=== PATIENT | male | born 1960 | race African-American/Black ===

== ENCOUNTER 2016-08-17 12:45 | Inpatient (IN) | payer OTHER ==
[2016-08-17 13:27] VITALS: BMI 25.5
--- NOTE | 2016-08-17 14:39 | HP ---
CIWA Score - CIWA Score Nausea/Vomitin (& DIARRHEA) Muscle Tremors: 4-Moderate,w/Arms Extend Anxiety: 5 Agitation: 5 Paroxysmal Sweats: 3 Orientation: 0-Oriented Tacttile Disturbances: 1-Very Mild Itch/Numbness Auditory Disturbances: 0-None Visual Disturbances: 0-None Headache: 0-None Present CIWA-Ar Total Score: 21 Admission ROS BHS - HPI Chief Complaint: WITHDRAWAL SX. Allergies/Adverse Reactions: Allergies Allergy/AdvReac Type Severity Reaction Status Date / Time No Known Allergies Allergy Verified 04/19/16 18:57 History of Present Illness: 56 Y/O MAN WITH A LONG HX. OF ALCOHOLISM IS ADMITTED FOR DETOX.PT. HAS BEEN IN PREVIOUS DENIES SIGNIFICANT RECOVERY TIME. Exam Limitations: No Limitations - Ebola screening Have you traveled outside of the country in the last 21 days: No Have you had contact with anyone from an Ebola affected area: No Have you been sick,other than usual withdrawal symptoms: No Do you have a fever: No - Review of Systems Constitutional: Diaphoresis EENT: reports: No Symptoms Reported Respiratory: reports: No Symptoms reported Cardiac: reports: No Symptoms Reported GI: reports: Diarrhea, Nausea, Abdominal cramping : reports: Frequency Musculoskeletal: reports: No Symptoms Reported Integumentary: reports: Sweating Neuro: reports: Tingling, Tremors Endocrine: reports: No Symptoms Reported Hematology: reports: No Symptoms Reported Psychiatric: reports: No Sypmtoms Reported Other Systems: Reviewed and Negative Patient History - Patient Medical History Hx Anemia: No Hx Asthma: No Hx Chronic Obstructive Pulmonary Disease (COPD): No Hx Cancer: No Hx Cardiac Disorders: No Hx Congestive Heart Failure: No Hx Hypertension: Yes Hx Hypercholesterolemia: Yes (on med) Hx Pacemaker: No HX Cerebrovascular Accident: No Hx Seizures: No Hx Dementia: No Hx Diabetes: No Hx Gastrointestinal Disorders: No Hx Liver Disease: No Hx Genitourinary Disorders: No Hx Sexually Transmitted Disorders: Yes (SYPHILLIS) Hx Renal Disease (ESRD): No Hx Thyroid Disease: No Hx Human Immunodeficiency Virus (HIV): Yes (since 1989) Hx Hepatitis C: Yes (TREATED IN 2014) Hx Depression: No Hx Suicide Attempt: No Hx Bipolar Disorder: No Hx Schizophrenia: No - Patient Surgical History Past Surgical History: No Hx Neurologic Surgery: No Hx Cataract Extraction: No Hx Cardiac Surgery: No Hx Lung Surgery: No Hx Breast Surgery: No Hx Breast Biopsy: No Hx Abdominal Surgery: No Hx Appendectomy: No Hx Cholecystectomy: No Hx Genitourinary Surgery: No Hx Section: No Hx Orthopedic Surgery: No Anesthesia Reaction: No - PPD History Previous Implant?: Yes Documented Results: Negative w/proof Implanted On Prior [facility] Admission?: Yes Date: 08/13/15 Results: 0 mm PPD to be Administered?: Yes - Smoking Cessation Smoking history: Current every day smoker Have you smoked in the past 12 months: Yes Aproximately how many cigarettes per day: 20 Cigars Per Day: 0 Hx Chewing Tobacco Use: No Initiated information on smoking cessation: Yes 'Breaking Loose' booklet given: 08/17/16 - Substance & Tx. History Hx Alcohol Use: Yes Hx Substance Use: Yes Substance Use Type: Alcohol, Cocaine, Marijuana Hx Substance Use Treatment: Yes (DETOX) - Substances Abused Alcohol Route: Oral Frequency: Daily Amount used: BEER 1-2 (6PACK) Age of first use: 12 Date of Last Use: 08/17/16 Crack Route: Smoking Frequency: 1-2 times per week Amount used: $100.00 Age of first use: 40 Date of Last Use: 08/16/16 Marijuana/Hashish Route: Smoking Frequency: Daily Amount used: $10.00 Age of first use: 13 Date of Last Use: 08/17/16 Family Disease History - Family Disease History Family Disease History: Heart Disease: Mother (HTN) Admission Physical Exam BHS - Vital Signs Vital Signs: Vital Signs - 24 hr 08/17/16 13:25 Temperature 96.9 F L Pulse Rate 101 H Respiratory 20 Rate Blood Pressure 112/83 - Physical General Appearance: Yes: Alcohol on Breath, Intoxicated, Tremorous, Irritable, Sweating, Anxious HEENTM: Yes: Within Normal Limits Respiratory: Yes: Chest Non-Tender, Lungs Clear, Normal Breath Sounds Neck: Yes: Supple Breast: Yes: Breast Exam Deferred Cardiology: Yes: Regular Rhythm, Regular Rate, S1, S2 Abdominal: Yes: Normal Bowel Sounds, Non Tender, Soft Genitourinary: Yes: Within Normal Limits Back: Yes: Within Normal Limits Musculoskeletal: Yes: Within Normal Limits Extremities: Yes: Tremors Neurological: Yes: Fully Oriented, Alert Integumentary: Yes: Diaphoresis Lymphatic: Yes: Within Normal Limits - Diagnostic (1) Cannabis dependence Current Visit: Yes Status: Acute (2) Cocaine dependence Current Visit: Yes Status: Acute (3) Nicotine dependence Current Visit: Yes Status: Acute Qualifiers: Nicotine product type: cigarettes Substance use status: uncomplicated Qualified Code(s): F17.210 - Nicotine dependence, cigarettes, uncomplicated (4) Alcohol dependence with uncomplicated withdrawal Current Visit: Yes Status: Chronic (5) Essential hypertension Current Visit: Yes Status: Chronic (6) Human immunodeficiency virus infection Current Visit: Yes Status: Chronic Comment: own meds (7) hypercholesterolemia Current Visit: Yes Status: Chronic Cleared for Admission [facility] - Detox or Rehab [facility] Level of Care: Medically Managed Detox Regimen/Protocol: Librium [facility] Breath Alcohol Content Breath Alcohol Content: 0.152 Urine Drug Screen - Results Drug Screen Negative: No Urine Drug Screen Results: THC-Marijuana, SERAFIN-Cocaine, BZO-Benzodiazepines
[2016-08-17] MEDS ORDERED: hydrOXYzine PAMOATE 50 MG CAPSULE (FP) PO PRN (14:51)
[2016-08-17] MEDS ORDERED: NICOTINE POLACRILEX 2 MG GUM BC PRN (14:51)
[2016-08-17] MEDS ORDERED: IBUPROFEN 400 MG TABLET (FP) PO PRN (14:51)
[2016-08-17] MEDS ORDERED: LOPERAMIDE HCL 2 MG CAPSULE PO PRN (14:51)
[2016-08-17] MEDS ORDERED: guaiFENesin/D-METHORPHAN HB 10 ML UNIT-DOSE CUPS PO PRN (14:51)
[2016-08-17] MEDS ORDERED: MENTHOL/PHENOL 1 EACH UD MM PRN (14:51)
[2016-08-17] MEDS ORDERED: chlordiazePOXIDE HCL 25 MG CAPSULE PO PRN (14:51)
[2016-08-17] MEDS ORDERED: P-EPHED 60MG/TRIPROLIDI 2.5MG TABLET PO PRN (14:51)
[2016-08-17] MEDS ORDERED: chlordiazePOXIDE HCL 25 MG CAPSULE PO ONE (14:51)
[2016-08-17] MEDS ORDERED: MAGNESIUM HYDROX 2400MG/30ML ORAL SUSPENSION 30 ML CUP PO PRN (14:51)
[2016-08-17] MEDS ORDERED: ACETAMINOPHEN 325 MG TABLET (FP) PO PRN (14:51)
[2016-08-17] MEDS ORDERED: MAGNESIUM CITRATE 300 ML BOTTLE PO PRN (14:51)
[2016-08-17] MEDS: chlordiazePOXIDE HCL 25 MG CAPSULE PO SCH ×2 (17:15→22:42)
[2016-08-17] MEDS: NICOTINE 21 MG/24 HOURS TOPICAL PATCH TD SCH (17:21)
[2016-08-17] MEDS: RALTEGRAVIR POTASSIUM 400 MG TAB PO SCH (22:41)
[2016-08-17] MEDS: THIAMINE HCL 100 MG TABLET (FP) PO SCH (22:41)
[2016-08-17] MEDS: ATORVASTATIN CA 20 MG TABLET (FP) PO SCH (22:41)
[2016-08-17] MEDS: diphenhydrAMINE HCL 50 MG CAPSULE PO PRN (22:43)
[2016-08-17 22:57] LABS: URINE APPEARANCE CLEAR; URINE BILIRUBIN NEGATIVE (NEGATIVE); URINE COLOR STRAW; URINE GLUCOSE (UA) NEGATIVE (NEGATIVE); URINE KETONE NEGATIVE (NEGATIVE); URINE LEUK ESTERASE NEGATIVE (NEGATIVE); URINE NITRITE NEGATIVE (NEGATIVE); URINE PROTEIN NEGATIVE (NEGATIVE); URINE UROBILINOGEN NEGATIVE E.U./dl (0.2-1.0)
[2016-08-17 23:02] LABS: URINE BLOOD 2+ (NEGATIVE)
[2016-08-17 23:05] LABS: URINE WBC <1 /hpf (3-5)
[2016-08-18] MEDS: chlordiazePOXIDE HCL 25 MG CAPSULE PO SCH ×4 (05:48→22:45)
[2016-08-18 10:30] LABS: MCH 30.8 pg (25.7-33.7); MCHC 33.2 g/dl (32.0-35.9); MEAN CELL VOLUME 92.7 fl (80-96); MEAN PLT VOLUME 8.7 fl (7.5-11.1); PLATELET COUNT 138 K/MM3 (134-434); RDW 16.7 % (11.9-15.9); WHITE BLOOD COUNT 3.6 K/mm3 (4.0-10.0)
[2016-08-18] MEDS: DARUNAVIR ETHANOLATE 800 MG TAB PO SCH (10:37)
[2016-08-18] MEDS: RALTEGRAVIR POTASSIUM 400 MG TAB PO SCH ×2 (10:37→22:45)
[2016-08-18] MEDS: amLODIPine BESYLATE 10 MG TABLET (FP) PO SCH (10:37)
[2016-08-18] MEDS: RITONAVIR 100 MG TABLET PO SCH (10:38)
[2016-08-18] MEDS: NICOTINE 21 MG/24 HOURS TOPICAL PATCH TD SCH (10:38)
[2016-08-18] MEDS: PRENATAL VITAMINS W/ FOLIC ACID TABLET (FP) PO SCH (10:38)
[2016-08-18 11:17] LABS: ALBUMIN 3.4 g/dl (3.4-5.0); ALK PHOS 109 U/L (45-117); ANION GAP 8 (8-16); BILIRUBIN,TOTAL 1.2 mg/dL (0.2-1.0); CALCIUM 8.8 mg/dL (8.5-10.1); CO2 28 mmol/L (21-32); GLUCOSE,RANDOM 92 mg/dL (74-106); SGOT/AST 50 U/L (15-37); SGPT/ALT 39 U/L (12-78); TOT PROT 6.7 g/dl (6.4-8.2)
--- NOTE | 2016-08-18 13:33 | PN ---
S CIWA - CIWA Score Nausea/Vomitin-No Nausea/No Vomiting Muscle Tremors: 4-Moderate,w/Arms Extend Anxiety: 3 Agitation: 3 Paroxysmal Sweats: 3 Orientation: 0-Oriented Tacttile Disturbances: 1-Very Mild Itch/Numbness Auditory Disturbances: 0-None Visual Disturbances: 0-None Headache: 0-None Present CIWA-Ar Total Score: 14 BHS Progress Note (SOAP) Subjective: SWEATING,INTERRUPTED SLEEP,ANXIETY,TREMORS,RESTLESS. Objective: 08/18/16 13:32 Vital Signs - 8 hr 08/18/16 08/18/16 06:16 07:27 Temperature 98.3 F 96.3 F L Pulse Rate 70 74 Respiratory 18 18 Rate Blood Pressure 147/101 136/96 Laboratory Last Values WBC 3.6 K/mm3 (4.0-10.0) L 08/18/16 07:15 RBC 5.14 M/mm3 (4.00-5.60) 08/18/16 07:15 Hgb 15.8 GM/dL (11.7-16.9) 08/18/16 07:15 Hct 47.7 % (35.4-49) 08/18/16 07:15 MCV 92.7 fl (80-96) 08/18/16 07:15 MCHC 33.2 g/dl (32.0-35.9) 08/18/16 07:15 RDW 16.7 % (11.9-15.9) H 08/18/16 07:15 Plt Count 138 K/MM3 (134-434) 08/18/16 07:15 MPV 8.7 fl (7.5-11.1) 08/18/16 07:15 Sodium 142 mmol/L (136-145) 08/18/16 07:15 Potassium 3.8 mmol/L (3.5-5.1) 08/18/16 07:15 Chloride 106 mmol/L (98-107) 08/18/16 07:15 Carbon Dioxide 28 mmol/L (21-32) 08/18/16 07:15 Anion Gap 8 (8-16) 08/18/16 07:15 BUN 12 mg/dL (7-18) 08/18/16 07:15 Creatinine 1.0 mg/dL (0.7-1.3) 08/18/16 07:15 Creat Clearance w eGFR > 60 (>60) 08/18/16 07:15 Random Glucose 92 mg/dL (74-106) 08/18/16 07:15 Calcium 8.8 mg/dL (8.5-10.1) 08/18/16 07:15 Total Bilirubin 1.2 mg/dL (0.2-1.0) H D 08/18/16 07:15 AST 50 U/L (15-37) H 08/18/16 07:15 ALT 39 U/L (12-78) 08/18/16 07:15 Alkaline Phosphatase 109 U/L (45-117) 08/18/16 07:15 Total Protein 6.7 g/dl (6.4-8.2) 08/18/16 07:15 Albumin 3.4 g/dl (3.4-5.0) 08/18/16 07:15 Urine Color Straw 08/17/16 22:45 Urine Appearance Clear 08/17/16 22:45 Urine pH 6.0 (5.0-8.0) 08/17/16 22:45 Ur Specific [place] 1.003 (1.001-1.035) 08/17/16 22:45 Urine Protein Negative (NEGATIVE) 08/17/16 22:45 Urine Glucose (UA) Negative (NEGATIVE) 08/17/16 22:45 Urine Ketones Negative (NEGATIVE) 08/17/16 22:45 Urine Blood 2+ (NEGATIVE) H 08/17/16 22:45 Urine Nitrite Negative (NEGATIVE) 08/17/16 22:45 Urine Bilirubin Negative (NEGATIVE) 08/17/16 22:45 Urine Urobilinogen Negative E.U./dl (0.2-1.0) 08/17/16 22:45 Ur Leukocyte Esterase Negative (NEGATIVE) 08/17/16 22:45 Urine RBC None /hpf (0-3) 08/17/16 22:45 Urine WBC <1 /hpf (3-5) 08/17/16 22:45 Ur Epithelial Cells Rare /hpf (FEW) 08/17/16 22:45 LABS NOTED Assessment: 08/18/16 13:33 WITHDRAWAL SX. Plan: CONTINUE DETOX
--- NOTE | 2016-08-18 19:58 | CONSULT ---
[facility] Psychiatric Consult - Data Date of interview: 08/18/16 Admission source: [facility] Identifying data: Readmission to [facility] for this 56 y/o AA male seeking detox treatment on for alcohol,cannabis and cocaine dependence.Patient is single without children,domiciled ([facility] setting),unemployed and supported on SSI benefits. Substance Abuse History: - Smoking Cessation. Smoking history: Current every day smoker. Have you smoked in the past 12 months: Yes. Aproximately how many cigarettes per day: 20. Cigars Per Day: 0. Hx Chewing Tobacco Use: No. Initiated information on smoking cessation: Yes. 'Breaking Loose' booklet given : 08/17/16. - Substance & Tx. History. Hx Alcohol Use: Yes. Hx Substance Use : Yes. Substance Use Type: Alcohol, Cocaine, Marijuana. Hx Substance Use Treatment: Yes (DETOX). - Substances Abused. Alcohol. Route: Oral. Frequency: Daily. Amount used: BEER 1-2 (6PACK). Age of first use: 12. Date of Last Use: 08/17/16. Crack. Route: Smoking. Frequency: 1-2 times per week. Amount used: $100.00. Age of first use: 40. Date of Last Use: . Marijuana/Hashish. Route: Smoking. Frequency: Daily. Amount used: $ 10.00. Age of first use: 13. Date of Last Use: 08/17/16. Confirmed by patient. Medical History: Significant for HIV infection since 1989,hypertension, hepatitis C,past treatment for syphilis and dyslipidemia. Psychiatric History: Patient denies. Physical/Sexual Abuse/Trauma History: Patient denies. Mental Status Exam - Mental Status Exam Alert and Oriented to: Time, Place, Person Cognitive Function: Good Patient Appearance: Well Groomed Mood: Withdrawn, Anxious, Irritable Affect: Constricted Patient Behavior: Fatigued, Appropriate, Cooperative Speech Pattern: Clear Voice Loudness: Normal Thought Process: Goal Oriented Thought Disorder: Not Present Hallucinations: Denies Suicidal Ideation: Denies Homicidal Ideation: Denies Insight/Judgement: Poor Sleep: Well Appetite: Good Muscle strength/Tone: Normal Gait/Station: Normal Psychiatric Findings - Problem List ([place] 1, 2,3) (1) Alcohol dependence with uncomplicated withdrawal Current Visit: Yes Status: Acute (2) Cannabis dependence Current Visit: Yes Status: Acute (3) Cocaine dependence Current Visit: Yes Status: Acute (4) Nicotine dependence Current Visit: Yes Status: Acute Qualifiers: Nicotine product type: cigarettes Substance use status: uncomplicated Qualified Code(s): F17.210 - Nicotine dependence, cigarettes, uncomplicated (5) Drug-induced mood disorder Current Visit: Yes Status: Chronic (6) Essential hypertension Current Visit: Yes Status: Chronic (7) Human immunodeficiency virus infection Current Visit: Yes Status: Chronic Comment: own meds (8) hypercholesterolemia Current Visit: Yes Status: Chronic (9) Weight decreased Current Visit: Yes Status: Chronic - Initial Treatment Plan Initial Treatment Plan: Psychoeducation.Detoxification.Observation.
[2016-08-18] MEDS: THIAMINE HCL 100 MG TABLET (FP) PO SCH (22:44)
[2016-08-18] MEDS: ATORVASTATIN CA 20 MG TABLET (FP) PO SCH (22:45)
[2016-08-18] MEDS: diphenhydrAMINE HCL 50 MG CAPSULE PO PRN (22:45)
[2016-08-18] MEDS: MAG HYDROX/AL HYDROX/SIMETH 30 ML UNIT-DOSE CUP PO PRN (23:14)
[2016-08-19] MEDS: chlordiazePOXIDE HCL 25 MG CAPSULE PO SCH ×2 (05:14→10:11)
[2016-08-19] MEDS ORDERED: cloNIDine HCL 0.1 MG TABLET PO ONE (07:12)
--- NOTE | 2016-08-19 07:14 | PN ---
BHS Progress Note Note: Last Vital Signs Temp Pulse Resp BP Pulse Ox 97.5 F L 77 18 143/101 08/19/16 06:40 08/19/16 06:40 08/19/16 06:40 08/19/16 06:40 BP ELEVATED; ONE TIME ORDER OF CLONIDINE 0.1MG ORDERED WILL CONTINUE TO MONITOR.
[2016-08-19] MEDS: DARUNAVIR ETHANOLATE 800 MG TAB PO SCH (10:10)
[2016-08-19] MEDS: RALTEGRAVIR POTASSIUM 400 MG TAB PO SCH ×2 (10:10→22:09)
[2016-08-19] MEDS: PRENATAL VITAMINS W/ FOLIC ACID TABLET (FP) PO SCH (10:10)
[2016-08-19] MEDS: amLODIPine BESYLATE 10 MG TABLET (FP) PO SCH (10:10)
[2016-08-19] MEDS: NICOTINE 21 MG/24 HOURS TOPICAL PATCH TD SCH (10:11)
[2016-08-19] MEDS: RITONAVIR 100 MG TABLET PO SCH (10:11)
--- NOTE | 2016-08-19 10:35 | PN ---
[facility] CIWA - CIWA Score Nausea/Vomitin Muscle Tremors: 3 Anxiety: 3 Agitation: 2 Paroxysmal Sweats: 1-Minimal Palms Moist Orientation: 0-Oriented Tacttile Disturbances: 1-Very Mild Itch/Numbness Auditory Disturbances: 1-Very Mild Visual Disturbances: 1-Very Mild Sensitivity Headache: 2-Mild CIWA-Ar Total Score: 17 BHS Progress Note (SOAP) Subjective: ALERT,IRRITABLE,ANXIOUS,INTERRUPTED SLEEP,TREMOR Objective: 08/19/16 10:33 Vital Signs Temperature 97.5 F L 08/19/16 06:40 Pulse Rate 77 08/19/16 06:40 Respiratory Rate 18 08/19/16 06:40 Blood Pressure 143/101 08/19/16 06:40 O2 Sat by Pulse Oximetry (%) EKG NSR LVH NO CHEST PAIN,NO SOB,NO DIZZINESS Laboratory Last Values WBC 3.6 K/mm3 (4.0-10.0) L 08/18/16 07:15 RBC 5.14 M/mm3 (4.00-5.60) 08/18/16 07:15 Hgb 15.8 GM/dL (11.7-16.9) 08/18/16 07:15 Hct 47.7 % (35.4-49) 08/18/16 07:15 MCV 92.7 fl (80-96) 08/18/16 07:15 MCHC 33.2 g/dl (32.0-35.9) 08/18/16 07:15 RDW 16.7 % (11.9-15.9) H 08/18/16 07:15 Plt Count 138 K/MM3 (134-434) 08/18/16 07:15 MPV 8.7 fl (7.5-11.1) 08/18/16 07:15 Sodium 142 mmol/L (136-145) 08/18/16 07:15 Potassium 3.8 mmol/L (3.5-5.1) 08/18/16 07:15 Chloride 106 mmol/L (98-107) 08/18/16 07:15 Carbon Dioxide 28 mmol/L (21-32) 08/18/16 07:15 Anion Gap 8 (8-16) 08/18/16 07:15 BUN 12 mg/dL (7-18) 08/18/16 07:15 Creatinine 1.0 mg/dL (0.7-1.3) 08/18/16 07:15 Creat Clearance w eGFR > 60 (>60) 08/18/16 07:15 Random Glucose 92 mg/dL (74-106) 08/18/16 07:15 Calcium 8.8 mg/dL (8.5-10.1) 08/18/16 07:15 Total Bilirubin 1.2 mg/dL (0.2-1.0) H D 08/18/16 07:15 AST 50 U/L (15-37) H 08/18/16 07:15 ALT 39 U/L (12-78) 08/18/16 07:15 Alkaline Phosphatase 109 U/L (45-117) 08/18/16 07:15 Total Protein 6.7 g/dl (6.4-8.2) 08/18/16 07:15 Albumin 3.4 g/dl (3.4-5.0) 08/18/16 07:15 Urine Color Straw 08/17/16 22:45 Urine Appearance Clear 08/17/16 22:45 Urine pH 6.0 (5.0-8.0) 08/17/16 22:45 Ur Specific [place] 1.003 (1.001-1.035) 08/17/16 22:45 Urine Protein Negative (NEGATIVE) 08/17/16 22:45 Urine Glucose (UA) Negative (NEGATIVE) 08/17/16 22:45 Urine Ketones Negative (NEGATIVE) 08/17/16 22:45 Urine Blood 2+ (NEGATIVE) H 08/17/16 22:45 Urine Nitrite Negative (NEGATIVE) 08/17/16 22:45 Urine Bilirubin Negative (NEGATIVE) 08/17/16 22:45 Urine Urobilinogen Negative E.U./dl (0.2-1.0) 08/17/16 22:45 Ur Leukocyte Esterase Negative (NEGATIVE) 08/17/16 22:45 Urine RBC None /hpf (0-3) 08/17/16 22:45 Urine WBC <1 /hpf (3-5) 08/17/16 22:45 Ur Epithelial Cells Rare /hpf (FEW) 08/17/16 22:45 RPR Titer Reactive 1:2 (NONREACTIVE) H 08/18/16 07:15 T.pallidum Ab (MHA) Previously reactive (NONREACTIVE) 08/18/16 07:15 Assessment: 08/19/16 10:34 WITHDRAWAL SYMPTOM Plan: CONTINUE DETOX
[2016-08-19] MEDS: chlordiazePOXIDE 5 MG CAPSULE PO SCH ×2 (17:25→22:09)
[2016-08-19] MEDS: ATORVASTATIN CA 20 MG TABLET (FP) PO SCH (22:09)
[2016-08-19] MEDS: diphenhydrAMINE HCL 50 MG CAPSULE PO PRN ×2 (22:09→23:46)
[2016-08-19] MEDS: THIAMINE HCL 100 MG TABLET (FP) PO SCH (22:09)
[2016-08-19] MEDS: MAG HYDROX/AL HYDROX/SIMETH 30 ML UNIT-DOSE CUP PO PRN (22:13)
[2016-08-20] MEDS: chlordiazePOXIDE 5 MG CAPSULE PO SCH ×2 (05:33→10:28)
--- NOTE | 2016-08-20 10:20 | PN ---
S Progress Note (SOAP) Subjective: ALERT,IRRITABLE,INTERRUPTED SLEEP Objective: 08/20/16 10:19 Vital Signs Temperature 96.0 F L 08/20/16 09:39 Pulse Rate 75 08/20/16 09:39 Respiratory Rate 18 08/20/16 09:39 Blood Pressure 136/91 08/20/16 09:39 O2 Sat by Pulse Oximetry (%) Assessment: 08/20/16 10:19 WITHDRAWAL SYMPTOM Plan: CONTINUE DETOX,DISCHARGE IN AM
[2016-08-20] MEDS: RITONAVIR 100 MG TABLET PO SCH (10:28)
[2016-08-20] MEDS: PRENATAL VITAMINS W/ FOLIC ACID TABLET (FP) PO SCH (10:28)
[2016-08-20] MEDS: NICOTINE 21 MG/24 HOURS TOPICAL PATCH TD SCH (10:28)
[2016-08-20] MEDS: amLODIPine BESYLATE 10 MG TABLET (FP) PO SCH (10:28)
[2016-08-20] MEDS: DARUNAVIR ETHANOLATE 800 MG TAB PO SCH (10:28)
[2016-08-20] MEDS: RALTEGRAVIR POTASSIUM 400 MG TAB PO SCH ×2 (10:28→22:19)
[2016-08-20] MEDS: MAG HYDROX/AL HYDROX/SIMETH 30 ML UNIT-DOSE CUP PO PRN (15:36)
[2016-08-20] MEDS: chlordiazePOXIDE HCL 10 MG CAPSULE PO SCH ×2 (17:11→22:19)
[2016-08-20] MEDS: ATORVASTATIN CA 20 MG TABLET (FP) PO SCH (22:19)
[2016-08-20] MEDS: THIAMINE HCL 100 MG TABLET (FP) PO SCH (22:20)
[2016-08-20] MEDS: diphenhydrAMINE HCL 50 MG CAPSULE PO PRN (22:20)
[2016-08-21] MEDS: chlordiazePOXIDE HCL 10 MG CAPSULE PO SCH (05:53)
[2016-08-21 06:32] VITALS: BP 134/90; PULSE 73; TEMP 97.9
--- NOTE | 2016-08-21 08:32 | PN ---
S Progress Note (SOAP) Subjective: alert,no complaint Objective: 08/21/16 08:31 Vital Signs Temperature 97.9 F 08/21/16 06:32 Pulse Rate 73 08/21/16 06:32 Respiratory Rate 18 08/21/16 06:32 Blood Pressure 134/90 08/21/16 06:32 O2 Sat by Pulse Oximetry (%) Assessment: 08/21/16 08:31 detox completed,no withdrawal symptom Plan: discharge today,follow up with after care program as arrangement
--- NOTE | 2016-08-21 08:35 | DS ---
[facility] Detox Discharge Summary Admission Date: 08/17/16 Discharge Date: 08/21/16 - History Present History: Alcohol Dependence, Cannabis Dependence Additional Comments: follow up with after [facility] program as arrangement and pmd for medical problem Pertinent Past History: essential hypertension hiv nicotine dependence - Physical Exam Results Vital Signs: Vital Signs Temperature 97.9 F 08/21/16 06:32 Pulse Rate 73 08/21/16 06:32 Respiratory Rate 18 08/21/16 06:32 Blood Pressure 134/90 08/21/16 06:32 O2 Sat by Pulse Oximetry (%) Pertinent Admission Physical Exam Findings: withdrawal symptom - Treatment Hospital Course: Detox Protocol Followed, Detoxed Safely, Responded well, Discharged Condition Good Patient has Accepted a Rehab Referral to: declined - Medication Discharge Medications: Ambulatory Orders Amlodipine Besylate [Norvasc -] 10 mg PO DAILY #30 tablet 04/28/14 Atorvastatin Ca [Lipitor] 20 mg PO HS #30 tablet 04/28/14 Darunavir/Cobicistat [Prezcobix 800 mg-150 mg Tablet] 1 each PO DAILY 06/03/16 Dolutegravir Sodium [Tivicay] 50 mg PO DAILY 06/03/16 - AMA Did Patient Leave Against Medical Advice: No
[2016-08-21] MEDS: amLODIPine BESYLATE 10 MG TABLET (FP) PO SCH (09:13)
[2016-08-21] MEDS: PRENATAL VITAMINS W/ FOLIC ACID TABLET (FP) PO SCH (09:13)
[2016-08-21] MEDS: RALTEGRAVIR POTASSIUM 400 MG TAB PO SCH (09:13)
[2016-08-21] MEDS: DARUNAVIR ETHANOLATE 800 MG TAB PO SCH (09:13)
[2016-08-21] MEDS: RITONAVIR 100 MG TABLET PO SCH (09:14)
[2016-08-21] MEDS: NICOTINE 21 MG/24 HOURS TOPICAL PATCH TD SCH (09:14)
== END 2016-08-21 09:28 | disposition home or self-care (01) | DRG 774 ==
LOC: YASAS 12:45 → Y3N 15:41
PROVIDERS: ADMIT Internal Medicine; ATTEND Internal Medicine
PROC: HZ2ZZZZ Detoxification Services for Substance Abuse Treatment (ICD-10-PCS; principal; 2016-08-17)
DX: F10.230 Alcohol dependence with withdrawal, uncomplicated (principal); F14.20 Cocaine dependence, uncomplicated; F12.20 Cannabis dependence, uncomplicated; F17.210 Nicotine dependence, cigarettes, uncomplicated; F19.24 Other psychoactive substance dependence with psychoactive substance-induced mood disorder; Z21 Asymptomatic human immunodeficiency virus [HIV] infection status; I10 Essential (primary) hypertension; E78.00 Pure hypercholesterolemia, unspecified; B18.2 Chronic viral hepatitis C; Z87.438 Personal history of other diseases of male genital organs; Z87.898 Personal history of other specified conditions
CPT/HCPCS: 36415; 80053; 81003; 81015; 85027; 86593; 86780; 93005; 93010

== ENCOUNTER 2016-11-22 13:34 | Inpatient (IN) | payer OTHER ==
[2016-11-22 13:55] VITALS: BMI 25.7
--- NOTE | 2016-11-22 14:21 | HP ---
CIWA Score - CIWA Score Nausea/Vomitin-Mild Nausea/No Vomiting Muscle Tremors: 4-Moderate,w/Arms Extend Anxiety: 4-Mod. Anxious/Guarded Agitation: 1-Slight > Activity Paroxysmal Sweats: 1-Minimal Palms Moist Orientation: 1-Uncertain about Date Tacttile Disturbances: 1-Very Mild Itch/Numbness Auditory Disturbances: 1-Very Mild Visual Disturbances: 1-Very Mild Sensitivity Headache: 1-Very Mild CIWA-Ar Total Score: 16 Admission ROS S - HPI Chief Complaint: I need help to stop Allergies/Adverse Reactions: Allergies Allergy/AdvReac Type Severity Reaction Status Date / Time No Known Allergies Allergy Verified 08/17/16 15:04 History of Present Illness: 56 yo gentleman here for detox from alcohol - polysubstance dependence - no seizures, but does have black outs. Also with HIV. This is one of multiple admissions for detox. Exam Limitations: Clinical Condition - Ebola screening Have you traveled outside of the country in the last 21 days: No Have you had contact with anyone from an Ebola affected area: No Have you been sick,other than usual withdrawal symptoms: No Do you have a fever: No - Review of Systems Constitutional: Loss of Appetite, Malaise, Changes in sleep, Weakness EENT: reports: Blurred Vision Respiratory: reports: No Symptoms reported Cardiac: reports: No Symptoms Reported GI: reports: Poor Appetite, Indigestion : reports: Frequency Musculoskeletal: reports: Back Pain Integumentary: reports: Dryness Neuro: reports: No Symptoms reported Endocrine: reports: No Symptoms Reported Hematology: reports: No Symptoms Reported Psychiatric: reports: Judgement Intact, Mood/Affect Appropiate, Anxious Other Systems: Reviewed and Negative Patient History - Patient Medical History Hx Anemia: No Hx Asthma: No Hx Chronic Obstructive Pulmonary Disease (COPD): No Hx Cancer: No Hx Cardiac Disorders: No Hx Congestive Heart Failure: No Hx Hypertension: Yes Hx Hypercholesterolemia: Yes (on med) Hx Pacemaker: No HX Cerebrovascular Accident: No Hx Seizures: No Hx Dementia: No Hx Diabetes: No Hx Gastrointestinal Disorders: No Hx Liver Disease: No Hx Genitourinary Disorders: No Hx Sexually Transmitted Disorders: Yes (treated years agbo) Hx Renal Disease (ESRD): No Hx Thyroid Disease: No Hx Human Immunodeficiency Virus (HIV): Yes (since 1989 't cells are good') Hx Hepatitis C: Yes (TREATED IN 2014) Hx Depression: Yes (never treated) Hx Suicide Attempt: No Hx Bipolar Disorder: No Hx Schizophrenia: No - Patient Surgical History Past Surgical History: No Hx Neurologic Surgery: No Hx Cataract Extraction: No Hx Cardiac Surgery: No Hx Lung Surgery: No Hx Breast Surgery: No Hx Breast Biopsy: No Hx Abdominal Surgery: No Hx Appendectomy: No Hx Cholecystectomy: No Hx Genitourinary Surgery: No Hx Section: No Hx Orthopedic Surgery: No Anesthesia Reaction: No - PPD History Previous Implant?: Yes Date: 08/19/16 Results: 0 mm PPD to be Administered?: No - Reproductive History Patient is a Female of Child Bearing Age (11 -55 yrs old): No (male) - Smoking Cessation Smoking history: Current every day smoker Have you smoked in the past 12 months: Yes Aproximately how many cigarettes per day: 20 Cigars Per Day: 0 Hx Chewing Tobacco Use: No Initiated information on smoking cessation: Yes 'Breaking Loose' booklet given: 11/22/16 (give on floor) - Substance & Tx. History Hx Alcohol Use: Yes Hx Substance Use: Yes Substance Use Type: Alcohol, Cocaine, Marijuana Hx Substance Use Treatment: Yes (detox, rehab) - Substances Abused Alcohol Route: Oral Frequency: Daily Amount used: 2 pints Age of first use: 12 Date of Last Use: 11/22/16 Cocaine Route: Smoking Frequency: Daily Amount used: $100 Age of first use: 30 Date of Last Use: 11/22/16 Marijuana/Hashish Route: Smoking Frequency: Daily Amount used: 1 blunt Age of first use: 11 Date of Last Use: 11/22/16 Family Disease History - Family Disease History Family Disease History: Heart Disease: Mother (HTN, ), Other: Father ( estranged), Brother ( 1 bro alive), Sister (2 sisters -) Admission Physical Exam BHS - Vital Signs Vital Signs: Vital Signs - 24 hr 11/22/16 13:53 Temperature 96.5 F L Pulse Rate 76 Respiratory 18 Rate Blood Pressure 150/94 - Physical General Appearance: Yes: Nourished, Appropriately Dressed, Mild Distress, Tremorous, Anxious HEENTM: Yes: Hearing grossly Normal, Normocephalic, Normal Voice, Pharynx Normal Respiratory: Yes: Normal Breath Sounds, No Respiratory Distress Neck: Yes: No masses,lesions,Nodules Breast: Yes: Breast Exam Deferred Cardiology: Yes: Regular Rhythm, Regular Rate Abdominal: Yes: Soft Genitourinary: Yes: Frequency Back: Yes: Normal Inspection Musculoskeletal: Yes: full range of Motion, Gait Steady, Back pain Extremities: Yes: Normal Inspection, Normal Range of Motion, Non-Tender Neurological: Yes: Fully Oriented, Alert, Normal Mood/Affect, Normal Response Integumentary: Yes: Normal Color, Warm Lymphatic: Yes: Within Normal Limits - Diagnostic (1) Syphilis contact, treated Current Visit: Yes Status: Chronic (2) Alcohol dependence with uncomplicated withdrawal Current Visit: Yes Status: Chronic (3) Cannabis dependence Current Visit: Yes Status: Chronic (4) Cocaine dependence Current Visit: Yes Status: Chronic (5) Nicotine dependence Current Visit: Yes Status: Chronic Qualifiers: Nicotine product type: cigarettes Substance use status: uncomplicated Qualified Code(s): F17.210 - Nicotine dependence, cigarettes, uncomplicated (6) Essential hypertension Current Visit: Yes Status: Chronic (7) Human immunodeficiency virus infection Current Visit: Yes Status: Chronic Comment: own meds (8) hypercholesterolemia Current Visit: Yes Status: Chronic Cleared for Admission [facility] - Detox or Rehab [facility] Level of Care: Medically Managed Detox Regimen/Protocol: Librium [facility] Breath Alcohol Content Breath Alcohol Content: 0.139 Urine Drug Screen - Results Drug Screen Negative: No Urine Drug Screen Results: THC-Marijuana, SERAFIN-Cocaine, PCP-Phencyclidine
[2016-11-22] MEDS ORDERED: LOPERAMIDE HCL 2 MG CAPSULE PO PRN (14:26)
[2016-11-22] MEDS ORDERED: IBUPROFEN 400 MG TABLET (FP) PO PRN (14:26)
[2016-11-22] MEDS ORDERED: hydrOXYzine PAMOATE 25 MG CAPSULE (FP) PO PRN (14:26)
[2016-11-22] MEDS ORDERED: MAGNESIUM HYDROX 2400MG/30ML ORAL SUSPENSION 30 ML CUP PO PRN (14:26)
[2016-11-22] MEDS ORDERED: NICOTINE POLACRILEX 2 MG GUM BC PRN (14:26)
[2016-11-22] MEDS ORDERED: chlordiazePOXIDE HCL 25 MG CAPSULE PO PRN (14:26)
[2016-11-22] MEDS ORDERED: guaiFENesin/D-METHORPHAN HB 10 ML UNIT-DOSE CUPS PO PRN (14:26)
[2016-11-22] MEDS ORDERED: P-EPHED 60MG/TRIPROLIDI 2.5MG TABLET PO PRN (14:26)
[2016-11-22] MEDS ORDERED: MAGNESIUM CITRATE 300 ML BOTTLE PO PRN (14:26)
[2016-11-22] MEDS ORDERED: chlordiazePOXIDE HCL 25 MG CAPSULE PO ONE (14:26)
[2016-11-22] MEDS ORDERED: MENTHOL/PHENOL 1 EACH UD MM PRN (14:26)
[2016-11-22] MEDS ORDERED: ACETAMINOPHEN 325 MG TABLET (FP) PO PRN (14:26)
[2016-11-22] MEDS: NICOTINE 14 MG/24 HOURS TOPICAL PATCH TD SCH (15:51)
[2016-11-22] MEDS: chlordiazePOXIDE HCL 25 MG CAPSULE PO SCH ×2 (17:25→22:30)
[2016-11-22] MEDS: ATORVASTATIN CA 20 MG TABLET (FP) PO SCH (22:30)
[2016-11-22] MEDS: THIAMINE HCL 100 MG TABLET (FP) PO SCH (22:30)
[2016-11-22] MEDS: RALTEGRAVIR POTASSIUM 400 MG TAB PO SCH (22:31)
[2016-11-22] MEDS: diphenhydrAMINE HCL 50 MG CAPSULE PO PRN (22:31)
[2016-11-23] MEDS: chlordiazePOXIDE HCL 25 MG CAPSULE PO SCH ×4 (05:27→22:27)
[2016-11-23 09:21] LABS: MCH 30.9 pg (25.7-33.7); MCHC 33.7 g/dl (32.0-35.9); MEAN CELL VOLUME 91.4 fl (80-96); MEAN PLT VOLUME 8.5 fl (7.5-11.1); PLATELET COUNT 136 K/MM3 (134-434); RDW 16.1 % (11.9-15.9); WHITE BLOOD COUNT 3.6 K/mm3 (4.0-10.0)
[2016-11-23 09:28] LABS: ALBUMIN 3.2 g/dl (3.4-5.0); ANION GAP 8 (8-16); BILIRUBIN,TOTAL 0.7 mg/dL (0.2-1.0); CALCIUM 8.4 mg/dL (8.5-10.1); CO2 27 mmol/L (21-32); COCKROFT - GAULT 111.79; CREATININE 0.8 mg/dL (0.7-1.3); GLUCOSE,RANDOM 76 mg/dL (74-106); SGOT/AST 98 U/L (15-37); SGPT/ALT 64 U/L (12-78); TOT PROT 6.2 g/dl (6.4-8.2)
[2016-11-23 09:29] LABS: ALK PHOS 128 U/L (45-117)
[2016-11-23] MEDS: amLODIPine BESYLATE 10 MG TABLET (FP) PO SCH (10:14)
[2016-11-23] MEDS: NICOTINE 14 MG/24 HOURS TOPICAL PATCH TD SCH (10:14)
[2016-11-23] MEDS: PRENATAL VITAMINS W/ FOLIC ACID TABLET (FP) PO SCH (10:14)
--- NOTE | 2016-11-23 10:21 | PN ---
S CIWA - CIWA Score Nausea/Vomitin-No Nausea/No Vomiting Muscle Tremors: 4-Moderate,w/Arms Extend Anxiety: 3 Agitation: 3 Paroxysmal Sweats: 3 Orientation: 0-Oriented Tacttile Disturbances: 1-Very Mild Itch/Numbness Auditory Disturbances: 0-None Visual Disturbances: 0-None Headache: 0-None Present CIWA-Ar Total Score: 14 BHS Progress Note (SOAP) Subjective: Anxiety,tremors,sweating,interrupted sleep,restless Objective: 11/23/16 10:20 Vital Signs - 8 hr 11/23/16 11/23/16 11/23/16 03:30 06:34 06:58 Temperature 96.7 F L Pulse Rate 86 72 74 Respiratory 18 Rate Blood Pressure 150/102 144/95 11/23/16 09:28 Temperature Pulse Rate 77 Respiratory 18 Rate Blood Pressure 159/95 Laboratory Tests 11/23/16 11/23/16 07:30 07:30 WBC 3.6 L RBC 4.74 Hgb 14.6 Hct 43.3 MCV 91.4 MCHC 33.7 RDW 16.1 H Plt Count 136 MPV 8.5 Sodium 143 Potassium 3.7 Chloride 108 H Carbon Dioxide 27 Anion Gap 8 BUN 14 Creatinine 0.8 Creat Clearance w eGFR > 60 Random Glucose 76 Calcium 8.4 L Total Bilirubin 0.7 D AST 98 H D ALT 64 D Alkaline Phosphatase 128 H Total Protein 6.2 L Albumin 3.2 L labs noted Assessment: 11/23/16 10:21 Withdrawal sx. Plan: Continue detox
[2016-11-23 11:35] LABS: HIV 1 AGp24 NEGATIVE
[2016-11-23 11:36] LABS: HIV 1 & 2 AB PRELIMINARY POSITIVE
[2016-11-23] MEDS: RALTEGRAVIR POTASSIUM 400 MG TAB PO SCH ×2 (12:11→22:27)
[2016-11-23] MEDS: DARUNAVIR ETHANOLATE 800 MG TAB PO SCH (12:11)
[2016-11-23] MEDS: RITONAVIR 100 MG TABLET PO SCH (12:12)
[2016-11-23 16:42] LABS: URINE APPEARANCE CLEAR; URINE BILIRUBIN NEGATIVE (NEGATIVE); URINE BLOOD NEGATIVE (NEGATIVE); URINE COLOR LTYELLOW; URINE GLUCOSE (UA) NEGATIVE (NEGATIVE); URINE KETONE NEGATIVE (NEGATIVE); URINE LEUK ESTERASE NEGATIVE (NEGATIVE); URINE NITRITE NEGATIVE (NEGATIVE); URINE PROTEIN NEGATIVE (NEGATIVE); URINE UROBILINOGEN NEGATIVE E.U./dl (0.2-1.0)
--- NOTE | 2016-11-23 17:17 | EKG ---
Test Reason : Blood Pressure : / mmHG Vent. Rate : 077 BPM Atrial Rate : 077 BPM P-R Int : 164 ms QRS Dur : 102 ms QT Int : 394 ms P-R-T Axes : 073 056 062 degrees QTc Int : 445 ms NORMAL SINUS RHYTHM VOLTAGE CRITERIA FOR LEFT VENTRICULAR HYPERTROPHY ABNORMAL ECG NO PREVIOUS ECGS AVAILABLE Confirmed by ROXIE HITCHCOCK MD ([id number]) on 11/23/2016 5:17:19 PM Referred By: Confirmed By:ROXIE HITCHCOCK MD
[2016-11-23] MEDS: ATORVASTATIN CA 20 MG TABLET (FP) PO SCH (22:27)
[2016-11-23] MEDS: diphenhydrAMINE HCL 50 MG CAPSULE PO PRN (22:27)
[2016-11-23] MEDS: THIAMINE HCL 100 MG TABLET (FP) PO SCH (22:27)
[2016-11-24] MEDS: chlordiazePOXIDE HCL 25 MG CAPSULE PO SCH ×2 (05:44→10:32)
--- NOTE | 2016-11-24 09:53 | CONSULT ---
[facility] Psychiatric Consult - Data Date of interview: 11/24/16 Admission source: [facility] Identifying data: This is 56 years old male with no psychiatric hospitalization history intoxicated with Cocaine, Opioids, Cannabis, Nicotine Substance Abuse History: - Smoking Cessation. Smoking history: Current every day smoker. Have you smoked in the past 12 months: Yes. Aproximately how many cigarettes per day: 20. Cigars Per Day: 0. Hx Chewing Tobacco Use: No. Initiated information on smoking cessation: Yes. 'Breaking Loose' booklet given : 11/22/16 (give on floor). - Substance & Tx. History. Hx Alcohol Use: Yes. Hx Substance Use: Yes. Substance Use Type: Alcohol, Cocaine, Marijuana. Hx Substance Use Treatment: Yes (detox, rehab). - Substances Abused. Alcohol. Route: Oral. Frequency: Daily. Amount used: 2 pints. Age of first use: 12. Date of Last Use: 11/22/16. Cocaine. Route: Smoking. Frequency: Daily. Amount used: $100. Age of first use: 30. Date of Last Use: 11/22/16. Marijuana/Hashish. Route: Smoking. Frequency: Daily. Amount used: 1 blunt. Age of first use: 11. Date of Last Use: 11/22/16 Medical History: HTN, HIV, Hypercholesterolemia, History of Syphilis contact, Weight loss, Hep C+ Psychiatric History: Patient rep[orts history of depression, reports no medications taking prior to admission Physical/Sexual Abuse/Trauma History: Denies Additional Comment: Observation. Detox Unit Care Protocol Mental Status Exam - Mental Status Exam Alert and Oriented to: Person Cognitive Function: Fair Patient Appearance: Unkempt Mood: Sad Affect: Mood Congruent Patient Behavior: Cooperative Speech Pattern: Appropriate Voice Loudness: Mildly Soft/Quiet Thought Process: Goal Oriented Thought Disorder: Being Controlled Hallucinations: Denies Suicidal Ideation: Denies Homicidal Ideation: Denies Insight/Judgement: Fair Sleep: Difficulty falling asleep Appetite: Weight loss Muscle strength/Tone: Mild Hypotonicity Gait/Station: Shuffling Additional Comments: Observation. Detox Unit Care Protocol Psychiatric Findings - Problem List ([place] 1, 2,3) (1) Alcohol dependence with uncomplicated withdrawal Current Visit: Yes Status: Chronic (2) Cannabis dependence Current Visit: Yes Status: Chronic (3) Cocaine dependence Current Visit: Yes Status: Chronic (4) Alcohol dependence Current Visit: No Status: Acute (5) Alcohol dependence with uncomplicated intoxication Current Visit: No Status: Acute (6) Drug-induced mood disorder Current Visit: No Status: Chronic - Initial Treatment Plan Initial Treatment Plan: Observation. Detox Unit Care Protocol
[2016-11-24] MEDS: PRENATAL VITAMINS W/ FOLIC ACID TABLET (FP) PO SCH (10:31)
[2016-11-24] MEDS: DARUNAVIR ETHANOLATE 800 MG TAB PO SCH (10:31)
[2016-11-24] MEDS: RITONAVIR 100 MG TABLET PO SCH (10:32)
[2016-11-24] MEDS: RALTEGRAVIR POTASSIUM 400 MG TAB PO SCH ×2 (10:32→22:27)
[2016-11-24] MEDS: amLODIPine BESYLATE 10 MG TABLET (FP) PO SCH (10:32)
[2016-11-24] MEDS: NICOTINE 14 MG/24 HOURS TOPICAL PATCH TD SCH (10:32)
--- NOTE | 2016-11-24 13:26 | PN ---
S CIWA - CIWA Score Nausea/Vomitin-No Nausea/No Vomiting Muscle Tremors: 3 Anxiety: 3 Agitation: 3 Paroxysmal Sweats: 3 Orientation: 0-Oriented Tacttile Disturbances: 0-None Auditory Disturbances: 0-None Visual Disturbances: 0-None Headache: 0-None Present CIWA-Ar Total Score: 12 BHS Progress Note (SOAP) Subjective: Anxiety,tremors,sweating,interrupted sleep,restless. Objective: 11/24/16 13:25 Vital Signs - 8 hr 11/24/16 11/24/16 06:46 09:52 Temperature 96 F L 96.8 F L Pulse Rate 77 83 Respiratory 18 18 Rate Blood Pressure 135/93 134/86 Laboratory Tests 11/23/16 11/23/16 11/23/16 07:30 07:30 07:30 WBC 3.6 L RBC 4.74 Hgb 14.6 Hct 43.3 MCV 91.4 MCHC 33.7 RDW 16.1 H Plt Count 136 MPV 8.5 Sodium 143 Potassium 3.7 Chloride 108 H Carbon Dioxide 27 Anion Gap 8 BUN 14 Creatinine 0.8 Creat Clearance w eGFR > 60 Random Glucose 76 Calcium 8.4 L Total Bilirubin 0.7 D AST 98 H D ALT 64 D Alkaline Phosphatase 128 H Total Protein 6.2 L Albumin 3.2 L Urine Color Urine Appearance Urine pH Ur Specific [place] Urine Protein Urine Glucose (UA) Urine Ketones Urine Blood Urine Nitrite Urine Bilirubin Urine Urobilinogen Ur Leukocyte Esterase RPR Titer Reactive 1:2 H T.pallidum Ab (MHA) Previously reactive HIV 1&2 Antibody Screen HIV P24 Antigen 11/23/16 11/23/16 07:30 16:32 WBC RBC Hgb Hct MCV MCHC RDW Plt Count MPV Sodium Potassium Chloride Carbon Dioxide Anion Gap BUN Creatinine Creat Clearance w eGFR Random Glucose Calcium Total Bilirubin AST ALT Alkaline Phosphatase Total Protein Albumin Urine Color Ltyellow Urine Appearance Clear Urine pH 7.0 Ur Specific [place] 1.006 Urine Protein Negative Urine Glucose (UA) Negative Urine Ketones Negative Urine Blood Negative Urine Nitrite Negative Urine Bilirubin Negative Urine Urobilinogen Negative Ur Leukocyte Esterase Negative RPR Titer T.pallidum Ab (MHA) HIV 1&2 Antibody Screen Preliminary positive HIV P24 Antigen Negative Assessment: 11/24/16 13:26 Withdrawal sx. Plan: Continue detox
[2016-11-24] MEDS: chlordiazePOXIDE 5 MG CAPSULE PO SCH ×2 (17:15→22:27)
[2016-11-24] MEDS: diphenhydrAMINE HCL 50 MG CAPSULE PO PRN (22:26)
[2016-11-24] MEDS: THIAMINE HCL 100 MG TABLET (FP) PO SCH (22:26)
[2016-11-24] MEDS: ATORVASTATIN CA 20 MG TABLET (FP) PO SCH (22:27)
[2016-11-25] MEDS: chlordiazePOXIDE 5 MG CAPSULE PO SCH ×2 (05:34→10:29)
[2016-11-25] MEDS: MAG HYDROX/AL HYDROX/SIMETH 30 ML UNIT-DOSE CUP PO PRN ×2 (06:19→21:31)
--- NOTE | 2016-11-25 10:05 | PN ---
BHS Progress Note (SOAP) Subjective: Sweating,interrupted sleep,restless Objective: 11/25/16 10:03 Vital Signs - 8 hr 11/25/16 11/25/16 11/25/16 03:30 06:48 09:56 Temperature 96.5 F L 97.9 F Pulse Rate 82 87 Respiratory 18 18 18 Rate Blood Pressure 139/95 120/82 Laboratory Tests 11/23/16 11/23/16 11/23/16 07:30 07:30 07:30 WBC 3.6 L RBC 4.74 Hgb 14.6 Hct 43.3 MCV 91.4 MCHC 33.7 RDW 16.1 H Plt Count 136 MPV 8.5 Sodium 143 Potassium 3.7 Chloride 108 H Carbon Dioxide 27 Anion Gap 8 BUN 14 Creatinine 0.8 Creat Clearance w eGFR > 60 Random Glucose 76 Calcium 8.4 L Total Bilirubin 0.7 D AST 98 H D ALT 64 D Alkaline Phosphatase 128 H Total Protein 6.2 L Albumin 3.2 L Urine Color Urine Appearance Urine pH Ur Specific [place] Urine Protein Urine Glucose (UA) Urine Ketones Urine Blood Urine Nitrite Urine Bilirubin Urine Urobilinogen Ur Leukocyte Esterase RPR Titer Reactive 1:2 H T.pallidum Ab (MHA) Previously reactive HIV 1&2 Antibody Screen HIV P24 Antigen 11/23/16 11/23/16 07:30 16:32 WBC RBC Hgb Hct MCV MCHC RDW Plt Count MPV Sodium Potassium Chloride Carbon Dioxide Anion Gap BUN Creatinine Creat Clearance w eGFR Random Glucose Calcium Total Bilirubin AST ALT Alkaline Phosphatase Total Protein Albumin Urine Color Ltyellow Urine Appearance Clear Urine pH 7.0 Ur Specific [place] 1.006 Urine Protein Negative Urine Glucose (UA) Negative Urine Ketones Negative Urine Blood Negative Urine Nitrite Negative Urine Bilirubin Negative Urine Urobilinogen Negative Ur Leukocyte Esterase Negative RPR Titer T.pallidum Ab (MHA) HIV 1&2 Antibody Screen Preliminary positive HIV P24 Antigen Negative Pt. is known HIV since the Assessment: 11/25/16 10:03 Withdrawal sx. Plan: Continue detox
[2016-11-25] MEDS: PRENATAL VITAMINS W/ FOLIC ACID TABLET (FP) PO SCH (10:29)
[2016-11-25] MEDS: DARUNAVIR ETHANOLATE 800 MG TAB PO SCH (10:30)
[2016-11-25] MEDS: RALTEGRAVIR POTASSIUM 400 MG TAB PO SCH ×2 (10:30→22:09)
[2016-11-25] MEDS: RITONAVIR 100 MG TABLET PO SCH (10:30)
[2016-11-25] MEDS: amLODIPine BESYLATE 10 MG TABLET (FP) PO SCH (10:30)
[2016-11-25] MEDS: NICOTINE 14 MG/24 HOURS TOPICAL PATCH TD SCH (10:31)
[2016-11-25] MEDS: chlordiazePOXIDE HCL 10 MG CAPSULE PO SCH ×2 (17:19→22:09)
[2016-11-25] MEDS: THIAMINE HCL 100 MG TABLET (FP) PO SCH (22:09)
[2016-11-25] MEDS: ATORVASTATIN CA 20 MG TABLET (FP) PO SCH (22:10)
[2016-11-25] MEDS: diphenhydrAMINE HCL 50 MG CAPSULE PO PRN (22:10)
[2016-11-26] MEDS: chlordiazePOXIDE HCL 10 MG CAPSULE PO SCH (05:47)
[2016-11-26 06:37] VITALS: BP 144/99; PULSE 77; TEMP 96.3
--- NOTE | 2016-11-27 11:21 | DS ---
[facility] Detox Discharge Summary Admission Date: 11/22/16 Discharge Date: 11/26/16 - History Present History: Alcohol Dependence, Cannabis Dependence Pertinent Past History: Hep C - Physical Exam Results Vital Signs: Vital Signs Temperature 96.3 F L 11/26/16 06:37 Pulse Rate 77 11/26/16 06:37 Respiratory Rate 20 11/26/16 06:37 Blood Pressure 144/99 11/26/16 06:37 O2 Sat by Pulse Oximetry (%) Pertinent Admission Physical Exam Findings: Withdrawal sx. Laboratory Tests 11/23/16 11/23/16 11/23/16 07:30 07:30 07:30 WBC 3.6 L RBC 4.74 Hgb 14.6 Hct 43.3 MCV 91.4 MCHC 33.7 RDW 16.1 H Plt Count 136 MPV 8.5 Sodium 143 Potassium 3.7 Chloride 108 H Carbon Dioxide 27 Anion Gap 8 BUN 14 Creatinine 0.8 Creat Clearance w eGFR > 60 Random Glucose 76 Calcium 8.4 L Total Bilirubin 0.7 D AST 98 H D ALT 64 D Alkaline Phosphatase 128 H Total Protein 6.2 L Albumin 3.2 L Urine Color Urine Appearance Urine pH Ur Specific [place] Urine Protein Urine Glucose (UA) Urine Ketones Urine Blood Urine Nitrite Urine Bilirubin Urine Urobilinogen Ur Leukocyte Esterase RPR Titer Reactive 1:2 H T.pallidum Ab (MHA) Previously reactive HIV-1 Antibody HIV-2 Antibody HIV 1&2 Ag/Ab, 4th Gen HIV Note HIV 1&2 Antibody Screen HIV P24 Antigen 11/23/16 11/23/16 11/23/16 07:30 07:30 16:32 WBC RBC Hgb Hct MCV MCHC RDW Plt Count MPV Sodium Potassium Chloride Carbon Dioxide Anion Gap BUN Creatinine Creat Clearance w eGFR Random Glucose Calcium Total Bilirubin AST ALT Alkaline Phosphatase Total Protein Albumin Urine Color Ltyellow Urine Appearance Clear Urine pH 7.0 Ur Specific [place] 1.006 Urine Protein Negative Urine Glucose (UA) Negative Urine Ketones Negative Urine Blood Negative Urine Nitrite Negative Urine Bilirubin Negative Urine Urobilinogen Negative Ur Leukocyte Esterase Negative RPR Titer T.pallidum Ab (MHA) HIV-1 Antibody Positive H HIV-2 Antibody Negative HIV 1&2 Ag/Ab, 4th Gen HIV Note HIV 1&2 Antibody Screen Preliminary positive HIV P24 Antigen Negative labs noted - Treatment Hospital Course: Detox Protocol Followed, Detoxed Safely, Responded well, Discharged Condition Good, Rehab Referral Accepted Patient has Accepted a Rehab Referral to: 12 step meetings - Medication Discharge Medications: Ambulatory Orders Amlodipine Besylate [Norvasc -] 10 mg PO DAILY #30 tablet 04/28/14 Atorvastatin Ca [Lipitor] 20 mg PO HS #30 tablet 04/28/14 Darunavir/Cobicistat [Prezcobix 800 mg-150 mg Tablet] 1 each PO DAILY 06/03/16 Dolutegravir Sodium [Tivicay] 50 mg PO DAILY 06/03/16 - Diagnosis (1) Alcohol dependence with uncomplicated withdrawal Status: Acute (2) Cannabis dependence Status: Acute (3) Cocaine dependence Status: Acute (4) Drug-induced mood disorder Status: Chronic (5) Essential hypertension Status: Chronic (6) Human immunodeficiency virus infection Status: Chronic (7) Nicotine dependence Status: Chronic Qualifiers: Nicotine product type: cigarettes Substance use status: uncomplicated Qualified Code(s): F17.210 - Nicotine dependence, cigarettes, uncomplicated - AMA Did Patient Leave Against Medical Advice: No
== END 2016-11-26 09:27 | disposition home or self-care (01) | DRG 774 ==
LOC: YASAS 13:34 → Y3N 15:16
PROVIDERS: ADMIT Internal Medicine; ATTEND Internal Medicine
PROC: HZ2ZZZZ Detoxification Services for Substance Abuse Treatment (ICD-10-PCS; principal; 2016-11-26)
DX: F10.230 Alcohol dependence with withdrawal, uncomplicated (principal); F14.20 Cocaine dependence, uncomplicated; F12.20 Cannabis dependence, uncomplicated; F17.210 Nicotine dependence, cigarettes, uncomplicated; F19.24 Other psychoactive substance dependence with psychoactive substance-induced mood disorder; I10 Essential (primary) hypertension; E78.00 Pure hypercholesterolemia, unspecified; Z21 Asymptomatic human immunodeficiency virus [HIV] infection status
CPT/HCPCS: 36415; 80053; 81003; 85027; 86593; 86780; 87389; 93005; 93010

== ENCOUNTER 2016-12-27 09:58 | Inpatient (IN) | payer OTHER ==
[2016-12-27 10:28] VITALS: BMI 25.8
--- NOTE | 2016-12-27 11:09 | HP ---
CIWA Score - CIWA Score Nausea/Vomitin-Mild Nausea/No Vomiting Muscle Tremors: 4-Moderate,w/Arms Extend Anxiety: 4-Mod. Anxious/Guarded Agitation: 1-Slight > Activity Paroxysmal Sweats: 1-Minimal Palms Moist Orientation: 1-Uncertain about Date Tacttile Disturbances: 1-Very Mild Itch/Numbness Auditory Disturbances: 1-Very Mild Visual Disturbances: 1-Very Mild Sensitivity Headache: 2-Mild CIWA-Ar Total Score: 17 Admission ROS BHS - HPI Chief Complaint: I live in a crack house - I need new housing - I want to move on in my life, stop using Allergies/Adverse Reactions: Allergies Allergy/AdvReac Type Severity Reaction Status Date / Time No Known Allergies Allergy Verified 12/27/16 11:42 History of Present Illness: 56 yo gentleman here for detox from alcohol - last here 11/22/16 - one of multiple admissions for detox and rehab. No seizures but does have black outs. Exam Limitations: Clinical Condition - Ebola screening Have you traveled outside of the country in the last 21 days: No (N) Have you had contact with anyone from an Ebola affected area: No Have you been sick,other than usual withdrawal symptoms: No Do you have a fever: No - Review of Systems Constitutional: Loss of Appetite, Malaise, Changes in sleep, Weakness EENT: reports: Blurred Vision Respiratory: reports: No Symptoms reported Cardiac: reports: No Symptoms Reported GI: reports: Poor Appetite, Indigestion : reports: No Symptoms Reported Musculoskeletal: reports: No Symptoms Reported Integumentary: reports: Dryness Neuro: reports: Headache Endocrine: reports: No Symptoms Reported Hematology: reports: No Symptoms Reported Psychiatric: reports: Judgement Intact, Mood/Affect Appropiate, Orientated x3, Anxious Other Systems: Reviewed and Negative Patient History - Patient Medical History Hx Anemia: No Hx Asthma: No Hx Chronic Obstructive Pulmonary Disease (COPD): No Hx Cancer: No Hx Cardiac Disorders: No Hx Congestive Heart Failure: No Hx Hypertension: Yes Hx Hypercholesterolemia: Yes (on med) Hx Pacemaker: No HX Cerebrovascular Accident: No Hx Seizures: No Hx Dementia: No Hx Diabetes: No Hx Gastrointestinal Disorders: No Hx Liver Disease: No Hx Genitourinary Disorders: No Hx Sexually Transmitted Disorders: Yes (treated for syphylis years ago) Hx Renal Disease (ESRD): No Hx Thyroid Disease: No Hx Human Immunodeficiency Virus (HIV): Yes (since 1989 't cells are good') Hx Hepatitis C: Yes (TREATED IN 2015) Hx Depression: Yes (never treated) Hx Suicide Attempt: No Hx Bipolar Disorder: No Hx Schizophrenia: No - Patient Surgical History Past Surgical History: No Hx Neurologic Surgery: No Hx Cataract Extraction: No Hx Cardiac Surgery: No Hx Lung Surgery: No Hx Breast Surgery: No Hx Breast Biopsy: No Hx Abdominal Surgery: No Hx Appendectomy: No Hx Cholecystectomy: No Hx Genitourinary Surgery: No Hx Section: No Hx Orthopedic Surgery: No Anesthesia Reaction: No - PPD History Date: 08/19/16 Results: 0 mm - Reproductive History Patient is a Female of Child Bearing Age (11 -55 yrs old): No (male) - Smoking Cessation Smoking history: Current every day smoker Have you smoked in the past 12 months: Yes Aproximately how many cigarettes per day: 40 Cigars Per Day: 0 Hx Chewing Tobacco Use: No Initiated information on smoking cessation: Yes 'Breaking Loose' booklet given: 12/27/16 (give on floor) - Substance & Tx. History Hx Alcohol Use: Yes Hx Substance Use: Yes Substance Use Type: Alcohol, Cocaine, Marijuana Hx Substance Use Treatment: Yes (detox, rehab) - Substances Abused Alcohol Route: Oral Frequency: Daily Amount used: three 50oz beers; 2 pints vodka Age of first use: 12 Date of Last Use: 12/27/16 Cocaine Route: Smoking Frequency: Daily Amount used: $100 Age of first use: 25 Date of Last Use: 12/26/16 Marijuana/Hashish Route: Smoking Frequency: Daily Amount used: 3 blunts Age of first use: 13 Date of Last Use: 12/26/16 Family Disease History - Family Disease History Family Disease History: Heart Disease: Mother (HTN, ), Other: Father ( estranged), Brother ( 1 bro alive), Sister (2 sisters -) Admission Physical Exam S - Vital Signs Vital Signs: Vital Signs - 24 hr 12/27/16 10:26 Temperature 96.4 F L Pulse Rate 84 Respiratory 20 Rate Blood Pressure 161/94 - Physical General Appearance: Yes: Nourished, Appropriately Dressed, Mild Distress, Tremorous, Anxious HEENTM: Yes: Hearing grossly Normal, Normal ENT Inspection, Normocephalic, Normal Voice, Pharynx Normal Respiratory: Yes: Normal Breath Sounds, No Respiratory Distress Neck: Yes: No masses,lesions,Nodules, Supple Breast: Yes: Breast Exam Deferred Cardiology: Yes: Regular Rhythm, Regular Rate Abdominal: Yes: Soft Genitourinary: Yes: Frequency Back: Yes: Normal Inspection Musculoskeletal: Yes: full range of Motion, Gait Steady Extremities: Yes: Normal Inspection, Normal Range of Motion, Non-Tender Neurological: Yes: Fully Oriented, Alert, Motor Strength 5/5, Normal Mood/Affect , Normal Response Integumentary: Yes: Normal Color, Warm Lymphatic: Yes: Within Normal Limits - Diagnostic (1) Alcohol dependence with uncomplicated intoxication Current Visit: Yes Status: Chronic (2) Cannabis dependence Current Visit: Yes Status: Chronic (3) Cocaine dependence Current Visit: Yes Status: Chronic (4) Essential hypertension Current Visit: Yes Status: Chronic (5) Human immunodeficiency virus infection Current Visit: Yes Status: Chronic Comment: own meds (6) Nicotine dependence Current Visit: Yes Status: Chronic Qualifiers: Nicotine product type: cigarettes Substance use status: uncomplicated Qualified Code(s): F17.210 - Nicotine dependence, cigarettes, uncomplicated (7) Syphilis contact, treated Current Visit: Yes Status: Chronic (8) hypercholesterolemia Current Visit: Yes Status: Chronic BHS Breath Alcohol Content Breath Alcohol Content: 0.079 Urine Drug Screen - Results Drug Screen Negative: No Urine Drug Screen Results: THC-Marijuana, SERAFIN-Cocaine, BZO-Benzodiazepines
[2016-12-27] MEDS ORDERED: ACETAMINOPHEN 325 MG TABLET (FP) PO PRN (11:19)
[2016-12-27] MEDS ORDERED: P-EPHED 60MG/TRIPROLIDI 2.5MG TABLET PO PRN (11:19)
[2016-12-27] MEDS ORDERED: guaiFENesin/D-METHORPHAN HB 10 ML UNIT-DOSE CUPS PO PRN (11:19)
[2016-12-27] MEDS ORDERED: IBUPROFEN 400 MG TABLET (FP) PO PRN (11:19)
[2016-12-27] MEDS ORDERED: LOPERAMIDE HCL 2 MG CAPSULE PO PRN (11:19)
[2016-12-27] MEDS ORDERED: MENTHOL/PHENOL 1 EACH UD MM PRN (11:19)
[2016-12-27] MEDS ORDERED: MAGNESIUM HYDROX 2400MG/30ML ORAL SUSPENSION 30 ML CUP PO PRN (11:19)
[2016-12-27] MEDS ORDERED: MAGNESIUM CITRATE 300 ML BOTTLE PO PRN (11:19)
[2016-12-27] MEDS ORDERED: NICOTINE POLACRILEX 2 MG GUM BUC PRN (11:22)
[2016-12-27] MEDS: chlordiazePOXIDE HCL 25 MG CAPSULE PO PRN (14:55)
[2016-12-27] MEDS: NICOTINE 21 MG/24 HOURS TOPICAL PATCH TD SCH (14:56)
[2016-12-27] MEDS: amLODIPine BESYLATE 10 MG TABLET (FP) PO SCH (14:57)
[2016-12-27] MEDS: DARUNAVIR ETHANOLATE 800 MG TAB PO SCH (14:57)
[2016-12-27] MEDS: RALTEGRAVIR POTASSIUM 400 MG TAB PO SCH ×2 (14:57→22:20)
[2016-12-27] MEDS: RITONAVIR 100 MG TABLET PO SCH (14:57)
[2016-12-27 16:38] LABS: URINE APPEARANCE SLCLOUDY; URINE BILIRUBIN NEGATIVE (NEGATIVE); URINE BLOOD NEGATIVE (NEGATIVE); URINE COLOR DKYELLOW; URINE GLUCOSE (UA) NEGATIVE (NEGATIVE); URINE KETONE NEGATIVE (NEGATIVE); URINE LEUK ESTERASE NEGATIVE (NEGATIVE); URINE NITRITE NEGATIVE (NEGATIVE); URINE UROBILINOGEN NEGATIVE E.U./dl (0.2-1.0)
[2016-12-27 16:41] LABS: URINE PROTEIN 1+ (NEGATIVE)
[2016-12-27 16:51] LABS: URINE BACTERIA RARE /hpf (NONE SEEN); URINE HYALINE CAST 1 /lpf; URINE MUCUS RARE; URINE RBC 2 /hpf (0-3); URINE WBC 4 /hpf (3-5)
[2016-12-27] MEDS: chlordiazePOXIDE HCL 25 MG CAPSULE PO SCH ×2 (17:24→22:20)
[2016-12-27] MEDS: THIAMINE HCL 100 MG TABLET (FP) PO SCH (22:20)
[2016-12-27] MEDS: ATORVASTATIN CA 20 MG TABLET (FP) PO SCH (22:20)
[2016-12-27] MEDS: diphenhydrAMINE HCL 50 MG CAPSULE PO PRN (22:21)
[2016-12-27] MEDS: MAG HYDROX/AL HYDROX/SIMETH 30 ML UNIT-DOSE CUP PO PRN (22:56)
[2016-12-28] MEDS: chlordiazePOXIDE HCL 25 MG CAPSULE PO SCH ×4 (05:24→22:21)
[2016-12-28 09:53] LABS: MCHC 33.3 g/dl (32.0-35.9); MEAN CELL VOLUME 93.3 fl (80-96); MEAN PLT VOLUME 9.7 fl (7.5-11.1); PLATELET COUNT 158 K/MM3 (134-434); RDW 15.6 % (11.9-15.9); WHITE BLOOD COUNT 6.5 K/mm3 (4.0-10.0)
[2016-12-28 10:08] LABS: ALBUMIN 4.3 g/dl (3.4-5.0); ANION GAP 7 (8-16); CO2 29 mmol/L (21-32); GLUCOSE,RANDOM 61 mg/dL (74-106)
[2016-12-28 10:12] LABS: ALK PHOS 83 U/L (45-117); BILIRUBIN,TOTAL 0.9 mg/dL (0.2-1.0); COCKROFT - GAULT 99.95; CREATININE 0.9 mg/dL (0.7-1.3); SGOT/AST 56 U/L (15-37); SGPT/ALT 77 U/L (12-78); TOT PROT 8.1 g/dl (6.4-8.2)
[2016-12-28] MEDS: NICOTINE 21 MG/24 HOURS TOPICAL PATCH TD SCH (10:34)
[2016-12-28] MEDS: PRENATAL VITAMINS W/ FOLIC ACID TABLET (FP) PO SCH (10:34)
[2016-12-28] MEDS: RITONAVIR 100 MG TABLET PO SCH (10:34)
[2016-12-28] MEDS: DARUNAVIR ETHANOLATE 800 MG TAB PO SCH (10:34)
[2016-12-28] MEDS: RALTEGRAVIR POTASSIUM 400 MG TAB PO SCH ×2 (10:34→22:21)
[2016-12-28] MEDS: amLODIPine BESYLATE 10 MG TABLET (FP) PO SCH (10:34)
[2016-12-28] MEDS: chlordiazePOXIDE HCL 25 MG CAPSULE PO PRN (14:22)
--- NOTE | 2016-12-28 17:57 | PN ---
[facility] CIWA - CIWA Score Nausea/Vomitin-Mild Nausea/No Vomiting Muscle Tremors: 4-Moderate,w/Arms Extend Anxiety: 3 Agitation: 2 Paroxysmal Sweats: 2 Orientation: 0-Oriented Tacttile Disturbances: 3-Moderate Itch/Numb/Burn Auditory Disturbances: 2-Mild Harshness/Frighten Visual Disturbances: 3-Moderate Sensitivity Headache: 0-None Present CIWA-Ar Total Score: 20 S Progress Note (SOAP) Subjective: Tremors, Back Ache, Body aches. Objective: PT. A & O X 3. PT. DENIES CHEST PAIN. 12/28/16 17:55 Vital Signs Temperature 98.4 F 12/28/16 17:41 Pulse Rate 84 12/28/16 17:41 Respiratory Rate 18 12/28/16 17:41 Blood Pressure 121/67 12/28/16 17:41 O2 Sat by Pulse Oximetry (%) Laboratory Last Values WBC 6.5 K/mm3 (4.0-10.0) D 12/28/16 06:00 RBC 4.92 M/mm3 (4.00-5.60) 12/28/16 06:00 Hgb 15.3 GM/dL (11.7-16.9) 12/28/16 06:00 Hct 45.9 % (35.4-49) 12/28/16 06:00 MCV 93.3 fl (80-96) 12/28/16 06:00 MCHC 33.3 g/dl (32.0-35.9) 12/28/16 06:00 RDW 15.6 % (11.9-15.9) 12/28/16 06:00 Plt Count 158 K/MM3 (134-434) 12/28/16 06:00 MPV 9.7 fl (7.5-11.1) D 12/28/16 06:00 Sodium 142 mmol/L (136-145) 12/28/16 06:00 Potassium 4.1 mmol/L (3.5-5.1) 12/28/16 06:00 Chloride 106 mmol/L (98-107) 12/28/16 06:00 Carbon Dioxide 29 mmol/L (21-32) 12/28/16 06:00 Anion Gap 7 (8-16) L 12/28/16 06:00 BUN 17 mg/dL (7-18) D 12/28/16 06:00 Creatinine 0.9 mg/dL (0.7-1.3) 12/28/16 06:00 Creat Clearance w eGFR > 60 (>60) 12/28/16 06:00 Random Glucose 61 mg/dL (74-106) L 12/28/16 06:00 Calcium 9.0 mg/dL (8.5-10.1) 12/28/16 06:00 Total Bilirubin 0.9 mg/dL (0.2-1.0) D 12/28/16 06:00 AST 56 U/L (15-37) H D 12/28/16 06:00 ALT 77 U/L (12-78) D 12/28/16 06:00 Alkaline Phosphatase 83 U/L (45-117) D 12/28/16 06:00 Total Protein 8.1 g/dl (6.4-8.2) D 12/28/16 06:00 Albumin 4.3 g/dl (3.4-5.0) D 12/28/16 06:00 Urine Color Dkyellow 12/27/16 16:26 Urine Appearance Slcloudy 12/27/16 16:26 Urine pH 5.0 (5.0-8.0) D 12/27/16 16:26 Ur Specific [place] 1.020 (1.005-1.025) 12/27/16 16:26 Urine Protein 1+ (NEGATIVE) H 12/27/16 16:26 Urine Glucose (UA) Negative (NEGATIVE) 12/27/16 16:26 Urine Ketones Negative (NEGATIVE) 12/27/16 16:26 Urine Blood Negative (NEGATIVE) 12/27/16 16:26 Urine Nitrite Negative (NEGATIVE) 12/27/16 16:26 Urine Bilirubin Negative (NEGATIVE) 12/27/16 16:26 Urine Urobilinogen Negative E.U./dl (0.2-1.0) 12/27/16 16:26 Ur Leukocyte Esterase Negative (NEGATIVE) 12/27/16 16:26 Urine RBC 2 /hpf (0-3) 12/27/16 16:26 Urine WBC 4 /hpf (3-5) 12/27/16 16:26 Ur Epithelial Cells Rare /hpf (FEW) 12/27/16 16:26 Urine Bacteria Rare /hpf (NONE SEEN) 12/27/16 16:26 Hyaline Casts 1 /lpf 12/27/16 16:26 Urine Mucus Rare 12/27/16 16:26 RPR Titer Reactive 1:1 (NONREACTIVE) H D 12/28/16 06:00 T.pallidum Ab (MHA) Previously reactive (NONREACTIVE) 12/28/16 06:00 LABS NOTED. Assessment: 12/28/16 17:56 WITHDRAWAL SYMPTOMS. Plan: CONTINUE DETOX. ADVISED PATIENT TO FOLLOW-UP WITH JEWEL WAXER AFTER DISCHARGE FROM DETOX FOR GENERAL MEDICAL ASSESSMENT AND FOR ABNORMAL ADMISSION LAB VALUES.
[2016-12-28] MEDS: MAG HYDROX/AL HYDROX/SIMETH 30 ML UNIT-DOSE CUP PO PRN (18:11)
[2016-12-28] MEDS: THIAMINE HCL 100 MG TABLET (FP) PO SCH (22:21)
[2016-12-28] MEDS: ATORVASTATIN CA 20 MG TABLET (FP) PO SCH (22:21)
[2016-12-28] MEDS: diphenhydrAMINE HCL 50 MG CAPSULE PO PRN (22:21)
[2016-12-29] MEDS: diphenhydrAMINE HCL 50 MG CAPSULE PO PRN ×2 (01:52→22:29)
[2016-12-29] MEDS: chlordiazePOXIDE HCL 25 MG CAPSULE PO SCH ×2 (05:43→10:30)
[2016-12-29] MEDS: DARUNAVIR ETHANOLATE 800 MG TAB PO SCH (10:30)
[2016-12-29] MEDS: amLODIPine BESYLATE 10 MG TABLET (FP) PO SCH (10:30)
[2016-12-29] MEDS: RALTEGRAVIR POTASSIUM 400 MG TAB PO SCH ×2 (10:30→22:27)
[2016-12-29] MEDS: PRENATAL VITAMINS W/ FOLIC ACID TABLET (FP) PO SCH (10:30)
[2016-12-29] MEDS: NICOTINE 21 MG/24 HOURS TOPICAL PATCH TD SCH (10:30)
[2016-12-29] MEDS: RITONAVIR 100 MG TABLET PO SCH (10:30)
--- NOTE | 2016-12-29 13:04 | EKG ---
Test Reason : Blood Pressure : / mmHG Vent. Rate : 083 BPM Atrial Rate : 083 BPM P-R Int : 150 ms QRS Dur : 098 ms QT Int : 378 ms P-R-T Axes : 073 051 059 degrees QTc Int : 444 ms NORMAL SINUS RHYTHM VOLTAGE CRITERIA FOR LEFT VENTRICULAR HYPERTROPHY ABNORMAL ECG WHEN COMPARED WITH ECG OF 22-NOV-2016 14:58, NO SIGNIFICANT CHANGE WAS FOUND Confirmed by PATITO GODOY MD ([id number]) on 12/29/2016 1:03:51 PM Referred By: Confirmed By:PATITO GODOY MD
--- NOTE | 2016-12-29 13:08 | PN ---
[facility] CIWA - CIWA Score Nausea/Vomitin-No Nausea/No Vomiting Muscle Tremors: 4-Moderate,w/Arms Extend Anxiety: 3 Agitation: 3 Paroxysmal Sweats: 3 Orientation: 0-Oriented Tacttile Disturbances: 1-Very Mild Itch/Numbness Auditory Disturbances: 0-None Visual Disturbances: 0-None Headache: 0-None Present CIWA-Ar Total Score: 14 BHS Progress Note (SOAP) Subjective: Anxiety,tremors,sweating,interrupted sleep,restless. Objective: 12/29/16 13:07 Vital Signs - 8 hr 12/29/16 12/29/16 06:24 09:24 Temperature 96.0 F L 95.8 F L Pulse Rate 84 81 Respiratory 18 18 Rate Blood Pressure 125/84 133/89 Laboratory Tests 12/27/16 12/28/16 12/28/16 16:26 06:00 06:00 WBC 6.5 D RBC 4.92 Hgb 15.3 Hct 45.9 MCV 93.3 MCHC 33.3 RDW 15.6 Plt Count 158 MPV 9.7 D Sodium 142 Potassium 4.1 Chloride 106 Carbon Dioxide 29 Anion Gap 7 L BUN 17 D Creatinine 0.9 Creat Clearance w eGFR > 60 Random Glucose 61 L Calcium 9.0 Total Bilirubin 0.9 D AST 56 H D ALT 77 D Alkaline Phosphatase 83 D Total Protein 8.1 D Albumin 4.3 D Urine Color Dkyellow Urine Appearance Slcloudy Urine pH 5.0 D Ur Specific [place] 1.020 Urine Protein 1+ H Urine Glucose (UA) Negative Urine Ketones Negative Urine Blood Negative Urine Nitrite Negative Urine Bilirubin Negative Urine Urobilinogen Negative Ur Leukocyte Esterase Negative Urine RBC 2 Urine WBC 4 Ur Epithelial Cells Rare Urine Bacteria Rare Hyaline Casts 1 Urine Mucus Rare RPR Titer T.pallidum Ab (MHA) 12/28/16 06:00 WBC RBC Hgb Hct MCV MCHC RDW Plt Count MPV Sodium Potassium Chloride Carbon Dioxide Anion Gap BUN Creatinine Creat Clearance w eGFR Random Glucose Calcium Total Bilirubin AST ALT Alkaline Phosphatase Total Protein Albumin Urine Color Urine Appearance Urine pH Ur Specific [place] Urine Protein Urine Glucose (UA) Urine Ketones Urine Blood Urine Nitrite Urine Bilirubin Urine Urobilinogen Ur Leukocyte Esterase Urine RBC Urine WBC Ur Epithelial Cells Urine Bacteria Hyaline Casts Urine Mucus RPR Titer Reactive 1:1 H D T.pallidum Ab (MHA) Previously reactive labs noted Assessment: 12/29/16 13:07 Withdrawal sx. Plan: Continue detox
[2016-12-29] MEDS: chlordiazePOXIDE 5 MG CAPSULE PO SCH ×2 (17:05→22:27)
[2016-12-29] MEDS: MAG HYDROX/AL HYDROX/SIMETH 30 ML UNIT-DOSE CUP PO PRN (21:53)
[2016-12-29] MEDS: THIAMINE HCL 100 MG TABLET (FP) PO SCH (22:27)
[2016-12-29] MEDS: ATORVASTATIN CA 20 MG TABLET (FP) PO SCH (22:27)
[2016-12-30] MEDS: chlordiazePOXIDE 5 MG CAPSULE PO SCH ×2 (05:22→10:56)
--- NOTE | 2016-12-30 10:51 | CONSULT ---
[facility] Psychiatric Consult - Data Date of interview: 12/30/16 Admission source: [facility] Identifying data: Readmission to [facility] for this 56 y/o AA male seeking detox treatment on for alcohol,cannabis and cocaine dependence.Patient is single without children,domiciled ([facility] setting),unemployed and supported on SSI benefits. Substance Abuse History: - Smoking Cessation. Smoking history: Current every day smoker. Have you smoked in the past 12 months: Yes. Aproximately how many cigarettes per day: 40. Cigars Per Day: 0. Hx Chewing Tobacco Use: No. Initiated information on smoking cessation: Yes. 'Breaking Loose' booklet given : 12/27/16 (give on floor). - Substance & Tx. History. Hx Alcohol Use: Yes. Hx Substance Use: Yes. Substance Use Type: Alcohol, Cocaine, Marijuana. Hx Substance Use Treatment: Yes (detox, rehab). - Substances Abused. Alcohol. Route: Oral. Frequency: Daily. Amount used: three 50oz beers; 2 pints vodka. Age of first use: 12. Date of Last Use: 12/27/16. Cocaine. Route: Smoking. Frequency: Daily. Amount used: $100. Age of first use: 25. Date of Last Use: 12/26/16. Marijuana/Hashish. Route: Smoking. Frequency: Daily. Amount used: 3 blunts. Age of first use: 13. Date of Last Use: 12/26/16. Confirmed by patient. Medical History: HIV infection since 1989,hypertension,hepatitis C,past treatment for syphilis and dyslipidemia. Psychiatric History: No reported history of psychiatric hospitalizations.Patient indicates that he was prescribed neurontin years ago ( discontinued).He declines option of an SSRI and he insists to be on " something to help me sleep." Mr Taylor denies history of suicide attempts. 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 Additional Comment: Urine Drug Screen Results: THC-Marijuana, SERAFIN-Cocaine, BZO- Benzodiazepines.Noted. Mental Status Exam - Mental Status Exam Alert and Oriented to: Time, Place, Person Cognitive Function: Good Patient Appearance: Well Groomed Mood: Withdrawn, Anxious, Irritable Affect: Mood Congruent Patient Behavior: Fatigued, Cooperative Speech Pattern: Clear Voice Loudness: Normal Thought Process: Goal Oriented Thought Disorder: Not Present Hallucinations: Denies Suicidal Ideation: Denies Homicidal Ideation: Denies Insight/Judgement: Poor Sleep: Poorly, Difficulty falling asleep Appetite: Good Muscle strength/Tone: Normal Gait/Station: Normal Psychiatric Findings - Problem List ([place] 1, 2,3) (1) Alcohol dependence with uncomplicated intoxication Current Visit: Yes Status: Acute (2) Cannabis dependence Current Visit: Yes Status: Acute (3) Cocaine dependence Current Visit: Yes Status: Acute (4) Nicotine dependence Current Visit: Yes Status: Acute Qualifiers: Nicotine product type: cigarettes Substance use status: uncomplicated Qualified Code(s): F17.210 - Nicotine dependence, cigarettes, uncomplicated (5) Drug-induced mood disorder Current Visit: Yes Status: Acute (6) Essential hypertension Current Visit: Yes Status: Chronic (7) Human immunodeficiency virus infection Current Visit: Yes Status: Chronic Comment: own meds (8) Syphilis contact, treated Current Visit: Yes Status: Chronic (9) hypercholesterolemia Current Visit: Yes Status: Chronic (10) Weight decreased Current Visit: Yes Status: Chronic (11) Insomnia Current Visit: Yes Status: Acute - Initial Treatment Plan Initial Treatment Plan: Psychoeducation.Detoxification.Seroquel 50 mg po hs to address insomnia.Side effects/benefits discussed with the patient.He agrees with this careplan.Observation.
[2016-12-30] MEDS: RALTEGRAVIR POTASSIUM 400 MG TAB PO SCH ×2 (10:55→22:22)
[2016-12-30] MEDS: DARUNAVIR ETHANOLATE 800 MG TAB PO SCH (10:55)
[2016-12-30] MEDS: PRENATAL VITAMINS W/ FOLIC ACID TABLET (FP) PO SCH (10:56)
[2016-12-30] MEDS: amLODIPine BESYLATE 10 MG TABLET (FP) PO SCH (10:56)
[2016-12-30] MEDS: RITONAVIR 100 MG TABLET PO SCH (10:56)
[2016-12-30] MEDS: NICOTINE 21 MG/24 HOURS TOPICAL PATCH TD SCH (10:56)
--- NOTE | 2016-12-30 12:01 | PN ---
[facility] Progress Note (SOAP) Subjective: ANXIETY,SWEATS,"DEPRESSED". Objective: 12/30/16 12:01 Vital Signs Temperature 96.8 F L 12/30/16 10:29 Pulse Rate 83 12/30/16 10:29 Respiratory Rate 18 12/30/16 10:29 Blood Pressure 137/92 12/30/16 10:29 O2 Sat by Pulse Oximetry (%) Assessment: 12/30/16 12:01 SATHISH SIMS Plan: CONTINUE DETOX PSYCH CONSULT TODAY
[2016-12-30] MEDS: chlordiazePOXIDE HCL 10 MG CAPSULE PO SCH ×2 (17:49→22:19)
[2016-12-30] MEDS ORDERED: QUEtiapine FUMARATE 50 MG TABLET PO SCH (22:00)
[2016-12-30] MEDS: ATORVASTATIN CA 20 MG TABLET (FP) PO SCH (22:19)
[2016-12-30] MEDS: diphenhydrAMINE HCL 50 MG CAPSULE PO PRN (22:21)
[2016-12-30] MEDS: THIAMINE HCL 100 MG TABLET (FP) PO SCH (22:22)
[2016-12-31] MEDS: chlordiazePOXIDE HCL 10 MG CAPSULE PO SCH (05:24)
[2016-12-31 06:37] VITALS: BP 132/89; PULSE 91; TEMP 98.1
[2016-12-31] MEDS: DARUNAVIR ETHANOLATE 800 MG TAB PO SCH (09:49)
[2016-12-31] MEDS: RALTEGRAVIR POTASSIUM 400 MG TAB PO SCH (09:49)
[2016-12-31] MEDS: RITONAVIR 100 MG TABLET PO SCH (09:49)
[2016-12-31] MEDS: PRENATAL VITAMINS W/ FOLIC ACID TABLET (FP) PO SCH (09:49)
[2016-12-31] MEDS: amLODIPine BESYLATE 10 MG TABLET (FP) PO SCH (09:49)
[2016-12-31] MEDS: NICOTINE 21 MG/24 HOURS TOPICAL PATCH TD SCH (09:52)
--- NOTE | 2016-12-31 13:55 | DS ---
[facility] Detox Discharge Summary Admission Date: 12/27/16 Discharge Date: 12/31/16 - History Present History: Alcohol Dependence, Cannabis Dependence, Cocaine Dependence Additional Comments: ADVISED PATIENT TO FOLLOW-UP [facility] / REHAB MEDICAL PROVIDER AFTER DISCHARGE FROM DETOX FOR GENERAL MEDICAL ASSESSMENT AND FOR ABNORMAL DETOX ADMISSION LAB VALUES. Pertinent Past History: HTN, Hypercholesterolemia, Hep C, HIV +, Depression. - Physical Exam Results Vital Signs: Vital Signs Temperature 98.1 F 12/31/16 06:37 Pulse Rate 91 H 12/31/16 06:37 Respiratory Rate 18 12/31/16 06:37 Blood Pressure 132/89 12/31/16 06:37 O2 Sat by Pulse Oximetry (%) Pertinent Admission Physical Exam Findings: WITHDRAWAL SYMPTOMS. Laboratory Last Values WBC 6.5 K/mm3 (4.0-10.0) D 12/28/16 06:00 RBC 4.92 M/mm3 (4.00-5.60) 12/28/16 06:00 Hgb 15.3 GM/dL (11.7-16.9) 12/28/16 06:00 Hct 45.9 % (35.4-49) 12/28/16 06:00 MCV 93.3 fl (80-96) 12/28/16 06:00 MCHC 33.3 g/dl (32.0-35.9) 12/28/16 06:00 RDW 15.6 % (11.9-15.9) 12/28/16 06:00 Plt Count 158 K/MM3 (134-434) 12/28/16 06:00 MPV 9.7 fl (7.5-11.1) D 12/28/16 06:00 Sodium 142 mmol/L (136-145) 12/28/16 06:00 Potassium 4.1 mmol/L (3.5-5.1) 12/28/16 06:00 Chloride 106 mmol/L (98-107) 12/28/16 06:00 Carbon Dioxide 29 mmol/L (21-32) 12/28/16 06:00 Anion Gap 7 (8-16) L 12/28/16 06:00 BUN 17 mg/dL (7-18) D 12/28/16 06:00 Creatinine 0.9 mg/dL (0.7-1.3) 12/28/16 06:00 Creat Clearance w eGFR > 60 (>60) 12/28/16 06:00 Random Glucose 61 mg/dL (74-106) L 12/28/16 06:00 Calcium 9.0 mg/dL (8.5-10.1) 12/28/16 06:00 Total Bilirubin 0.9 mg/dL (0.2-1.0) D 12/28/16 06:00 AST 56 U/L (15-37) H D 12/28/16 06:00 ALT 77 U/L (12-78) D 12/28/16 06:00 Alkaline Phosphatase 83 U/L (45-117) D 12/28/16 06:00 Total Protein 8.1 g/dl (6.4-8.2) D 12/28/16 06:00 Albumin 4.3 g/dl (3.4-5.0) D 12/28/16 06:00 Urine Color Dkyellow 12/27/16 16:26 Urine Appearance Slcloudy 12/27/16 16:26 Urine pH 5.0 (5.0-8.0) D 12/27/16 16:26 Ur Specific [place] 1.020 (1.005-1.025) 12/27/16 16:26 Urine Protein 1+ (NEGATIVE) H 12/27/16 16:26 Urine Glucose (UA) Negative (NEGATIVE) 12/27/16 16:26 Urine Ketones Negative (NEGATIVE) 12/27/16 16:26 Urine Blood Negative (NEGATIVE) 12/27/16 16:26 Urine Nitrite Negative (NEGATIVE) 12/27/16 16:26 Urine Bilirubin Negative (NEGATIVE) 12/27/16 16:26 Urine Urobilinogen Negative E.U./dl (0.2-1.0) 12/27/16 16:26 Ur Leukocyte Esterase Negative (NEGATIVE) 12/27/16 16:26 Urine RBC 2 /hpf (0-3) 12/27/16 16:26 Urine WBC 4 /hpf (3-5) 12/27/16 16:26 Ur Epithelial Cells Rare /hpf (FEW) 12/27/16 16:26 Urine Bacteria Rare /hpf (NONE SEEN) 12/27/16 16:26 Hyaline Casts 1 /lpf 12/27/16 16:26 Urine Mucus Rare 12/27/16 16:26 RPR Titer Reactive 1:1 (NONREACTIVE) H D 12/28/16 06:00 T.pallidum Ab ([facility]HA) Previously reactive (NONREACTIVE) 12/28/16 06:00 LABS NOTED. - Treatment Hospital Course: Detox Protocol Followed, Detoxed Safely, Responded well, Discharged Condition Good Patient has Accepted a Rehab Referral to: YES - PT. WILL PURSUE REHAB ADMISSION AT [place] AT A LATER DATE. - Medication Discharge Medications: Ambulatory Orders Amlodipine Besylate [Norvasc -] 10 mg PO DAILY #30 tablet 04/28/14 Atorvastatin Ca [Lipitor] 20 mg PO HS #30 tablet 04/28/14 Darunavir/Cobicistat [Prezcobix 800 mg-150 mg Tablet] 1 each PO DAILY 06/03/16 Dolutegravir Sodium [Tivicay] 50 mg PO DAILY 06/03/16 - Diagnosis (1) Alcohol dependence with uncomplicated intoxication Status: Acute (2) Cannabis dependence Status: Acute (3) Cocaine dependence Status: Acute (4) Drug-induced mood disorder Status: Acute (5) Insomnia Status: Chronic Qualifiers: Insomnia type: unspecified Qualified Code(s): G47.00 - Insomnia, unspecified (6) Nicotine dependence Status: Chronic Qualifiers: Nicotine product type: cigarettes Substance use status: uncomplicated Qualified Code(s): F17.210 - Nicotine dependence, cigarettes, uncomplicated (7) Depression Status: Chronic Qualifiers: Major depression recurrence: recurrent Major depression episode severity: unspecified (8) Essential hypertension Status: Chronic (9) Human immunodeficiency virus infection Status: Chronic (10) Syphilis contact, treated Status: Chronic (11) Weight decreased Status: Acute (12) hypercholesterolemia Status: Chronic - AMA Did Patient Leave Against Medical Advice: No
== END 2016-12-31 09:54 | disposition home or self-care (01) | DRG 774 ==
LOC: YASAS 09:58 → Y3N 12:27
PROVIDERS: ADMIT Internal Medicine Addiction Medicine; ATTEND Internal Medicine Addiction Medicine
PROC: HZ2ZZZZ Detoxification Services for Substance Abuse Treatment (ICD-10-PCS; principal; 2016-12-31)
DX: F10.20 Alcohol dependence, uncomplicated (principal); F14.20 Cocaine dependence, uncomplicated; F12.20 Cannabis dependence, uncomplicated; F17.210 Nicotine dependence, cigarettes, uncomplicated; F19.24 Other psychoactive substance dependence with psychoactive substance-induced mood disorder; G47.00 Insomnia, unspecified; F33.9 Major depressive disorder, recurrent, unspecified; I10 Essential (primary) hypertension; E78.00 Pure hypercholesterolemia, unspecified; Z21 Asymptomatic human immunodeficiency virus [HIV] infection status; Z20.2 Contact with and (suspected) exposure to infections with a predominantly sexual mode of transmission; B18.2 Chronic viral hepatitis C; R63.4 Abnormal weight loss; Z68.25 Body mass index [BMI] 25.0-25.9, adult
CPT/HCPCS: 36415; 80053; 81003; 81015; 85027; 86593; 86780; 93005; 93010

== ENCOUNTER 2017-01-30 13:17 | Inpatient (IN) | payer OTHER ==
[2017-01-30 14:48] VITALS: BMI 26.6
--- NOTE | 2017-01-30 19:18 | HP ---
CIWA Score - CIWA Score Nausea/Vomitin-Mild Nausea/No Vomiting Muscle Tremors: 4-Moderate,w/Arms Extend Anxiety: 4-Mod. Anxious/Guarded Agitation: 4-Moderately Restless Paroxysmal Sweats: 1-Minimal Palms Moist Orientation: 1-Uncertain about Date Tacttile Disturbances: 0-None Auditory Disturbances: 0-None Visual Disturbances: 0-None Headache: 0-None Present CIWA-Ar Total Score: 15 Admission ROS [facility] - HPI Chief Complaint: WITHDRAWAL SX Allergies/Adverse Reactions: Allergies Allergy/AdvReac Type Severity Reaction Status Date / Time No Known Allergies Allergy Verified 01/30/17 18:44 History of Present Illness: 56 YEARS OLD MALE WITH LONG HISTORY OF ALCOHOL, MARIJUANA, COCAINE, NICOTINE DEPENDENCE HAS HYPERTENSION HIV HYPERCHOLESTEROL AND DEPRESSION IS ADMITTED TO DETOX Exam Limitations: No Limitations - Ebola screening Have you traveled outside of the country in the last 21 days: No Have you had contact with anyone from an Ebola affected area: No Have you been sick,other than usual withdrawal symptoms: No Do you have a fever: No - Review of Systems Constitutional: Chills, Changes in sleep, Weight Stable EENT: reports: No Symptoms Reported Respiratory: reports: No Symptoms reported Cardiac: reports: No Symptoms Reported GI: reports: Nausea, Poor Fluid Intake, Abdominal cramping : reports: No Symptoms Reported Musculoskeletal: reports: Back Pain Integumentary: reports: No Symptoms Reported Neuro: reports: Tremors Endocrine: reports: No Symptoms Reported Hematology: reports: No Symptoms Reported Psychiatric: reports: Judgement Intact, Depressed Other Systems: Reviewed and Negative Patient History - Patient Medical History Hx Anemia: No Hx Asthma: No Hx Chronic Obstructive Pulmonary Disease (COPD): No Hx Cancer: No Hx Cardiac Disorders: No Hx Congestive Heart Failure: No Hx Hypertension: Yes Hx Hypercholesterolemia: Yes (on med) Hx Pacemaker: No HX Cerebrovascular Accident: No Hx Seizures: No Hx Dementia: No Hx Diabetes: No Hx Gastrointestinal Disorders: No Hx Liver Disease: No Hx Genitourinary Disorders: No Hx Sexually Transmitted Disorders: Yes (treated for syphylis years ago) Hx Renal Disease (ESRD): No Hx Thyroid Disease: No Hx Human Immunodeficiency Virus (HIV): Yes (since 1989 't cells are good') Hx Hepatitis C: Yes (TREATED IN 2014) Hx Depression: Yes (never treated) Hx Suicide Attempt: No Hx Bipolar Disorder: No Hx Schizophrenia: No - Patient Surgical History Past Surgical History: No Hx Neurologic Surgery: No Hx Cataract Extraction: No Hx Cardiac Surgery: No Hx Lung Surgery: No Hx Breast Surgery: No Hx Breast Biopsy: No Hx Abdominal Surgery: No Hx Appendectomy: No Hx Cholecystectomy: No Hx Genitourinary Surgery: No Hx Orthopedic Surgery: No - PPD History Previous Implant?: Yes Documented Results: Negative w/proof Implanted On Prior [facility] Admission?: Yes Date: 08/19/16 Results: 0 mm PPD to be Administered?: No - Smoking Cessation Smoking history: Current every day smoker Have you smoked in the past 12 months: Yes Aproximately how many cigarettes per day: 20 Cigars Per Day: 0 Hx Chewing Tobacco Use: No Initiated information on smoking cessation: Yes 'Breaking Loose' booklet given: 01/30/17 - Substance & Tx. History Hx Alcohol Use: Yes Hx Substance Use: Yes Substance Use Type: Alcohol, Cocaine, Marijuana Hx Substance Use Treatment: Yes - Substances Abused Alcohol Route: Oral Frequency: Daily Amount used: BEER- 2 SIX PACKS Age of first use: 13 Date of Last Use: 01/30/17 Crack Route: Smoking Frequency: Daily Amount used: 5 BAGS Age of first use: 14 Date of Last Use: 01/29/17 Marijuana/Hashish Route: Smoking Frequency: Daily Amount used: 3 BLUNTS Age of first use: 13 Date of Last Use: 01/29/17 Family Disease History - Family Disease History Family Disease History: Heart Disease: Mother (HTN, ), Other: Father ( estranged), Brother ( 1 bro alive), Sister (2 sisters -) Admission Physical Exam S - Vital Signs Vital Signs: Vital Signs - 24 hr 01/30/17 14:43 Temperature 96.3 F L Pulse Rate 88 Respiratory 18 Rate Blood Pressure 155/87 - Physical General Appearance: Yes: Appropriately Dressed, Mild Distress, Alcohol on Breath , Tremorous, Irritable, Sweating, Anxious HEENTM: Yes: Hearing grossly Normal, Normal ENT Inspection, Normocephalic, Normal Voice Respiratory: Yes: Chest Non-Tender, Lungs Clear, Normal Breath Sounds, No Respiratory Distress, No Accessory Muscle Use Neck: Yes: Supple, Trachea in good position Breast: Yes: Breasts Symetrical Cardiology: Yes: Regular Rhythm, Regular Rate, S1, S2 Abdominal: Yes: Non Tender, Soft Genitourinary: Yes: Within Normal Limits Back: Yes: Normal Inspection Musculoskeletal: Yes: full range of Motion, Gait Steady, Back pain Extremities: Yes: Normal Inspection, Normal Range of Motion, Non-Tender, Tremors Neurological: Yes: Alert, Motor Strength 5/5, Normal Response, Depressed Affect Integumentary: Yes: Warm Lymphatic: Yes: Within Normal Limits - Diagnostic (1) Alcohol dependence with uncomplicated intoxication Current Visit: Yes Status: Acute (2) Essential hypertension Current Visit: Yes Status: Chronic (3) Human immunodeficiency virus infection Current Visit: Yes Status: Chronic Comment: own meds (4) Nicotine dependence Current Visit: Yes Status: Acute Qualifiers: Nicotine product type: cigarettes Substance use status: in withdrawal Qualified Code(s): F17.213 - Nicotine dependence, cigarettes, with withdrawal (5) hypercholesterolemia Current Visit: Yes Status: Chronic (6) Cocaine dependence, uncomplicated Current Visit: Yes Status: Chronic (7) Cannabis dependence, uncomplicated Current Visit: Yes Status: Chronic (8) Hepatitis C antibody test positive Current Visit: Yes Status: Resolved (9) Chronic back pain Current Visit: Yes Status: Chronic Qualifiers: Back pain location: low back pain Back pain laterality: midline Sciatica presence: without sciatica Qualified Code(s): M54.5 - Low back pain; G89.29 - Other chronic pain (10) Depression Current Visit: Yes Status: Suspected Qualifiers: Major depression recurrence: recurrent Major depression episode severity: unspecified Cleared for Admission [facility] - Detox or Rehab [facility] Level of Care: Medically Managed Detox Regimen/Protocol: Librium [facility] Breath Alcohol Content Breath Alcohol Content: 0.079 Urine Drug Screen - Results Drug Screen Negative: No Urine Drug Screen Results: THC-Marijuana, SERAFIN-Cocaine, BZO-Benzodiazepines
[2017-01-30] MEDS ORDERED: guaiFENesin/D-METHORPHAN HB 10 ML UNIT-DOSE CUPS PO PRN (19:23)
[2017-01-30] MEDS ORDERED: MAGNESIUM HYDROX 2400MG/30ML ORAL SUSPENSION 30 ML CUP PO PRN (19:23)
[2017-01-30] MEDS ORDERED: LOPERAMIDE HCL 2 MG CAPSULE PO PRN (19:23)
[2017-01-30] MEDS ORDERED: hydrOXYzine PAMOATE 50 MG CAPSULE (FP) PO PRN (19:23)
[2017-01-30] MEDS ORDERED: MAGNESIUM CITRATE 300 ML BOTTLE PO PRN (19:23)
[2017-01-30] MEDS ORDERED: P-EPHED 60MG/TRIPROLIDI 2.5MG TABLET PO PRN (19:23)
[2017-01-30] MEDS ORDERED: MENTHOL/PHENOL 1 EACH UD MM PRN (19:23)
[2017-01-30] MEDS ORDERED: ACETAMINOPHEN 325 MG TABLET (FP) PO PRN (19:23)
[2017-01-30] MEDS ORDERED: IBUPROFEN 400 MG TABLET (FP) PO PRN (19:23)
[2017-01-30] MEDS ORDERED: chlordiazePOXIDE HCL 25 MG CAPSULE PO PRN (19:23)
[2017-01-30] MEDS ORDERED: NICOTINE POLACRILEX 4 MG GUM BC PRN (19:23)
[2017-01-30] MEDS ORDERED: CYCLOBENZAPRINE HCL 10 MG TABLET (FP) PO PRN (19:27)
[2017-01-30] MEDS: amLODIPine BESYLATE 10 MG TABLET (FP) PO SCH (20:10)
[2017-01-30] MEDS: ATORVASTATIN CA 20 MG TABLET (FP) PO SCH (22:05)
[2017-01-30] MEDS: THIAMINE HCL 100 MG TABLET (FP) PO SCH (22:05)
[2017-01-30] MEDS: chlordiazePOXIDE HCL 25 MG CAPSULE PO SCH (22:05)
[2017-01-30] MEDS: diphenhydrAMINE HCL 50 MG CAPSULE PO PRN (22:05)
[2017-01-31 00:06] LABS: URINE APPEARANCE CLEAR; URINE BILIRUBIN NEGATIVE (NEGATIVE); URINE COLOR YELLOW; URINE GLUCOSE (UA) NEGATIVE (NEGATIVE); URINE KETONE NEGATIVE (NEGATIVE); URINE NITRITE NEGATIVE (NEGATIVE); URINE PROTEIN NEGATIVE (NEGATIVE); URINE UROBILINOGEN NEGATIVE E.U./dl (0.2-1.0)
[2017-01-31 00:09] LABS: URINE BLOOD 1+ (NEGATIVE); URINE LEUK ESTERASE TRACE (NEGATIVE)
[2017-01-31 00:23] LABS: URINE HYALINE CAST 3 /lpf; URINE MUCUS RARE; URINE RBC 3 /hpf (0-3); URINE WBC 4 /hpf (3-5)
[2017-01-31] MEDS: diphenhydrAMINE HCL 50 MG CAPSULE PO PRN (01:10)
[2017-01-31] MEDS: chlordiazePOXIDE HCL 25 MG CAPSULE PO SCH ×4 (05:22→22:06)
--- NOTE | 2017-01-31 09:59 | EKG ---
Test Reason : Blood Pressure : / mmHG Vent. Rate : 058 BPM Atrial Rate : 058 BPM P-R Int : 154 ms QRS Dur : 094 ms QT Int : 430 ms P-R-T Axes : 070 060 063 degrees QTc Int : 422 ms SINUS BRADYCARDIA VOLTAGE CRITERIA FOR LEFT VENTRICULAR HYPERTROPHY WHEN COMPARED WITH ECG OF 27-DEC-2016 14:03, NO SIGNIFICANT CHANGE WAS FOUND Confirmed by LETICIA RAMIREZ MD ([id number]) on 01/31/2017 9:59:09 AM Referred By: Confirmed By:LETICIA RAMIREZ MD
[2017-01-31] MEDS ORDERED: PATIENT'S OWN MEDICATION (NON-FORMULARY) (Dolutegravir Sodium 50 MG) PO SCH (10:00)
[2017-01-31] MEDS ORDERED: PATIENT'S OWN MEDICATION (NON-FORMULARY) (Darunavir/Cobicistat [Prezcobix 800 Mg-150 Mg Ta PO SCH (10:00)
[2017-01-31] MEDS: LIDOCAINE 5% TOPICAL PATCH TP SCH (10:17)
[2017-01-31] MEDS: PRENATAL VITAMINS W/ FOLIC ACID TABLET (FP) PO SCH (10:17)
[2017-01-31] MEDS: amLODIPine BESYLATE 10 MG TABLET (FP) PO SCH (10:17)
[2017-01-31] MEDS: NICOTINE 21 MG/24 HOURS TOPICAL PATCH TD SCH (10:18)
[2017-01-31 10:19] LABS: MCH 31.2 pg (25.7-33.7); MCHC 33.3 g/dl (32.0-35.9); MEAN CELL VOLUME 93.5 fl (80-96); MEAN PLT VOLUME 8.9 fl (7.5-11.1); PLATELET COUNT 118 K/MM3 (134-434); RDW 16.7 % (11.9-15.9)
[2017-01-31 10:45] LABS: ALBUMIN 3.3 g/dl (3.4-5.0); ANION GAP 9 (8-16); CALCIUM 8.7 mg/dL (8.5-10.1); CO2 29 mmol/L (21-32); CREATININE 1.1 mg/dL (0.7-1.3); GLUCOSE,RANDOM 129 mg/dL (74-106); SGOT/AST 110 U/L (15-37); SGPT/ALT 56 U/L (12-78)
[2017-01-31 10:47] LABS: ALK PHOS 122 U/L (45-117); TOT PROT 6.8 g/dl (6.4-8.2)
--- NOTE | 2017-01-31 13:39 | CONSULT ---
[facility] Psychiatric Consult - Data Date of interview: 01/31/17 Admission source: [facility] Identifying data: Another admission to [facility] for this 56 y/o AA male seeking detox treatment on for alcohol,cannabis and cocaine dependence.Patient is single without children,domiciled ([facility] setting), unemployed and supported on SSI benefits. Substance Abuse History: - Smoking Cessation. Smoking history: Current every day smoker. Have you smoked in the past 12 months: Yes. Aproximately how many cigarettes per day: 20. Cigars Per Day: 0. Hx Chewing Tobacco Use: No. Initiated information on smoking cessation: Yes. 'Breaking Loose' booklet given : 01/30/17. - Substance & Tx. History. Hx Alcohol Use: Yes. Hx Substance Use : Yes. Substance Use Type: Alcohol, Cocaine, Marijuana. Hx Substance Use Treatment: Yes. - Substances Abused. Alcohol. Route: Oral. Frequency: Daily. Amount used: BEER- 2 SIX PACKS. Age of first use: 13. Date of Last Use : 01/30/17. Crack. Route: Smoking. Frequency: Daily. Amount used: 5 BAGS. Age of first use: 14. Date of Last Use: 01/29/17. Marijuana/ Hashish. Route: Smoking. Frequency: Daily. Amount used: 3 BLUNTS. Age of first use: 13. Date of Last Use: 01/29/17. Confirmed by the patient. Medical History: HIV infection since 1989,hypertension,hepatitis C,past treatment for syphilis and dyslipidemia. Psychiatric History: Patient denies. Physical/Sexual Abuse/Trauma History: Patient denies. Additional Comment: Urine Drug Screen Results: THC-Marijuana, SERAFIN-Cocaine, BZO- Benzodiazepines.Noted. Mental Status Exam - Mental Status Exam Alert and Oriented to: Time, Place, Person Cognitive Function: Good Patient Appearance: Well Groomed Mood: Hopeful Affect: Appropriate, Normal Range Patient Behavior: Fatigued, Cooperative Speech Pattern: Clear Voice Loudness: Normal Thought Process: Goal Oriented Hallucinations: Denies Suicidal Ideation: Denies Homicidal Ideation: Denies Insight/Judgement: Poor Sleep: Fair Appetite: Good Muscle strength/Tone: Normal Gait/Station: Normal Psychiatric Findings - Problem List ([place] 1, 2,3) (1) Alcohol dependence with uncomplicated intoxication Current Visit: Yes Status: Acute (2) Cannabis dependence, uncomplicated Current Visit: Yes Status: Acute (3) Cocaine dependence, uncomplicated Current Visit: Yes Status: Acute (4) Nicotine dependence Current Visit: Yes Status: Acute Qualifiers: Nicotine product type: cigarettes Substance use status: in withdrawal Qualified Code(s): F17.213 - Nicotine dependence, cigarettes, with withdrawal (5) Drug-induced mood disorder Current Visit: Yes Status: Acute (6) Chronic back pain Current Visit: Yes Status: Chronic Qualifiers: Back pain location: low back pain Back pain laterality: midline Sciatica presence: without sciatica Qualified Code(s): M54.5 - Low back pain; G89.29 - Other chronic pain (7) Essential hypertension Current Visit: Yes Status: Chronic (8) Human immunodeficiency virus infection Current Visit: Yes Status: Chronic Comment: own meds (9) Hepatitis C antibody test positive Current Visit: Yes Status: Resolved (10) Weight decreased Current Visit: Yes Status: Chronic (11) Insomnia Current Visit: Yes Status: Chronic Qualifiers: Insomnia type: unspecified Qualified Code(s): G47.00 - Insomnia, unspecified - Initial Treatment Plan Initial Treatment Plan: Psychoeducation.Detoxification.Ambien 10 mg po hs.Patient made aware of potential for parasomnias.He agrees with this careplan.Observation.
[2017-01-31] MEDS ORDERED: cloNIDine HCL 0.1 MG TABLET PO ONE (13:54)
[2017-01-31] MEDS ORDERED: POTASSIUM CHLORIDE TABS 20 MEQ TABLET.ER (FP) PO ONE (13:55)
--- NOTE | 2017-01-31 13:56 | PN ---
[facility] CIWA - CIWA Score Nausea/Vomitin-Mild Nausea/No Vomiting Muscle Tremors: 4-Moderate,w/Arms Extend Anxiety: 2 Agitation: 1-Slight > Activity Paroxysmal Sweats: 3 Orientation: 0-Oriented Tacttile Disturbances: 3-Moderate Itch/Numb/Burn Auditory Disturbances: 0-None Visual Disturbances: 0-None Headache: 3-Moderate CIWA-Ar Total Score: 17 S Progress Note (SOAP) Subjective: Lower Back ache, Tremors, H/A, Sweating. Objective: PT. A & O X 3. NO ACUTE DISTRESS. PT. DENIES CHEST PAIN. 01/31/17 13:44 Vital Signs Temperature 96.4 F L 01/31/17 09:05 Pulse Rate 71 01/31/17 09:05 Respiratory Rate 18 01/31/17 09:05 Blood Pressure 158/99 01/31/17 09:05 O2 Sat by Pulse Oximetry (%) Laboratory Tests 01/30/17 01/31/17 01/31/17 20:19 08:00 08:00 WBC 4.0 D RBC 4.89 Hgb 15.3 Hct 45.8 MCV 93.5 MCHC 33.3 RDW 16.7 H Plt Count 118 L D MPV 8.9 Sodium 140 Potassium 3.1 L D Chloride 102 Carbon Dioxide 29 Anion Gap 9 BUN 10 D Creatinine 1.1 D Creat Clearance w eGFR > 60 Random Glucose 129 H D Calcium 8.7 Total Bilirubin 1.0 AST 110 H D ALT 56 D Alkaline Phosphatase 122 H D Total Protein 6.8 Albumin 3.3 L D Urine Color Yellow Urine Appearance Clear Urine pH 6.0 Ur Specific [place] < 1.005 L Urine Protein Negative Urine Glucose (UA) Negative Urine Ketones Negative Urine Blood 1+ H Urine Nitrite Negative Urine Bilirubin Negative Urine Urobilinogen Negative Ur Leukocyte Esterase Trace H Urine RBC 3 Urine WBC 4 Hyaline Casts 3 Urine Mucus Rare LABS NOTED. Assessment: 01/31/17 13:45 WITHDRAWAL SYMPTOMS. Plan: CONTINUE DETOX. CLONIDINE, 0.1 MG PO X 1 FOR ELEVATED BP AND FOR DETOX SYMPTOMS. K-DUR, 40 MEQ PO X1, THEN 20 MEQ PO BID FOR LOW ADMISSION K LEVEL. REPEAT AST ON 02/02/2017 FOR ELEVATED ADMISSION AST LEVEL.
[2017-01-31] MEDS: POTASSIUM CHLORIDE TABS 20 MEQ TABLET.ER (FP) PO SCH (22:06)
[2017-01-31] MEDS: ATORVASTATIN CA 20 MG TABLET (FP) PO SCH (22:06)
[2017-01-31] MEDS: THIAMINE HCL 100 MG TABLET (FP) PO SCH (22:06)
[2017-01-31] MEDS: ZOLPIDEM TARTRATE 10 MG TABLET (PARK CARE ONLY) PO PRN (22:06)
[2017-01-31] MEDS: LIDOCAINE PATCH REMOVAL MC SCH (22:07)
[2017-02-01] MEDS: chlordiazePOXIDE HCL 25 MG CAPSULE PO SCH ×3 (05:17→17:17)
[2017-02-01] MEDS: POTASSIUM CHLORIDE TABS 20 MEQ TABLET.ER (FP) PO SCH ×2 (10:11→22:14)
[2017-02-01] MEDS: amLODIPine BESYLATE 10 MG TABLET (FP) PO SCH (10:11)
[2017-02-01] MEDS: PRENATAL VITAMINS W/ FOLIC ACID TABLET (FP) PO SCH (10:11)
[2017-02-01] MEDS: NICOTINE 21 MG/24 HOURS TOPICAL PATCH TD SCH (10:12)
[2017-02-01] MEDS: LIDOCAINE 5% TOPICAL PATCH TP SCH (10:12)
--- NOTE | 2017-02-01 13:06 | PN ---
S CIWA - CIWA Score Nausea/Vomitin Muscle Tremors: 4-Moderate,w/Arms Extend Anxiety: 4-Mod. Anxious/Guarded Agitation: 3 Paroxysmal Sweats: No Perspiration Orientation: 0-Oriented Tacttile Disturbances: 1-Very Mild Itch/Numbness Auditory Disturbances: 0-None Visual Disturbances: 0-None Headache: 2-Mild CIWA-Ar Total Score: 17 [facility] Progress Note (SOAP) Subjective: Anxious, sweating, interrupted sleep, nausea Objective: 02/01/17 13:01 Last Vital Signs Temp Pulse Resp BP Pulse Ox 97.1 F L 83 18 140/93 02/01/17 09:06 02/01/17 09:06 02/01/17 09:06 02/01/17 09:06 Laboratory Tests 01/30/17 01/31/17 01/31/17 20:19 08:00 08:00 WBC 4.0 D RBC 4.89 Hgb 15.3 Hct 45.8 MCV 93.5 MCHC 33.3 RDW 16.7 H Plt Count 118 L D MPV 8.9 Sodium 140 Potassium 3.1 L D Chloride 102 Carbon Dioxide 29 Anion Gap 9 BUN 10 D Creatinine 1.1 D Creat Clearance w eGFR > 60 Random Glucose 129 H D Calcium 8.7 Total Bilirubin 1.0 AST 110 H D ALT 56 D Alkaline Phosphatase 122 H D Total Protein 6.8 Albumin 3.3 L D Urine Color Yellow Urine Appearance Clear Urine pH 6.0 Ur Specific [place] < 1.005 L Urine Protein Negative Urine Glucose (UA) Negative Urine Ketones Negative Urine Blood 1+ H Urine Nitrite Negative Urine Bilirubin Negative Urine Urobilinogen Negative Ur Leukocyte Esterase Trace H Urine RBC 3 Urine WBC 4 Hyaline Casts 3 Urine Mucus Rare RPR Titer T.pallidum Ab (A) 01/31/17 08:00 WBC RBC Hgb Hct MCV MCHC RDW Plt Count MPV Sodium Potassium Chloride Carbon Dioxide Anion Gap BUN Creatinine Creat Clearance w eGFR Random Glucose Calcium Total Bilirubin AST ALT Alkaline Phosphatase Total Protein Albumin Urine Color Urine Appearance Urine pH Ur Specific [place] Urine Protein Urine Glucose (UA) Urine Ketones Urine Blood Urine Nitrite Urine Bilirubin Urine Urobilinogen Ur Leukocyte Esterase Urine RBC Urine WBC Hyaline Casts Urine Mucus RPR Titer Reactive 1:1 H T.pallidum Ab (A) Previously reactive Labs noted: K 3.1, UA: 1+ blood Assessment: 02/01/17 13:03 Withdrawal symptoms Noted with hypokalemia and microscopic hematuria Plan: Continue detox Hypokalemia: continue K supplement Microscopic hematuria: encouraged to drink lots of water, repeat UA
[2017-02-01] MEDS: MAG HYDROX/AL HYDROX/SIMETH 30 ML UNIT-DOSE CUP PO PRN (20:02)
[2017-02-01] MEDS: THIAMINE HCL 100 MG TABLET (FP) PO SCH (22:13)
[2017-02-01] MEDS: chlordiazePOXIDE 5 MG CAPSULE PO SCH (22:14)
[2017-02-01] MEDS: ZOLPIDEM TARTRATE 10 MG TABLET (PARK CARE ONLY) PO PRN (22:14)
[2017-02-01] MEDS: ATORVASTATIN CA 20 MG TABLET (FP) PO SCH (22:14)
[2017-02-01] MEDS: LIDOCAINE PATCH REMOVAL MC SCH (22:14)
[2017-02-02] MEDS: chlordiazePOXIDE 5 MG CAPSULE PO SCH ×3 (05:35→17:33)
[2017-02-02] MEDS: amLODIPine BESYLATE 10 MG TABLET (FP) PO SCH (10:12)
[2017-02-02] MEDS: LIDOCAINE 5% TOPICAL PATCH TP SCH (10:12)
[2017-02-02] MEDS: POTASSIUM CHLORIDE TABS 20 MEQ TABLET.ER (FP) PO SCH ×2 (10:12→22:20)
[2017-02-02] MEDS: NICOTINE 21 MG/24 HOURS TOPICAL PATCH TD SCH (10:13)
[2017-02-02] MEDS: PRENATAL VITAMINS W/ FOLIC ACID TABLET (FP) PO SCH (10:15)
[2017-02-02 10:22] LABS: URINE APPEARANCE CLEAR; URINE BILIRUBIN NEGATIVE (NEGATIVE); URINE BLOOD NEGATIVE (NEGATIVE); URINE COLOR LTYELLOW; URINE GLUCOSE (UA) NEGATIVE (NEGATIVE); URINE KETONE NEGATIVE (NEGATIVE); URINE NITRITE NEGATIVE (NEGATIVE); URINE PROTEIN NEGATIVE (NEGATIVE); URINE UROBILINOGEN NEGATIVE E.U./dl (0.2-1.0)
[2017-02-02 10:37] LABS: ANION GAP 11 (8-16); CO2 26 mmol/L (21-32); CREATININE 0.9 mg/dL (0.7-1.3); GLUCOSE,RANDOM 56 mg/dL (74-106); SGOT/AST 65 U/L (15-37)
[2017-02-02 10:53] LABS: URINE LEUK ESTERASE 2+ (NEGATIVE)
[2017-02-02 10:59] LABS: URINE MUCUS RARE; URINE RBC 2 /hpf (0-3); URINE WBC 6 /hpf (3-5)
--- NOTE | 2017-02-02 13:12 | PN ---
[facility] Progress Note (SOAP) Subjective: Sweating,interrupted sleep,restless Objective: 02/02/17 13:10 Vital Signs - 8 hr 02/02/17 02/02/17 06:23 09:45 Temperature 97 F L 97.0 F L Pulse Rate 78 78 Respiratory 18 18 Rate Blood Pressure 140/93 141/93 Laboratory Tests 01/30/17 01/31/17 01/31/17 20:19 08:00 08:00 WBC 4.0 D RBC 4.89 Hgb 15.3 Hct 45.8 MCV 93.5 MCHC 33.3 RDW 16.7 H Plt Count 118 L D MPV 8.9 Sodium 140 Potassium 3.1 L D Chloride 102 Carbon Dioxide 29 Anion Gap 9 BUN 10 D Creatinine 1.1 D Creat Clearance w eGFR > 60 Random Glucose 129 H D Calcium 8.7 Total Bilirubin 1.0 AST 110 H D ALT 56 D Alkaline Phosphatase 122 H D Total Protein 6.8 Albumin 3.3 L D Urine Color Yellow Urine Appearance Clear Urine pH 6.0 Ur Specific [place] < 1.005 L Urine Protein Negative Urine Glucose (UA) Negative Urine Ketones Negative Urine Blood 1+ H Urine Nitrite Negative Urine Bilirubin Negative Urine Urobilinogen Negative Ur Leukocyte Esterase Trace H Urine RBC 3 Urine WBC 4 Ur Epithelial Cells Hyaline Casts 3 Urine Mucus Rare RPR Titer T.pallidum Ab ([facility]) 01/31/17 02/02/17 02/02/17 08:00 07:00 08:00 WBC RBC Hgb Hct MCV MCHC RDW Plt Count MPV Sodium 139 Potassium 4.0 D Chloride 102 Carbon Dioxide 26 Anion Gap 11 BUN 10 Creatinine 0.9 Creat Clearance w eGFR Random Glucose 56 L D Calcium 9.0 Total Bilirubin AST 65 H D ALT Alkaline Phosphatase Total Protein Albumin Urine Color Ltyellow Urine Appearance Clear Urine pH 8.0 D Ur Specific [place] Urine Protein Negative Urine Glucose (UA) Negative Urine Ketones Negative Urine Blood Negative Urine Nitrite Negative Urine Bilirubin Negative Urine Urobilinogen Negative Ur Leukocyte Esterase 2+ H D Urine RBC 2 Urine WBC 6 Ur Epithelial Cells Rare Hyaline Casts Urine Mucus Rare RPR Titer Reactive 1:1 H T.pallidum Ab (MHA) Previously reactive labs noted K+ 3.1 on k-dur Assessment: 02/02/17 13:11 Withdrawal sx. Plan: Continue detox
[2017-02-02] MEDS: ZOLPIDEM TARTRATE 10 MG TABLET (PARK CARE ONLY) PO PRN (22:00)
[2017-02-02] MEDS: chlordiazePOXIDE HCL 10 MG CAPSULE PO SCH (22:20)
[2017-02-02] MEDS: THIAMINE HCL 100 MG TABLET (FP) PO SCH (22:20)
[2017-02-02] MEDS: ATORVASTATIN CA 20 MG TABLET (FP) PO SCH (22:20)
[2017-02-02] MEDS: LIDOCAINE PATCH REMOVAL MC SCH (22:23)
[2017-02-02] MEDS: MAG HYDROX/AL HYDROX/SIMETH 30 ML UNIT-DOSE CUP PO PRN (22:33)
[2017-02-03] MEDS: chlordiazePOXIDE HCL 10 MG CAPSULE PO SCH (04:58)
[2017-02-03 06:25] VITALS: TEMP 97
[2017-02-03] MEDS: PRENATAL VITAMINS W/ FOLIC ACID TABLET (FP) PO SCH (09:44)
[2017-02-03] MEDS: amLODIPine BESYLATE 10 MG TABLET (FP) PO SCH (09:44)
[2017-02-03] MEDS: NICOTINE 21 MG/24 HOURS TOPICAL PATCH TD SCH (09:44)
[2017-02-03] MEDS: POTASSIUM CHLORIDE TABS 20 MEQ TABLET.ER (FP) PO SCH (09:44)
[2017-02-03] MEDS: LIDOCAINE 5% TOPICAL PATCH TP SCH (09:45)
[2017-02-03 09:51] VITALS: BP 131/94; PULSE 93
--- NOTE | 2017-02-03 10:56 | DS ---
[facility] Detox Discharge Summary Admission Date: 01/30/17 Discharge Date: 02/03/17 - History Present History: Alcohol Dependence, Cannabis Dependence, Cocaine Dependence Pertinent Past History: HTN Hep C - Physical Exam Results Vital Signs: Vital Signs Temperature 97 F L 02/03/17 06:24 Pulse Rate 93 H 02/03/17 09:50 Respiratory Rate 20 02/03/17 09:50 Blood Pressure 131/94 02/03/17 09:50 O2 Sat by Pulse Oximetry (%) Pertinent Admission Physical Exam Findings: Withdrawal sx. Laboratory Last Values WBC 4.0 K/mm3 (4.0-10.0) D 01/31/17 08:00 RBC 4.89 M/mm3 (4.00-5.60) 01/31/17 08:00 Hgb 15.3 GM/dL (11.7-16.9) 01/31/17 08:00 Hct 45.8 % (35.4-49) 01/31/17 08:00 MCV 93.5 fl (80-96) 01/31/17 08:00 MCHC 33.3 g/dl (32.0-35.9) 01/31/17 08:00 RDW 16.7 % (11.9-15.9) H 01/31/17 08:00 Plt Count 118 K/MM3 (134-434) L D 01/31/17 08:00 MPV 8.9 fl (7.5-11.1) 01/31/17 08:00 Sodium 139 mmol/L (136-145) 02/02/17 07:00 Potassium 4.0 mmol/L (3.5-5.1) D 02/02/17 07:00 Chloride 102 mmol/L (98-107) 02/02/17 07:00 Carbon Dioxide 26 mmol/L (21-32) 02/02/17 07:00 Anion Gap 11 (8-16) 02/02/17 07:00 BUN 10 mg/dL (7-18) 02/02/17 07:00 Creatinine 0.9 mg/dL (0.7-1.3) 02/02/17 07:00 Creat Clearance w eGFR > 60 (>60) 01/31/17 08:00 Random Glucose 56 mg/dL (74-106) L D 02/02/17 07:00 Calcium 9.0 mg/dL (8.5-10.1) 02/02/17 07:00 Total Bilirubin 1.0 mg/dL (0.2-1.0) 01/31/17 08:00 AST 65 U/L (15-37) H D 02/02/17 07:00 ALT 56 U/L (12-78) D 01/31/17 08:00 Alkaline Phosphatase 122 U/L (45-117) H D 01/31/17 08:00 Total Protein 6.8 g/dl (6.4-8.2) 01/31/17 08:00 Albumin 3.3 g/dl (3.4-5.0) L D 01/31/17 08:00 Urine Color L[place] 02/02/17 08:00 Urine Appearance Clear 02/02/17 08:00 Urine pH 8.0 (5.0-8.0) D 02/02/17 08:00 Ur Specific [place] 1.020 (1.005-1.025) 02/02/17 08:00 Urine Protein Negative (NEGATIVE) 02/02/17 08:00 Urine Glucose (UA) Negative (NEGATIVE) 02/02/17 08:00 Urine Ketones Negative (NEGATIVE) 02/02/17 08:00 Urine Blood Negative (NEGATIVE) 02/02/17 08:00 Urine Nitrite Negative (NEGATIVE) 02/02/17 08:00 Urine Bilirubin Negative (NEGATIVE) 02/02/17 08:00 Urine Urobilinogen Negative E.U./dl (0.2-1.0) 02/02/17 08:00 Ur Leukocyte Esterase 2+ (NEGATIVE) H D 02/02/17 08:00 Urine RBC 2 /hpf (0-3) 02/02/17 08:00 Urine WBC 6 /hpf (3-5) 02/02/17 08:00 Ur Epithelial Cells Rare /hpf (FEW) 02/02/17 08:00 Hyaline Casts 3 /lpf 01/30/17 20:19 Urine Mucus Rare 02/02/17 08:00 RPR Titer Reactive 1:1 (NONREACTIVE) H 01/31/17 08:00 T.pallidum Ab ([facility]) Previously reactive (NONREACTIVE) 01/31/17 08:00 labs noted - Treatment Hospital Course: Detox Protocol Followed, Detoxed Safely, Responded well, Discharged Condition Good, Rehab Referral Accepted Patient has Accepted a Rehab Referral to: [facility] - Medication Discharge Medications: Ambulatory Orders Amlodipine Besylate [Norvasc -] 10 mg PO DAILY #30 tablet 04/28/14 Atorvastatin Ca [Lipitor] 20 mg PO HS #30 tablet 04/28/14 Darunavir/Cobicistat [Prezcobix 800 mg-150 mg Tablet] 1 each PO DAILY 06/03/16 Dolutegravir Sodium [Tivicay] 50 mg PO DAILY 06/03/16 - Diagnosis (1) Cannabis dependence, uncomplicated Current Visit: Yes Status: Acute (2) Cocaine dependence, uncomplicated Current Visit: Yes Status: Acute (3) Drug-induced mood disorder Current Visit: Yes Status: Acute (4) Nicotine dependence Current Visit: Yes Status: Acute Qualifiers: Nicotine product type: cigarettes Substance use status: in withdrawal Qualified Code(s): F17.213 - Nicotine dependence, cigarettes, with withdrawal (5) Essential hypertension Current Visit: Yes Status: Chronic (6) Human immunodeficiency virus infection Current Visit: Yes Status: Chronic (7) Alcohol dependence with uncomplicated withdrawal Current Visit: Yes Status: Acute - AMA Did Patient Leave Against Medical Advice: No
== END 2017-02-03 10:00 | disposition home or self-care (01) | DRG 774 ==
LOC: YASAS 13:17 → Y3N 19:15
PROVIDERS: ADMIT Internal Medicine; ATTEND Internal Medicine
PROC: HZ2ZZZZ Detoxification Services for Substance Abuse Treatment (ICD-10-PCS; principal; 2017-01-30)
DX: F10.230 Alcohol dependence with withdrawal, uncomplicated (principal); F14.20 Cocaine dependence, uncomplicated; F12.20 Cannabis dependence, uncomplicated; F17.213 Nicotine dependence, cigarettes, with withdrawal; F19.24 Other psychoactive substance dependence with psychoactive substance-induced mood disorder; I10 Essential (primary) hypertension; Z21 Asymptomatic human immunodeficiency virus [HIV] infection status; E87.6 Hypokalemia; R31.29 Other microscopic hematuria; B18.2 Chronic viral hepatitis C; M54.5 Low back pain; G89.29 Other chronic pain; G47.00 Insomnia, unspecified; Z87.898 Personal history of other specified conditions
CPT/HCPCS: 36415; 80048; 80053; 81003; 81015; 84450; 85027; 86593; 86780; 93005; 93010

== ENCOUNTER 2017-04-21 16:12 | Inpatient (IN) | payer OTHER ==
[2017-04-21 17:34] VITALS: BMI 26.1
[2017-04-21] MEDS ORDERED: MAGNESIUM CITRATE 300 ML BOTTLE PO PRN (19:14)
[2017-04-21] MEDS ORDERED: chlordiazePOXIDE HCL 25 MG CAPSULE PO ONE (19:14)
[2017-04-21] MEDS ORDERED: P-EPHED 60MG/TRIPROLIDI 2.5MG TABLET PO PRN (19:14)
[2017-04-21] MEDS ORDERED: ACETAMINOPHEN 325 MG TABLET (FP) PO PRN (19:14)
[2017-04-21] MEDS ORDERED: MENTHOL/PHENOL 1 EACH UD MM PRN (19:14)
[2017-04-21] MEDS ORDERED: NICOTINE POLACRILEX 4 MG GUM BUC PRN (19:14)
[2017-04-21] MEDS ORDERED: MAGNESIUM HYDROX 2400MG/30ML ORAL SUSPENSION 30 ML CUP PO PRN (19:14)
[2017-04-21] MEDS ORDERED: chlordiazePOXIDE HCL 25 MG CAPSULE PO PRN (19:14)
[2017-04-21] MEDS ORDERED: IBUPROFEN 400 MG TABLET (FP) PO PRN (19:14)
[2017-04-21] MEDS ORDERED: LOPERAMIDE HCL 2 MG CAPSULE PO PRN (19:14)
[2017-04-21] MEDS ORDERED: hydrOXYzine PAMOATE 50 MG CAPSULE (FP) PO PRN (19:14)
--- NOTE | 2017-04-21 19:14 | HP ---
CIWA Score - CIWA Score Nausea/Vomitin-Mild Nausea/No Vomiting Muscle Tremors: 4-Moderate,w/Arms Extend Anxiety: 4-Mod. Anxious/Guarded Agitation: 4-Moderately Restless Paroxysmal Sweats: 1-Minimal Palms Moist Orientation: 1-Uncertain about Date Tacttile Disturbances: 0-None Auditory Disturbances: 0-None Visual Disturbances: 0-None Headache: 0-None Present CIWA-Ar Total Score: 15 Admission ROS [facility] - HPI Chief Complaint: withdrawal sx Allergies/Adverse Reactions: Allergies Allergy/AdvReac Type Severity Reaction Status Date / Time No Known Allergies Allergy Verified 01/30/17 18:44 History of Present Illness: 56 years old male with long history of alcohol cocaine marijuana nicotine dependence has hiv hepatitis c - treated, hypertension hyperlipidemia and depression is admitted to detox Exam Limitations: No Limitations - Ebola screening Have you traveled outside of the country in the last 21 days: No Have you had contact with anyone from an Ebola affected area: No Have you been sick,other than usual withdrawal symptoms: No Do you have a fever: No - Review of Systems Constitutional: Loss of Appetite, Changes in sleep, Unintentional Wgt. Loss, Unexplained wgt Loss EENT: reports: No Symptoms Reported Respiratory: reports: Cough, SOB with Exertion Cardiac: reports: No Symptoms Reported : reports: No Symptoms Reported Musculoskeletal: reports: Back Pain Integumentary: reports: No Symptoms Reported Neuro: reports: Tremors Endocrine: reports: No Symptoms Reported Hematology: reports: No Symptoms Reported Psychiatric: reports: Judgement Intact, Anxious, Depressed Other Systems: Reviewed and Negative Patient History - Patient Medical History Hx Anemia: No Hx Asthma: No Hx Chronic Obstructive Pulmonary Disease (COPD): No Hx Cancer: No Hx Cardiac Disorders: No Hx Congestive Heart Failure: No Hx Hypertension: Yes Hx Hypercholesterolemia: Yes (on med) Hx Pacemaker: No HX Cerebrovascular Accident: No Hx Seizures: No Hx Dementia: No Hx Diabetes: No Hx Gastrointestinal Disorders: No Hx Liver Disease: No Hx Genitourinary Disorders: No Hx Sexually Transmitted Disorders: Yes (treated for syphylis years ago) Hx Renal Disease (ESRD): No Hx Thyroid Disease: No Hx Human Immunodeficiency Virus (HIV): Yes (since 1989 't cells are good') Hx Hepatitis C: Yes (TREATED IN 2014) Hx Depression: Yes (never treated) Hx Suicide Attempt: No Hx Bipolar Disorder: No Hx Schizophrenia: No - Patient Surgical History Past Surgical History: No Hx Neurologic Surgery: No Hx Cataract Extraction: No Hx Cardiac Surgery: No Hx Lung Surgery: No Hx Breast Surgery: No Hx Breast Biopsy: No Hx Abdominal Surgery: No Hx Appendectomy: No Hx Cholecystectomy: No Hx Genitourinary Surgery: No Hx Orthopedic Surgery: No - PPD History Previous Implant?: Yes Documented Results: Negative w/proof Implanted On Prior [facility] Admission?: Yes Date: 08/19/16 Results: 0 mm PPD to be Administered?: No - Smoking Cessation Smoking history: Current every day smoker Have you smoked in the past 12 months: Yes Aproximately how many cigarettes per day: 20 Cigars Per Day: 0 Hx Chewing Tobacco Use: No Initiated information on smoking cessation: Yes 'Breaking Loose' booklet given: 04/21/17 - Substance & Tx. History Hx Alcohol Use: Yes Hx Substance Use: Yes Substance Use Type: Alcohol, Cocaine, Marijuana Hx Substance Use Treatment: Yes - Substances Abused Alcohol Route: Oral Frequency: Daily Amount used: quart [place] Age of first use: 14 Date of Last Use: 04/21/17 Family Disease History - Family Disease History Family Disease History: Heart Disease: Mother (HTN, ), Other: Father ( estranged), Brother ( 1 bro alive), Sister (2 sisters -) Admission Physical Exam S - Vital Signs Vital Signs: Vital Signs - 24 hr 04/21/17 17:31 Temperature 97.1 F L Pulse Rate 87 Respiratory 20 Rate Blood Pressure 143/86 - Physical General Appearance: Yes: Appropriately Dressed, Moderate Distress, Alcohol on Breath, Thin, Tremorous, Irritable, Sweating, Anxious HEENTM: Yes: Hearing grossly Normal, Normal ENT Inspection, Normocephalic, Normal Voice Respiratory: Yes: Chest Non-Tender, Lungs Clear, Normal Breath Sounds, No Respiratory Distress, No Accessory Muscle Use Neck: Yes: Supple, Trachea in good position Breast: Yes: Breasts Symetrical Cardiology: Yes: Regular Rhythm, Regular Rate, S1, S2 Abdominal: Yes: Non Tender, Soft Genitourinary: Yes: Within Normal Limits Back: Yes: Normal Inspection Musculoskeletal: Yes: full range of Motion, Gait Steady, Back pain Extremities: Yes: Normal Inspection, Normal Range of Motion, Non-Tender, Tremors Neurological: Yes: Alert, Motor Strength 5/5, Normal Response, Depressed Affect Integumentary: Yes: Warm Lymphatic: Yes: Within Normal Limits - Diagnostic (1) Alcohol dependence with uncomplicated withdrawal Current Visit: Yes Status: Acute (2) Cannabis dependence, uncomplicated Current Visit: Yes Status: Chronic (3) Cocaine dependence, uncomplicated Current Visit: Yes Status: Chronic (4) Nicotine dependence Current Visit: Yes Status: Acute Qualifiers: Nicotine product type: cigarettes Substance use status: in withdrawal Qualified Code(s): F17.213 - Nicotine dependence, cigarettes, with withdrawal (5) Chronic back pain Current Visit: Yes Status: Chronic Qualifiers: Back pain location: low back pain Back pain laterality: midline Sciatica presence: without sciatica Qualified Code(s): M54.5 - Low back pain; G89.29 - Other chronic pain (6) Essential hypertension Current Visit: Yes Status: Chronic (7) Human immunodeficiency virus infection Current Visit: Yes Status: Chronic Comment: patient has not bring in his own medications (8) Weight decreased Current Visit: Yes Status: Acute (9) hypercholesterolemia Current Visit: Yes Status: Chronic (10) Depression Current Visit: Yes Status: Suspected Qualifiers: Major depression recurrence: recurrent Major depression episode severity: unspecified Cleared for Admission [facility] - Detox or Rehab [facility] Level of Care: Medically Managed Detox Regimen/Protocol: Librium [facility] Breath Alcohol Content Breath Alcohol Content: 0.066 Urine Drug Screen - Results Drug Screen Negative: No Urine Drug Screen Results: THC-Marijuana, SERAFIN-Cocaine, BZO-Benzodiazepines
[2017-04-21] MEDS: amLODIPine BESYLATE 10 MG TABLET (FP) PO SCH (20:37)
[2017-04-21] MEDS: guaiFENesin/D-METHORPHAN HB 10 ML UNIT-DOSE CUPS PO PRN (20:39)
[2017-04-21] MEDS: THIAMINE HCL 100 MG TABLET (FP) PO SCH (22:14)
[2017-04-21] MEDS: diphenhydrAMINE HCL 50 MG CAPSULE PO PRN (22:14)
[2017-04-21] MEDS: ATORVASTATIN CA 20 MG TABLET (FP) PO SCH (22:14)
[2017-04-21] MEDS: chlordiazePOXIDE HCL 25 MG CAPSULE PO SCH (22:15)
[2017-04-21 23:14] LABS: URINE APPEARANCE CLEAR; URINE BILIRUBIN NEGATIVE (NEGATIVE); URINE BLOOD 2+ (NEGATIVE); URINE COLOR YELLOW; URINE GLUCOSE (UA) NEGATIVE (NEGATIVE); URINE KETONE NEGATIVE (NEGATIVE); URINE LEUK ESTERASE NEGATIVE (NEGATIVE); URINE NITRITE NEGATIVE (NEGATIVE); URINE UROBILINOGEN NEGATIVE mg/dL (0.2-1.0)
[2017-04-21 23:17] LABS: URINE PROTEIN 1+ (NEGATIVE)
[2017-04-21 23:19] LABS: URINE MUCUS RARE; URINE RBC 21 /hpf (0-3); URINE WBC 5 /hpf (3-5)
[2017-04-22] MEDS: chlordiazePOXIDE HCL 25 MG CAPSULE PO SCH ×4 (05:34→22:32)
[2017-04-22] MEDS: guaiFENesin/D-METHORPHAN HB 10 ML UNIT-DOSE CUPS PO PRN ×2 (06:08→22:48)
--- NOTE | 2017-04-22 09:11 | CONSULT ---
[facility] Psychiatric Consult - Data Date of interview: 04/22/17 Admission source: [facility] Identifying data: This is 56 years old male with no psychiatric hospitalization history intoxicated with: Alcohol Cannabis, Nicotine and Cocaine Substance Abuse History: - Results. Drug Screen Negative: No. Urine Drug Screen Results: THC-Marijuana, SERAFIN-Cocaine, BZO-Benzodiazepines- Smoking Cessation. Smoking history: Current every day smoker. Have you smoked in the past 12 months: Yes. Aproximately how many cigarettes per day: 20. Cigars Per Day: 0. Hx Chewing Tobacco Use: No. Initiated information on smoking cessation : Yes. 'Breaking Loose' booklet given: 04/21/17. - Substance & Tx. History. Hx Alcohol Use: Yes. Hx Substance Use: Yes. Substance Use Type: Alcohol, Cocaine, Marijuana. Hx Substance Use Treatment: Yes. - Substances Abused. Alcohol. Route: Oral. Frequency: Daily. Amount used: quart [place]. Age of first use: 14. Date of Last Use: 04/21/17 Medical History: Weight loss, HTN, HIV+, Syncope history, HepC+, Psychiatric History: Patient rewports history od depression, reports no pstchiatric medications taking prior to admission Physical/Sexual Abuse/Trauma History: Denies Additional Comment: Observation. [facility] Protocol. - Results. Drug Screen Negative: No. Urine Drug Screen Results: THC-Marijuana, SERAFIN-Cocaine, BZO -Benzodiazepines Mental Status Exam - Mental Status Exam Alert and Oriented to: Person Cognitive Function: Fair Patient Appearance: Unkempt Mood: Sad Affect: Flat Patient Behavior: Sedated Speech Pattern: Delayed Voice Loudness: Mildly Soft/Quiet Thought Process: Circumstantial Thought Disorder: Being Controlled Hallucinations: Denies Suicidal Ideation: Denies Homicidal Ideation: Denies Insight/Judgement: Fair Sleep: Difficulty falling asleep Appetite: Weight loss Muscle strength/Tone: Mild Hypotonicity Gait/Station: Shuffling Additional Comments: Observation. [facility] Protocol Psychiatric Findings - Problem List ([place] 1, 2,3) (1) Alcohol dependence with uncomplicated withdrawal Current Visit: Yes Status: Acute (2) Nicotine dependence Current Visit: Yes Status: Acute Qualifiers: Nicotine product type: cigarettes Substance use status: in withdrawal Qualified Code(s): F17.213 - Nicotine dependence, cigarettes, with withdrawal (3) Weight decreased Current Visit: Yes Status: Acute (4) Cannabis dependence, uncomplicated Current Visit: Yes Status: Chronic (5) Cocaine dependence, uncomplicated Current Visit: Yes Status: Chronic (6) Depression Current Visit: Yes Status: Suspected Qualifiers: Major depression recurrence: recurrent Major depression episode severity: unspecified (7) Drug-induced mood disorder Current Visit: No Status: Acute - Initial Treatment Plan Initial Treatment Plan: Observation. [facility] Protocol
[2017-04-22 09:57] LABS: MCHC 33.4 g/dl (32.0-35.9); MEAN CELL VOLUME 92.8 fl (80-96); MEAN PLT VOLUME 8.5 fl (7.5-11.1); PLATELET COUNT 175 K/MM3 (134-434); RDW 15.6 % (11.9-15.9); WHITE BLOOD COUNT 3.1 K/mm3 (4.0-10.0)
--- NOTE | 2017-04-22 09:58 | PN ---
S CIWA - CIWA Score Nausea/Vomitin-No Nausea/No Vomiting Muscle Tremors: 4-Moderate,w/Arms Extend Anxiety: 3 Agitation: 3 Paroxysmal Sweats: 3 Orientation: 0-Oriented Tacttile Disturbances: 0-None Auditory Disturbances: 0-None Visual Disturbances: 0-None Headache: 0-None Present CIWA-Ar Total Score: 13 S Progress Note (SOAP) Subjective: back pain sweats shakes interrupted sleep tired Objective: 04/22/17 09:57 Vital Signs Temperature 98.0 F 04/22/17 05:57 Pulse Rate 74 04/22/17 05:57 Respiratory Rate 18 04/22/17 05:57 Blood Pressure 131/75 04/22/17 05:57 O2 Sat by Pulse Oximetry (%) Laboratory Tests 04/21/17 22:00 Urine Color Yellow Urine Appearance Clear Urine pH 6.0 D Urine Protein 1+ H Urine Glucose (UA) Negative Urine Ketones Negative Urine Blood 2+ H Urine Nitrite Negative Urine Bilirubin Negative Urine Urobilinogen Negative Ur Leukocyte Esterase Negative Urine RBC 21 Urine WBC 5 Urine Mucus Rare rest of labs pending repeat u/a awake/alert lying in bed no acute distress pt states he has not had any urinary problems recently. u/a repeat ordered Assessment: 04/22/17 09:59 withdrawal sx Plan: continue detox increase fluids f/u pending labs
[2017-04-22] MEDS: PRENATAL VITAMINS W/ FOLIC ACID TABLET (FP) PO SCH (10:16)
[2017-04-22] MEDS: amLODIPine BESYLATE 10 MG TABLET (FP) PO SCH (10:17)
[2017-04-22] MEDS: NICOTINE 21 MG/24 HOURS TOPICAL PATCH TD SCH (10:17)
[2017-04-22] MEDS: LIDOCAINE 5% TOPICAL PATCH TP SCH (10:18)
--- NOTE | 2017-04-22 10:45 | EKG ---
Test Reason : Blood Pressure : / mmHG Vent. Rate : 089 BPM Atrial Rate : 089 BPM P-R Int : 150 ms QRS Dur : 092 ms QT Int : 394 ms P-R-T Axes : 072 059 072 degrees QTc Int : 479 ms NORMAL SINUS RHYTHM NONSPECIFIC ST AND T WAVE ABNORMALITY ABNORMAL ECG WHEN COMPARED WITH ECG OF 30-JAN-2017 19:00, VENT. RATE HAS INCREASED BY 31 BPM T WAVE AMPLITUDE HAS DECREASED IN ANTERIOR LEADS QT HAS LENGTHENED Confirmed by SINDY GOODEN, MASOOD ([id number]) on 04/22/2017 10:45:09 AM Referred By: Confirmed By:MASOOD CALLAHAN MD
[2017-04-22 10:47] LABS: ALBUMIN 3.4 g/dl (3.4-5.0); SGOT/AST 45 U/L (15-37)
[2017-04-22 10:49] LABS: ALK PHOS 112 U/L (45-117); ANION GAP 10 (8-16); BILIRUBIN,TOTAL 1.1 mg/dL (0.2-1.0); CALCIUM 8.6 mg/dL (8.5-10.1); CO2 25 mmol/L (21-32); GLUCOSE,RANDOM 103 mg/dL (74-106); SGPT/ALT 57 U/L (12-78); TOT PROT 6.8 g/dl (6.4-8.2)
[2017-04-22] MEDS: POTASSIUM CHLORIDE TABS 20 MEQ TABLET.ER (FP) PO SCH (12:37)
[2017-04-22 17:35] LABS: URINE APPEARANCE CLEAR; URINE BILIRUBIN NEGATIVE (NEGATIVE); URINE BLOOD NEGATIVE (NEGATIVE); URINE COLOR LTYELLOW; URINE GLUCOSE (UA) NEGATIVE (NEGATIVE); URINE KETONE NEGATIVE (NEGATIVE); URINE LEUK ESTERASE NEGATIVE (NEGATIVE); URINE NITRITE NEGATIVE (NEGATIVE); URINE PROTEIN NEGATIVE (NEGATIVE); URINE UROBILINOGEN 4.0 E.U/dl mg/dL (0.2-1.0)
[2017-04-22] MEDS: diphenhydrAMINE HCL 50 MG CAPSULE PO PRN (22:32)
[2017-04-22] MEDS: ATORVASTATIN CA 20 MG TABLET (FP) PO SCH (22:32)
[2017-04-22] MEDS: THIAMINE HCL 100 MG TABLET (FP) PO SCH (22:32)
[2017-04-22] MEDS: LIDOCAINE PATCH REMOVAL MC SCH (22:33)
[2017-04-23] MEDS: chlordiazePOXIDE HCL 25 MG CAPSULE PO SCH ×3 (05:43→17:24)
[2017-04-23] MEDS: MAG HYDROX/AL HYDROX/SIMETH 30 ML UNIT-DOSE CUP PO PRN ×2 (06:06→17:26)
[2017-04-23] MEDS: guaiFENesin/D-METHORPHAN HB 10 ML UNIT-DOSE CUPS PO PRN (06:06)
[2017-04-23] MEDS: PRENATAL VITAMINS W/ FOLIC ACID TABLET (FP) PO SCH (10:21)
[2017-04-23] MEDS: POTASSIUM CHLORIDE TABS 20 MEQ TABLET.ER (FP) PO SCH (10:21)
[2017-04-23] MEDS: amLODIPine BESYLATE 10 MG TABLET (FP) PO SCH (10:21)
[2017-04-23] MEDS: NICOTINE 21 MG/24 HOURS TOPICAL PATCH TD SCH (10:22)
[2017-04-23] MEDS: LIDOCAINE 5% TOPICAL PATCH TP SCH (10:23)
--- NOTE | 2017-04-23 11:23 | PN ---
[facility] CIWA - CIWA Score Nausea/Vomitin-No Nausea/No Vomiting Muscle Tremors: 4-Moderate,w/Arms Extend Anxiety: 2 Agitation: 3 Paroxysmal Sweats: 2 Orientation: 0-Oriented Tacttile Disturbances: 0-None Auditory Disturbances: 0-None Visual Disturbances: 0-None Headache: 0-None Present CIWA-Ar Total Score: 11 S Progress Note (SOAP) Subjective: interrupted sleep sweats shakes body aches Objective: 04/23/17 11:21 Vital Signs Temperature 98.8 F 04/23/17 10:12 Pulse Rate 94 H 04/23/17 10:12 Respiratory Rate 18 04/23/17 10:12 Blood Pressure 135/92 04/23/17 10:12 O2 Sat by Pulse Oximetry (%) Laboratory Tests 04/21/17 04/22/17 04/22/17 22:00 07:00 07:00 WBC 3.1 L RBC 4.84 Hgb 15.0 Hct 44.9 MCV 92.8 MCH 31.0 MCHC 33.4 RDW 15.6 Plt Count 175 D MPV 8.5 Sodium 139 Potassium 3.2 L Chloride 104 Carbon Dioxide 25 Anion Gap 10 BUN 15 D Creatinine 1.0 Creat Clearance w eGFR > 60 Random Glucose 103 D Calcium 8.6 Total Bilirubin 1.1 H AST 45 H D ALT 57 Alkaline Phosphatase 112 Total Protein 6.8 Albumin 3.4 Urine Color Yellow Urine Appearance Clear Urine pH 6.0 D Ur Specific [place] 1.020 Urine Protein 1+ H Urine Glucose (UA) Negative Urine Ketones Negative Urine Blood 2+ H Urine Nitrite Negative Urine Bilirubin Negative Urine Urobilinogen Negative Ur Leukocyte Esterase Negative Urine RBC 21 Urine WBC 5 Urine Mucus Rare RPR Titer T.pallidum Ab (A) 04/22/17 04/22/17 07:00 13:00 WBC RBC Hgb Hct MCV MCH MCHC RDW Plt Count MPV Sodium Potassium Chloride Carbon Dioxide Anion Gap BUN Creatinine Creat Clearance w eGFR Random Glucose Calcium Total Bilirubin AST ALT Alkaline Phosphatase Total Protein Albumin Urine Color Ltyellow Urine Appearance Clear Urine pH 6.0 Ur Specific [place] 1.010 Urine Protein Negative Urine Glucose (UA) Negative Urine Ketones Negative Urine Blood Negative Urine Nitrite Negative Urine Bilirubin Negative Urine Urobilinogen 4.0 e.u/dl Ur Leukocyte Esterase Negative Urine RBC Urine WBC Urine Mucus RPR Titer Reactive 1:1 H T.pallidum Ab (MHA) Previously reactive repeated u/a improved AAOx3 no acute distress Assessment: 04/27/17 11:44 withdrawal sx Plan: continue detox increase fluids
--- NOTE | 2017-04-23 11:47 | PN ---
[facility] Progress Note (SOAP) Subjective: nausea, sweats, interrupted sleep, anxiety, tremors Objective: 04/23/17 11:46 Vital Signs - 24 hr 04/22/17 04/22/17 04/22/17 14:43 17:43 22:00 Temperature 97.9 F 98.1 F 97.9 F Pulse Rate 94 H 3 L 96 H Respiratory 20 19 18 Rate Blood Pressure 144/94 138/78 140/75 04/23/17 04/23/17 04/23/17 00:30 06:46 10:12 Temperature 97.9 F 98.8 F Pulse Rate 77 94 H Respiratory 18 18 18 Rate Blood Pressure 136/77 135/92 Laboratory Tests 04/21/17 04/22/17 04/22/17 22:00 07:00 07:00 WBC 3.1 L RBC 4.84 Hgb 15.0 Hct 44.9 MCV 92.8 MCH 31.0 MCHC 33.4 RDW 15.6 Plt Count 175 D MPV 8.5 Sodium 139 Potassium 3.2 L Chloride 104 Carbon Dioxide 25 Anion Gap 10 BUN 15 D Creatinine 1.0 Creat Clearance w eGFR > 60 Random Glucose 103 D Calcium 8.6 Total Bilirubin 1.1 H AST 45 H D ALT 57 Alkaline Phosphatase 112 Total Protein 6.8 Albumin 3.4 Urine Color Yellow Urine Appearance Clear Urine pH 6.0 D Ur Specific [place] 1.020 Urine Protein 1+ H Urine Glucose (UA) Negative Urine Ketones Negative Urine Blood 2+ H Urine Nitrite Negative Urine Bilirubin Negative Urine Urobilinogen Negative Ur Leukocyte Esterase Negative Urine RBC 21 Urine WBC 5 Urine Mucus Rare RPR Titer T.pallidum Ab (A) 04/22/17 04/22/17 07:00 13:00 WBC RBC Hgb Hct MCV MCH MCHC RDW Plt Count MPV Sodium Potassium Chloride Carbon Dioxide Anion Gap BUN Creatinine Creat Clearance w eGFR Random Glucose Calcium Total Bilirubin AST ALT Alkaline Phosphatase Total Protein Albumin Urine Color Ltyellow Urine Appearance Clear Urine pH 6.0 Ur Specific [place] 1.010 Urine Protein Negative Urine Glucose (UA) Negative Urine Ketones Negative Urine Blood Negative Urine Nitrite Negative Urine Bilirubin Negative Urine Urobilinogen 4.0 e.u/dl Ur Leukocyte Esterase Negative Urine RBC Urine WBC Urine Mucus RPR Titer Reactive 1:1 H T.pallidum Ab ([facility]) Previously reactive Assessment: 04/23/17 11:46 withdrawal sx, hypokalemai Plan: cont deotx, supplement, k fluids, repeat labs
[2017-04-23] MEDS ORDERED: POTASSIUM CHLORIDE ORAL LIQUID 20 MEQ/15 ML PO SCH (22:00)
[2017-04-23] MEDS: LIDOCAINE PATCH REMOVAL MC SCH (22:44)
[2017-04-23] MEDS: THIAMINE HCL 100 MG TABLET (FP) PO SCH (22:44)
[2017-04-23] MEDS: chlordiazePOXIDE 5 MG CAPSULE PO SCH (22:44)
[2017-04-23] MEDS: ATORVASTATIN CA 20 MG TABLET (FP) PO SCH (22:44)
[2017-04-23] MEDS: diphenhydrAMINE HCL 50 MG CAPSULE PO PRN (22:47)
[2017-04-24] MEDS: chlordiazePOXIDE 5 MG CAPSULE PO SCH (04:02)
--- NOTE | 2017-04-24 08:55 | DS ---
[facility] Detox Discharge Summary Admission Date: 04/21/17 Discharge Date: 04/24/17 - History Present History: Alcohol Dependence, Cannabis Dependence, Cocaine Dependence Pertinent Past History: nicotine dependence, Hep c+, anxiety, depression, insomnia, wt loss - Physical Exam Results Vital Signs: Vital Signs Temperature 97 F L 04/24/17 06:50 Pulse Rate 80 04/24/17 06:50 Respiratory Rate 18 04/24/17 06:50 Blood Pressure 121/74 04/24/17 06:50 O2 Sat by Pulse Oximetry (%) Laboratory Tests 04/21/17 04/22/17 04/22/17 22:00 07:00 07:00 WBC 3.1 L RBC 4.84 Hgb 15.0 Hct 44.9 MCV 92.8 MCH 31.0 MCHC 33.4 RDW 15.6 Plt Count 175 D MPV 8.5 Sodium 139 Potassium 3.2 L Chloride 104 Carbon Dioxide 25 Anion Gap 10 BUN 15 D Creatinine 1.0 Creat Clearance w eGFR > 60 Random Glucose 103 D Calcium 8.6 Total Bilirubin 1.1 H AST 45 H D ALT 57 Alkaline Phosphatase 112 Total Protein 6.8 Albumin 3.4 Urine Color Yellow Urine Appearance Clear Urine pH 6.0 D Ur Specific [place] 1.020 Urine Protein 1+ H Urine Glucose (UA) Negative Urine Ketones Negative Urine Blood 2+ H Urine Nitrite Negative Urine Bilirubin Negative Urine Urobilinogen Negative Ur Leukocyte Esterase Negative Urine RBC 21 Urine WBC 5 Urine Mucus Rare RPR Titer T.pallidum Ab (MHA) 04/22/17 04/22/17 07:00 13:00 WBC RBC Hgb Hct MCV MCH MCHC RDW Plt Count MPV Sodium Potassium Chloride Carbon Dioxide Anion Gap BUN Creatinine Creat Clearance w eGFR Random Glucose Calcium Total Bilirubin AST ALT Alkaline Phosphatase Total Protein Albumin Urine Color Ltyellow Urine Appearance Clear Urine pH 6.0 Ur Specific [place] 1.010 Urine Protein Negative Urine Glucose (UA) Negative Urine Ketones Negative Urine Blood Negative Urine Nitrite Negative Urine Bilirubin Negative Urine Urobilinogen 4.0 e.u/dl Ur Leukocyte Esterase Negative Urine RBC Urine WBC Urine Mucus RPR Titer Reactive 1:1 H T.pallidum Ab (MHA) Previously reactive hypokalemia Pertinent Admission Physical Exam Findings: withdrawal sx - Treatment Hospital Course: Detox Protocol Followed, Detoxed Safely, Responded well, Discharged Condition Good, Rehab Referral Accepted Patient has Accepted a Rehab Referral to: Yes - Medication Discharge Medications: Ambulatory Orders Amlodipine Besylate [Norvasc -] 10 mg PO DAILY #30 tablet 04/28/14 Atorvastatin Ca [Lipitor] 20 mg PO HS #30 tablet 04/28/14 Darunavir/Cobicistat [Prezcobix 800 mg-150 mg Tablet] 1 each PO DAILY 06/03/16 Dolutegravir Sodium [Tivicay] 50 mg PO DAILY 06/03/16 - Diagnosis (1) Impulse control disorder Current Visit: Yes Status: Acute (2) Alcohol dependence with uncomplicated withdrawal Current Visit: Yes Status: Chronic (3) Cannabis dependence, uncomplicated Current Visit: Yes Status: Chronic (4) Chronic back pain Current Visit: Yes Status: Chronic Qualifiers: Back pain location: low back pain Back pain laterality: midline Sciatica presence: without sciatica Qualified Code(s): M54.5 - Low back pain; G89.29 - Other chronic pain (5) Cocaine dependence, uncomplicated Current Visit: Yes Status: Chronic (6) Essential hypertension Current Visit: Yes Status: Chronic (7) Human immunodeficiency virus infection Current Visit: Yes Status: Chronic (8) Nicotine dependence Current Visit: Yes Status: Chronic Qualifiers: Nicotine product type: cigarettes Substance use status: uncomplicated Qualified Code(s): F17.210 - Nicotine dependence, cigarettes, uncomplicated (9) hypercholesterolemia Current Visit: Yes Status: Chronic (10) Drug-induced mood disorder Current Visit: No Status: Acute (11) Syphilis contact, treated Current Visit: No Status: Inactive (12) Hypokalemia Current Visit: Yes Status: Acute - AMA Did Patient Leave Against Medical Advice: No
[2017-04-24] MEDS ORDERED: POTASSIUM CHLORIDE ORAL LIQUID 20 MEQ/15 ML PO ONE (09:45)
[2017-04-24 10:06] VITALS: BP 141/95; PULSE 103; TEMP 97.2
[2017-04-24] MEDS ORDERED: chlordiazePOXIDE HCL 10 MG CAPSULE PO SCH (23:00)
== END 2017-04-24 09:36 | disposition home or self-care (01) | DRG 774 ==
LOC: YASAS 16:12 → Y6N 19:45
PROVIDERS: ADMIT Internal Medicine Addiction Medicine; ATTEND Internal Medicine Addiction Medicine
PROC: HZ2ZZZZ Detoxification Services for Substance Abuse Treatment (ICD-10-PCS; principal; 2017-04-21)
DX: F10.230 Alcohol dependence with withdrawal, uncomplicated (principal); F14.20 Cocaine dependence, uncomplicated; F12.20 Cannabis dependence, uncomplicated; F17.210 Nicotine dependence, cigarettes, uncomplicated; F32.9 Major depressive disorder, single episode, unspecified; F63.9 Impulse disorder, unspecified; F19.24 Other psychoactive substance dependence with psychoactive substance-induced mood disorder; I10 Essential (primary) hypertension; Z21 Asymptomatic human immunodeficiency virus [HIV] infection status; M54.5 Low back pain; G89.29 Other chronic pain; E78.00 Pure hypercholesterolemia, unspecified; E87.6 Hypokalemia; B18.2 Chronic viral hepatitis C; Z87.438 Personal history of other diseases of male genital organs; Z87.898 Personal history of other specified conditions
CPT/HCPCS: 36415; 80053; 81003; 81015; 85027; 86593; 86780; 93005; 93010

== ENCOUNTER 2017-06-01 14:53 | Inpatient (IN) | payer OTHER ==
[2017-06-01 19:09] VITALS: BMI 27.6
--- NOTE | 2017-06-01 21:40 | HP ---
CIWA Score - CIWA Score Nausea/Vomitin-Mild Nausea/No Vomiting Muscle Tremors: 4-Moderate,w/Arms Extend Anxiety: 4-Mod. Anxious/Guarded Agitation: 4-Moderately Restless Paroxysmal Sweats: 1-Minimal Palms Moist Orientation: 1-Uncertain about Date Tacttile Disturbances: 1-Very Mild Itch/Numbness Auditory Disturbances: 0-None Visual Disturbances: 0-None Headache: 3-Moderate CIWA-Ar Total Score: 19 Admission ROS BHS - HPI Chief Complaint: C/O WITHDRAWAL SX'S FROM ETOH Allergies/Adverse Reactions: Allergies Allergy/AdvReac Type Severity Reaction Status Date / Time No Known Allergies Allergy Verified 04/21/17 19:45 History of Present Illness: 56 Y.O. MALE WITH LONG HX/O ALCOHOLISM ADMITTED TO DETOX. SELF REFERRED. HE IS KNOW TO THIS DETOX LAST HERE A MONTH AGO. REPORTS LONGEST SOBRIETY 6 YEARS RELAPSING 5 YEARS AGO Exam Limitations: No Limitations - Ebola screening Have you traveled outside of the country in the last 21 days: No Have you had contact with anyone from an Ebola affected area: No Have you been sick,other than usual withdrawal symptoms: No Do you have a fever: No - Review of Systems Constitutional: Chills, Loss of Appetite, Night Sweats, Changes in sleep, Unintentional Wgt. Loss EENT: reports: Dental Problems (DENTURES UPPER/LOWER) Respiratory: reports: No Symptoms reported Cardiac: reports: No Symptoms Reported GI: reports: Diarrhea, Nausea, Poor Appetite : reports: No Symptoms Reported Musculoskeletal: reports: No Symptoms Reported Integumentary: reports: No Symptoms Reported Neuro: reports: Tremors, Other (BLACK OUTS) Endocrine: reports: No Symptoms Reported Hematology: reports: No Symptoms Reported Psychiatric: reports: Anxious, Depressed Other Systems: Reviewed and Negative Patient History - Patient Medical History Hx Anemia: No Hx Asthma: No Hx Chronic Obstructive Pulmonary Disease (COPD): No Hx Cancer: No Hx Cardiac Disorders: No Hx Congestive Heart Failure: No Hx Hypertension: Yes Hx Hypercholesterolemia: Yes (on med) Hx Pacemaker: No HX Cerebrovascular Accident: No Hx Seizures: No Hx Dementia: No Hx Diabetes: No Hx Gastrointestinal Disorders: No Hx Liver Disease: No Hx Genitourinary Disorders: No Hx Sexually Transmitted Disorders: Yes (treated for syphylis years ago) Hx Renal Disease (ESRD): No Hx Thyroid Disease: No Hx Human Immunodeficiency Virus (HIV): Yes (since 1989 't cells are good') Hx Hepatitis C: Yes (TREATED IN 2015) Hx Depression: Yes (never treated) Hx Suicide Attempt: No Hx Bipolar Disorder: No Hx Schizophrenia: No Other Medical History: DENIES - Patient Surgical History Past Surgical History: No Hx Neurologic Surgery: No Hx Cataract Extraction: No Hx Cardiac Surgery: No Hx Lung Surgery: No Hx Breast Surgery: No Hx Breast Biopsy: No Hx Abdominal Surgery: No Hx Appendectomy: No Hx Cholecystectomy: No Hx Genitourinary Surgery: No Hx Section: No Hx Orthopedic Surgery: No Anesthesia Reaction: No - PPD History Previous Implant?: Yes Documented Results: Negative w/proof Implanted On Prior [facility] Admission?: Yes Date: 08/19/16 Results: 0 mm PPD to be Administered?: No - Smoking Cessation Smoking history: Current every day smoker Have you smoked in the past 12 months: Yes Aproximately how many cigarettes per day: 20 Cigars Per Day: 0 Hx Chewing Tobacco Use: No Initiated information on smoking cessation: Yes 'Breaking Loose' booklet given: 06/01/17 - Substance & Tx. History Hx Alcohol Use: Yes Hx Substance Use: Yes Substance Use Type: Alcohol, Marijuana Hx Substance Use Treatment: Yes ([facility]) - Substances Abused VODKA Route: Oral Frequency: Daily Amount used: 2 PINTS Age of first use: 12 Date of Last Use: 06/01/17 THC Route: Smoking Frequency: Daily Amount used: 1 BAG Age of first use: 13 Date of Last Use: 06/01/17 Family Disease History - Family Disease History Family Disease History: Heart Disease: Mother (HTN, ), Other: Father ( estranged), Brother ( 1 bro alive), Sister (2 sisters -) Admission Physical Exam S - Vital Signs Vital Signs: Vital Signs - 24 hr 06/01/17 19:06 Temperature 95.6 F L Pulse Rate 73 Respiratory 16 Rate Blood Pressure 134/87 - Physical General Appearance: Yes: Appropriately Dressed, Mild Distress, Alcohol on Breath , Intoxicated, Tremorous, Anxious HEENTM: Yes: EOMI, Normocephalic, Pharynx Normal Respiratory: Yes: Chest Non-Tender, Lungs Clear, Normal Breath Sounds, No Respiratory Distress, No Accessory Muscle Use Neck: Yes: No masses,lesions,Nodules, Supple, Trachea in good position Breast: Yes: Breast Exam Deferred Cardiology: Yes: Regular Rhythm, Regular Rate, S1, S2 Abdominal: Yes: Normal Bowel Sounds, Non Tender, Soft Genitourinary: Yes: Within Normal Limits Back: Yes: Normal Inspection Musculoskeletal: Yes: full range of Motion, Gait Steady Extremities: Yes: Normal Capillary Refill, Normal Range of Motion, Non-Tender, Tremors Neurological: Yes: rollout manager II-XII NML intact, Fully Oriented, Alert, Motor Strength 5/5 Integumentary: Yes: Normal Color, Dry, Warm Lymphatic: Yes: Within Normal Limits - Diagnostic (1) Alcohol dependence with uncomplicated withdrawal Current Visit: No Status: Chronic (2) Cannabis dependence, uncomplicated Current Visit: No Status: Chronic (3) Essential hypertension Current Visit: No Status: Chronic (4) Human immunodeficiency virus infection Current Visit: No Status: Chronic Comment: patient has not bring in his own medications (5) Nicotine dependence Current Visit: No Status: Chronic Qualifiers: Nicotine product type: cigarettes Substance use status: uncomplicated Qualified Code(s): F17.210 - Nicotine dependence, cigarettes, uncomplicated; F17.210 - Nicotine dependence, cigarettes, uncomplicated (6) hypercholesterolemia Current Visit: No Status: Chronic Cleared for Admission [facility] - Detox or Rehab [facility] Level of Care: Medically Managed Detox Regimen/Protocol: Librium [facility] Breath Alcohol Content Breath Alcohol Content: 0.094 Urine Drug Screen - Results Drug Screen Negative: No Urine Drug Screen Results: THC-Marijuana, BZO-Benzodiazepines
[2017-06-01] MEDS ORDERED: P-EPHED 60MG/TRIPROLIDI 2.5MG TABLET PO PRN (21:44)
[2017-06-01] MEDS ORDERED: NICOTINE POLACRILEX 2 MG GUM BC PRN (21:44)
[2017-06-01] MEDS ORDERED: ACETAMINOPHEN 325 MG TABLET (FP) PO PRN (21:44)
[2017-06-01] MEDS ORDERED: LOPERAMIDE HCL 2 MG CAPSULE PO PRN (21:44)
[2017-06-01] MEDS ORDERED: MAGNESIUM HYDROX 2400MG/30ML ORAL SUSPENSION 30 ML CUP PO PRN (21:44)
[2017-06-01] MEDS ORDERED: chlordiazePOXIDE HCL 25 MG CAPSULE PO PRN (21:44)
[2017-06-01] MEDS ORDERED: guaiFENesin/D-METHORPHAN HB 10 ML UNIT-DOSE CUPS PO PRN (21:44)
[2017-06-01] MEDS ORDERED: MENTHOL/PHENOL 1 EACH UD MM PRN (21:44)
[2017-06-01] MEDS ORDERED: MAGNESIUM CITRATE 300 ML BOTTLE PO PRN (21:44)
[2017-06-01] MEDS ORDERED: IBUPROFEN 400 MG TABLET (FP) PO PRN (21:44)
[2017-06-02] MEDS: chlordiazePOXIDE HCL 25 MG CAPSULE PO SCH ×5 (01:46→22:20)
[2017-06-02] MEDS: diphenhydrAMINE HCL 50 MG CAPSULE PO PRN (01:50)
[2017-06-02] MEDS: THIAMINE HCL 100 MG TABLET (FP) PO SCH ×2 (01:51→22:20)
[2017-06-02] MEDS: ATORVASTATIN CA 20 MG TABLET (FP) PO SCH ×2 (01:52→22:21)
[2017-06-02] MEDS: NICOTINE 21 MG/24 HOURS TOPICAL PATCH TD SCH ×2 (01:52→10:30)
[2017-06-02 09:49] LABS: MCH 30.4 pg (25.7-33.7); MCHC 33.1 g/dl (32.0-35.9); MEAN CELL VOLUME 91.7 fl (80-96); MEAN PLT VOLUME 8.5 fl (7.5-11.1); PLATELET COUNT 138 K/MM3 (134-434); RDW 16.2 % (11.9-15.9); WHITE BLOOD COUNT 3.6 K/mm3 (4.0-10.0)
[2017-06-02] MEDS: amLODIPine BESYLATE 10 MG TABLET (FP) PO SCH (10:30)
[2017-06-02] MEDS: PRENATAL VITAMINS W/ FOLIC ACID TABLET (FP) PO SCH (10:30)
[2017-06-02 10:33] LABS: ALBUMIN 3.2 g/dl (3.4-5.0); ALK PHOS 106 U/L (45-117); ANION GAP 12 (8-16); BILIRUBIN,TOTAL 0.7 mg/dL (0.2-1.0); CALCIUM 8.2 mg/dL (8.5-10.1); CO2 27 mmol/L (21-32); GLUCOSE,RANDOM 139 mg/dL (74-106); SGOT/AST 31 U/L (15-37); SGPT/ALT 31 U/L (12-78); TOT PROT 6.8 g/dl (6.4-8.2)
[2017-06-02] MEDS ORDERED: POTASSIUM CHLORIDE TABS 20 MEQ TABLET.ER (FP) PO ONE (12:05)
--- NOTE | 2017-06-02 12:09 | PN ---
S CIWA - CIWA Score Nausea/Vomitin Muscle Tremors: 4-Moderate,w/Arms Extend Anxiety: 3 Agitation: 0-Normal Activity Paroxysmal Sweats: No Perspiration Orientation: 0-Oriented Tacttile Disturbances: 2-Mild Itch/Numbness/Burn Auditory Disturbances: 2-Mild Harshness/Frighten Visual Disturbances: 3-Moderate Sensitivity Headache: 0-None Present CIWA-Ar Total Score: 16 BHS Progress Note (SOAP) Subjective: Stomach Cramping, Tremors, interrupted sleep, Diarrhea, Body Aches, Fatigue. Objective: PT. A & O X 3. NO ACUTE DISTRESS. PT. DENIES CHEST PAIN. 06/02/17 12:11 Vital Signs Temperature 96.2 F L 06/02/17 09:09 Pulse Rate 74 06/02/17 09:09 Respiratory Rate 18 06/02/17 09:09 Blood Pressure 171/104 06/02/17 09:09 O2 Sat by Pulse Oximetry (%) Laboratory Tests 06/02/17 06/02/17 06/02/17 07:00 07:00 07:00 WBC 3.6 L RBC 4.88 Hgb 14.8 Hct 44.8 MCV 91.7 MCH 30.4 MCHC 33.1 RDW 16.2 H Plt Count 138 D MPV 8.5 Sodium 141 Potassium 2.9 L* Chloride 102 Carbon Dioxide 27 Anion Gap 12 BUN 11 D Creatinine 1.0 Creat Clearance w eGFR > 60 Random Glucose 139 H D Calcium 8.2 L Total Bilirubin 0.7 D AST 31 D ALT 31 D Alkaline Phosphatase 106 Total Protein 6.8 Albumin 3.2 L RPR Titer Reactive 1:1 H T.pallidum Ab (MHA) Previously reactive LABS NOTED. UA RESULTS PENDING. PATIENT HAS HAD LOW WBC RESULT SON SEVERAL PREVIOUS DETOX ADMISSIONS. PATIENT REPORTS THAT HE COMPLETED A FULL COURSE OF ANTIBIOTIC TREATMENT FOR SYPHILIS APPROX. 1 YEAR AGO. Assessment: 06/02/17 12:12 WITHDRAWAL SYMPTOMS. HYPOKALEMIA. NEUTROPENIA. Plan: CONTINUE DETOX. K-DUR, 40 MEQ PO X 1 NOW, THEN 20 BARB PO BID AFTER. BGM ACBK FOR ELEVATED ADMISSION RANDOM GLUCOSE LEVEL. INCREASE DAILY PO FLUID INTAKE.
--- NOTE | 2017-06-02 13:03 | CONSULT ---
[facility] Psychiatric Consult - Data Date of interview: 06/02/17 Admission source: [facility] Identifying data: Readmission to [facility] for this 56 y/o AA male seeking detox treatment on for alcohol,cannabis and cocaine dependence.Patient is single without children,domiciled ([employer] setting),unemployed and supported on SSI benefits. Substance Abuse History: Confirmed by patient. Smoking Cessation. Smoking history: Current every day smoker. Have you smoked in the past 12 months: Yes. Aproximately how many cigarettes per day: 20. Cigars Per Day: 0. Hx Chewing Tobacco Use: No. Initiated information on smoking cessation: Yes. 'Breaking Loose' booklet given: 06/01/17. - Substance & Tx. History. Hx Alcohol Use: Yes. Hx Substance Use: Yes. Substance Use Type: Alcohol, Marijuana. Hx Substance Use Treatment: Yes ([facility]). - Substances Abused. VODKA. Route: Oral. Frequency: Daily. Amount used: 2 PINTS. Age of first use: 12. Date of Last Use: 06/01/17. THC. Route: Smoking. Frequency: Daily. Amount used: 1 BAG. Age of first use: 13. Date of Last Use: 06/01/17 Medical History: HIV infection since 1989,hypertension,hepatitis C,past treatment for syphilis and dyslipidemia. Psychiatric History: Patient denies. Physical/Sexual Abuse/Trauma History: Patient denies. Additional Comment: Urine Drug Screen Results: THC-Marijuana, BZO- Benzodiazepines.Noted. Mental Status Exam - Mental Status Exam Alert and Oriented to: Time, Place, Person Cognitive Function: Good Patient Appearance: Well Groomed Mood: Hopeful, Euthymic Affect: Normal Range Patient Behavior: Appropriate, Cooperative Speech Pattern: Clear Voice Loudness: Normal Thought Process: Goal Oriented Thought Disorder: Not Present Hallucinations: Denies Suicidal Ideation: Denies Homicidal Ideation: Denies Insight/Judgement: Poor Sleep: Well Appetite: Good Muscle strength/Tone: Normal Gait/Station: Normal Psychiatric Findings - Problem List ([place] 1, 2,3) (1) Alcohol dependence with uncomplicated withdrawal Current Visit: Yes Status: Acute (2) Cannabis dependence, uncomplicated Current Visit: Yes Status: Acute (3) Nicotine dependence Current Visit: Yes Status: Acute Qualifiers: Nicotine product type: cigarettes Substance use status: uncomplicated Qualified Code(s): F17.210 - Nicotine dependence, cigarettes, uncomplicated; F17.210 - Nicotine dependence, cigarettes, uncomplicated (4) Drug-induced mood disorder Current Visit: Yes Status: Acute (5) Chronic back pain Current Visit: Yes Status: Chronic Qualifiers: Back pain location: low back pain Back pain laterality: midline Sciatica presence: without sciatica Qualified Code(s): M54.5 - Low back pain; M54.5 - Low back pain; G89.29 - Other chronic pain; G89.29 - Other chronic pain (6) Essential hypertension Current Visit: Yes Status: Chronic (7) Human immunodeficiency virus infection Current Visit: Yes Status: Chronic Comment: patient has not bring in his own medications (8) hypercholesterolemia Current Visit: Yes Status: Chronic - Initial Treatment Plan Initial Treatment Plan: Psychoeducation.Detoxification.Observation.
[2017-06-02] MEDS: hydrOXYzine PAMOATE 50 MG CAPSULE (FP) PO PRN ×3 (13:27→22:22)
[2017-06-02] MEDS: POTASSIUM CHLORIDE TABS 20 MEQ TABLET.ER (FP) PO SCH (17:33)
[2017-06-02] MEDS ORDERED: amLODIPine BESYLATE 10 MG TABLET (FP) PO ONE (21:27)
[2017-06-03] MEDS: chlordiazePOXIDE HCL 25 MG CAPSULE PO SCH ×3 (05:11→17:14)
[2017-06-03] MEDS: MAG HYDROX/AL HYDROX/SIMETH 30 ML UNIT-DOSE CUP PO PRN ×2 (05:28→20:40)
[2017-06-03] MEDS: amLODIPine BESYLATE 10 MG TABLET (FP) PO SCH (10:20)
[2017-06-03] MEDS: PRENATAL VITAMINS W/ FOLIC ACID TABLET (FP) PO SCH (10:20)
[2017-06-03] MEDS: POTASSIUM CHLORIDE TABS 20 MEQ TABLET.ER (FP) PO SCH ×2 (10:20→17:14)
[2017-06-03] MEDS: NICOTINE 21 MG/24 HOURS TOPICAL PATCH TD SCH (10:21)
[2017-06-03] MEDS: hydrOXYzine PAMOATE 50 MG CAPSULE (FP) PO PRN ×2 (10:23→14:23)
--- NOTE | 2017-06-03 11:58 | EKG ---
Test Reason : Blood Pressure : / mmHG Vent. Rate : 061 BPM Atrial Rate : 061 BPM P-R Int : 160 ms QRS Dur : 098 ms QT Int : 418 ms P-R-T Axes : 081 055 061 degrees QTc Int : 420 ms NORMAL SINUS RHYTHM MINIMAL VOLTAGE CRITERIA FOR LVH, MAY BE NORMAL VARIANT BORDERLINE ECG WHEN COMPARED WITH ECG OF 21-APR-2017 19:31, QT HAS SHORTENED Confirmed by SINDY GOODEN, MASOOD ([id number]) on 06/03/2017 11:57:53 AM Referred By: Confirmed By:MASOOD CALLAHAN MD
[2017-06-03 13:45] LABS: URINE APPEARANCE CLEAR; URINE BILIRUBIN NEGATIVE (NEGATIVE); URINE BLOOD NEGATIVE (NEGATIVE); URINE COLOR LTYELLOW; URINE GLUCOSE (UA) NEGATIVE (NEGATIVE); URINE KETONE NEGATIVE (NEGATIVE); URINE NITRITE NEGATIVE (NEGATIVE); URINE PROTEIN NEGATIVE (NEGATIVE); URINE UROBILINOGEN NEGATIVE mg/dL (0.2-1.0)
--- NOTE | 2017-06-03 13:49 | PN ---
[facility] CIWA - CIWA Score Nausea/Vomitin-No Nausea/No Vomiting Muscle Tremors: 4-Moderate,w/Arms Extend Anxiety: 2 Agitation: 0-Normal Activity Paroxysmal Sweats: 3 Orientation: 0-Oriented Tacttile Disturbances: 2-Mild Itch/Numbness/Burn Auditory Disturbances: 2-Mild Harshness/Frighten Visual Disturbances: 3-Moderate Sensitivity Headache: 0-None Present CIWA-Ar Total Score: 16 S Progress Note (SOAP) Subjective: Interrupted Sleep, Fatigue, Body Aches, H/A, Stomach Cramping, Sweating. Objective: PT. A & O X 3, OBSERVED AMBULATING ON UNIT. NO ACUTE DISTRESS. 06/03/17 13:50 Vital Signs Temperature 97.0 F L 06/03/17 13:10 Pulse Rate 98 H 06/03/17 13:10 Respiratory Rate 20 06/03/17 13:10 Blood Pressure 138/75 06/03/17 13:10 O2 Sat by Pulse Oximetry (%) Laboratory Tests 06/02/17 06/02/17 06/02/17 07:00 07:00 07:00 WBC 3.6 L RBC 4.88 Hgb 14.8 Hct 44.8 MCV 91.7 MCH 30.4 MCHC 33.1 RDW 16.2 H Plt Count 138 D MPV 8.5 Sodium 141 Potassium 2.9 L* Chloride 102 Carbon Dioxide 27 Anion Gap 12 BUN 11 D Creatinine 1.0 Creat Clearance w eGFR > 60 POC Glucometer Random Glucose 139 H D Calcium 8.2 L Total Bilirubin 0.7 D AST 31 D ALT 31 D Alkaline Phosphatase 106 Total Protein 6.8 Albumin 3.2 L RPR Titer Reactive 1:1 H T.pallidum Ab (MHA) Previously reactive 06/03/17 05:10 WBC RBC Hgb Hct MCV MCH MCHC RDW Plt Count MPV Sodium Potassium Chloride Carbon Dioxide Anion Gap BUN Creatinine Creat Clearance w eGFR POC Glucometer 119 Random Glucose Calcium Total Bilirubin AST ALT Alkaline Phosphatase Total Protein Albumin RPR Titer T.pallidum Ab (MHA) LABS NOTED. UA RESULTS PENDING. 06/03/17 13:52 Assessment: 06/03/17 13:50 WITHDRAWAL SYMPTOMS. HYPOKALEMIA. NEUTROPENIA. Plan: CONTINUE DETOX.
[2017-06-03 17:41] LABS: URINE LEUK ESTERASE TRACE (NEGATIVE)
[2017-06-03] MEDS: ATORVASTATIN CA 20 MG TABLET (FP) PO SCH (22:16)
[2017-06-03] MEDS: THIAMINE HCL 100 MG TABLET (FP) PO SCH (22:16)
[2017-06-03] MEDS: chlordiazePOXIDE 5 MG CAPSULE PO SCH (22:18)
[2017-06-03] MEDS: diphenhydrAMINE HCL 50 MG CAPSULE PO PRN (22:18)
[2017-06-04] MEDS: chlordiazePOXIDE 5 MG CAPSULE PO SCH ×3 (05:19→17:11)
[2017-06-04] MEDS: PRENATAL VITAMINS W/ FOLIC ACID TABLET (FP) PO SCH (10:24)
[2017-06-04] MEDS: POTASSIUM CHLORIDE TABS 20 MEQ TABLET.ER (FP) PO SCH ×2 (10:24→17:39)
[2017-06-04] MEDS: amLODIPine BESYLATE 10 MG TABLET (FP) PO SCH (10:24)
[2017-06-04] MEDS: NICOTINE 21 MG/24 HOURS TOPICAL PATCH TD SCH (10:25)
--- NOTE | 2017-06-04 12:17 | PN ---
[facility] Progress Note (SOAP) Subjective: Sweating, irritable, agitated, interrupted sleep. Patient complained about his SRO stating that he requested to be transferred because the residence there fights a lot at night and makes too much noise. Patient stated that he feels depressed staying there. As per patient, he was seen by psychiatrist and placed on medication. He denies SI, HI. As per patient, his SW at his residence is not helping him. Patient encouraged to speak with his assistant case manager/SW or to their boss so that the problem can be addressed. Objective: 06/04/17 12:13 Last Vital Signs Temp Pulse Resp BP Pulse Ox 96.2 F L 98 H 20 126/78 06/04/17 09:16 06/04/17 09:16 06/04/17 09:16 06/04/17 09:16 Laboratory Tests 06/02/17 06/02/17 06/02/17 07:00 07:00 07:00 WBC 3.6 L RBC 4.88 Hgb 14.8 Hct 44.8 MCV 91.7 MCH 30.4 MCHC 33.1 RDW 16.2 H Plt Count 138 D MPV 8.5 Sodium 141 Potassium 2.9 L* Chloride 102 Carbon Dioxide 27 Anion Gap 12 BUN 11 D Creatinine 1.0 Creat Clearance w eGFR > 60 POC Glucometer Random Glucose 139 H D Calcium 8.2 L Total Bilirubin 0.7 D AST 31 D ALT 31 D Alkaline Phosphatase 106 Total Protein 6.8 Albumin 3.2 L Urine Color Urine Appearance Urine pH Ur Specific [place] Urine Protein Urine Glucose (UA) Urine Ketones Urine Blood Urine Nitrite Urine Bilirubin Urine Urobilinogen Ur Leukocyte Esterase RPR Titer Reactive 1:1 H T.pallidum Ab (A) Previously reactive 06/03/17 06/03/17 06/04/17 05:10 09:50 05:18 WBC RBC Hgb Hct MCV MCH MCHC RDW Plt Count MPV Sodium Potassium Chloride Carbon Dioxide Anion Gap BUN Creatinine Creat Clearance w eGFR POC Glucometer 119 103 Random Glucose Calcium Total Bilirubin AST ALT Alkaline Phosphatase Total Protein Albumin Urine Color Ltyellow Urine Appearance Clear Urine pH 7.0 Ur Specific [place] 1.015 Urine Protein Negative Urine Glucose (UA) Negative Urine Ketones Negative Urine Blood Negative Urine Nitrite Negative Urine Bilirubin Negative Urine Urobilinogen Negative Ur Leukocyte Esterase Trace H RPR Titer T.pallidum Ab ([facility]) Labs noted: K 2.9 Assessment: 06/04/17 12:14 Withdrawal symptoms Noted with hypokalemia Plan: Continue detox Hypokalemia: continue potassium supplement
[2017-06-04] MEDS: hydrOXYzine PAMOATE 50 MG CAPSULE (FP) PO PRN ×2 (17:12→22:30)
[2017-06-04] MEDS: ATORVASTATIN CA 20 MG TABLET (FP) PO SCH (22:30)
[2017-06-04] MEDS: chlordiazePOXIDE HCL 10 MG CAPSULE PO SCH (22:30)
[2017-06-04] MEDS: THIAMINE HCL 100 MG TABLET (FP) PO SCH (22:30)
[2017-06-05] MEDS: chlordiazePOXIDE HCL 10 MG CAPSULE PO SCH (05:22)
[2017-06-05 06:28] VITALS: BP 136/83; PULSE 87; TEMP 97.7
--- NOTE | 2017-06-05 10:41 | DS ---
[facility] Detox Discharge Summary Admission Date: 06/01/17 Discharge Date: 06/05/17 - History Present History: Alcohol Dependence, Cannabis Dependence, Cocaine Dependence Pertinent Past History: Hep C HTN HIV infection - Physical Exam Results Vital Signs: Vital Signs Temperature 97.7 F 06/05/17 06:27 Pulse Rate 87 06/05/17 06:27 Respiratory Rate 18 06/05/17 06:27 Blood Pressure 136/83 06/05/17 06:27 O2 Sat by Pulse Oximetry (%) Pertinent Admission Physical Exam Findings: Withdrawal sx. Laboratory Last Values WBC 3.6 K/mm3 (4.0-10.0) L 06/02/17 07:00 RBC 4.88 M/mm3 (4.00-5.60) 06/02/17 07:00 Hgb 14.8 GM/dL (11.7-16.9) 06/02/17 07:00 Hct 44.8 % (35.4-49) 06/02/17 07:00 MCV 91.7 fl (80-96) 06/02/17 07:00 MCH 30.4 pg (25.7-33.7) 06/02/17 07:00 MCHC 33.1 g/dl (32.0-35.9) 06/02/17 07:00 RDW 16.2 % (11.9-15.9) H 06/02/17 07:00 Plt Count 138 K/MM3 (134-434) D 06/02/17 07:00 MPV 8.5 fl (7.5-11.1) 06/02/17 07:00 Sodium 141 mmol/L (136-145) 06/02/17 07:00 Potassium 4.0 mmol/L (3.5-5.1) D 06/04/17 10:50 Chloride 102 mmol/L (98-107) 06/02/17 07:00 Carbon Dioxide 27 mmol/L (21-32) 06/02/17 07:00 Anion Gap 12 (8-16) 06/02/17 07:00 BUN 11 mg/dL (7-18) D 06/02/17 07:00 Creatinine 1.0 mg/dL (0.7-1.3) 06/02/17 07:00 Creat Clearance w eGFR > 60 (>60) 06/02/17 07:00 POC Glucometer 118 UNITS (()) 06/05/17 05:20 Random Glucose 139 mg/dL (74-106) H D 06/02/17 07:00 Calcium 8.2 mg/dL (8.5-10.1) L 06/02/17 07:00 Total Bilirubin 0.7 mg/dL (0.2-1.0) D 06/02/17 07:00 AST 31 U/L (15-37) D 06/02/17 07:00 ALT 31 U/L (12-78) D 06/02/17 07:00 Alkaline Phosphatase 106 U/L (45-117) 06/02/17 07:00 Total Protein 6.8 g/dl (6.4-8.2) 06/02/17 07:00 Albumin 3.2 g/dl (3.4-5.0) L 06/02/17 07:00 Urine Color Ltyellow 06/03/17 09:50 Urine Appearance Clear 06/03/17 09:50 Urine pH 7.0 (5.0-8.0) 06/03/17 09:50 Ur Specific [place] 1.015 (1.005-1.025) 06/03/17 09:50 Urine Protein Negative (NEGATIVE) 06/03/17 09:50 Urine Glucose (UA) Negative (NEGATIVE) 06/03/17 09:50 Urine Ketones Negative (NEGATIVE) 06/03/17 09:50 Urine Blood Negative (NEGATIVE) 06/03/17 09:50 Urine Nitrite Negative (NEGATIVE) 06/03/17 09:50 Urine Bilirubin Negative (NEGATIVE) 06/03/17 09:50 Urine Urobilinogen Negative mg/dL (0.2-1.0) 06/03/17 09:50 Ur Leukocyte Esterase Trace (NEGATIVE) H 06/03/17 09:50 RPR Titer Reactive 1:1 (NONREACTIVE) H 06/02/17 07:00 T.pallidum Ab (MHA) Previously reactive (NONREACTIVE) 06/02/17 07:00 labs noted - Treatment Hospital Course: Detox Protocol Followed, Detoxed Safely, Responded well, Discharged Condition Good, Rehab Referral Accepted Patient has Accepted a Rehab Referral to: IOP Allience - Medication Discharge Medications: Ambulatory Orders Amlodipine Besylate [Norvasc -] 10 mg PO DAILY #30 tablet 04/28/14 Atorvastatin Ca [Lipitor] 20 mg PO HS #30 tablet 04/28/14 Darunavir/Cobicistat [Prezcobix 800 mg-150 mg Tablet] 1 each PO DAILY 06/03/16 Dolutegravir Sodium [Tivicay] 50 mg PO DAILY 06/03/16 - Diagnosis (1) Alcohol dependence with uncomplicated withdrawal Current Visit: Yes Status: Acute (2) Cannabis dependence, uncomplicated Current Visit: Yes Status: Acute (3) Cocaine dependence, uncomplicated Current Visit: Yes Status: Acute (4) Drug-induced mood disorder Current Visit: Yes Status: Acute (5) Nicotine dependence Current Visit: Yes Status: Acute Qualifiers: Nicotine product type: cigarettes Substance use status: uncomplicated Qualified Code(s): F17.210 - Nicotine dependence, cigarettes, uncomplicated; F17.210 - Nicotine dependence, cigarettes, uncomplicated (6) Essential hypertension Current Visit: Yes Status: Chronic (7) Human immunodeficiency virus infection Current Visit: Yes Status: Chronic (8) hypercholesterolemia Current Visit: Yes Status: Chronic - AMA Did Patient Leave Against Medical Advice: No
== END 2017-06-05 09:55 | disposition home or self-care (01) | DRG 774 ==
LOC: YASAS 14:53 → Y3N 22:32
PROVIDERS: ADMIT Internal Medicine; ATTEND Internal Medicine
PROC: HZ2ZZZZ Detoxification Services for Substance Abuse Treatment (ICD-10-PCS; principal; 2017-06-01)
DX: F10.230 Alcohol dependence with withdrawal, uncomplicated (principal); F14.20 Cocaine dependence, uncomplicated; F12.20 Cannabis dependence, uncomplicated; F32.9 Major depressive disorder, single episode, unspecified; F19.24 Other psychoactive substance dependence with psychoactive substance-induced mood disorder; Z21 Asymptomatic human immunodeficiency virus [HIV] infection status; I10 Essential (primary) hypertension; E78.00 Pure hypercholesterolemia, unspecified; Z87.438 Personal history of other diseases of male genital organs
CPT/HCPCS: 36415; 80053; 81003; 81015; 84132; 85027; 86593; 86780; 93005; 93010

== ENCOUNTER 2017-07-13 14:23 | Inpatient (IN) | payer OTHER ==
[2017-07-13 15:56] VITALS: BMI 26.6
--- NOTE | 2017-07-13 16:47 | HP ---
CIWA Score - CIWA Score Nausea/Vomitin-Mild Nausea/No Vomiting Muscle Tremors: 3 Anxiety: 4-Mod. Anxious/Guarded Agitation: 4-Moderately Restless Paroxysmal Sweats: 1-Minimal Palms Moist Orientation: 0-Oriented Tacttile Disturbances: 0-None Auditory Disturbances: 0-None Visual Disturbances: 0-None Headache: 0-None Present CIWA-Ar Total Score: 13 Admission ROS BHS - HPI Chief Complaint: withdrawal sx Allergies/Adverse Reactions: Allergies Allergy/AdvReac Type Severity Reaction Status Date / Time No Known Allergies Allergy Verified 07/13/17 16:34 History of Present Illness: 57 years old male with long history of alcohol nicotine dependence has hiv hypertension and depression is admitted to detox Exam Limitations: No Limitations - Ebola screening Have you traveled outside of the country in the last 21 days: No (N) Have you had contact with anyone from an Ebola affected area: No Have you been sick,other than usual withdrawal symptoms: No Do you have a fever: No - Review of Systems Constitutional: Changes in sleep, Weight Stable EENT: reports: Blurred Vision (need reading eye glasses) Respiratory: reports: Productive cough (yellowish) Cardiac: reports: No Symptoms Reported GI: reports: Nausea, Poor Fluid Intake, Abdominal cramping : reports: No Symptoms Reported Musculoskeletal: reports: No Symptoms Reported Integumentary: reports: No Symptoms Reported Neuro: reports: Tremors Endocrine: reports: No Symptoms Reported Hematology: reports: No Symptoms Reported Psychiatric: reports: Judgement Intact, Orientated x3, Depressed Other Systems: Reviewed and Negative Patient History - Patient Medical History Hx Anemia: No Hx Asthma: No Hx Chronic Obstructive Pulmonary Disease (COPD): No Hx Cancer: No Hx Cardiac Disorders: No Hx Congestive Heart Failure: No Hx Hypertension: Yes Hx Hypercholesterolemia: Yes (on med) Hx Pacemaker: No HX Cerebrovascular Accident: No Hx Seizures: No Hx Dementia: No Hx Diabetes: No Hx Gastrointestinal Disorders: No Hx Liver Disease: No Hx Genitourinary Disorders: No Hx Sexually Transmitted Disorders: Yes (treated for syphylis years ago) Hx Renal Disease (ESRD): No Hx Thyroid Disease: No Hx Human Immunodeficiency Virus (HIV): Yes (since 1989 't cells are good') Hx Hepatitis C: Yes (TREATED IN 2014) Hx Depression: Yes (never treated) Hx Suicide Attempt: No Hx Bipolar Disorder: No Hx Schizophrenia: No - Patient Surgical History Past Surgical History: No Hx Neurologic Surgery: No Hx Cataract Extraction: No Hx Cardiac Surgery: No Hx Lung Surgery: No Hx Breast Surgery: No Hx Breast Biopsy: No Hx Abdominal Surgery: No Hx Appendectomy: No Hx Cholecystectomy: No Hx Genitourinary Surgery: No Hx Orthopedic Surgery: No - PPD History Previous Implant?: Yes Documented Results: Negative w/proof Implanted On Prior [facility] Admission?: Yes Date: 08/19/16 Results: 0 mm PPD to be Administered?: No - Smoking Cessation Smoking history: Current every day smoker Have you smoked in the past 12 months: Yes Aproximately how many cigarettes per day: 20 Cigars Per Day: 0 Hx Chewing Tobacco Use: No Initiated information on smoking cessation: Yes 'Breaking Loose' booklet given: 07/13/17 - Substance & Tx. History Hx Alcohol Use: Yes Hx Substance Use: Yes Substance Use Type: Alcohol, Marijuana, Tranquilizers Hx Substance Use Treatment: Yes (05/2017 [facility] Family Disease History - Family Disease History Family Disease History: Heart Disease: Mother (HTN, ), Other: Father ( estranged), Brother ( 1 bro alive), Sister (2 sisters -) Admission Physical Exam S - Vital Signs Vital Signs: Vital Signs - 24 hr 07/13/17 15:54 Temperature 98.7 F Pulse Rate 90 Respiratory 18 Rate Blood Pressure 130/90 - Physical General Appearance: Yes: Appropriately Dressed, Mild Distress, Alcohol on Breath , Tremorous, Irritable, Sweating, Anxious HEENTM: Yes: Hearing grossly Normal, Normal ENT Inspection, Normocephalic, Normal Voice Respiratory: Yes: Chest Non-Tender, Lungs Clear, Normal Breath Sounds, No Respiratory Distress, No Accessory Muscle Use Neck: Yes: Supple, Trachea in good position Breast: Yes: Breasts Symetrical Cardiology: Yes: Regular Rhythm, Regular Rate, S1, S2 Abdominal: Yes: Normal Bowel Sounds, Non Tender, Soft Genitourinary: Yes: Within Normal Limits Back: Yes: Normal Inspection Musculoskeletal: Yes: full range of Motion, Gait Steady Extremities: Yes: Normal Inspection, Normal Range of Motion, Non-Tender, Tremors Neurological: Yes: Fully Oriented, Alert, Motor Strength 5/5, Normal Response, Depressed Affect Integumentary: Yes: Warm Lymphatic: Yes: Within Normal Limits - Diagnostic (1) History of syphilis Current Visit: Yes Status: Resolved (2) History of hepatitis C Current Visit: Yes Status: Resolved (3) Depression (emotion) Current Visit: Yes Status: Suspected Qualifiers: Depression Type: dysthymia Qualified Code(s): F34.1 - Dysthymic disorder (4) Alcohol dependence with uncomplicated withdrawal Current Visit: Yes Status: Acute (5) Cannabis dependence, uncomplicated Current Visit: Yes Status: Chronic (6) Nicotine dependence Current Visit: Yes Status: Acute Qualifiers: Nicotine product type: cigarettes Substance use status: in withdrawal Qualified Code(s): F17.213 - Nicotine dependence, cigarettes, with withdrawal (7) Essential hypertension Current Visit: Yes Status: Chronic (8) Human immunodeficiency virus infection Current Visit: Yes Status: Chronic Comment: patient has his own medications (9) hypercholesterolemia Current Visit: Yes Status: Chronic Cleared for Admission S - Detox or Rehab [facility] Level of Care: Medically Managed Detox Regimen/Protocol: Librium S Breath Alcohol Content Breath Alcohol Content: 0.098 Urine Drug Screen - Results Drug Screen Negative: No Urine Drug Screen Results: THC-Marijuana, BZO-Benzodiazepines
[2017-07-13] MEDS ORDERED: guaiFENesin/D-METHORPHAN HB 10 ML UNIT-DOSE CUPS PO PRN (16:53)
[2017-07-13] MEDS ORDERED: MAGNESIUM HYDROX 2400MG/30ML ORAL SUSPENSION 30 ML CUP PO PRN (16:53)
[2017-07-13] MEDS ORDERED: NICOTINE POLACRILEX 4 MG GUM BC PRN (16:53)
[2017-07-13] MEDS ORDERED: MAGNESIUM CITRATE 300 ML BOTTLE PO PRN (16:53)
[2017-07-13] MEDS ORDERED: ACETAMINOPHEN 325 MG TABLET (FP) PO PRN (16:53)
[2017-07-13] MEDS ORDERED: P-EPHED 60MG/TRIPROLIDI 2.5MG TABLET PO PRN (16:53)
[2017-07-13] MEDS ORDERED: MENTHOL/PHENOL 1 EACH UD MM PRN (16:53)
[2017-07-13] MEDS ORDERED: LOPERAMIDE HCL 2 MG CAPSULE PO PRN (16:53)
[2017-07-13] MEDS ORDERED: IBUPROFEN 400 MG TABLET (FP) PO PRN (16:53)
[2017-07-13] MEDS: chlordiazePOXIDE HCL 25 MG CAPSULE PO PRN (18:34)
[2017-07-13] MEDS: THIAMINE HCL 100 MG TABLET (FP) PO SCH (22:32)
[2017-07-13] MEDS: chlordiazePOXIDE HCL 25 MG CAPSULE PO SCH (22:32)
[2017-07-13 23:48] LABS: URINE APPEARANCE CLEAR; URINE BILIRUBIN NEGATIVE (NEGATIVE); URINE BLOOD NEGATIVE (NEGATIVE); URINE COLOR YELLOW; URINE GLUCOSE (UA) NEGATIVE (NEGATIVE); URINE KETONE TRACE (NEGATIVE); URINE NITRITE NEGATIVE (NEGATIVE)
[2017-07-13 23:50] LABS: URINE PROTEIN 2+ (NEGATIVE)
[2017-07-13 23:51] LABS: URINE HYALINE CAST 1 /lpf; URINE MUCUS RARE; URINE RBC 25 /hpf (0-3); URINE WBC 2 /hpf (3-5)
[2017-07-13] MEDS ORDERED: hydrOXYzine PAMOATE 50 MG CAPSULE (FP) PO ONE (23:56)
[2017-07-14] MEDS: chlordiazePOXIDE HCL 25 MG CAPSULE PO SCH ×4 (05:16→22:18)
[2017-07-14 10:11] LABS: MCH 30.7 pg (25.7-33.7); MEAN CELL VOLUME 90.3 fl (80-96); MEAN PLT VOLUME 8.4 fl (7.5-11.1); PLATELET COUNT 158 K/MM3 (134-434); RDW 16.3 % (11.9-15.9)
[2017-07-14] MEDS: NICOTINE 21 MG/24 HOURS TOPICAL PATCH TD SCH (10:12)
[2017-07-14] MEDS: amLODIPine BESYLATE 5 MG TABLET (FP) PO SCH (10:12)
[2017-07-14] MEDS: DOLUTEGRAVIR SODIUM 50 MG TABLET PO SCH (10:13)
[2017-07-14] MEDS: PATIENT'S OWN MEDICATION (NON-FORMULARY) (Darunavir/Cobicistat [Prezcobix 800 Mg-150 Mg Ta PO SCH (10:13)
[2017-07-14] MEDS: PRENATAL VITAMINS W/ FOLIC ACID TABLET (FP) PO SCH (10:14)
--- NOTE | 2017-07-14 10:18 | EKG ---
Test Reason : Blood Pressure : / mmHG Vent. Rate : 080 BPM Atrial Rate : 080 BPM P-R Int : 164 ms QRS Dur : 098 ms QT Int : 376 ms P-R-T Axes : 076 057 056 degrees QTc Int : 433 ms NORMAL SINUS RHYTHM MODERATE VOLTAGE CRITERIA FOR LVH, MAY BE NORMAL VARIANT BORDERLINE ECG WHEN COMPARED WITH ECG OF 02-JUN-2017 02:04, NO SIGNIFICANT CHANGE WAS FOUND Confirmed by SINDY GOODEN, MASOOD ([id number]) on 07/14/2017 10:18:16 AM Referred By: Confirmed By:MASOOD CALLAHAN MD
--- NOTE | 2017-07-14 10:19 | PN ---
S CIWA - CIWA Score Nausea/Vomitin-No Nausea/No Vomiting Muscle Tremors: 4-Moderate,w/Arms Extend Anxiety: 3 Agitation: 3 Paroxysmal Sweats: 3 Orientation: 0-Oriented Tacttile Disturbances: 0-None Auditory Disturbances: 0-None Visual Disturbances: 0-None Headache: 0-None Present CIWA-Ar Total Score: 13 S Progress Note (SOAP) Subjective: irritable tired interrupted sleep agitation sweats Objective: 07/14/17 10:18 Vital Signs Temperature 97.9 F 07/14/17 06:00 Pulse Rate 79 07/14/17 06:00 Respiratory Rate 18 07/14/17 06:00 Blood Pressure 140/91 07/14/17 06:00 O2 Sat by Pulse Oximetry (%) Laboratory Tests 07/13/17 07/14/17 23:30 07:00 WBC 4.0 RBC 5.13 Hgb 15.7 Hct 46.3 MCV 90.3 MCH 30.7 MCHC 34.0 RDW 16.3 H Plt Count 158 MPV 8.4 Urine Color Yellow Urine Appearance Clear Urine pH 5.0 D Ur Specific [place] 1.016 Urine Protein 2+ H Urine Glucose (UA) Negative Urine Ketones Trace H Urine Blood Negative Urine Nitrite Negative Urine Bilirubin Negative Urine Urobilinogen 2.0 Urine WBC (Auto) 2 Urine RBC (Auto) 25 Hyaline Casts 1 Urine Mucus Rare labs pending repeat u/a aaox3 ambulating no acute distress Assessment: 07/14/17 10:18 withdrawal sx Plan: continue detox increase fluids f/u pending labs
[2017-07-14 10:30] LABS: ALBUMIN 3.6 g/dl (3.4-5.0); ANION GAP 5 (8-16); BILIRUBIN,TOTAL 0.9 mg/dL (0.2-1.0); CALCIUM 8.7 mg/dL (8.5-10.1); CO2 31 mmol/L (21-32); CREATININE 0.9 mg/dL (0.7-1.3); GLUCOSE,RANDOM 101 mg/dL (74-106); SGOT/AST 45 U/L (15-37); SGPT/ALT 38 U/L (12-78); TOT PROT 7.7 g/dl (6.4-8.2)
[2017-07-14 10:31] LABS: ALK PHOS 134 U/L (45-117)
[2017-07-14 11:35] LABS: URINE LEUK ESTERASE Negative (NEGATIVE)
--- NOTE | 2017-07-14 13:27 | CONSULT ---
[facility] Psychiatric Consult - Data Date of interview: 07/14/17 Admission source: [facility] Identifying data: Pt. is a 57 year old male admitted to for detox for alcohol, marijuana and cocaine dependence. Substance Abuse History: Reports drinking 6 packs of alcohol per day. Smokes marijuana daily. Spend $10 daily on marijuana usage and reports using since he was a teenager. Reports rarely usage of cocaine but when using he prefers to snort the drug. Smoke 1/2 of cigarettes per day. Medical History: High blood pressure. HIV since 1989. Pt. on ART medications. Psychiatric History: Pt. denies. Physical/Sexual Abuse/Trauma History: Current stressors- Pt. is dissatisfied with current residence. No history abuse. Mental Status Exam - Mental Status Exam Alert and Oriented to: Time, Place, Person Cognitive Function: Good Patient Appearance: Well Groomed Mood: Euthymic Affect: Appropriate, Normal Range Patient Behavior: Appropriate, Cooperative Speech Pattern: Clear, Appropriate Voice Loudness: Normal Thought Process: Goal Oriented Thought Disorder: Not Present Hallucinations: Denies Suicidal Ideation: Denies Homicidal Ideation: Denies Insight/Judgement: Poor (Insight is poor due to frquent admission to detox unit. ) Sleep: Poorly Appetite: Good Muscle strength/Tone: Normal Gait/Station: Normal Psychiatric Findings - Problem List ([place] 1, 2,3) (1) Alcohol dependence with uncomplicated withdrawal Current Visit: Yes Status: Chronic (2) Nicotine dependence Current Visit: Yes Status: Chronic Qualifiers: Nicotine product type: cigarettes Substance use status: uncomplicated Qualified Code(s): F17.210 - Nicotine dependence, cigarettes, uncomplicated (3) Cocaine dependence, uncomplicated Current Visit: Yes Status: Chronic (4) Cannabis dependence, uncomplicated Current Visit: Yes Status: Chronic (5) Drug-induced mood disorder Current Visit: Yes Status: Suspected (6) Insomnia Current Visit: Yes Status: Acute - Initial Treatment Plan Initial Treatment Plan: Pt. c/o insomnia. Pt. to be started on seroquel 50mg. Pt. educated on the side effects and benefits of the medication. Pt. able to give verbal consult to nurse caden. Pt. also educated on the importance of proper sleep hygiene. Will monitor progress.
[2017-07-14] MEDS: QUEtiapine FUMARATE 50 MG TABLET PO SCH (22:17)
[2017-07-14] MEDS: ATORVASTATIN CA 20 MG TABLET (FP) PO SCH (22:17)
[2017-07-14] MEDS: THIAMINE HCL 100 MG TABLET (FP) PO SCH (22:18)
[2017-07-15] MEDS: chlordiazePOXIDE HCL 25 MG CAPSULE PO SCH ×3 (05:11→17:25)
[2017-07-15] MEDS: MAG HYDROX/AL HYDROX/SIMETH 30 ML UNIT-DOSE CUP PO PRN (06:41)
[2017-07-15] MEDS: NICOTINE 21 MG/24 HOURS TOPICAL PATCH TD SCH (10:07)
[2017-07-15] MEDS: amLODIPine BESYLATE 5 MG TABLET (FP) PO SCH (10:07)
[2017-07-15] MEDS: PRENATAL VITAMINS W/ FOLIC ACID TABLET (FP) PO SCH (10:07)
[2017-07-15] MEDS: DOLUTEGRAVIR SODIUM 50 MG TABLET PO SCH (10:08)
[2017-07-15] MEDS: PATIENT'S OWN MEDICATION (NON-FORMULARY) (Darunavir/Cobicistat [Prezcobix 800 Mg-150 Mg Ta PO SCH (10:08)
[2017-07-15] MEDS: chlordiazePOXIDE HCL 25 MG CAPSULE PO PRN (12:21)
--- NOTE | 2017-07-15 12:42 | PN ---
[facility] CIWA - CIWA Score Nausea/Vomitin-No Nausea/No Vomiting Muscle Tremors: 4-Moderate,w/Arms Extend Anxiety: 4-Mod. Anxious/Guarded Agitation: 4-Moderately Restless Paroxysmal Sweats: 3 Orientation: 0-Oriented Tacttile Disturbances: 0-None Auditory Disturbances: 0-None Visual Disturbances: 0-None Headache: 0-None Present CIWA-Ar Total Score: 15 BHS Progress Note (SOAP) Subjective: irritable agitation sweats shakes Objective: 07/15/17 12:41 Vital Signs Temperature 97.7 F 07/15/17 10:00 Pulse Rate 100 H 07/15/17 10:00 Respiratory Rate 18 07/15/17 10:00 Blood Pressure 132/86 07/15/17 10:00 O2 Sat by Pulse Oximetry (%) Laboratory Tests 07/13/17 07/14/17 07/14/17 23:30 07:00 07:00 WBC 4.0 RBC 5.13 Hgb 15.7 Hct 46.3 MCV 90.3 MCH 30.7 MCHC 34.0 RDW 16.3 H Plt Count 158 MPV 8.4 Sodium 139 Potassium 3.7 Chloride 103 Carbon Dioxide 31 Anion Gap 5 L BUN 9 Creatinine 0.9 Creat Clearance w eGFR > 60 Random Glucose 101 D Calcium 8.7 Total Bilirubin 0.9 D AST 45 H D ALT 38 D Alkaline Phosphatase 134 H D Total Protein 7.7 Albumin 3.6 Urine Color Yellow Urine Appearance Clear Urine pH 5.0 D Ur Specific [place] 1.016 Urine Protein 2+ H Urine Glucose (UA) Negative Urine Ketones Trace H Urine Blood Negative Urine Nitrite Negative Urine Bilirubin Negative Urine Urobilinogen 2.0 Ur Leukocyte Esterase Negative Urine WBC (Auto) 2 Urine RBC (Auto) 25 Hyaline Casts 1 Urine Mucus Rare RPR Titer T.pallidum Ab (MHA) 07/14/17 07:00 WBC RBC Hgb Hct MCV MCH MCHC RDW Plt Count MPV Sodium Potassium Chloride Carbon Dioxide Anion Gap BUN Creatinine Creat Clearance w eGFR Random Glucose Calcium Total Bilirubin AST ALT Alkaline Phosphatase Total Protein Albumin Urine Color Urine Appearance Urine pH Ur Specific [place] Urine Protein Urine Glucose (UA) Urine Ketones Urine Blood Urine Nitrite Urine Bilirubin Urine Urobilinogen Ur Leukocyte Esterase Urine WBC (Auto) Urine RBC (Auto) Hyaline Casts Urine Mucus RPR Titer Reactive 1:1 H T.pallidum Ab ([facility]) Previously reactive aaox3 ambulating no acute distress Assessment: 07/15/17 12:41 withdrawal sx Plan: continue detox increase fluids
[2017-07-15 14:21] LABS: PH,URINE 7.5 (5.0-8.0); URINE APPEARANCE CLEAR; URINE BILIRUBIN NEGATIVE (NEGATIVE); URINE BLOOD NEGATIVE (NEGATIVE); URINE COLOR YELLOW; URINE GLUCOSE (UA) NEGATIVE (NEGATIVE); URINE KETONE NEGATIVE (NEGATIVE); URINE NITRITE NEGATIVE (NEGATIVE); URINE PROTEIN NEGATIVE (NEGATIVE); URINE UROBILINOGEN 4.0 E.U/dl mg/dL (0.2-1.0)
[2017-07-15 18:40] LABS: URINE LEUK ESTERASE Negative (NEGATIVE)
--- NOTE | 2017-07-15 19:11 | PN ---
[facility] Progress Note Note: Psychiatry Attending's note : Consult by BERLIN Linton : appreciated. Patient was examined on 07/14/17 (jointly). 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 I agree with BERLIN Linton's findings and treatment plan. Unremarkable mental status.
[2017-07-15] MEDS: ATORVASTATIN CA 20 MG TABLET (FP) PO SCH (22:17)
[2017-07-15] MEDS: chlordiazePOXIDE 5 MG CAPSULE PO SCH (22:17)
[2017-07-15] MEDS: QUEtiapine FUMARATE 50 MG TABLET PO SCH (22:18)
[2017-07-15] MEDS: THIAMINE HCL 100 MG TABLET (FP) PO SCH (22:18)
[2017-07-16] MEDS: chlordiazePOXIDE 5 MG CAPSULE PO SCH ×3 (05:43→17:28)
[2017-07-16] MEDS: DOLUTEGRAVIR SODIUM 50 MG TABLET PO SCH (10:24)
[2017-07-16] MEDS: PRENATAL VITAMINS W/ FOLIC ACID TABLET (FP) PO SCH (10:24)
[2017-07-16] MEDS: PATIENT'S OWN MEDICATION (NON-FORMULARY) (Darunavir/Cobicistat [Prezcobix 800 Mg-150 Mg Ta PO SCH (10:24)
[2017-07-16] MEDS: amLODIPine BESYLATE 5 MG TABLET (FP) PO SCH (10:24)
[2017-07-16] MEDS: NICOTINE 21 MG/24 HOURS TOPICAL PATCH TD SCH (10:27)
--- NOTE | 2017-07-16 12:30 | PN ---
BHS Progress Note (SOAP) Subjective: feeling good very little sweats Objective: 07/16/17 12:22 Vital Signs Temperature 97.7 F 07/16/17 09:27 Pulse Rate 97 H 07/16/17 09:27 Respiratory Rate 18 07/16/17 09:27 Blood Pressure 124/78 07/16/17 09:27 O2 Sat by Pulse Oximetry (%) aaox3 ambulating no acute distress Assessment: 07/16/17 12:30 mild withdrawal sx Plan: continue detox d/c in am
[2017-07-16] MEDS: chlordiazePOXIDE HCL 25 MG CAPSULE PO PRN (14:13)
[2017-07-16] MEDS: THIAMINE HCL 100 MG TABLET (FP) PO SCH (22:18)
[2017-07-16] MEDS: ATORVASTATIN CA 20 MG TABLET (FP) PO SCH (22:18)
[2017-07-16] MEDS: QUEtiapine FUMARATE 50 MG TABLET PO SCH (22:18)
[2017-07-16] MEDS: chlordiazePOXIDE HCL 10 MG CAPSULE PO SCH (22:18)
[2017-07-16] MEDS: MAG HYDROX/AL HYDROX/SIMETH 30 ML UNIT-DOSE CUP PO PRN (22:58)
[2017-07-17] MEDS: chlordiazePOXIDE HCL 10 MG CAPSULE PO SCH (06:11)
[2017-07-17 06:37] VITALS: BP 119/78; PULSE 84; TEMP 98
[2017-07-17] MEDS: PATIENT'S OWN MEDICATION (NON-FORMULARY) (Darunavir/Cobicistat [Prezcobix 800 Mg-150 Mg Ta PO SCH (09:10)
[2017-07-17] MEDS: amLODIPine BESYLATE 5 MG TABLET (FP) PO SCH (09:10)
[2017-07-17] MEDS: PRENATAL VITAMINS W/ FOLIC ACID TABLET (FP) PO SCH (09:10)
[2017-07-17] MEDS: DOLUTEGRAVIR SODIUM 50 MG TABLET PO SCH (09:11)
--- NOTE | 2017-07-17 09:25 | DS ---
[facility] Detox Discharge Summary Admission Date: 07/13/17 Discharge Date: 07/17/17 - History Present History: Alcohol Dependence, Cannabis Dependence, Cocaine Dependence Additional Comments: going to revealtions/rehab at [facility] Pertinent Past History: anxiety, depression, insomnia, chronic low back pain, hypercholestolerema, Hep c , HIV/AIDS - Physical Exam Results Vital Signs: Vital Signs Temperature 98 F 07/17/17 06:36 Pulse Rate 84 07/17/17 06:36 Respiratory Rate 18 07/17/17 06:36 Blood Pressure 119/78 07/17/17 06:36 O2 Sat by Pulse Oximetry (%) Pertinent Admission Physical Exam Findings: withdrawal sx - Treatment Hospital Course: Detox Protocol Followed, Detoxed Safely, Responded well, Discharged Condition Good, Rehab Referral Accepted Patient has Accepted a Rehab Referral to: Yes - Medication Discharge Medications: Ambulatory Orders Atorvastatin Ca [Lipitor] 20 mg PO HS #30 tablet 04/28/14 Darunavir/Cobicistat [Prezcobix 800 mg-150 mg Tablet] 1 each PO DAILY 06/03/16 Dolutegravir Sodium [Tivicay] 50 mg PO DAILY 06/03/16 Amlodipine Besylate [Norvasc -] 5 mg PO DAILY 07/13/17 Quetiapine Fumarate [Seroquel -] 50 mg PO HS #30 tablet 07/14/17 - Diagnosis (1) Alcohol dependence with uncomplicated withdrawal Current Visit: Yes Status: Chronic (2) Cannabis dependence, uncomplicated Current Visit: Yes Status: Chronic (3) Cocaine dependence, uncomplicated Current Visit: Yes Status: Chronic (4) Essential hypertension Current Visit: Yes Status: Chronic (5) Human immunodeficiency virus infection Current Visit: Yes Status: Chronic (6) Nicotine dependence Current Visit: Yes Status: Chronic Qualifiers: Nicotine product type: cigarettes Substance use status: uncomplicated Qualified Code(s): F17.210 - Nicotine dependence, cigarettes, uncomplicated (7) hypercholesterolemia Current Visit: Yes Status: Chronic (8) Drug-induced mood disorder Current Visit: Yes Status: Suspected (9) History of hepatitis C Current Visit: Yes Status: Resolved (10) History of syphilis Current Visit: Yes Status: Resolved - AMA Did Patient Leave Against Medical Advice: No
== END 2017-07-17 09:13 | disposition home or self-care (01) | DRG 774 ==
LOC: YASAS 14:23 → Y6N 17:47
PROVIDERS: ADMIT Internal Medicine; ATTEND Internal Medicine
PROC: HZ2ZZZZ Detoxification Services for Substance Abuse Treatment (ICD-10-PCS; principal; 2017-07-13)
DX: F10.230 Alcohol dependence with withdrawal, uncomplicated (principal); F14.20 Cocaine dependence, uncomplicated; F12.20 Cannabis dependence, uncomplicated; F17.210 Nicotine dependence, cigarettes, uncomplicated; F19.24 Other psychoactive substance dependence with psychoactive substance-induced mood disorder; B18.2 Chronic viral hepatitis C; G47.00 Insomnia, unspecified; Z21 Asymptomatic human immunodeficiency virus [HIV] infection status; Z87.438 Personal history of other diseases of male genital organs; E78.00 Pure hypercholesterolemia, unspecified
CPT/HCPCS: 36415; 80053; 81003; 81015; 85027; 86593; 86780; 93005; 93010

== ENCOUNTER 2017-11-20 16:41 | Inpatient (IN) | payer OTHER ==
[2017-11-20 20:37] VITALS: BMI 26.6
--- NOTE | 2017-11-20 21:27 | HP ---
CIWA Score - CIWA Score Nausea/Vomitin Muscle Tremors: 1-None Visible, but [place] Anxiety: 4-Mod. Anxious/Guarded Agitation: 4-Moderately Restless Paroxysmal Sweats: 3 Orientation: 0-Oriented Tacttile Disturbances: 0-None Auditory Disturbances: 0-None Visual Disturbances: 0-None Headache: 0-None Present CIWA-Ar Total Score: 15 Admission ROS BHS - HPI Chief Complaint: SEEKING DETOX FOR ALCOHOLISM AND WITHDRAWAL SX'S Allergies/Adverse Reactions: Allergies Allergy/AdvReac Type Severity Reaction Status Date / Time No Known Allergies Allergy Verified 11/20/17 21:22 History of Present Illness: 57 Y.O. MALE WITH LONG HX/O OF ALCOHOLISM HERE FOR DETOX. CLIENT IS KNOWN TO THIS PROGRAM. LAST HERE 06/2017. SELF REFERRED. Exam Limitations: No Limitations - Ebola screening Have you traveled outside of the country in the last 21 days: No Have you had contact with anyone from an Ebola affected area: No Have you been sick,other than usual withdrawal symptoms: No Do you have a fever: No - Review of Systems Constitutional: Chills, Loss of Appetite, Night Sweats, Changes in sleep EENT: reports: No Symptoms Reported Respiratory: reports: No Symptoms reported Cardiac: reports: No Symptoms Reported GI: reports: Abdominal cramping : reports: No Symptoms Reported Musculoskeletal: reports: No Symptoms Reported Integumentary: reports: No Symptoms Reported Neuro: reports: No Symptoms reported Endocrine: reports: No Symptoms Reported Hematology: reports: No Symptoms Reported Psychiatric: reports: Anxious, Depressed, other Other Systems: Reviewed and Negative Patient History - Patient Medical History Hx Anemia: No Hx Asthma: No Hx Chronic Obstructive Pulmonary Disease (COPD): No Hx Cancer: No Hx Cardiac Disorders: No Hx Congestive Heart Failure: No Hx Hypertension: Yes Hx Hypercholesterolemia: Yes (on med) Hx Pacemaker: No HX Cerebrovascular Accident: No Hx Seizures: No Hx Dementia: No Hx Diabetes: No Hx Gastrointestinal Disorders: No Hx Liver Disease: No Hx Genitourinary Disorders: No Hx Sexually Transmitted Disorders: Yes (treated for syphylis years ago) Hx Renal Disease (ESRD): No Hx Thyroid Disease: No Hx Human Immunodeficiency Virus (HIV): Yes (since 1989 't cells are good') Hx Hepatitis C: Yes (TREATED IN 2014) Hx Depression: Yes (never treated) Hx Suicide Attempt: No Hx Bipolar Disorder: No Hx Schizophrenia: No Other Medical History: ANXIETY - Patient Surgical History Past Surgical History: No Hx Neurologic Surgery: No Hx Cataract Extraction: No Hx Cardiac Surgery: No Hx Lung Surgery: No Hx Breast Surgery: No Hx Breast Biopsy: No Hx Abdominal Surgery: No Hx Appendectomy: No Hx Cholecystectomy: No Hx Genitourinary Surgery: No Hx Section: No Hx Orthopedic Surgery: No Anesthesia Reaction: No - PPD History Previous Implant?: Yes Documented Results: Negative w/proof Implanted On Prior [facility] Admission?: Yes Date: 08/19/16 Results: 0 mm PPD to be Administered?: Yes - Smoking Cessation Smoking history: Current every day smoker Have you smoked in the past 12 months: Yes Aproximately how many cigarettes per day: 20 Cigars Per Day: 0 Hx Chewing Tobacco Use: No Initiated information on smoking cessation: Yes 'Breaking Loose' booklet given: 11/20/17 - Substance & Tx. History Hx Alcohol Use: Yes Hx Substance Use: Yes Substance Use Type: Alcohol, Cocaine Hx Substance Use Treatment: Yes ([facility]) - Substances Abused VODKA/BEER Route: Oral Frequency: Daily Amount used: 1PINT/2-40OZ Age of first use: 13 Date of Last Use: 11/20/17 CRACK Route: Smoking Frequency: 1-3 times last 30 days Amount used: $50 Age of first use: 30 Date of Last Use: 11/16/17 Family Disease History - Family Disease History Family Disease History: Heart Disease: Mother (HTN, ), Other: Father ( estranged), Brother ( 1 bro alive), Sister (2 sisters -) Admission Physical Exam [facility] - Vital Signs Vital Signs: Vital Signs - 24 hr 11/20/17 20:35 Temperature 97.8 F Pulse Rate 93 H Respiratory 19 Rate Blood Pressure 161/102 - Physical General Appearance: Yes: Appropriately Dressed, Mild Distress, Tremorous, Anxious HEENTM: Yes: EOMI, Normocephalic, Normal Voice, TAMIKA, Pharynx Normal, Other ( DENTURES BOTH) Respiratory: Yes: Chest Non-Tender, Lungs Clear, Normal Breath Sounds, No Respiratory Distress, No Accessory Muscle Use Neck: Yes: No masses,lesions,Nodules, Supple, Trachea in good position Breast: Yes: Breast Exam Deferred Cardiology: Yes: Regular Rhythm, Regular Rate, S1, S2 Abdominal: Yes: Non Tender, Soft, Increased Bowel Sounds Genitourinary: Yes: Other (NO C/O) Back: Yes: Normal Inspection Musculoskeletal: Yes: full range of Motion, Gait Steady Extremities: Yes: Normal Capillary Refill, Normal Range of Motion, Non-Tender, Tremors Neurological: Yes: Fully Oriented, Alert, Motor Strength 5/5 Integumentary: Yes: Warm, Moist, Other (FLUSHED) Lymphatic: Yes: Within Normal Limits - Diagnostic (1) Alcohol dependence with uncomplicated withdrawal Current Visit: Yes Status: Chronic (2) Cocaine dependence, uncomplicated Current Visit: Yes Status: Chronic (3) Essential hypertension Current Visit: Yes Status: Chronic (4) Human immunodeficiency virus infection Current Visit: Yes Status: Chronic Comment: patient has his own medications (5) Nicotine dependence Current Visit: Yes Status: Chronic Qualifiers: Nicotine product type: cigarettes Substance use status: uncomplicated Qualified Code(s): F17.210 - Nicotine dependence, cigarettes, uncomplicated Cleared for Admission [facility] - Detox or Rehab [facility] Level of Care: Medically Managed Detox Regimen/Protocol: Dalila Garbereared for Rehab Admission: No [facility] Breath Alcohol Content Breath Alcohol Content: 0 Urine Drug Screen - Results Drug Screen Negative: No Urine Drug Screen Results: THC-Marijuana, SERAFIN-Cocaine
[2017-11-20] MEDS ORDERED: MAG HYDROX/AL HYDROX/SIMETH 30 ML UNIT-DOSE CUP PO PRN (21:28)
[2017-11-20] MEDS ORDERED: LOPERAMIDE HCL 2 MG CAPSULE PO PRN (21:28)
[2017-11-20] MEDS ORDERED: MENTHOL/PHENOL 1 EACH UD MM PRN (21:28)
[2017-11-20] MEDS ORDERED: P-EPHED 60MG/TRIPROLIDI 2.5MG TABLET PO PRN (21:28)
[2017-11-20] MEDS ORDERED: hydrOXYzine PAMOATE 50 MG CAPSULE (FP) PO PRN (21:28)
[2017-11-20] MEDS ORDERED: IBUPROFEN 400 MG TABLET (FP) PO PRN (21:28)
[2017-11-20] MEDS ORDERED: guaiFENesin/D-METHORPHAN HB 10 ML UNIT-DOSE CUPS PO PRN (21:28)
[2017-11-20] MEDS ORDERED: chlordiazePOXIDE HCL 25 MG CAPSULE PO PRN (21:28)
[2017-11-20] MEDS ORDERED: ACETAMINOPHEN 325 MG TABLET (FP) PO PRN (21:28)
[2017-11-20] MEDS ORDERED: MAGNESIUM HYDROX 2400MG/30ML ORAL SUSPENSION 30 ML CUP PO PRN (21:28)
[2017-11-20] MEDS ORDERED: NICOTINE POLACRILEX 2 MG GUM BC PRN (21:28)
[2017-11-20] MEDS ORDERED: MAGNESIUM CITRATE 300 ML BOTTLE PO PRN (21:28)
[2017-11-20] MEDS: chlordiazePOXIDE HCL 25 MG CAPSULE PO SCH (23:13)
[2017-11-20] MEDS: THIAMINE HCL 100 MG TABLET (FP) PO SCH (23:14)
[2017-11-20] MEDS: MELATONIN 5 MG TABLETS PO PRN (23:21)
[2017-11-21 01:42] LABS: URINE APPEARANCE CLEAR; URINE BILIRUBIN NEGATIVE (<2.0 mg/dL); URINE BLOOD NEGATIVE (NEGATIVE); URINE COLOR LTYELLOW; URINE GLUCOSE (UA) NEGATIVE (NEGATIVE); URINE KETONE NEGATIVE (NEGATIVE); URINE LEUK ESTERASE NEGATIVE (NEGATIVE); URINE NITRITE NEGATIVE (NEGATIVE); URINE PROTEIN NEGATIVE (NEGATIVE); URINE UROBILINOGEN NEGATIVE mg/dL (0.2-1.0)
[2017-11-21] MEDS: chlordiazePOXIDE HCL 25 MG CAPSULE PO SCH ×4 (05:22→22:22)
[2017-11-21] MEDS ORDERED: DARUNAVIR 800 MG/COBICISTAT 150MG TABLET PO SCH (10:00)
[2017-11-21] MEDS: PRENATAL VITAMINS W/ FOLIC ACID TABLET (FP) PO SCH (10:29)
[2017-11-21] MEDS: amLODIPine BESYLATE 10 MG TABLET (FP) PO SCH (10:29)
[2017-11-21] MEDS: NICOTINE 21 MG/24 HOURS TOPICAL PATCH TD SCH (10:29)
--- NOTE | 2017-11-21 10:40 | EKG ---
Test Reason : Blood Pressure : / mmHG Vent. Rate : 080 BPM Atrial Rate : 080 BPM P-R Int : 164 ms QRS Dur : 096 ms QT Int : 392 ms P-R-T Axes : 078 057 067 degrees QTc Int : 452 ms NORMAL SINUS RHYTHM POSSIBLE LEFT ATRIAL ENLARGEMENT LEFT VENTRICULAR HYPERTROPHY ABNORMAL ECG WHEN COMPARED WITH ECG OF 13-JUL-2017 18:38, NO SIGNIFICANT CHANGE WAS FOUND Confirmed by SINDY GOODEN, MASOOD ([id number]) on 11/21/2017 10:40:21 AM Referred By: Confirmed By:MASOOD CALLAHAN MD
--- NOTE | 2017-11-21 11:09 | PN ---
S CIWA - CIWA Score Nausea/Vomitin Muscle Tremors: 2 Anxiety: 2 Agitation: 2 Paroxysmal Sweats: 2 Orientation: 0-Oriented Tacttile Disturbances: 1-Very Mild Itch/Numbness Auditory Disturbances: 1-Very Mild Visual Disturbances: 1-Very Mild Sensitivity Headache: 2-Mild CIWA-Ar Total Score: 16 S Progress Note (SOAP) Subjective: Sleep interruption, restlessness, abdominal discomfort Objective: 11/21/17 11:06 Vital Signs 11/21/17 11/21/17 11/21/17 03:30 06:00 10:00 Temperature 97.9 F 98.5 F Pulse Rate 73 82 Respiratory 18 18 18 Rate Blood Pressure 132/86 140/98 Laboratory Last Values Urine Color L[place] 11/21/17 00:05 Urine Appearance Clear 11/21/17 00:05 Urine pH 6.0 (5.0-8.0) 11/21/17 00:05 Ur Specific [place] 1.012 (1.001-1.035) 11/21/17 00:05 Urine Protein Negative (NEGATIVE) 11/21/17 00:05 Urine Glucose (UA) Negative (NEGATIVE) 11/21/17 00:05 Urine Ketones Negative (NEGATIVE) 11/21/17 00:05 Urine Blood Negative (NEGATIVE) 11/21/17 00:05 Urine Nitrite Negative (NEGATIVE) 11/21/17 00:05 Urine Bilirubin Negative (<2.0 mg/dL) 11/21/17 00:05 Urine Urobilinogen Negative mg/dL (0.2-1.0) 11/21/17 00:05 Ur Leukocyte Esterase Negative (NEGATIVE) 11/21/17 00:05 UA noted, labs pending Assessment: 11/21/17 11:07 Withdrawal sx Plan: Continue detx Darunavir discontinued, Truvada ordered as per pharmacy recommendation.
[2017-11-21 11:21] LABS: HEMATOCRIT 46.8 % (35.4-49); HEMOGLOBIN 15.9 GM/dL (11.7-16.9); MCH 31.6 pg (25.7-33.7); MCHC 33.9 g/dl (32.0-35.9); MEAN CELL VOLUME 93.1 fl (80-96); MEAN PLT VOLUME 8.7 fl (7.5-11.1); PLATELET COUNT 127 K/MM3 (134-434); RBC 5.03 M/mm3 (4.00-5.60); RDW 16.8 % (11.9-15.9); WHITE BLOOD COUNT 4.1 K/mm3 (4.0-10.0)
[2017-11-21 11:30] LABS: CHLORIDE 103 mmol/L (98-107); POTASSIUM 3.1 mmol/L (3.5-5.1); SODIUM 138 mmol/L (136-145)
[2017-11-21 11:47] LABS: ALBUMIN 3.6 g/dl (3.4-5.0); ANION GAP 9 (8-16); BILIRUBIN,TOTAL 0.8 mg/dL (0.2-1.0); BLOOD UREA NITROGEN 12 mg/dL (7-18); CALCIUM 8.8 mg/dL (8.5-10.1); CO2 26 mmol/L (21-32); CREATININE 1.1 mg/dL (0.7-1.3); GLUCOSE,RANDOM 123 mg/dL (74-106); SGOT/AST 35 U/L (15-37); SGPT/ALT 37 U/L (12-78); TOT PROT 7.3 g/dl (6.4-8.2)
[2017-11-21 12:14] LABS: ALK PHOS 123 U/L (45-117)
[2017-11-21] MEDS: DOLUTEGRAVIR SODIUM 50 MG TABLET PO SCH (12:58)
[2017-11-21] MEDS: EMTRICITABINE 200MG/TENOFOVIR 300MG PO SCH (12:59)
--- NOTE | 2017-11-21 15:41 | CONSULT ---
[facility] Psychiatric Consult - Data Date of interview: 11/21/17 Admission source: [facility] Identifying data: Another admission to [facility] for this 57 y/o AA male seeking detox treatment on for alcohol,cannabis and cocaine dependence.Patient is single without children,domiciled ([facility]), unemployed and supported on SSI benefits. Substance Abuse History: Confirmed by patient in this interview.Details in the current [facility] report : Smoking history: Current every day smoker. Have you smoked in the past 12 months: Yes. Aproximately how many cigarettes per day: 20. Cigars Per Day: 0. Hx Chewing Tobacco Use: No. Initiated information on smoking cessation: Yes. 'Breaking Loose' booklet given: 11/20/17. - Substance & Tx. History. Hx Alcohol Use: Yes. Hx Substance Use: Yes. Substance Use Type : Alcohol, Cocaine. Hx Substance Use Treatment: Yes ([facility] - Substances Abused. VODKA/BEER. Route: Oral. Frequency: Daily. Amount used: 1PINT/2- 40OZ. Age of first use: 13. Date of Last Use: 11/20/17. CRACK. Route: Smoking. Frequency: 1-3 times last 30 days. Amount used: $50. Age of first use: 30. Date of Last Use: 11/16/17 Medical History: No changes in medical profile : HIV infection since 1989, hypertension,hepatitis C,past treatment for syphilis and dyslipidemia. Psychiatric History: Patient denies history of psychiatric hospitalizations,OPD care or suicide attempts. Physical/Sexual Abuse/Trauma History: No history. Additional Comment: Urine Drug Screen Results: THC-Marijuana, SERAFIN-Cocaine.Noted. Mental Status Exam - Mental Status Exam Alert and Oriented to: Time, Place, Person Cognitive Function: Good Patient Appearance: Well Groomed Mood: Hopeful, Euthymic Affect: Appropriate, Normal Range Patient Behavior: Appropriate, Cooperative Speech Pattern: Clear, Appropriate Voice Loudness: Normal Thought Process: Intact, Goal Oriented Thought Disorder: Not Present Hallucinations: Denies Suicidal Ideation: Denies Homicidal Ideation: Denies Insight/Judgement: Poor Sleep: Poorly, Difficulty falling asleep Appetite: Good Muscle strength/Tone: Normal Gait/Station: Normal Psychiatric Findings - Problem List ([place] 1, 2,3) (1) Alcohol dependence with uncomplicated withdrawal Current Visit: Yes Status: Chronic (2) Cannabis dependence, uncomplicated Current Visit: Yes Status: Chronic (3) Cocaine dependence, uncomplicated Current Visit: Yes Status: Chronic (4) Nicotine dependence Current Visit: Yes Status: Chronic Qualifiers: Nicotine product type: cigarettes Substance use status: uncomplicated Qualified Code(s): F17.210 - Nicotine dependence, cigarettes, uncomplicated (5) Insomnia Current Visit: Yes Status: Acute - Initial Treatment Plan Initial Treatment Plan: Psychoeducation.Detoxification.Seroquel 50 mg po hs.Ordered.Side effects/benefits discussed with patient.Mr Taylor expressed his agreement to this careplan.Observation.
[2017-11-21 16:24] LABS: RPR REACTIVE 1:1 (NONREACTIVE)
[2017-11-21 16:25] LABS: TREPONEMA ANTIBODY PREVIOUSLY REACTIVE (NONREACTIVE)
[2017-11-21] MEDS: QUEtiapine FUMARATE 50 MG TABLET PO SCH (22:22)
[2017-11-21] MEDS: THIAMINE HCL 100 MG TABLET (FP) PO SCH (22:22)
[2017-11-21] MEDS: MELATONIN 5 MG TABLETS PO PRN (22:23)
[2017-11-22] MEDS: chlordiazePOXIDE HCL 25 MG CAPSULE PO SCH ×3 (05:51→17:42)
--- NOTE | 2017-11-22 10:24 | PN ---
[facility] CIWA - CIWA Score Nausea/Vomitin-Mild Nausea/No Vomiting Muscle Tremors: 4-Moderate,w/Arms Extend Anxiety: 4-Mod. Anxious/Guarded Agitation: 4-Moderately Restless Paroxysmal Sweats: 1-Minimal Palms Moist Orientation: 0-Oriented Tacttile Disturbances: 0-None Auditory Disturbances: 0-None Visual Disturbances: 0-None Headache: 0-None Present CIWA-Ar Total Score: 14 BHS Progress Note (SOAP) Subjective: sweat tremor restlessness difficulty fall a sleep Objective: 11/22/17 10:23 Vital Signs Temperature 97.0 F L 11/22/17 10:05 Pulse Rate 94 H 11/22/17 10:05 Respiratory Rate 18 11/22/17 10:05 Blood Pressure 132/82 11/22/17 10:05 O2 Sat by Pulse Oximetry (%) Laboratory Last Values WBC 4.1 K/mm3 (4.0-10.0) 11/21/17 08:00 RBC 5.03 M/mm3 (4.00-5.60) 11/21/17 08:00 Hgb 15.9 GM/dL (11.7-16.9) 11/21/17 08:00 Hct 46.8 % (35.4-49) 11/21/17 08:00 MCV 93.1 fl (80-96) 11/21/17 08:00 MCH 31.6 pg (25.7-33.7) 11/21/17 08:00 MCHC 33.9 g/dl (32.0-35.9) 11/21/17 08:00 RDW 16.8 % (11.9-15.9) H 11/21/17 08:00 Plt Count 127 K/MM3 (134-434) L 11/21/17 08:00 MPV 8.7 fl (7.5-11.1) 11/21/17 08:00 Sodium 138 mmol/L (136-145) 11/21/17 08:00 Potassium 3.1 mmol/L (3.5-5.1) L 11/21/17 08:00 Chloride 103 mmol/L (98-107) 11/21/17 08:00 Carbon Dioxide 26 mmol/L (21-32) 11/21/17 08:00 Anion Gap 9 (8-16) 11/21/17 08:00 BUN 12 mg/dL (7-18) D 11/21/17 08:00 Creatinine 1.1 mg/dL (0.7-1.3) D 11/21/17 08:00 Creat Clearance w eGFR > 60 (>60) 11/21/17 08:00 Random Glucose 123 mg/dL (74-106) H D 11/21/17 08:00 Calcium 8.8 mg/dL (8.5-10.1) 11/21/17 08:00 Total Bilirubin 0.8 mg/dL (0.2-1.0) 11/21/17 08:00 AST 35 U/L (15-37) D 11/21/17 08:00 ALT 37 U/L (12-78) 11/21/17 08:00 Alkaline Phosphatase 123 U/L (45-117) H 11/21/17 08:00 Total Protein 7.3 g/dl (6.4-8.2) 11/21/17 08:00 Albumin 3.6 g/dl (3.4-5.0) 11/21/17 08:00 Urine Color Ltyellow 11/21/17 00:05 Urine Appearance Clear 11/21/17 00:05 Urine pH 6.0 (5.0-8.0) 11/21/17 00:05 Ur Specific [place] 1.012 (1.001-1.035) 11/21/17 00:05 Urine Protein Negative (NEGATIVE) 11/21/17 00:05 Urine Glucose (UA) Negative (NEGATIVE) 11/21/17 00:05 Urine Ketones Negative (NEGATIVE) 11/21/17 00:05 Urine Blood Negative (NEGATIVE) 11/21/17 00:05 Urine Nitrite Negative (NEGATIVE) 11/21/17 00:05 Urine Bilirubin Negative (<2.0 mg/dL) 11/21/17 00:05 Urine Urobilinogen Negative mg/dL (0.2-1.0) 11/21/17 00:05 Ur Leukocyte Esterase Negative (NEGATIVE) 11/21/17 00:05 RPR Titer Reactive 1:1 (NONREACTIVE) H 11/21/17 08:00 T.pallidum Ab (MHA) Previously reactive (NONREACTIVE) 11/21/17 08:00 lab noted potassium supplement Assessment: 11/22/17 10:23 withdrawal sx hypokalemea Plan: continue detox potassium supplement repeat K+
[2017-11-22] MEDS: DOLUTEGRAVIR SODIUM 50 MG TABLET PO SCH (10:27)
[2017-11-22] MEDS: amLODIPine BESYLATE 10 MG TABLET (FP) PO SCH (10:27)
[2017-11-22] MEDS: EMTRICITABINE 200MG/TENOFOVIR 300MG PO SCH (10:27)
[2017-11-22] MEDS: PRENATAL VITAMINS W/ FOLIC ACID TABLET (FP) PO SCH (10:27)
[2017-11-22] MEDS: NICOTINE 21 MG/24 HOURS TOPICAL PATCH TD SCH (10:28)
[2017-11-22] MEDS: POTASSIUM CHLORIDE ORAL LIQUID 20 MEQ/15 ML PO SCH ×2 (11:29→22:18)
[2017-11-22] MEDS ORDERED: amLODIPine BESYLATE 5 MG TABLET (FP) PO SCH (11:35)
[2017-11-22] MEDS: chlordiazePOXIDE 5 MG CAPSULE PO SCH (22:17)
[2017-11-22] MEDS: THIAMINE HCL 100 MG TABLET (FP) PO SCH (22:17)
[2017-11-22] MEDS: QUEtiapine FUMARATE 50 MG TABLET PO SCH (22:17)
[2017-11-22] MEDS: MELATONIN 5 MG TABLETS PO PRN (22:20)
[2017-11-23] MEDS: chlordiazePOXIDE 5 MG CAPSULE PO SCH ×2 (05:33→11:40)
[2017-11-23 09:56] VITALS: BP 132/73; PULSE 89; TEMP 97.2
--- NOTE | 2017-11-23 10:14 | PN ---
S Progress Note (SOAP) Subjective: ALERT,IRRITABLE,ANXIOUS,INTERRUPTED SLEEP Objective: 11/23/17 10:13 Vital Signs Temperature 97.2 F L 11/23/17 09:56 Pulse Rate 89 11/23/17 09:56 Respiratory Rate 18 11/23/17 09:56 Blood Pressure 132/73 11/23/17 09:56 O2 Sat by Pulse Oximetry (%) 11/23/17 10:17 Laboratory Last Values WBC 4.1 K/mm3 (4.0-10.0) 11/21/17 08:00 RBC 5.03 M/mm3 (4.00-5.60) 11/21/17 08:00 Hgb 15.9 GM/dL (11.7-16.9) 11/21/17 08:00 Hct 46.8 % (35.4-49) 11/21/17 08:00 MCV 93.1 fl (80-96) 11/21/17 08:00 MCH 31.6 pg (25.7-33.7) 11/21/17 08:00 MCHC 33.9 g/dl (32.0-35.9) 11/21/17 08:00 RDW 16.8 % (11.9-15.9) H 11/21/17 08:00 Plt Count 127 K/MM3 (134-434) L 11/21/17 08:00 MPV 8.7 fl (7.5-11.1) 11/21/17 08:00 Sodium 138 mmol/L (136-145) 11/21/17 08:00 Potassium 3.1 mmol/L (3.5-5.1) L 11/21/17 08:00 Chloride 103 mmol/L (98-107) 11/21/17 08:00 Carbon Dioxide 26 mmol/L (21-32) 11/21/17 08:00 Anion Gap 9 (8-16) 11/21/17 08:00 BUN 12 mg/dL (7-18) D 11/21/17 08:00 Creatinine 1.1 mg/dL (0.7-1.3) D 11/21/17 08:00 Creat Clearance w eGFR > 60 (>60) 11/21/17 08:00 Random Glucose 123 mg/dL (74-106) H D 11/21/17 08:00 Calcium 8.8 mg/dL (8.5-10.1) 11/21/17 08:00 Total Bilirubin 0.8 mg/dL (0.2-1.0) 11/21/17 08:00 AST 35 U/L (15-37) D 11/21/17 08:00 ALT 37 U/L (12-78) 11/21/17 08:00 Alkaline Phosphatase 123 U/L (45-117) H 11/21/17 08:00 Total Protein 7.3 g/dl (6.4-8.2) 11/21/17 08:00 Albumin 3.6 g/dl (3.4-5.0) 11/21/17 08:00 Urine Color Ltyellow 11/21/17 00:05 Urine Appearance Clear 11/21/17 00:05 Urine pH 6.0 (5.0-8.0) 11/21/17 00:05 Ur Specific [place] 1.012 (1.001-1.035) 11/21/17 00:05 Urine Protein Negative (NEGATIVE) 11/21/17 00:05 Urine Glucose (UA) Negative (NEGATIVE) 11/21/17 00:05 Urine Ketones Negative (NEGATIVE) 11/21/17 00:05 Urine Blood Negative (NEGATIVE) 11/21/17 00:05 Urine Nitrite Negative (NEGATIVE) 11/21/17 00:05 Urine Bilirubin Negative (<2.0 mg/dL) 11/21/17 00:05 Urine Urobilinogen Negative mg/dL (0.2-1.0) 11/21/17 00:05 Ur Leukocyte Esterase Negative (NEGATIVE) 11/21/17 00:05 RPR Titer Reactive 1:1 (NONREACTIVE) H 11/21/17 08:00 T.pallidum Ab (MHA) Previously reactive (NONREACTIVE) 11/21/17 08:00 PREVIOUSLY TREATED FOR SYPHILIS Assessment: 11/23/17 10:20 WITHDRAWAL SYMPTOM Plan: CONTINUE DETOX,DISCHARGE IN AM,ADVISE DIET WITH OUT SUGAR,
[2017-11-23] MEDS: PRENATAL VITAMINS W/ FOLIC ACID TABLET (FP) PO SCH (10:32)
[2017-11-23] MEDS: POTASSIUM CHLORIDE ORAL LIQUID 20 MEQ/15 ML PO SCH (10:32)
[2017-11-23] MEDS: DOLUTEGRAVIR SODIUM 50 MG TABLET PO SCH (10:33)
[2017-11-23] MEDS: EMTRICITABINE 200MG/TENOFOVIR 300MG PO SCH (10:33)
[2017-11-23] MEDS: NICOTINE 21 MG/24 HOURS TOPICAL PATCH TD SCH (10:34)
--- NOTE | 2017-11-23 12:07 | PN ---
S Progress Note Note: PATIENT DID NOT WANT BLOOD K REPEAT TODAY,STABLE FOR DISCHARGE,HAS ALL MEDICATIONS AT HOME, ADVISE DIET BANANA,LOW CONCENTRATED SUGAR,K DUR 20 MEQ PO BID FOR 5 DAYS, FOLLOW UP WITH PMD FOR MEDICAL PROBLEM AND FOLLOW UP
--- NOTE | 2017-11-23 12:08 | DS ---
[facility] Detox Discharge Summary Admission Date: 11/20/17 Discharge Date: 11/23/17 - History Present History: Alcohol Dependence, Cocaine Dependence Additional Comments: STABLE FOR DISCHARGE TODAY,DID NOT WANT BLOOD TEST DONE FOR REPEAT K,K DUR 20 MEQ PO BID FOR 5 DAYS, NO CONCENTRATED SWEET,BANANA SUPPLEMENT DIET,FOLLOW UP WITH PMD FOR MEDICAL PROBLEM Pertinent Past History: HYPERTENSION HIV NICOTINE DEPENDENCE - Physical Exam Results Vital Signs: Vital Signs Temperature 97.2 F L 11/23/17 09:56 Pulse Rate 89 11/23/17 09:56 Respiratory Rate 18 11/23/17 09:56 Blood Pressure 132/73 11/23/17 09:56 O2 Sat by Pulse Oximetry (%) Pertinent Admission Physical Exam Findings: WITHDRAWAL SIGNS AND SYMPTOM Laboratory Last Values WBC 4.1 K/mm3 (4.0-10.0) 11/21/17 08:00 RBC 5.03 M/mm3 (4.00-5.60) 11/21/17 08:00 Hgb 15.9 GM/dL (11.7-16.9) 11/21/17 08:00 Hct 46.8 % (35.4-49) 11/21/17 08:00 MCV 93.1 fl (80-96) 11/21/17 08:00 MCH 31.6 pg (25.7-33.7) 11/21/17 08:00 MCHC 33.9 g/dl (32.0-35.9) 11/21/17 08:00 RDW 16.8 % (11.9-15.9) H 11/21/17 08:00 Plt Count 127 K/MM3 (134-434) L 11/21/17 08:00 MPV 8.7 fl (7.5-11.1) 11/21/17 08:00 Sodium 138 mmol/L (136-145) 11/21/17 08:00 Potassium 3.1 mmol/L (3.5-5.1) L 11/21/17 08:00 Chloride 103 mmol/L (98-107) 11/21/17 08:00 Carbon Dioxide 26 mmol/L (21-32) 11/21/17 08:00 Anion Gap 9 (8-16) 11/21/17 08:00 BUN 12 mg/dL (7-18) D 11/21/17 08:00 Creatinine 1.1 mg/dL (0.7-1.3) D 11/21/17 08:00 Creat Clearance w eGFR > 60 (>60) 11/21/17 08:00 Random Glucose 123 mg/dL (74-106) H D 11/21/17 08:00 Calcium 8.8 mg/dL (8.5-10.1) 11/21/17 08:00 Total Bilirubin 0.8 mg/dL (0.2-1.0) 11/21/17 08:00 AST 35 U/L (15-37) D 11/21/17 08:00 ALT 37 U/L (12-78) 11/21/17 08:00 Alkaline Phosphatase 123 U/L (45-117) H 11/21/17 08:00 Total Protein 7.3 g/dl (6.4-8.2) 11/21/17 08:00 Albumin 3.6 g/dl (3.4-5.0) 11/21/17 08:00 Urine Color Ltyellow 11/21/17 00:05 Urine Appearance Clear 11/21/17 00:05 Urine pH 6.0 (5.0-8.0) 11/21/17 00:05 Ur Specific [place] 1.012 (1.001-1.035) 11/21/17 00:05 Urine Protein Negative (NEGATIVE) 11/21/17 00:05 Urine Glucose (UA) Negative (NEGATIVE) 11/21/17 00:05 Urine Ketones Negative (NEGATIVE) 11/21/17 00:05 Urine Blood Negative (NEGATIVE) 11/21/17 00:05 Urine Nitrite Negative (NEGATIVE) 11/21/17 00:05 Urine Bilirubin Negative (<2.0 mg/dL) 11/21/17 00:05 Urine Urobilinogen Negative mg/dL (0.2-1.0) 11/21/17 00:05 Ur Leukocyte Esterase Negative (NEGATIVE) 11/21/17 00:05 RPR Titer Reactive 1:1 (NONREACTIVE) H 11/21/17 08:00 T.pallidum Ab (MHA) Previously reactive (NONREACTIVE) 11/21/17 08:00 Vital Signs Temperature 97.2 F L 11/23/17 09:56 Pulse Rate 89 11/23/17 09:56 Respiratory Rate 18 11/23/17 09:56 Blood Pressure 132/73 11/23/17 09:56 O2 Sat by Pulse Oximetry (%) - Treatment Hospital Course: Detox Protocol Followed, Detoxed Safely, Responded well, Discharged Condition Good Patient has Accepted a Rehab Referral to: DECLINED - Medication Discharge Medications: Ambulatory Orders Atorvastatin Ca [Lipitor] 20 mg PO HS #30 tablet 04/28/14 Darunavir/Cobicistat [Prezcobix 800 mg-150 mg Tablet] 1 each PO DAILY 06/03/16 Dolutegravir Sodium [Tivicay] 50 mg PO DAILY 06/03/16 Amlodipine Besylate [Norvasc -] 5 mg PO DAILY 07/13/17 Diphenhydramine HCl [Benadryl -] 25 mg PO HS 11/20/17 Quetiapine Fumarate [Seroquel -] 50 mg PO HS #30 tablet 11/21/17 Emtricitabine/Tenofovir [Truvada -] 1 tab PO DAILY tablet 11/23/17 - Diagnosis (1) Alcohol dependence with uncomplicated withdrawal Current Visit: Yes Status: Acute (2) Cannabis dependence, uncomplicated Current Visit: Yes Status: Acute (3) Cocaine dependence, uncomplicated Current Visit: Yes Status: Acute (4) Nicotine dependence Current Visit: Yes Status: Acute Qualifiers: Nicotine product type: cigarettes Substance use status: uncomplicated Qualified Code(s): F17.210 - Nicotine dependence, cigarettes, uncomplicated (5) Essential hypertension Current Visit: Yes Status: Chronic (6) Human immunodeficiency virus infection Current Visit: Yes Status: Chronic (7) hypercholesterolemia Current Visit: Yes Status: Chronic (8) History of hepatitis C Current Visit: Yes Status: Resolved (9) Hypokalemia Current Visit: No Status: Acute (10) Chronic back pain Current Visit: No Status: Chronic Qualifiers: Back pain location: low back pain Back pain laterality: midline Sciatica presence: without sciatica Qualified Code(s): M54.5 - Low back pain; G89.29 - Other chronic pain; G89.29 - Other chronic pain (11) History of syphilis Current Visit: No Status: Resolved - AMA Did Patient Leave Against Medical Advice: No
[2017-11-23] MEDS ORDERED: POTASSIUM CHLORIDE TABS 20 MEQ TABLET.ER (FP) PO SCH (22:00)
[2017-11-23] MEDS ORDERED: ATORVASTATIN CA 20 MG TABLET (FP) PO SCH (22:00)
[2017-11-23] MEDS ORDERED: chlordiazePOXIDE HCL 10 MG CAPSULE PO SCH (23:00)
== END 2017-11-23 12:30 | disposition home or self-care (01) | DRG 774 ==
LOC: YASAS 16:41 → Y6N 21:35
PROVIDERS: ADMIT Internal Medicine; ATTEND Internal Medicine
PROC: HZ2ZZZZ Detoxification Services for Substance Abuse Treatment (ICD-10-PCS; principal; 2017-11-20)
DX: F10.230 Alcohol dependence with withdrawal, uncomplicated (principal); F14.20 Cocaine dependence, uncomplicated; F12.20 Cannabis dependence, uncomplicated; F32.9 Major depressive disorder, single episode, unspecified; G47.00 Insomnia, unspecified; I10 Essential (primary) hypertension; E78.00 Pure hypercholesterolemia, unspecified; B18.2 Chronic viral hepatitis C; Z21 Asymptomatic human immunodeficiency virus [HIV] infection status; M54.5 Low back pain; G89.29 Other chronic pain; Z86.19 Personal history of other infectious and parasitic diseases
CPT/HCPCS: 36415; 80053; 81003; 85027; 86593; 86780; 93005; 93010

== ENCOUNTER 2018-05-29 08:20 | Inpatient (IN) | payer OTHER ==
--- NOTE | 2018-05-29 08:45 | HP ---
CIWA Score - CIWA Score Nausea/Vomitin Muscle Tremors: 2 Anxiety: 2 Agitation: 2 Paroxysmal Sweats: 1-Minimal Palms Moist Orientation: 0-Oriented Tacttile Disturbances: 1-Very Mild Itch/Numbness Auditory Disturbances: 1-Very Mild Visual Disturbances: 1-Very Mild Sensitivity Headache: 2-Mild CIWA-Ar Total Score: 14 Admission ROS BHS - HPI Chief Complaint: i need help to stop drinking alcohol,cocaine and marijuana Allergies/Adverse Reactions: Allergies Allergy/AdvReac Type Severity Reaction Status Date / Time No Known Allergies Allergy Verified 05/29/18 09:08 History of Present Illness: this 57 years old male with alcohol,cocaine and marijuana dependence,seeking detox,withdrawal symptom, multiple admissions to detox,last detox [facility] 02/09/18 to 02/13/18 hypertension, hiv since 1989 hepatitis c treated in 2013 weight loss nicotine dependence longest sobriety 6 years - Ebola screening Have you traveled outside of the country in the last 21 days: No - Review of Systems Constitutional: Loss of Appetite, Night Sweats, Changes in sleep, Weakness, Unintentional Wgt. Loss EENT: reports: Nose Congestion Respiratory: reports: No Symptoms reported Cardiac: reports: No Symptoms Reported GI: reports: Nausea, Poor Appetite, Abdominal cramping Musculoskeletal: reports: Back Pain, Muscle Pain Integumentary: reports: Dryness Neuro: reports: Headache, Tremors Endocrine: reports: No Symptoms Reported Hematology: reports: No Symptoms Reported, Other (hiv) Psychiatric: reports: No Sypmtoms Reported, Judgement Intact, Mood/Affect Appropiate, Orientated x3, Anxious, Depressed (insomnia) Patient History - Patient Medical History Hx Anemia: No Hx Asthma: No Hx Chronic Obstructive Pulmonary Disease (COPD): No Hx Cancer: No Hx Cardiac Disorders: No Hx Congestive Heart Failure: No Hx Hypertension: Yes (onmed) Hx Hypercholesterolemia: Yes (on med) Hx Pacemaker: No HX Cerebrovascular Accident: No Hx Seizures: No Hx Dementia: No Hx Diabetes: No Hx Gastrointestinal Disorders: No Hx Liver Disease: No Hx Genitourinary Disorders: No Hx Sexually Transmitted Disorders: Yes (treated for syphylis years ago) Hx Renal Disease (ESRD): No Hx Thyroid Disease: No Hx Human Immunodeficiency Virus (HIV): Yes (since 1989 't cells are good') Hx Hepatitis C: Yes (TREATED IN 2014) Hx Depression: Yes (never treated) Hx Suicide Attempt: No Hx Bipolar Disorder: No Hx Schizophrenia: No Other Medical History: no suicidal,no homicidal - Patient Surgical History Past Surgical History: No Hx Neurologic Surgery: No Hx Cataract Extraction: No Hx Cardiac Surgery: No Hx Lung Surgery: No Hx Breast Surgery: No Hx Breast Biopsy: No Hx Abdominal Surgery: No Hx Appendectomy: No Hx Cholecystectomy: No Hx Genitourinary Surgery: No Hx Section: No Hx Orthopedic Surgery: No Anesthesia Reaction: No - PPD History Previous Implant?: Yes Implanted On Prior [facility] Admission?: Yes Date: 11/22/17 Results: 0 mm PPD to be Administered?: No - Smoking Cessation Smoking history: Current every day smoker Have you smoked in the past 12 months: Yes Aproximately how many cigarettes per day: 20 Cigars Per Day: 0 Hx Chewing Tobacco Use: No Initiated information on smoking cessation: Yes 'Breaking Loose' booklet given: 05/29/18 - Substance & Tx. History Hx Alcohol Use: Yes Hx Substance Use: Yes Substance Use Type: Cocaine, Marijuana Hx Substance Use Treatment: Yes ([facility] 02/09/18 to 02/13/18) - Substances Abused Alcohol Route: Oral Frequency: Daily Amount used: 2pints of vodka/2 of 40 ozs of beer Age of first use: 13 Date of Last Use: 05/28/18 Cocaine Route: Inhalation Frequency: 1-2 times per week Amount used: 100$ Age of first use: 14 Date of Last Use: 05/26/18 Marijuana/Hashish Route: Smoking Frequency: Daily Amount used: 5$ Age of first use: 12 Date of Last Use: 05/28/18 Family Disease History - Family Disease History Family Disease History: Heart Disease: Mother (HTN, ), Other: Father ( estranged), Brother ( 1 bro alive), Sister (2 sisters -) Admission Physical Exam S - Vital Signs Vital Signs: Vital Signs Temperature 96.9 F L 05/29/18 08:42 Pulse Rate 77 05/29/18 08:42 Respiratory Rate 18 05/29/18 08:42 Blood Pressure 130/96 05/29/18 08:42 O2 Sat by Pulse Oximetry (%) - Physical General Appearance: Yes: Moderate Distress, Tremorous, Irritable, Sweating, Anxious HEENTM: Yes: TAMIKA, Pharynx Normal, Tm's normal Respiratory: Yes: Lungs Clear, Normal Breath Sounds, No Respiratory Distress Neck: Yes: Within Normal Limits Breast: Yes: Within Normal Limits Abdominal: Yes: Within Normal Limits, Normal Bowel Sounds, Non Tender, Flat, Soft Genitourinary: Yes: Within Normal Limits Musculoskeletal: Yes: Back pain, Muscle Pain Extremities: Yes: Tremors Neurological: Yes: Alert, Motor Strength 5/5, Normal Mood/Affect, Normal Response Integumentary: Yes: Dry Lymphatic: Yes: Within Normal Limits - Diagnostic (1) Alcohol dependence with uncomplicated withdrawal Current Visit: No Status: Acute (2) Cannabis dependence, uncomplicated Current Visit: No Status: Acute (3) Cocaine dependence, uncomplicated Current Visit: No Status: Acute (4) Dehydration Current Visit: No Status: Acute (5) Nicotine dependence Current Visit: No Status: Acute Qualifiers: Nicotine product type: cigarettes Substance use status: in withdrawal Qualified Code(s): F17.213 - Nicotine dependence, cigarettes, with withdrawal (6) Chronic back pain Current Visit: No Status: Chronic Qualifiers: Back pain location: low back pain Back pain laterality: midline Sciatica presence: without sciatica Qualified Code(s): M54.5 - Low back pain; G89.29 - Other chronic pain (7) Essential hypertension Current Visit: No Status: Chronic (8) Human immunodeficiency virus infection Current Visit: No Status: Chronic Comment: Patient did not bring his medications (9) History of hepatitis C Current Visit: No Status: Resolved (10) History of syphilis Current Visit: No Status: Resolved Cleared for Admission [facility] - Detox or Rehab [facility] Level of Care: Medically Managed Detox Regimen/Protocol: Librium [facility] Breath Alcohol Content Breath Alcohol Content: 0.098
[2018-05-29 08:50] VITALS: BMI 29.2
[2018-05-29] MEDS ORDERED: IBUPROFEN 400 MG TABLET (FP) PO PRN (09:18)
[2018-05-29] MEDS ORDERED: P-EPHED 60MG/TRIPROLIDI 2.5MG TABLET PO PRN (09:18)
[2018-05-29] MEDS ORDERED: MAGNESIUM HYDROX 2400MG/30ML ORAL SUSPENSION 30 ML CUP PO PRN (09:18)
[2018-05-29] MEDS ORDERED: LOPERAMIDE HCL 2 MG CAPSULE PO PRN (09:18)
[2018-05-29] MEDS ORDERED: MENTHOL/PHENOL 1 EACH UD MM PRN (09:18)
[2018-05-29] MEDS ORDERED: MAG HYDROX/AL HYDROX/SIMETH 30 ML UNIT-DOSE CUP PO PRN (09:18)
[2018-05-29] MEDS ORDERED: MAGNESIUM CITRATE 300 ML BOTTLE PO PRN (09:18)
[2018-05-29] MEDS ORDERED: guaiFENesin/D-METHORPHAN HB 10 ML UNIT-DOSE CUPS PO PRN (09:18)
[2018-05-29] MEDS ORDERED: hydrOXYzine PAMOATE 25 MG CAPSULE (FP) PO PRN (09:18)
[2018-05-29] MEDS: PRENATAL VITAMINS W/ FOLIC ACID TABLET (FP) PO SCH (13:14)
[2018-05-29] MEDS: NICOTINE 21 MG/24 HOURS TOPICAL PATCH TD SCH (13:15)
[2018-05-29] MEDS: amLODIPine BESYLATE 5 MG TABLET (FP) PO SCH (13:16)
[2018-05-29] MEDS: chlordiazePOXIDE HCL 25 MG CAPSULE PO PRN (13:16)
[2018-05-29] MEDS: chlordiazePOXIDE HCL 25 MG CAPSULE PO SCH ×2 (17:39→22:32)
[2018-05-29 18:56] LABS: URINE APPEARANCE CLEAR; URINE BILIRUBIN NEGATIVE (<2.0 mg/dL); URINE COLOR YELLOW; URINE GLUCOSE (UA) NEGATIVE (NEGATIVE); URINE KETONE NEGATIVE (NEGATIVE); URINE LEUK ESTERASE NEGATIVE (NEGATIVE); URINE NITRITE NEGATIVE (NEGATIVE); URINE PROTEIN 1+ (NEGATIVE); URINE UROBILINOGEN 4.0 E.U/dl mg/dL (0.2-1.0)
[2018-05-29 19:14] LABS: EPI CELLS RARE /HPF (FEW); URINE MUCUS RARE
[2018-05-29] MEDS ORDERED: MELATONIN 5 MG TABLETS PO PRN (22:00)
[2018-05-29] MEDS: ATORVASTATIN CA 20 MG TABLET (FP) PO SCH (22:32)
[2018-05-29] MEDS: THIAMINE HCL 100 MG TABLET (FP) PO SCH (22:32)
[2018-05-29] MEDS: ACETAMINOPHEN 325 MG TABLET (FP) PO PRN (22:33)
[2018-05-30] MEDS: chlordiazePOXIDE HCL 25 MG CAPSULE PO SCH ×4 (05:54→22:21)
[2018-05-30] MEDS: NICOTINE 21 MG/24 HOURS TOPICAL PATCH TD SCH (10:18)
[2018-05-30] MEDS: PRENATAL VITAMINS W/ FOLIC ACID TABLET (FP) PO SCH (10:18)
[2018-05-30] MEDS: amLODIPine BESYLATE 5 MG TABLET (FP) PO SCH (10:18)
--- NOTE | 2018-05-30 10:50 | EKG ---
Test Reason : Blood Pressure : / mmHG Vent. Rate : 062 BPM Atrial Rate : 062 BPM P-R Int : 160 ms QRS Dur : 096 ms QT Int : 424 ms P-R-T Axes : 072 054 059 degrees QTc Int : 430 ms NORMAL SINUS RHYTHM MODERATE VOLTAGE CRITERIA FOR LVH, MAY BE NORMAL VARIANT WHEN COMPARED WITH ECG OF 09-FEB-2018 18:18, NO SIGNIFICANT CHANGE WAS FOUND Confirmed by JAMES GOODEN, LETICIA ([id number]) on 05/30/2018 10:49:46 AM Referred By: Princess Juarez Confirmed By:LETICIA RAMIREZ MD
[2018-05-30 11:12] LABS: HEMATOCRIT 47.9 % (35.4-49); HEMOGLOBIN 15.8 GM/dL (11.7-16.9); MCH 29.8 pg (25.7-33.7); MCHC 32.9 g/dl (32.0-35.9); MEAN CELL VOLUME 90.5 fl (80-96); MEAN PLT VOLUME 9.1 fl (7.5-11.1); PLATELET COUNT 134 K/MM3 (134-434); RDW 15.7 % (11.9-15.9); WHITE BLOOD COUNT 4.2 K/mm3 (4.0-10.0)
--- NOTE | 2018-05-30 11:38 | PN ---
S CIWA - CIWA Score Nausea/Vomitin-Mild Nausea/No Vomiting Muscle Tremors: 4-Moderate,w/Arms Extend Anxiety: 3 Agitation: 2 Paroxysmal Sweats: 1-Minimal Palms Moist Orientation: 1-Uncertain about Date Tacttile Disturbances: 0-None Auditory Disturbances: 0-None Visual Disturbances: 0-None Headache: 0-None Present CIWA-Ar Total Score: 12 S Progress Note (SOAP) Subjective: sweat tremor restlessness anxiety Objective: 05/30/18 11:39 Vital Signs Temperature 97.1 F L 05/30/18 09:45 Pulse Rate 74 05/30/18 09:45 Respiratory Rate 18 05/30/18 09:45 Blood Pressure 141/90 05/30/18 09:45 O2 Sat by Pulse Oximetry (%) Laboratory Last Values WBC 4.2 K/mm3 (4.0-10.0) 05/30/18 07:30 RBC 5.30 M/mm3 (4.00-5.60) 05/30/18 07:30 Hgb 15.8 GM/dL (11.7-16.9) 05/30/18 07:30 Hct 47.9 % (35.4-49) 05/30/18 07:30 MCV 90.5 fl (80-96) 05/30/18 07:30 MCH 29.8 pg (25.7-33.7) 05/30/18 07:30 MCHC 32.9 g/dl (32.0-35.9) 05/30/18 07:30 RDW 15.7 % (11.9-15.9) 05/30/18 07:30 Plt Count 134 K/MM3 (134-434) 05/30/18 07:30 MPV 9.1 fl (7.5-11.1) 05/30/18 07:30 Urine Color Yellow 05/29/18 14:24 Urine Appearance Clear 05/29/18 14:24 Urine pH 6.0 (5.0-8.0) 05/29/18 14:24 Ur Specific [place] 1.019 (1.010-1.035) 05/29/18 14:24 Urine Protein 1+ (NEGATIVE) H 05/29/18 14:24 Urine Glucose (UA) Negative (NEGATIVE) 05/29/18 14:24 Urine Ketones Negative (NEGATIVE) 05/29/18 14:24 Urine Blood 1+ (NEGATIVE) H 05/29/18 14:24 Urine Nitrite Negative (NEGATIVE) 05/29/18 14:24 Urine Bilirubin Negative (<2.0 mg/dL) 05/29/18 14:24 Urine Urobilinogen 4.0 e.u/dl mg/dL (0.2-1.0) 05/29/18 14:24 Ur Leukocyte Esterase Negative (NEGATIVE) 05/29/18 14:24 Urine WBC (Auto) 1 /hpf (3-5) 05/29/18 14:24 Urine RBC (Auto) 5 /hpf (0-3) 05/29/18 14:24 Ur Epithelial Cells Rare /HPF (FEW) 05/29/18 14:24 Urine Mucus Rare 05/29/18 14:24 lab noted Assessment: 05/30/18 11:39 withdrawal sx Plan: continue detox
[2018-05-30 11:57] LABS: ALBUMIN 3.5 g/dl (3.4-5.0); ALK PHOS 133 U/L (45-117); ANION GAP 8 MMOL/L (8-16); BILIRUBIN,TOTAL 0.5 mg/dL (0.2-1); BLOOD UREA NITROGEN 8 mg/dL (7-18); CALCIUM 9.3 mg/dL (8.5-10.1); CHLORIDE 108 mmol/L (98-107); CO2 26 mmol/L (21-32); CREATININE 0.9 mg/dL (0.55-1.3); GLUCOSE,RANDOM 109 mg/dL (74-106); POTASSIUM 3.5 mmol/L (3.5-5.1); SGOT/AST 29 U/L (15-37); SGPT/ALT 37 U/L (13-61); SODIUM 142 mmol/L (136-145); TOT PROT 7.2 g/dl (6.4-8.2)
[2018-05-30] MEDS ORDERED: FLU VACCINE QUAD 60 MCG/0.5 ML (MDV 18-19) IM ONE (12:00)
[2018-05-30 12:16] LABS: RPR REACTIVE 1:1 (NONREACTIVE)
[2018-05-30 12:17] LABS: TREPONEMA ANTIBODY PREVIOUSLY REACTIVE (NONREACTIVE)
[2018-05-30] MEDS: chlordiazePOXIDE HCL 25 MG CAPSULE PO PRN (13:04)
[2018-05-30] MEDS: ACETAMINOPHEN 325 MG TABLET (FP) PO PRN (17:29)
[2018-05-30] MEDS: THIAMINE HCL 100 MG TABLET (FP) PO SCH (22:21)
[2018-05-30] MEDS: ATORVASTATIN CA 20 MG TABLET (FP) PO SCH (22:21)
[2018-05-31] MEDS: chlordiazePOXIDE HCL 25 MG CAPSULE PO SCH ×3 (05:26→10:18)
--- NOTE | 2018-05-31 08:17 | CONSULT ---
[facility] Psychiatric Consult - Data Date of interview: 05/31/18 Admission source: [facility] Identifying data: This is a 57 years old male, single, homeless, with no financial support, with no psychiatric hospitalization history with alcohol, cocaine and marijuana dependence,seeking detox reporting withdrawal symptoms. Patient reports. multiple admissions to detox,last detox at [facility] ON 02/09/18 to 02/13/18 Substance Abuse History: Smoking history: Current every day smoker. Have you smoked in the past 12 months: Yes. Aproximately how many cigarettes per day: 20. Cigars Per Day: 0. Hx Chewing Tobacco Use: No. Initiated information on smoking cessation: Yes. 'Breaking Loose' booklet given: 05/29/18. - Substance & Tx. History. Hx Alcohol Use: Yes. Hx Substance Use: Yes. Substance Use Type : Cocaine, Marijuana. Hx Substance Use Treatment: Yes ([facility] 02/09/18 to ). - Substances Abused. Alcohol. Route: Oral. Frequency: Daily. Amount used: 2pints of vodka/2 of 40 ozs of beer. Age of first use: 13. Date of Last Use: 05/28/18. Cocaine. Route: Inhalation. Frequency: 1-2 times per week. Amount used: 100$. Age of first use: 14. Date of Last Use: . Marijuana/Hashish. Route: Smoking. Frequency: Daily. Amount used: 5$ . Age of first use: 12. Date of Last Use: 05/28/18 Medical History: HTN, Syphilis history, HIV +, LBP, Weigth loss history Psychiatric History: Patient reports anxiety, depression and insomnia, asking for medications help , reports no psychiatric hospitalization history, no suicidal, homicidal history, reports takign prior to admission: Seroquel 100mg po qhs Mental Status Exam - Mental Status Exam Alert and Oriented to: Place, Person Cognitive Function: Fair Patient Appearance: Well Groomed Mood: Sad Affect: Mood Congruent Patient Behavior: Cooperative Speech Pattern: Appropriate Voice Loudness: Mildly Soft/Quiet Thought Process: Goal Oriented Thought Disorder: Being Controlled Hallucinations: Denies Suicidal Ideation: Denies Homicidal Ideation: Denies Insight/Judgement: Fair Sleep: Difficulty falling asleep Appetite: Weight loss Muscle strength/Tone: Normal Gait/Station: Normal Additional Comments: Seroquel 100mg po qhs Psychiatric Findings - Problem List ([place] 1, 2,3) (1) Elevated blood pressure reading Current Visit: No Status: Acute (2) Elevated blood pressure reading with diagnosis of hypertension Current Visit: No Status: Acute (3) Impulse control disorder Current Visit: No Status: Acute (4) Drug-induced mood disorder Current Visit: No Status: Suspected - Initial Treatment Plan Initial Treatment Plan: Seroquel 100mg po qhs
[2018-05-31] MEDS: PRENATAL VITAMINS W/ FOLIC ACID TABLET (FP) PO SCH (10:15)
[2018-05-31] MEDS: amLODIPine BESYLATE 5 MG TABLET (FP) PO SCH (10:18)
[2018-05-31] MEDS: NICOTINE 21 MG/24 HOURS TOPICAL PATCH TD SCH (10:18)
--- NOTE | 2018-05-31 12:35 | PN ---
[facility] CIWA - CIWA Score Nausea/Vomitin-Mild Nausea/No Vomiting Muscle Tremors: 3 Anxiety: 1-Mildly Anxious Agitation: 3 Paroxysmal Sweats: 1-Minimal Palms Moist Orientation: 0-Oriented Tacttile Disturbances: 0-None Auditory Disturbances: 0-None Visual Disturbances: 0-None Headache: 0-None Present CIWA-Ar Total Score: 9 S Progress Note (SOAP) Subjective: mild gi distress no tremor less sweat sleep better at night Objective: 05/31/18 12:37 Vital Signs Temperature 96.8 F L 05/31/18 09:20 Pulse Rate 118 H 05/31/18 09:20 Respiratory Rate 20 05/31/18 09:20 Blood Pressure 140/105 H 05/31/18 09:20 O2 Sat by Pulse Oximetry (%) Laboratory Last Values WBC 4.2 K/mm3 (4.0-10.0) 05/30/18 07:30 RBC 5.30 M/mm3 (4.00-5.60) 05/30/18 07:30 Hgb 15.8 GM/dL (11.7-16.9) 05/30/18 07:30 Hct 47.9 % (35.4-49) 05/30/18 07:30 MCV 90.5 fl (80-96) 05/30/18 07:30 MCH 29.8 pg (25.7-33.7) 05/30/18 07:30 MCHC 32.9 g/dl (32.0-35.9) 05/30/18 07:30 RDW 15.7 % (11.9-15.9) 05/30/18 07:30 Plt Count 134 K/MM3 (134-434) 05/30/18 07:30 MPV 9.1 fl (7.5-11.1) 05/30/18 07:30 Sodium 142 mmol/L (136-145) 05/30/18 07:30 Potassium 3.5 mmol/L (3.5-5.1) 05/30/18 07:30 Chloride 108 mmol/L (98-107) H 05/30/18 07:30 Carbon Dioxide 26 mmol/L (21-32) 05/30/18 07:30 Anion Gap 8 MMOL/L (8-16) 05/30/18 07:30 BUN 8 mg/dL (7-18) 05/30/18 07:30 Creatinine 0.9 mg/dL (0.55-1.3) 05/30/18 07:30 Creat Clearance w eGFR > 60 (>60) 05/30/18 07:30 Random Glucose 109 mg/dL (74-106) H 05/30/18 07:30 Calcium 9.3 mg/dL (8.5-10.1) 05/30/18 07:30 Total Bilirubin 0.5 mg/dL (0.2-1) 05/30/18 07:30 AST 29 U/L (15-37) 05/30/18 07:30 ALT 37 U/L (13-61) 05/30/18 07:30 Alkaline Phosphatase 133 U/L (45-117) H 05/30/18 07:30 Total Protein 7.2 g/dl (6.4-8.2) 05/30/18 07:30 Albumin 3.5 g/dl (3.4-5.0) 05/30/18 07:30 Urine Color Yellow 05/29/18 14:24 Urine Appearance Clear 05/29/18 14:24 Urine pH 6.0 (5.0-8.0) 05/29/18 14:24 Ur Specific [place] 1.019 (1.010-1.035) 05/29/18 14:24 Urine Protein 1+ (NEGATIVE) H 05/29/18 14:24 Urine Glucose (UA) Negative (NEGATIVE) 05/29/18 14:24 Urine Ketones Negative (NEGATIVE) 05/29/18 14:24 Urine Blood 1+ (NEGATIVE) H 05/29/18 14:24 Urine Nitrite Negative (NEGATIVE) 05/29/18 14:24 Urine Bilirubin Negative (<2.0 mg/dL) 05/29/18 14:24 Urine Urobilinogen 4.0 e.u/dl mg/dL (0.2-1.0) 05/29/18 14:24 Ur Leukocyte Esterase Negative (NEGATIVE) 05/29/18 14:24 Urine WBC (Auto) 1 /hpf (3-5) 05/29/18 14:24 Urine RBC (Auto) 5 /hpf (0-3) 05/29/18 14:24 Ur Epithelial Cells Rare /HPF (FEW) 05/29/18 14:24 Urine Mucus Rare 05/29/18 14:24 RPR Titer Reactive 1:1 (NONREACTIVE) H 05/30/18 07:30 T.pallidum Ab (MHA) Previously reactive (NONREACTIVE) 05/30/18 07:30 lab noted Assessment: 05/31/18 12:37 withdrawal sx Plan: continue deox
[2018-05-31] MEDS: chlordiazePOXIDE 5 MG CAPSULE PO SCH ×2 (18:24→22:21)
[2018-05-31] MEDS: ACETAMINOPHEN 325 MG TABLET (FP) PO PRN (19:25)
[2018-05-31] MEDS: ATORVASTATIN CA 20 MG TABLET (FP) PO SCH (22:21)
[2018-05-31] MEDS: THIAMINE HCL 100 MG TABLET (FP) PO SCH (22:21)
[2018-05-31] MEDS: QUEtiapine FUMARATE 100 MG TABLET (FP) PO SCH (23:16)
[2018-06-01] MEDS: chlordiazePOXIDE 5 MG CAPSULE PO SCH ×2 (05:44→10:35)
[2018-06-01] MEDS: amLODIPine BESYLATE 5 MG TABLET (FP) PO SCH (10:34)
[2018-06-01] MEDS: PRENATAL VITAMINS W/ FOLIC ACID TABLET (FP) PO SCH (10:34)
--- NOTE | 2018-06-01 10:39 | PN ---
[facility] Progress Note (SOAP) Subjective: feeling better, no tremor, less sweat, sleep better at night, attend groups and social with peers in day room Objective: 06/01/18 10:38 Vital Signs Temperature 97.0 F L 06/01/18 08:48 Pulse Rate 106 H 06/01/18 08:48 Respiratory Rate 18 06/01/18 08:48 Blood Pressure 151/96 06/01/18 08:48 O2 Sat by Pulse Oximetry (%) Laboratory Last Values WBC 4.2 K/mm3 (4.0-10.0) 05/30/18 07:30 RBC 5.30 M/mm3 (4.00-5.60) 05/30/18 07:30 Hgb 15.8 GM/dL (11.7-16.9) 05/30/18 07:30 Hct 47.9 % (35.4-49) 05/30/18 07:30 MCV 90.5 fl (80-96) 05/30/18 07:30 MCH 29.8 pg (25.7-33.7) 05/30/18 07:30 MCHC 32.9 g/dl (32.0-35.9) 05/30/18 07:30 RDW 15.7 % (11.9-15.9) 05/30/18 07:30 Plt Count 134 K/MM3 (134-434) 05/30/18 07:30 MPV 9.1 fl (7.5-11.1) 05/30/18 07:30 Sodium 142 mmol/L (136-145) 05/30/18 07:30 Potassium 3.5 mmol/L (3.5-5.1) 05/30/18 07:30 Chloride 108 mmol/L (98-107) H 05/30/18 07:30 Carbon Dioxide 26 mmol/L (21-32) 05/30/18 07:30 Anion Gap 8 MMOL/L (8-16) 05/30/18 07:30 BUN 8 mg/dL (7-18) 05/30/18 07:30 Creatinine 0.9 mg/dL (0.55-1.3) 05/30/18 07:30 Creat Clearance w eGFR > 60 (>60) 05/30/18 07:30 Random Glucose 109 mg/dL (74-106) H 05/30/18 07:30 Calcium 9.3 mg/dL (8.5-10.1) 05/30/18 07:30 Total Bilirubin 0.5 mg/dL (0.2-1) 05/30/18 07:30 AST 29 U/L (15-37) 05/30/18 07:30 ALT 37 U/L (13-61) 05/30/18 07:30 Alkaline Phosphatase 133 U/L (45-117) H 05/30/18 07:30 Total Protein 7.2 g/dl (6.4-8.2) 05/30/18 07:30 Albumin 3.5 g/dl (3.4-5.0) 05/30/18 07:30 Urine Color Yellow 05/29/18 14:24 Urine Appearance Clear 05/29/18 14:24 Urine pH 6.0 (5.0-8.0) 05/29/18 14:24 Ur Specific [place] 1.019 (1.010-1.035) 05/29/18 14:24 Urine Protein 1+ (NEGATIVE) H 05/29/18 14:24 Urine Glucose (UA) Negative (NEGATIVE) 05/29/18 14:24 Urine Ketones Negative (NEGATIVE) 05/29/18 14:24 Urine Blood 1+ (NEGATIVE) H 05/29/18 14:24 Urine Nitrite Negative (NEGATIVE) 05/29/18 14:24 Urine Bilirubin Negative (<2.0 mg/dL) 05/29/18 14:24 Urine Urobilinogen 4.0 e.u/dl mg/dL (0.2-1.0) 05/29/18 14:24 Ur Leukocyte Esterase Negative (NEGATIVE) 05/29/18 14:24 Urine WBC (Auto) 1 /hpf (3-5) 05/29/18 14:24 Urine RBC (Auto) 5 /hpf (0-3) 05/29/18 14:24 Ur Epithelial Cells Rare /HPF (FEW) 05/29/18 14:24 Urine Mucus Rare 05/29/18 14:24 RPR Titer Reactive 1:1 (NONREACTIVE) H 05/30/18 07:30 T.pallidum Ab (MHA) Previously reactive (NONREACTIVE) 05/30/18 07:30 lab noted begin enalapril 06/01/18 10:39 Assessment: 06/01/18 10:39 mild withdrawal sx Plan: medically supervised detox
[2018-06-01] MEDS: NICOTINE 21 MG/24 HOURS TOPICAL PATCH TD SCH (11:00)
[2018-06-01] MEDS: ACETAMINOPHEN 325 MG TABLET (FP) PO PRN (11:01)
[2018-06-01] MEDS: chlordiazePOXIDE HCL 10 MG CAPSULE PO SCH ×2 (17:45→22:23)
[2018-06-01] MEDS: ATORVASTATIN CA 20 MG TABLET (FP) PO SCH (22:23)
[2018-06-01] MEDS: QUEtiapine FUMARATE 100 MG TABLET (FP) PO SCH (22:23)
[2018-06-01] MEDS: THIAMINE HCL 100 MG TABLET (FP) PO SCH (22:24)
[2018-06-02] MEDS: chlordiazePOXIDE HCL 10 MG CAPSULE PO SCH (05:30)
--- NOTE | 2018-06-02 08:49 | DS ---
[facility] Detox Discharge Summary Admission Date: 05/29/18 Discharge Date: 06/02/18 - History Present History: Alcohol Dependence Additional Comments: 57 years old male admitted on 05/29/18 for alcohol withdrawal sx completed alcohol detox regimen tolerated well denies alcohol withdrawal sx alert oriented x 3 no acute distress aftercare [facility] - Physical Exam Results Vital Signs: Vital Signs Temperature 97.3 F L 06/02/18 07:08 Pulse Rate 84 06/02/18 07:08 Respiratory Rate 18 06/02/18 07:08 Blood Pressure 132/88 06/02/18 07:08 O2 Sat by Pulse Oximetry (%) Pertinent Admission Physical Exam Findings: alcohol withdrawal sx Vital Signs Temperature 97.8 F 06/02/18 09:58 Pulse Rate 93 H 06/02/18 09:58 Respiratory Rate 18 06/02/18 09:58 Blood Pressure 136/99 06/02/18 09:58 O2 Sat by Pulse Oximetry (%) Laboratory Last Values WBC 4.2 K/mm3 (4.0-10.0) 05/30/18 07:30 RBC 5.30 M/mm3 (4.00-5.60) 05/30/18 07:30 Hgb 15.8 GM/dL (11.7-16.9) 05/30/18 07:30 Hct 47.9 % (35.4-49) 05/30/18 07:30 MCV 90.5 fl (80-96) 05/30/18 07:30 MCH 29.8 pg (25.7-33.7) 05/30/18 07:30 MCHC 32.9 g/dl (32.0-35.9) 05/30/18 07:30 RDW 15.7 % (11.9-15.9) 05/30/18 07:30 Plt Count 134 K/MM3 (134-434) 05/30/18 07:30 MPV 9.1 fl (7.5-11.1) 05/30/18 07:30 Sodium 142 mmol/L (136-145) 05/30/18 07:30 Potassium 3.5 mmol/L (3.5-5.1) 05/30/18 07:30 Chloride 108 mmol/L (98-107) H 05/30/18 07:30 Carbon Dioxide 26 mmol/L (21-32) 05/30/18 07:30 Anion Gap 8 MMOL/L (8-16) 05/30/18 07:30 BUN 8 mg/dL (7-18) 05/30/18 07:30 Creatinine 0.9 mg/dL (0.55-1.3) 05/30/18 07:30 Creat Clearance w eGFR > 60 (>60) 05/30/18 07:30 Random Glucose 109 mg/dL (74-106) H 05/30/18 07:30 Calcium 9.3 mg/dL (8.5-10.1) 05/30/18 07:30 Total Bilirubin 0.5 mg/dL (0.2-1) 05/30/18 07:30 AST 29 U/L (15-37) 05/30/18 07:30 ALT 37 U/L (13-61) 05/30/18 07:30 Alkaline Phosphatase 133 U/L (45-117) H 05/30/18 07:30 Total Protein 7.2 g/dl (6.4-8.2) 05/30/18 07:30 Albumin 3.5 g/dl (3.4-5.0) 05/30/18 07:30 Urine Color Yellow 05/29/18 14:24 Urine Appearance Clear 05/29/18 14:24 Urine pH 6.0 (5.0-8.0) 05/29/18 14:24 Ur Specific [place] 1.019 (1.010-1.035) 05/29/18 14:24 Urine Protein 1+ (NEGATIVE) H 05/29/18 14:24 Urine Glucose (UA) Negative (NEGATIVE) 05/29/18 14:24 Urine Ketones Negative (NEGATIVE) 05/29/18 14:24 Urine Blood 1+ (NEGATIVE) H 05/29/18 14:24 Urine Nitrite Negative (NEGATIVE) 05/29/18 14:24 Urine Bilirubin Negative (<2.0 mg/dL) 05/29/18 14:24 Urine Urobilinogen 4.0 e.u/dl mg/dL (0.2-1.0) 05/29/18 14:24 Ur Leukocyte Esterase Negative (NEGATIVE) 05/29/18 14:24 Urine WBC (Auto) 1 /hpf (3-5) 05/29/18 14:24 Urine RBC (Auto) 5 /hpf (0-3) 05/29/18 14:24 Ur Epithelial Cells Rare /HPF (FEW) 05/29/18 14:24 Urine Mucus Rare 05/29/18 14:24 RPR Titer Reactive 1:1 (NONREACTIVE) H 05/30/18 07:30 T.pallidum Ab (MHA) Previously reactive (NONREACTIVE) 05/30/18 07:30 lab noted - Treatment Hospital Course: Detox Protocol Followed, Detoxed Safely, Responded well, Discharged Condition Good, Rehab Referral Accepted Patient has Accepted a Rehab Referral to: [facility] - Medication Discharge Medications: Ambulatory Orders Darunavir/Cobicistat [Prezcobix 800 mg-150 mg Tablet] 1 each PO DAILY 06/03/16 Dolutegravir Sodium [Tivicay] 50 mg PO DAILY 06/03/16 Quetiapine Fumarate [Seroquel -] 50 mg PO HS #30 tablet 11/21/17 Emtricitabine/Tenofovir [Truvada -] 1 tab PO DAILY tablet 11/23/17 Quetiapine Fumarate [Seroquel] 100 mg PO HS #30 tablet 05/31/18 Amlodipine Besylate [Norvasc -] 5 mg PO DAILY #30 tablet 06/01/18 Atorvastatin Ca [Lipitor] 20 mg PO HS #30 tablet 06/01/18 Quetiapine Fumarate [Seroquel] 100 mg PO HS #30 tablet 06/01/18 - Diagnosis (1) HIV (human immunodeficiency virus infection) Current Visit: Yes Status: Chronic (2) Essential hypertension Current Visit: Yes Status: Chronic (3) hypercholesterolemia Current Visit: Yes Status: Chronic (4) Drug-induced mood disorder Current Visit: Yes Status: Suspected (5) Nicotine dependence Current Visit: Yes Status: Acute Qualifiers: Nicotine product type: cigarettes Substance use status: in withdrawal Qualified Code(s): F17.213 - Nicotine dependence, cigarettes, with withdrawal (6) Neuropathy Current Visit: Yes Status: Chronic - AMA Did Patient Leave Against Medical Advice: No
[2018-06-02 09:59] VITALS: BP 136/99; PULSE 93; TEMP 97.8
[2018-06-02] MEDS: amLODIPine BESYLATE 5 MG TABLET (FP) PO SCH (10:06)
[2018-06-02] MEDS: PRENATAL VITAMINS W/ FOLIC ACID TABLET (FP) PO SCH (10:06)
== END 2018-06-02 10:07 | disposition home or self-care (01) | DRG 774 ==
LOC: YASAS 08:20 → Y6N 10:01
PROC: HZ2ZZZZ Detoxification Services for Substance Abuse Treatment (ICD-10-PCS; principal; 2018-05-29)
DX: F10.230 Alcohol dependence with withdrawal, uncomplicated (principal); F14.20 Cocaine dependence, uncomplicated; F12.20 Cannabis dependence, uncomplicated; F17.213 Nicotine dependence, cigarettes, with withdrawal; F19.24 Other psychoactive substance dependence with psychoactive substance-induced mood disorder; F63.89 Other impulse disorders; I10 Essential (primary) hypertension; E86.0 Dehydration; M54.5 Low back pain; G89.29 Other chronic pain; Z21 Asymptomatic human immunodeficiency virus [HIV] infection status; E78.00 Pure hypercholesterolemia, unspecified; G62.9 Polyneuropathy, unspecified; B18.2 Chronic viral hepatitis C; Z87.438 Personal history of other diseases of male genital organs
CPT/HCPCS: 36415; 80053; 81003; 81015; 85027; 86593; 86780; 90688; 93005; 93010; G0008

== ENCOUNTER 2018-11-17 19:12 | Inpatient (IN) | payer OTHER ==
--- NOTE | 2018-11-17 21:34 | HP ---
CIWA Score Nausea/Vomitin (vomiting x 1) Muscle Tremors: 4-Moderate,w/Arms Extend Anxiety: 4-Mod. Anxious/Guarded Agitation: 4-Moderately Restless Paroxysmal Sweats: 1-Minimal Palms Moist Orientation: 0-Oriented Tacttile Disturbances: 0-None Auditory Disturbances: 0-None Visual Disturbances: 0-None Headache: 3-Moderate CIWA-Ar Total Score: 18 - Admission Criteria [facility]ASAS Guidelines: Admission for Medically Managed Detox: Requires at least one of the followin. CIWA greater than 12 2. Seizures within the past 24 hours 3. Delirium tremens within the past 24 hours 4. Hallucinations within the past 24 hours 5. Acute intervention needed for co occurring medical disorder 6. Acute intervention needed for co occurring psychiatric disorder 7. Severe withdrawal that cannot be handled at a lower level of care (continued vomiting, continued diarrhea, abnormal vital signs) requiring intravenous medication and/or fluids 8. Admission ROS S - [facility] Chief Complaint: Alcohol withdrawal symptoms Allergies/Adverse Reactions: Allergies Allergy/AdvReac Type Severity Reaction Status Date / Time No Known Allergies Allergy Verified 05/29/18 09:08 History of Present Illness: 58 years old male with a long history of alcohol dependence is seeking admission to detox. Patient has been in previous detox and reports six years of sobriety. He has medical history of HIV+, Hep. C (treated), hypertension, hyperlipidemia, depression and anxiety. He denies suicidal ideation at this time. Exam Limitations: No Limitations - Ebola screening Have you traveled outside of the country in the last 21 days: No (N) Have you had contact with anyone from an Ebola affected area: No Do you have a fever: No - Review of Systems Constitutional: No Symptoms Reported, Chills, Changes in sleep, Weakness EENT: reports: No Symptoms Reported Respiratory: reports: No Symptoms reported Cardiac: reports: No Symptoms Reported GI: reports: Diarrhea (x 3), Nausea, Poor Appetite, Poor Fluid Intake, Vomiting (x 1), Abdominal cramping : reports: No Symptoms Reported Musculoskeletal: reports: Back Pain Integumentary: reports: Change in Color, Dryness Neuro: reports: Headache, Tremors Endocrine: reports: No Symptoms Reported Hematology: reports: No Symptoms Reported Psychiatric: reports: Orientated x3, Agitated, Depressed Other Systems: Reviewed and Negative Patient History - Patient Medical History Hx Anemia: No Hx Asthma: No Hx Chronic Obstructive Pulmonary Disease (COPD): No Hx Cancer: No Hx Cardiac Disorders: No Hx Congestive Heart Failure: No Hx Hypertension: Yes (onmed) Hx Hypercholesterolemia: Yes (on med) Hx Pacemaker: No HX Cerebrovascular Accident: No Hx Seizures: No Hx Dementia: No Hx Diabetes: No Hx Gastrointestinal Disorders: No Hx Liver Disease: No Hx Genitourinary Disorders: No Hx Sexually Transmitted Disorders: Yes (treated for syphylis years ago) Hx Renal Disease (ESRD): No Hx Thyroid Disease: No Hx Human Immunodeficiency Virus (HIV): Yes (since 1989 't cells are good') Hx Hepatitis C: Yes (TREATED IN 2014) Hx Depression: Yes (never treated) Hx Suicide Attempt: No Hx Bipolar Disorder: No Hx Schizophrenia: No - Patient Surgical History Past Surgical History: No Hx Neurologic Surgery: No Hx Cataract Extraction: No Hx Cardiac Surgery: No Hx Lung Surgery: No Hx Breast Surgery: No Hx Breast Biopsy: No Hx Abdominal Surgery: No Hx Appendectomy: No Hx Cholecystectomy: No Hx Genitourinary Surgery: No Hx Section: No Hx Orthopedic Surgery: No Anesthesia Reaction: No - PPD History Previous Implant?: Yes Documented Results: Negative w/proof Implanted On Prior R Admission?: Yes Date: 11/22/17 Results: 0 mm PPD to be Administered?: Yes - Reproductive History Patient is a Female of Child Bearing Age (11 -55 yrs old): No (Male) - Smoking Cessation Smoking history: Current every day smoker Have you smoked in the past 12 months: Yes Aproximately how many cigarettes per day: 10 Cigars Per Day: 0 Hx Chewing Tobacco Use: No Initiated information on smoking cessation: Yes 'Breaking Loose' booklet given: 11/17/18 - Substance & Tx. History Hx Alcohol Use: Yes Hx Substance Use: Yes Substance Use Type: Alcohol, Cocaine, Marijuana Hx Substance Use Treatment: Yes ([facility]) - Substances abused Alcohol Substance route: Smoking Frequency: Daily Amount used: 1 pint Age of first use: 12 Date of last use: 11/17/18 Crack Substance route: Smoking Frequency: 1-3 times last 30 days Amount used: 40 dollars Age of first use: 39 Date of last use: 11/16/18 Marijuana/Hashish Substance route: Smoking Frequency: Daily Amount used: 5 dollars Age of first use: 11 Date of last use: 11/17/18 Family Disease History - Family Disease History Family Disease History: Heart Disease: Mother (HTN, ), Other: Father ( estranged), Brother ( 1 bro alive), Sister (2 sisters -) Admission Physical Exam [facility] - Vital Signs Vital Signs: Vital Signs - 24 hr 11/17/18 20:42 Temperature 96.9 F L Pulse Rate 105 H Respiratory 18 Rate Blood Pressure 113/75 - Physical General Appearance: Yes: Moderate Distress, Alcohol on Breath, Tremorous, Irritable, Sweating, Anxious HEENTM: Yes: EOMI, Normal ENT Inspection, Normal Voice, TAMIKA Respiratory: Yes: Lungs Clear, Normal Breath Sounds, No Respiratory Distress Neck: Yes: Supple Breast: Yes: Breasts Symetrical Cardiology: Yes: Tachycardia Abdominal: Yes: Protuberent Genitourinary: Yes: Within Normal Limits Back: Yes: Normal Inspection Extremities: Yes: Tremors Neurological: Yes: Alert, Normal Mood/Affect Integumentary: Yes: Warm Lymphatic: Yes: Within Normal Limits - Diagnostic (1) Alcohol dependence with uncomplicated withdrawal Current Visit: Yes Status: Chronic (2) Cannabis dependence, uncomplicated Current Visit: Yes Status: Chronic (3) Cocaine dependence, uncomplicated Current Visit: Yes Status: Chronic (4) Depression (emotion) Current Visit: Yes Status: Chronic Qualifiers: Depression Type: dysthymia Qualified Code(s): F34.1 - Dysthymic disorder (5) Nicotine dependence Current Visit: Yes Status: Chronic Qualifiers: Nicotine product type: cigarettes Substance use status: in withdrawal Qualified Code(s): F17.213 - Nicotine dependence, cigarettes, with withdrawal (6) Essential hypertension Current Visit: Yes Status: Chronic (7) HIV (human immunodeficiency virus infection) Current Visit: Yes Status: Chronic (8) hypercholesterolemia Current Visit: Yes Status: Chronic (9) History of hepatitis C Current Visit: Yes Status: Resolved (10) History of syphilis Current Visit: Yes Status: Resolved Cleared for Admission [facility] - Detox or Rehab [facility] Level of Care: Medically Managed Detox Regimen/Protocol: Librium Inpatient Rehab Admission - Rehab Decision to Admit Inpatient rehab admission?: No
[2018-11-17] MEDS ORDERED: MAGNESIUM CITRATE 300 ML BOTTLE PO PRN (21:40)
[2018-11-17] MEDS ORDERED: NICOTINE POLACRILEX 2 MG GUM BUC PRN (21:40)
[2018-11-17] MEDS ORDERED: IBUPROFEN 400 MG TABLET (FP) PO PRN (21:40)
[2018-11-17] MEDS ORDERED: MENTHOL/PHENOL 1 EACH UD MM PRN (21:40)
[2018-11-17] MEDS ORDERED: ACETAMINOPHEN 325 MG TABLET (FP) PO PRN ×2 (21:40)
[2018-11-17] MEDS ORDERED: METHOCARBAMOL 500 MG TABLET PO PRN (21:40)
[2018-11-17] MEDS ORDERED: chlordiazePOXIDE HCL 25 MG CAPSULE PO PRN (21:40)
[2018-11-17] MEDS ORDERED: BISMUTH SUBSALICYLATE 524 MG/30 ML UD PO PRN (21:40)
[2018-11-17] MEDS ORDERED: MAGNESIUM HYDROX 2400MG/30ML ORAL SUSPENSION 30 ML CUP PO PRN (21:40)
[2018-11-17] MEDS: chlordiazePOXIDE HCL 25 MG CAPSULE PO SCH (23:25)
[2018-11-17] MEDS: ATORVASTATIN CA 20 MG TABLET (FP) PO SCH (23:26)
[2018-11-17] MEDS: THIAMINE HCL 100 MG TABLET (FP) PO SCH (23:26)
[2018-11-17] MEDS: MELATONIN 5 MG TABLETS PO PRN (23:27)
[2018-11-18] MEDS: chlordiazePOXIDE HCL 25 MG CAPSULE PO SCH ×4 (05:21→22:22)
[2018-11-18] MEDS: NICOTINE 14 MG/24 HOURS TOPICAL PATCH TD SCH (10:09)
[2018-11-18] MEDS: amLODIPine BESYLATE 10 MG TABLET (FP) PO SCH (10:09)
[2018-11-18] MEDS: PRENATAL VITAMINS W/ FOLIC ACID TABLET (FP) PO SCH (10:10)
[2018-11-18 10:18] LABS: HEMATOCRIT 43.8 % (35.4-49); HEMOGLOBIN 14.6 GM/dL (11.7-16.9); MCHC 33.2 g/dl (32.0-35.9); MEAN CELL VOLUME 90.3 fl (80-96); MEAN PLT VOLUME 8.2 fl (7.5-11.1); PLATELET COUNT 189 K/MM3 (134-434); RBC 4.85 M/mm3 (4.00-5.60); RDW 17.4 % (11.9-15.9); WHITE BLOOD COUNT 3.6 K/mm3 (4.0-10.0)
[2018-11-18 10:27] LABS: ALBUMIN 3.1 g/dl (3.4-5.0); ALK PHOS 114 U/L (45-117); BILIRUBIN,TOTAL 0.5 mg/dL (0.2-1); BLOOD UREA NITROGEN 15 mg/dL (7-18); CALCIUM 8.6 mg/dL (8.5-10.1); CHLORIDE 106 mmol/L (98-107); CO2 28 mmol/L (21-32); CREATININE 0.9 mg/dL (0.55-1.3); GLUCOSE,RANDOM 92 mg/dL (74-106); POTASSIUM 4.1 mmol/L (3.5-5.1); SGOT/AST 48 U/L (15-37); SGPT/ALT 41 U/L (13-61); SODIUM 141 mmol/L (136-145); TOT PROT 6.4 g/dl (6.4-8.2)
[2018-11-18 10:39] LABS: ANION GAP 8 MMOL/L (8-16)
--- NOTE | 2018-11-18 11:10 | PN ---
S CIWA - CIWA Score Nausea/Vomitin-No Nausea/No Vomiting Muscle Tremors: 3 Anxiety: 3 Agitation: 3 Paroxysmal Sweats: 3 Orientation: 0-Oriented Tacttile Disturbances: 0-None Auditory Disturbances: 0-None Visual Disturbances: 0-None Headache: 0-None Present CIWA-Ar Total Score: 12 S Progress Note (SOAP) Subjective: tired sweats interrupted sleep Objective: 11/18/18 11:10 Vital Signs Temperature 98.2 F 11/18/18 10:14 Pulse Rate 81 11/18/18 10:14 Respiratory Rate 18 11/18/18 10:14 Blood Pressure 151/78 11/18/18 10:14 O2 Sat by Pulse Oximetry (%) Laboratory Tests 11/18/18 11/18/18 07:00 07:00 WBC 3.6 L RBC 4.85 Hgb 14.6 Hct 43.8 MCV 90.3 MCH 30.0 MCHC 33.2 RDW 17.4 H Plt Count 189 D MPV 8.2 Sodium 141 Potassium 4.1 Chloride 106 Carbon Dioxide 28 Anion Gap 8 BUN 15 Creatinine 0.9 Creat Clearance w eGFR 86.67 Random Glucose 92 Calcium 8.6 Total Bilirubin 0.5 AST 48 H ALT 41 Alkaline Phosphatase 114 Total Protein 6.4 Albumin 3.1 L aaox3 ambulating no acute distress Assessment: 11/18/18 11:10 withdrawal sx Plan: continue detox increase fluids
[2018-11-18 12:54] LABS: RPR REACTIVE 1:4 (NONREACTIVE)
[2018-11-18 12:55] LABS: TREPONEMA ANTIBODY PREVIOUSLY REACTIVE (NONREACTIVE)
--- NOTE | 2018-11-18 13:27 | PN ---
[facility] Progress Note Note: lab result for RPR is 1:4 previously reactive; pt was asked if he was treated for syphilis and he states he was and it is not alarming of his result. Pt states the result have always come back the same and he has been treated in the past.
[2018-11-18] MEDS: THIAMINE HCL 100 MG TABLET (FP) PO SCH (22:22)
[2018-11-18] MEDS: ATORVASTATIN CA 20 MG TABLET (FP) PO SCH (22:22)
[2018-11-18] MEDS: MELATONIN 5 MG TABLETS PO PRN (22:23)
[2018-11-19] MEDS: chlordiazePOXIDE HCL 25 MG CAPSULE PO SCH ×3 (05:18→17:46)
[2018-11-19] MEDS: PRENATAL VITAMINS W/ FOLIC ACID TABLET (FP) PO SCH (10:37)
[2018-11-19] MEDS: amLODIPine BESYLATE 10 MG TABLET (FP) PO SCH (10:37)
[2018-11-19] MEDS: NICOTINE 14 MG/24 HOURS TOPICAL PATCH TD SCH (10:37)
[2018-11-19] MEDS: MAG HYDROX/AL HYDROX/SIMETH 30 ML UNIT-DOSE CUP PO PRN (10:43)
--- NOTE | 2018-11-19 11:59 | PN ---
S CIWA - CIWA Score Nausea/Vomitin-No Nausea/No Vomiting Muscle Tremors: 2 Anxiety: 2 Agitation: 2 Paroxysmal Sweats: 2 Orientation: 0-Oriented Tacttile Disturbances: 0-None Auditory Disturbances: 0-None Visual Disturbances: 0-None Headache: 0-None Present CIWA-Ar Total Score: 8 [facility] Progress Note (SOAP) Subjective: sweats interrupted sleep feeling better Objective: 11/19/18 11:58 Vital Signs Temperature 98.9 F 11/19/18 09:36 Pulse Rate 96 H 11/19/18 09:36 Respiratory Rate 18 11/19/18 09:36 Blood Pressure 159/98 11/19/18 09:36 O2 Sat by Pulse Oximetry (%) Laboratory Tests 11/18/18 11/18/18 11/18/18 07:00 07:00 07:00 WBC 3.6 L RBC 4.85 Hgb 14.6 Hct 43.8 MCV 90.3 MCH 30.0 MCHC 33.2 RDW 17.4 H Plt Count 189 D MPV 8.2 Sodium 141 Potassium 4.1 Chloride 106 Carbon Dioxide 28 Anion Gap 8 BUN 15 Creatinine 0.9 Creat Clearance w eGFR 86.67 Random Glucose 92 Calcium 8.6 Total Bilirubin 0.5 AST 48 H ALT 41 Alkaline Phosphatase 114 Total Protein 6.4 Albumin 3.1 L RPR Titer Reactive 1:4 H D T.pallidum Ab (MHA) Previously reactive aaox3 ambulating no acute distress Assessment: 11/19/18 11:58 mild withdrawal sx Plan: continue detox increase fluids
[2018-11-19] MEDS ORDERED: METOPROLOL TARTRATE 25 MG TABLET (FP) PO ONE (18:45)
[2018-11-19] MEDS: THIAMINE HCL 100 MG TABLET (FP) PO SCH (22:15)
[2018-11-19] MEDS: ATORVASTATIN CA 20 MG TABLET (FP) PO SCH (22:15)
[2018-11-19] MEDS: MELATONIN 5 MG TABLETS PO PRN (22:16)
[2018-11-19] MEDS: chlordiazePOXIDE HCL 10 MG CAPSULE PO SCH (22:16)
[2018-11-19] MEDS ORDERED: chlordiazePOXIDE HCL 10 MG CAPSULE PO PRN (23:00)
[2018-11-20] MEDS: chlordiazePOXIDE HCL 10 MG CAPSULE PO SCH ×4 (05:02→22:17)
[2018-11-20] MEDS: hydrOXYzine PAMOATE 25 MG CAPSULE (FP) PO PRN (05:02)
[2018-11-20] MEDS: PRENATAL VITAMINS W/ FOLIC ACID TABLET (FP) PO SCH (10:15)
[2018-11-20] MEDS: NICOTINE 14 MG/24 HOURS TOPICAL PATCH TD SCH (10:15)
[2018-11-20] MEDS: amLODIPine BESYLATE 10 MG TABLET (FP) PO SCH (10:16)
--- NOTE | 2018-11-20 17:18 | PN ---
[facility] Progress Note (SOAP) Subjective: sweats shakes Objective: 11/20/18 17:17 in bed A & O x 3 no acute distress noted Vital Signs Temperature 98.2 F 11/20/18 14:00 Pulse Rate 99 H 11/20/18 14:00 Respiratory Rate 18 11/20/18 14:00 Blood Pressure 134/96 11/20/18 14:00 O2 Sat by Pulse Oximetry (%) Assessment: 11/20/18 17:17 withdrawal sx Plan: continue detox for d/c in a.m
[2018-11-20] MEDS: MAG HYDROX/AL HYDROX/SIMETH 30 ML UNIT-DOSE CUP PO PRN (19:36)
[2018-11-20] MEDS: ATORVASTATIN CA 20 MG TABLET (FP) PO SCH (22:17)
[2018-11-20] MEDS: MELATONIN 5 MG TABLETS PO PRN (22:17)
[2018-11-20] MEDS: THIAMINE HCL 100 MG TABLET (FP) PO SCH (22:17)
[2018-11-21] MEDS: hydrOXYzine PAMOATE 25 MG CAPSULE (FP) PO PRN (00:35)
[2018-11-21] MEDS: PRENATAL VITAMINS W/ FOLIC ACID TABLET (FP) PO SCH (10:10)
[2018-11-21] MEDS: chlordiazePOXIDE HCL 10 MG CAPSULE PO SCH ×2 (10:10→22:46)
[2018-11-21] MEDS: NICOTINE 14 MG/24 HOURS TOPICAL PATCH TD SCH (10:10)
[2018-11-21] MEDS: amLODIPine BESYLATE 10 MG TABLET (FP) PO SCH (10:10)
--- NOTE | 2018-11-21 16:23 | PN ---
[facility] Progress Note (SOAP) Subjective: Sweating noted on forehead, interrupted sleep, tremor. Patient requested to be discharged tomorrow due to withdrawal symptoms. Objective: 11/21/18 16:20 Last Vital Signs Temp Pulse Resp BP Pulse Ox 97.9 F 100 H 18 154/90 11/21/18 15:45 11/21/18 15:45 11/21/18 15:45 11/21/18 15:45 Elevated b/p noted: 154/90 (has HTN, on medication) Laboratory Tests 11/18/18 11/18/18 11/18/18 07:00 07:00 07:00 WBC 3.6 L RBC 4.85 Hgb 14.6 Hct 43.8 MCV 90.3 MCH 30.0 MCHC 33.2 RDW 17.4 H Plt Count 189 D MPV 8.2 Sodium 141 Potassium 4.1 Chloride 106 Carbon Dioxide 28 Anion Gap 8 BUN 15 Creatinine 0.9 Creat Clearance w eGFR 86.67 Random Glucose 92 Calcium 8.6 Total Bilirubin 0.5 AST 48 H ALT 41 Alkaline Phosphatase 114 Total Protein 6.4 Albumin 3.1 L RPR Titer Reactive 1:4 H D T.pallidum Ab (MHA) Previously reactive Labs reviewed Assessment: 11/21/18 16:21 Withdrawal symptoms Plan: Continue detox Encouraged PO water hydration HTN: continue antihypertensive medication, encourage low sodium diet
[2018-11-21] MEDS: THIAMINE HCL 100 MG TABLET (FP) PO SCH (22:45)
[2018-11-21] MEDS: MELATONIN 5 MG TABLETS PO PRN (22:47)
[2018-11-21] MEDS: ATORVASTATIN CA 20 MG TABLET (FP) PO SCH (22:48)
--- NOTE | 2018-11-22 08:56 | DS ---
[facility] Detox Discharge Summary Admission Date: 11/17/18 Discharge Date: 11/22/18 - History Present History: Alcohol Dependence, Cannabis Dependence, Cocaine Dependence - Physical Exam Results Vital Signs: Vital Signs Temperature 97.7 F 11/22/18 06:00 Pulse Rate 78 11/22/18 06:00 Respiratory Rate 18 11/22/18 06:00 Blood Pressure 146/92 11/22/18 06:00 O2 Sat by Pulse Oximetry (%) - Treatment Hospital Course: Detox Protocol Followed, Detoxed Safely, Responded well, Discharged Condition Good, Rehab Referral Accepted - Medication Discharge Medications: Ambulatory Orders Darunavir/Cobicistat [Prezcobix 800 mg-150 mg Tablet] 1 each PO DAILY 06/03/16 Dolutegravir Sodium [Tivicay] 50 mg PO DAILY 06/03/16 Emtricitabine/Tenofovir [Truvada -] 1 tab PO DAILY tablet 11/23/17 Quetiapine Fumarate [Seroquel] 100 mg PO HS #30 tablet 05/31/18 Amlodipine Besylate [Norvasc -] 5 mg PO DAILY #30 tablet 06/01/18 Atorvastatin Ca [Lipitor] 20 mg PO HS #30 tablet 06/01/18 - Diagnosis (1) Alcohol dependence with uncomplicated withdrawal Current Visit: Yes Status: Chronic (2) Cannabis dependence, uncomplicated Current Visit: Yes Status: Chronic (3) Cocaine dependence, uncomplicated Current Visit: Yes Status: Chronic (4) Depression (emotion) Current Visit: Yes Status: Chronic Qualifiers: Depression Type: dysthymia Qualified Code(s): F34.1 - Dysthymic disorder (5) Essential hypertension Current Visit: Yes Status: Chronic (6) HIV (human immunodeficiency virus infection) Current Visit: Yes Status: Chronic Qualifiers: HIV symptom status: unspecified Qualified Code(s): B20 - Human immunodeficiency virus [HIV] disease (7) Nicotine dependence Current Visit: Yes Status: Chronic Qualifiers: Nicotine product type: cigarettes Substance use status: uncomplicated Qualified Code(s): F17.210 - Nicotine dependence, cigarettes, uncomplicated (8) hypercholesterolemia Current Visit: Yes Status: Chronic (9) History of hepatitis C Current Visit: Yes Status: Resolved (10) History of syphilis Current Visit: Yes Status: Resolved (11) Chronic back pain Current Visit: Yes Status: Chronic Qualifiers: Back pain location: low back pain Back pain laterality: midline Sciatica presence: without sciatica Qualified Code(s): M54.5 - Low back pain; G89.29 - Other chronic pain (12) Human immunodeficiency virus infection Current Visit: Yes Status: Chronic (13) Neuropathy Current Visit: Yes Status: Chronic (14) Drug-induced mood disorder Current Visit: No Status: Suspected - AMA Did Patient Leave Against Medical Advice: No (declined rehab; going home [facility] )
[2018-11-22 09:27] VITALS: BP 138/86; PULSE 97; TEMP 98.2
[2018-11-22] MEDS: PRENATAL VITAMINS W/ FOLIC ACID TABLET (FP) PO SCH (09:50)
[2018-11-22] MEDS: NICOTINE 14 MG/24 HOURS TOPICAL PATCH TD SCH (09:51)
[2018-11-22] MEDS: amLODIPine BESYLATE 10 MG TABLET (FP) PO SCH (09:51)
== END 2018-11-22 10:00 | disposition home or self-care (01) | DRG 774 ==
LOC: YASAS 19:12 → Y6N 22:48
PROVIDERS: ADMIT Surgery; ATTEND Surgery
PROC: HZ2ZZZZ Detoxification Services for Substance Abuse Treatment (ICD-10-PCS; principal; 2018-11-17)
DX: F10.230 Alcohol dependence with withdrawal, uncomplicated (principal); F14.20 Cocaine dependence, uncomplicated; F12.20 Cannabis dependence, uncomplicated; F17.213 Nicotine dependence, cigarettes, with withdrawal; F34.1 Dysthymic disorder; F19.24 Other psychoactive substance dependence with psychoactive substance-induced mood disorder; I10 Essential (primary) hypertension; Z21 Asymptomatic human immunodeficiency virus [HIV] infection status; B18.2 Chronic viral hepatitis C; E78.00 Pure hypercholesterolemia, unspecified; M54.5 Low back pain; G89.29 Other chronic pain; G62.9 Polyneuropathy, unspecified; R00.0 Tachycardia, unspecified; Z87.438 Personal history of other diseases of male genital organs
CPT/HCPCS: 36415; 80053; 85027; 86593; 86780

== ENCOUNTER 2019-01-03 11:00 | Inpatient (IN) | payer OTHER ==
[2019-01-03 12:49] VITALS: BMI 31.7
--- NOTE | 2019-01-03 14:41 | HP ---
CIWA Score Nausea/Vomitin Muscle Tremors: 2 Anxiety: 2 Agitation: 2 Paroxysmal Sweats: 1-Minimal Palms Moist Orientation: 0-Oriented Tacttile Disturbances: 1-Very Mild Itch/Numbness Auditory Disturbances: 1-Very Mild Visual Disturbances: 0-None Headache: 2-Mild CIWA-Ar Total Score: 13 - Admission Criteria OASAS Guidelines: Admission for Medically Managed Detox: Requires at least one of the followin. CIWA greater than 12 2. Seizures within the past 24 hours 3. Delirium tremens within the past 24 hours 4. Hallucinations within the past 24 hours 5. Acute intervention needed for co occurring medical disorder 6. Acute intervention needed for co occurring psychiatric disorder 7. Severe withdrawal that cannot be handled at a lower level of care (continued vomiting, continued diarrhea, abnormal vital signs) requiring intravenous medication and/or fluids 8. Admission ROS [facility] - HPI Chief Complaint: i need help to stop drinking alcohol,cocaine,marijuana Allergies/Adverse Reactions: Allergies Allergy/AdvReac Type Severity Reaction Status Date / Time No Known Allergies Allergy Verified 01/03/19 12:39 History of Present Illness: this 58 years old male with alcohol,cocaine and marijuana dependence seeking detox,withdrawal symptom, multiple admissions to detox,but keep relapsing syncope alcohol related hiv since 1989 nicotine dependence 1 pack/day longest period of sobriety 6 years Exam Limitations: No Limitations - Ebola screening Have you traveled outside of the country in the last 21 days: No (N) Have you had contact with anyone from an Ebola affected area: No Do you have a fever: No - Review of Systems Constitutional: Loss of Appetite, Malaise, Night Sweats, Changes in sleep, Weakness, Unintentional Wgt. Loss EENT: reports: Nose Congestion Respiratory: reports: No Symptoms reported Cardiac: reports: No Symptoms Reported GI: reports: Nausea, Poor Appetite, Indigestion, Abdominal cramping Musculoskeletal: reports: Back Pain, Muscle Pain Integumentary: reports: Dryness Endocrine: reports: No Symptoms Reported Hematology: reports: No Symptoms Reported, Other (hiv) Psychiatric: reports: No Sypmtoms Reported Other Systems: Reviewed and Negative Patient History - Patient Medical History Hx Anemia: No Hx Asthma: No Hx Chronic Obstructive Pulmonary Disease (COPD): No Hx Cancer: No Hx Cardiac Disorders: No Hx Congestive Heart Failure: No Hx Hypertension: Yes (on med) Hx Hypercholesterolemia: Yes (on med) Hx Pacemaker: No HX Cerebrovascular Accident: No Hx Seizures: No Hx Dementia: No Hx Diabetes: No Hx Gastrointestinal Disorders: No Hx Liver Disease: No Hx Genitourinary Disorders: No Hx Sexually Transmitted Disorders: Yes (treated for syphylis years ago) Hx Renal Disease (ESRD): No Hx Thyroid Disease: No Hx Human Immunodeficiency Virus (HIV): Yes (since 1989 't cells are good') Hx Hepatitis C: Yes (TREATED IN 2014) Hx Depression: Yes (never treated) Hx Suicide Attempt: No Hx Bipolar Disorder: No Hx Schizophrenia: No Other Medical History: no suicidal,no homicidal - Patient Surgical History Past Surgical History: No Hx Neurologic Surgery: No Hx Cataract Extraction: No Hx Cardiac Surgery: No Hx Lung Surgery: No Hx Breast Surgery: No Hx Breast Biopsy: No Hx Abdominal Surgery: No Hx Appendectomy: No Hx Cholecystectomy: No Hx Genitourinary Surgery: No Hx Section: No Hx Orthopedic Surgery: No Anesthesia Reaction: No - PPD History Previous Implant?: Yes Documented Results: Negative w/proof Implanted On Prior R Admission?: Yes Date: 11/20/18 Results: 0 mm PPD to be Administered?: No - Smoking Cessation Smoking history: Current every day smoker Have you smoked in the past 12 months: Yes Aproximately how many cigarettes per day: 10 Cigars Per Day: 0 Hx Chewing Tobacco Use: No Initiated information on smoking cessation: Yes 'Breaking Loose' booklet given: 01/03/19 - Substance & Tx. History Hx Alcohol Use: Yes Hx Substance Use: Yes Substance Use Type: Alcohol, Cocaine, Marijuana Hx Substance Use Treatment: Yes ([facility] 11/17/18 tp 11/22/18) - Substances abused Alcohol Substance route: Smoking Frequency: Daily Amount used: 1 PINT OF VODKA Age of first use: 12 Date of last use: 01/03/19 Crack Substance route: Smoking Frequency: 3-6 times per week Amount used: $40 Age of first use: 39 Date of last use: 01/01/19 Marijuana/Hashish Substance route: Smoking Frequency: Daily Amount used: NICKEL BAG Age of first use: 11 Date of last use: 01/03/19 Cocaine Substance route: Smoking Frequency: 3-6 times per week Amount used: $100 Age of first use: 33 Date of last use: 01/01/19 Family Disease History - Family Disease History Family Disease History: Heart Disease: Mother (HTN, ), Other: Father ( estranged), Brother ( 1 bro alive), Sister (2 sisters -) Admission Physical Exam [facility] - Vital Signs Vital Signs: Vital Signs - 24 hr 01/03/19 01/03/19 12:45 14:22 Temperature 97.9 F 97.9 F Pulse Rate 90 90 Respiratory 19 19 Rate Blood Pressure 140/91 140/91 - Physical General Appearance: Yes: Moderate Distress, Tremorous, Irritable, Sweating, Anxious HEENTM: Yes: Normal ENT Inspection, TAMIKA, Pharynx Normal Respiratory: Yes: Lungs Clear, Normal Breath Sounds, No Respiratory Distress Neck: Yes: Within Normal Limits, Supple, Trachea in good position Breast: Yes: Within Normal Limits Cardiology: Yes: Within Normal Limits, Regular Rhythm, Regular Rate, S1, S2 Abdominal: Yes: Within Normal Limits, Normal Bowel Sounds, Non Tender, Soft Genitourinary: Yes: Within Normal Limits Back: Yes: Muscle Spasm Musculoskeletal: Yes: full range of Motion, Back pain, Muscle Pain Extremities: Yes: Tremors Neurological: Yes: cell tender helper II-XII NML intact, Fully Oriented, Alert, Motor Strength 5/5 Integumentary: Yes: Dry Lymphatic: Yes: Within Normal Limits - Diagnostic (1) Alcohol dependence with uncomplicated withdrawal Current Visit: No Status: Chronic (2) Cannabis dependence, uncomplicated Current Visit: No Status: Chronic (3) Cocaine dependence, uncomplicated Current Visit: No Status: Chronic (4) Depression (emotion) Current Visit: No Status: Chronic Qualifiers: Depression Type: dysthymia Qualified Code(s): F34.1 - Dysthymic disorder (5) Essential hypertension Current Visit: No Status: Chronic (6) HIV (human immunodeficiency virus infection) Current Visit: No Status: Chronic Qualifiers: HIV symptom status: unspecified Qualified Code(s): B20 - Human immunodeficiency virus [HIV] disease (7) Nicotine dependence Current Visit: No Status: Chronic Qualifiers: Nicotine product type: cigarettes Substance use status: uncomplicated Qualified Code(s): F17.210 - Nicotine dependence, cigarettes, uncomplicated (8) hypercholesterolemia Current Visit: No Status: Chronic (9) History of hepatitis C Current Visit: No Status: Resolved (10) History of syphilis Current Visit: No Status: Resolved Cleared for Admission [facility] - Detox or Rehab [facility] Level of Care: Medically Managed Detox Regimen/Protocol: Librium Breathalyzer - Breathalyzer Breathalyzer: 0 Urine Drug Screen - Test Device Lot number: [id number] Expiration date: 09/16/20 - Control Is test valid?: Yes - Results Drug screen NEGATIVE: No Urine drug screen results: THC-Marijuana, SERAFIN-Cocaine, BZO-Benzodiazepines, MDMA -Ecstasy Inpatient Rehab Admission - Rehab Decision to Admit Inpatient rehab admission?: No
[2019-01-03] MEDS ORDERED: chlordiazePOXIDE HCL 25 MG CAPSULE PO PRN (14:49)
[2019-01-03] MEDS ORDERED: BISMUTH SUBSALICYLATE 262 MG/15 ML BTL PO PRN (14:50)
[2019-01-03] MEDS ORDERED: METHOCARBAMOL 500 MG TABLET PO PRN (14:50)
[2019-01-03] MEDS ORDERED: MAGNESIUM CITRATE 300 ML BOTTLE PO PRN (14:50)
[2019-01-03] MEDS ORDERED: ACETAMINOPHEN 325 MG TABLET (FP) PO PRN ×2 (14:50)
[2019-01-03] MEDS ORDERED: MELATONIN 5 MG TABLETS PO PRN (14:50)
[2019-01-03] MEDS ORDERED: MENTHOL/PHENOL 1 EACH UD MM PRN (14:50)
[2019-01-03] MEDS ORDERED: hydrOXYzine PAMOATE 25 MG CAPSULE (FP) PO PRN (14:50)
[2019-01-03] MEDS ORDERED: MAGNESIUM HYDROX 2400MG/30ML ORAL SUSPENSION 30 ML CUP PO PRN (14:50)
[2019-01-03] MEDS ORDERED: IBUPROFEN 400 MG TABLET (FP) PO PRN (14:50)
[2019-01-03] MEDS: NICOTINE 21 MG/24 HOURS TOPICAL PATCH TD SCH (16:02)
[2019-01-03] MEDS: chlordiazePOXIDE HCL 25 MG CAPSULE PO SCH ×2 (18:25→22:39)
[2019-01-03] MEDS: THIAMINE HCL 100 MG TABLET (FP) PO SCH (22:39)
[2019-01-03] MEDS: traZODone HCL 100 MG TABLET (FP) PO SCH (22:39)
[2019-01-04] MEDS: chlordiazePOXIDE HCL 25 MG CAPSULE PO SCH ×4 (05:56→22:07)
[2019-01-04 10:07] LABS: HEMATOCRIT 45.3 % (35.4-49); HEMOGLOBIN 15.2 GM/dL (11.7-16.9); MCH 29.8 pg (25.7-33.7); MCHC 33.6 g/dl (32.0-35.9); MEAN CELL VOLUME 88.6 fl (80-96); MEAN PLT VOLUME 9.1 fl (7.5-11.1); PLATELET COUNT 163 K/MM3 (134-434); RDW 15.9 % (11.9-15.9); WHITE BLOOD COUNT 7.3 K/mm3 (4.0-10.0)
[2019-01-04] MEDS: NICOTINE 21 MG/24 HOURS TOPICAL PATCH TD SCH (10:27)
[2019-01-04] MEDS: PRENATAL VITAMINS W/ FOLIC ACID TABLET (FP) PO SCH (10:28)
[2019-01-04] MEDS: amLODIPine BESYLATE 5 MG TABLET (FP) PO SCH (10:28)
[2019-01-04] MEDS: DOLUTEGRAVIR SODIUM 50 MG TABLET (NON-FORMULARY) PO SCH (10:30)
[2019-01-04] MEDS: DARUNAVIR 800 MG/COBICISTAT 150MG TABLET PO SCH (10:30)
[2019-01-04] MEDS: SERTRALINE HCL 25 MG TABLET (FP) PO SCH (10:31)
--- NOTE | 2019-01-04 10:42 | PN ---
S CIWA - CIWA Score Nausea/Vomitin-No Nausea/No Vomiting Muscle Tremors: 3 Anxiety: 3 Agitation: 3 Paroxysmal Sweats: 3 Orientation: 0-Oriented Tacttile Disturbances: 0-None Auditory Disturbances: 0-None Visual Disturbances: 0-None Headache: 0-None Present CIWA-Ar Total Score: 12 [facility]HS Progress Note (SOAP) Subjective: sweats shakes interrupted sleep body aches Objective: 01/04/19 10:41 Vital Signs Temperature 97.2 F L 01/04/19 09:30 Pulse Rate 85 01/04/19 09:30 Respiratory Rate 18 01/04/19 09:30 Blood Pressure 127/68 01/04/19 09:30 O2 Sat by Pulse Oximetry (%) Laboratory Tests 01/04/19 06:00 WBC 7.3 RBC 5.10 Hgb 15.2 Hct 45.3 MCV 88.6 MCH 29.8 MCHC 33.6 RDW 15.9 Plt Count 163 MPV 9.1 D rest of labs pending aaox3 ambulating no acute distress Assessment: 01/04/19 10:41 withdrawal sx Plan: continue detox increase fluids pending labs
[2019-01-04 10:44] LABS: ALBUMIN 4.3 g/dl (3.4-5.0); BILIRUBIN,TOTAL 1.2 mg/dL (0.2-1); CALCIUM 9.4 mg/dL (8.5-10.1); POTASSIUM 3.8 mmol/L (3.5-5.1)
[2019-01-04 12:05] LABS: RPR REACTIVE 1:4 (NONREACTIVE)
[2019-01-04 12:06] LABS: TREPONEMA ANTIBODY PREVIOUSLY REACTIVE (NONREACTIVE)
[2019-01-04] MEDS: MAG HYDROX/AL HYDROX/SIMETH 30 ML UNIT-DOSE CUP PO PRN (18:54)
[2019-01-04] MEDS: traZODone HCL 100 MG TABLET (FP) PO SCH (22:07)
[2019-01-04] MEDS: THIAMINE HCL 100 MG TABLET (FP) PO SCH (22:07)
[2019-01-05] MEDS: chlordiazePOXIDE HCL 25 MG CAPSULE PO SCH ×2 (06:16→10:13)
[2019-01-05] MEDS: DARUNAVIR 800 MG/COBICISTAT 150MG TABLET PO SCH (10:11)
[2019-01-05] MEDS: amLODIPine BESYLATE 5 MG TABLET (FP) PO SCH (10:11)
[2019-01-05] MEDS: DOLUTEGRAVIR SODIUM 50 MG TABLET (NON-FORMULARY) PO SCH (10:12)
[2019-01-05] MEDS: SERTRALINE HCL 25 MG TABLET (FP) PO SCH (10:12)
[2019-01-05] MEDS: PRENATAL VITAMINS W/ FOLIC ACID TABLET (FP) PO SCH (10:12)
[2019-01-05] MEDS: NICOTINE 21 MG/24 HOURS TOPICAL PATCH TD SCH (10:13)
--- NOTE | 2019-01-05 11:40 | PN ---
S CIWA - CIWA Score Nausea/Vomitin-No Nausea/No Vomiting Muscle Tremors: 3 Anxiety: 2 Agitation: 2 Paroxysmal Sweats: 2 Orientation: 0-Oriented Tacttile Disturbances: 0-None Auditory Disturbances: 0-None Visual Disturbances: 0-None Headache: 0-None Present CIWA-Ar Total Score: 9 BHS Progress Note (SOAP) Subjective: sweats tired feeling much better Objective: 01/05/19 11:38 Vital Signs Temperature 98.2 F 01/05/19 11:05 Pulse Rate 90 01/05/19 11:05 Respiratory Rate 16 01/05/19 11:05 Blood Pressure 143/85 01/05/19 11:05 O2 Sat by Pulse Oximetry (%) Laboratory Tests 01/04/19 01/04/19 01/04/19 06:00 06:00 06:00 WBC 7.3 RBC 5.10 Hgb 15.2 Hct 45.3 MCV 88.6 MCH 29.8 MCHC 33.6 RDW 15.9 Plt Count 163 MPV 9.1 D Sodium 138 Potassium 3.8 Chloride 105 Carbon Dioxide 26 Anion Gap 7 L BUN 23 H Creatinine 1.0 Est GFR (CKD-EPI)AfAm 95.73 Est GFR (CKD-EPI)NonAf 82.60 Random Glucose 51 L Calcium 9.4 Total Bilirubin 1.2 H AST 61 H ALT 56 Alkaline Phosphatase 93 Total Protein 8.0 Albumin 4.3 RPR Titer Reactive 1:4 H T.pallidum Ab (MHA) Previously reactive labs noted had discussion with pt regarding rpr reactive 1:4 and pt states he received three injection treatments already only a month ago at his facility. no further tx necessary at this time aaox3 ambulating no acute distress Assessment: 01/05/19 11:39 mild withdrawal sx Plan: continue detox increase fluids
[2019-01-05] MEDS ORDERED: chlordiazePOXIDE HCL 10 MG CAPSULE PO PRN (17:00)
[2019-01-05] MEDS: chlordiazePOXIDE HCL 10 MG CAPSULE PO SCH ×2 (17:40→22:04)
--- NOTE | 2019-01-05 18:07 | CONSULT ---
[facility] Psychiatric Consult - Data Date of interview: 01/05/19 Admission source: [facility] Identifying data: Patient is a 58 year old male, without children, unemployed, receiving SSI, and is currently living in an single room occupancy. This is one of multiple admissions for patient. Pt admitted to for alcohol, marijuana, and cocaine dependence. Substance Abuse History: Smoking Cessation. Smoking history: Current every day smoker. Have you smoked in the past 12 months: Yes. Aproximately how many cigarettes per day: 10. Cigars Per Day: 0. Hx Chewing Tobacco Use: No. Initiated information on smoking cessation: Yes. 'Breaking Loose' booklet given : 01/03/19. - Substance & Tx. History. Hx Alcohol Use: Yes. Hx Substance Use : Yes. Substance Use Type: Alcohol, Cocaine, Marijuana. Hx Substance Use Treatment: Yes ([facility] 11/17/18 tp 11/22/18). - Substances abused. Alcohol. Substance route: Smoking. Frequency: Daily. Amount used: 1 PINT OF VODKA. Age of first use: 12. Date of last use: 01/03/19. Crack. Substance route: Smoking. Frequency: 3-6 times per week. Amount used: $40. Age of first use: 39. Date of last use: 01/01/19. Marijuana/Hashish. Substance route: Smoking. Frequency: Daily. Amount used: NICKEL BAG. Age of first use: 11. Date of last use: 01/03/19. Cocaine. Substance route: Smoking. Frequency: 3-6 times per week. Amount used: $100. Age of first use: 33. Date of last use : 01/01/19 Medical History: Significant for hypertension, hypercholesterolemia, HIV, Hep C (treated) Psychiatric History: Patient denies h/o psychiatric hospitalization, and suicide attempt. Mr. Taylor was [facility] two weeks ago and was prescribed zoloft 50mg + Trazodone 100mg. At present, patient reports stable mood but is experiencing difficulty sleeping. Physical/Sexual Abuse/Trauma History: denies. Mental Status Exam - Mental Status Exam Alert and Oriented to: Time, Place, Person Cognitive Function: Good Patient Appearance: Well Groomed Mood: Euthymic Affect: Appropriate Patient Behavior: Cooperative Speech Pattern: Appropriate Voice Loudness: Normal Thought Process: Goal Oriented Thought Disorder: Not Present Hallucinations: Denies Suicidal Ideation: Denies Homicidal Ideation: Denies Insight/Judgement: Poor Sleep: Poorly Appetite: Fair Muscle strength/Tone: Normal Gait/Station: Normal Psychiatric Findings - Problem List ([place] 1, 2,3) (1) Alcohol dependence with uncomplicated withdrawal Current Visit: Yes Status: Acute (2) Cannabis dependence, uncomplicated Current Visit: Yes Status: Chronic (3) Cocaine dependence, uncomplicated Current Visit: Yes Status: Chronic (4) Substance induced mood disorder Current Visit: Yes Status: Acute (5) Substance-induced sleep disorder Current Visit: Yes Status: Acute - Initial Treatment Plan Initial Treatment Plan: Psychoeducation provided. Detoxification in progress. Will Zoloft 50mg + trazodone 100mg. Benefits and side effects discussed. Verbal consent given.
[2019-01-05] MEDS: traZODone HCL 100 MG TABLET (FP) PO SCH (22:04)
[2019-01-05] MEDS: THIAMINE HCL 100 MG TABLET (FP) PO SCH (22:05)
[2019-01-06] MEDS: chlordiazePOXIDE HCL 10 MG CAPSULE PO SCH ×3 (06:00→18:20)
[2019-01-06] MEDS: amLODIPine BESYLATE 5 MG TABLET (FP) PO SCH (10:16)
[2019-01-06] MEDS: NICOTINE 21 MG/24 HOURS TOPICAL PATCH TD SCH (10:16)
[2019-01-06] MEDS: PRENATAL VITAMINS W/ FOLIC ACID TABLET (FP) PO SCH (10:16)
[2019-01-06] MEDS: DARUNAVIR 800 MG/COBICISTAT 150MG TABLET PO SCH (10:17)
[2019-01-06] MEDS: DOLUTEGRAVIR SODIUM 50 MG TABLET (NON-FORMULARY) PO SCH (10:17)
[2019-01-06] MEDS: SERTRALINE HCL 25 MG TABLET (FP) PO SCH (10:19)
--- NOTE | 2019-01-06 11:17 | PN ---
[facility] Progress Note (SOAP) Subjective: feeling better sweats Objective: 01/06/19 11:17 Vital Signs Temperature 97.0 F L 01/06/19 09:15 Pulse Rate 92 H 01/06/19 09:15 Respiratory Rate 18 01/06/19 09:15 Blood Pressure 126/69 01/06/19 09:15 O2 Sat by Pulse Oximetry (%) aaox3 ambulating no acute distress Assessment: 01/06/19 11:17 mild withdrawal sx Plan: continue detox increase fluids d/c in am
[2019-01-06] MEDS: MAG HYDROX/AL HYDROX/SIMETH 30 ML UNIT-DOSE CUP PO PRN (18:19)
[2019-01-06] MEDS: THIAMINE HCL 100 MG TABLET (FP) PO SCH (22:17)
[2019-01-06] MEDS: traZODone HCL 100 MG TABLET (FP) PO SCH (22:17)
[2019-01-07] MEDS: chlordiazePOXIDE HCL 10 MG CAPSULE PO SCH (05:16)
[2019-01-07 06:53] VITALS: BP 135/75; PULSE 84; TEMP 97.9
[2019-01-07] MEDS: DARUNAVIR 800 MG/COBICISTAT 150MG TABLET PO SCH (07:18)
[2019-01-07] MEDS: DOLUTEGRAVIR SODIUM 50 MG TABLET (NON-FORMULARY) PO SCH (07:18)
== END 2019-01-07 09:40 | disposition home or self-care (01) | DRG 774 ==
LOC: YASAS 11:00 → Y6N 14:47
PROVIDERS: ADMIT Surgery; ATTEND Surgery
PROC: HZ2ZZZZ Detoxification Services for Substance Abuse Treatment (ICD-10-PCS; principal; 2019-01-03)
DX: F10.230 Alcohol dependence with withdrawal, uncomplicated (principal); F14.20 Cocaine dependence, uncomplicated; F12.20 Cannabis dependence, uncomplicated; F19.24 Other psychoactive substance dependence with psychoactive substance-induced mood disorder; F19.282 Other psychoactive substance dependence with psychoactive substance-induced sleep disorder; F34.1 Dysthymic disorder; Z21 Asymptomatic human immunodeficiency virus [HIV] infection status; I10 Essential (primary) hypertension; E78.00 Pure hypercholesterolemia, unspecified; Z86.19 Personal history of other infectious and parasitic diseases
CPT/HCPCS: 36415; 80053; 85027; 86593; 86780

== ENCOUNTER 2019-02-21 14:43 | Inpatient (IN) | payer OTHER ==
[2019-02-21 18:03] VITALS: BMI 30.2
--- NOTE | 2019-02-21 20:54 | HP ---
CIWA Score Nausea/Vomitin-Mild Nausea/No Vomiting Muscle Tremors: None Anxiety: 4-Mod. Anxious/Guarded Agitation: 4-Moderately Restless Paroxysmal Sweats: 3 Orientation: 3-Disoriented Date>2 days Tacttile Disturbances: 3-Moderate Itch/Numb/Burn Auditory Disturbances: 0-None Visual Disturbances: 3-Moderate Sensitivity Headache: 0-None Present CIWA-Ar Total Score: 21 - Admission Criteria OASAS Guidelines: Admission for Medically Managed Detox: Requires at least one of the followin. CIWA greater than 12 2. Seizures within the past 24 hours 3. Delirium tremens within the past 24 hours 4. Hallucinations within the past 24 hours 5. Acute intervention needed for co occurring medical disorder 6. Acute intervention needed for co occurring psychiatric disorder 7. Severe withdrawal that cannot be handled at a lower level of care (continued vomiting, continued diarrhea, abnormal vital signs) requiring intravenous medication and/or fluids 8. Patient presents the following: CIWA greater than 12 Admission Criteria Met: Admission criteria met Admission ROS [facility] Chief Complaint: C/O WITHDRAWAL SX'S. Allergies/Adverse Reactions: Allergies Allergy/AdvReac Type Severity Reaction Status Date / Time No Known Allergies Allergy Verified 02/21/19 17:52 History of Present Illness: 58 Y.O. MALE WITH ALCOHOLISM AND COCAINE DEPENDENCE HERE FOR DETOX. PRESENTS WITH C/O WITHDRAWAL SX'S. CIWA 21. HE IS SELF REFERRED. LAST DC 11/2018. REPORTS RELAPSING SOON AFTER. DRINKING DAILY. +[employer]. LONGEST CLEAN TIME 6 YEARS. DENIES ANY IN THE PAST 1 YEAR. DENIES HX/O SEIZURES, BLACKOUTS. HOMELESS, SSI, DENIES LEGALS. Exam Limitations: No Limitations - Ebola screening Have you traveled outside of the country in the last 21 days: No Have you had contact with anyone from an Ebola affected area: No Do you have a fever: No - Review of Systems Constitutional: Chills, Night Sweats, Changes in sleep EENT: reports: Dental Problems (MISSING TEETH) Respiratory: reports: No Symptoms reported Cardiac: reports: No Symptoms Reported GI: reports: Nausea, Poor Fluid Intake : reports: No Symptoms Reported Musculoskeletal: reports: No Symptoms Reported Integumentary: reports: Pruritus Neuro: reports: No Symptoms reported Endocrine: reports: No Symptoms Reported Hematology: reports: No Symptoms Reported Psychiatric: reports: Agitated (IRRITABLE), Anxious, Depressed (DENIES SI) Other Systems: Reviewed and Negative Patient History - Patient Medical History Hx Anemia: No Hx Asthma: No Hx Chronic Obstructive Pulmonary Disease (COPD): No Hx Cancer: No Hx Cardiac Disorders: No Hx Congestive Heart Failure: No Hx Hypertension: Yes (on med) Hx Hypercholesterolemia: Yes (on med) Hx Pacemaker: No HX Cerebrovascular Accident: No Hx Seizures: No Hx Dementia: No Hx Diabetes: No Hx Gastrointestinal Disorders: No Hx Liver Disease: No Hx Genitourinary Disorders: No Hx Sexually Transmitted Disorders: Yes (treated for syphylis years ago) Hx Renal Disease (ESRD): No Hx Thyroid Disease: No Hx Human Immunodeficiency Virus (HIV): Yes (SHARING NEEDLES ON MEDS) Hx Hepatitis C: Yes (TREATED IN 2014) Hx Depression: Yes (never treated) Hx Suicide Attempt: No Hx Bipolar Disorder: No Hx Schizophrenia: No Other Medical History: DENIES - Patient Surgical History Past Surgical History: No Hx Neurologic Surgery: No Hx Cataract Extraction: No Hx Cardiac Surgery: No Hx Lung Surgery: No Hx Breast Surgery: No Hx Breast Biopsy: No Hx Abdominal Surgery: No Hx Appendectomy: No Hx Cholecystectomy: No Hx Genitourinary Surgery: No Hx Section: No Hx Orthopedic Surgery: No Anesthesia Reaction: No - PPD History Previous Implant?: Yes Documented Results: Negative w/proof Implanted On Prior [facility] Admission?: Yes Date: 11/20/18 Results: 0 mm PPD to be Administered?: No - Smoking Cessation Smoking history: Current every day smoker Have you smoked in the past 12 months: Yes Aproximately how many cigarettes per day: 10 Cigars Per Day: 0 Hx Chewing Tobacco Use: No Initiated information on smoking cessation: Yes 'Breaking Loose' booklet given: 02/21/19 - Substance & Tx. History Hx Alcohol Use: Yes Hx Substance Use: Yes Substance Use Type: Alcohol, Cocaine Hx Substance Use Treatment: Yes ([facility]) - Substances abused Alcohol Other (specify): VODKA Substance route: Oral Frequency: Daily Amount used: 2 pints Age of first use: 12 Date of last use: 02/21/19 Crack Substance route: Smoking Frequency: 3-6 times per week Amount used: $40 Age of first use: 39 Date of last use: 01/01/19 Marijuana/Hashish Substance route: Smoking Frequency: Daily Amount used: NICKEL BAG Age of first use: 11 Date of last use: 02/21/19 Cocaine Substance route: Smoking Frequency: 3-6 times per week Amount used: $50 Age of first use: 33 Date of last use: 02/14/19 Family Disease History - Family Disease History Family Disease History: Heart Disease: Mother (HTN, ), Other: Father ( estranged), Brother ( 1 bro alive), Sister (2 sisters -) Admission Physical Exam [facility] - Vital Signs Vital Signs: Vital Signs - 24 hr 02/21/19 02/21/19 17:51 19:20 Temperature 97.0 F L 97.0 F L Pulse Rate 83 83 Respiratory 18 18 Rate Blood Pressure 120/81 120/81 - Physical General Appearance: Yes: Moderate Distress, Tremorous (FELT), Irritable, Anxious , Other (MALODUROUS) HEENTM: Yes: EOMI, Normocephalic, Normal Voice, TAMIKA, Pharynx Normal, Other ( POOR DENTITION/MISSING TEETH) Respiratory: Yes: Chest Non-Tender, Lungs Clear, Normal Breath Sounds, No Respiratory Distress, No Accessory Muscle Use Neck: Yes: No masses,lesions,Nodules, Supple, Trachea in good position Breast: Yes: Breast Exam Deferred Cardiology: Yes: Regular Rhythm, Regular Rate, S1, S2 Abdominal: Yes: Non Tender, Soft, Increased Bowel Sounds Genitourinary: Yes: Within Normal Limits Back: Yes: Normal Inspection Musculoskeletal: Yes: full range of Motion, Gait Steady Extremities: Yes: Normal Capillary Refill, Normal Range of Motion, Non-Tender, Tremors (FELT) Neurological: Yes: Alert (X2), Motor Strength 5/5, Normal Mood/Affect, Depressed Affect Integumentary: Yes: Dry, Warm, Other (ITCHY unkept toe nails) Lymphatic: Yes: Within Normal Limits - Diagnostic (1) Homeless Current Visit: Yes Status: Suspected Comment: CLIENT REPORTS (2) Alcohol dependence with uncomplicated withdrawal Current Visit: Yes Status: Acute (3) Substance induced mood disorder Current Visit: Yes Status: Suspected (4) Substance-induced sleep disorder Current Visit: Yes Status: Suspected (5) Cannabis dependence, uncomplicated Current Visit: Yes Status: Acute (6) Cocaine dependence, uncomplicated Current Visit: Yes Status: Acute (7) Depression (emotion) Current Visit: Yes Status: Acute Qualifiers: Depression Type: unspecified Qualified Code(s): F32.9 - Major depressive disorder, single episode, unspecified (8) Essential hypertension Current Visit: Yes Status: Chronic (9) HIV (human immunodeficiency virus infection) Current Visit: Yes Status: Chronic Qualifiers: HIV symptom status: unspecified Qualified Code(s): B20 - Human immunodeficiency virus [HIV] disease (10) Nicotine dependence Current Visit: Yes Status: Chronic Qualifiers: Nicotine product type: cigarettes Substance use status: uncomplicated Qualified Code(s): F17.210 - Nicotine dependence, cigarettes, uncomplicated (11) hypercholesterolemia Current Visit: Yes Status: Chronic (12) History of hepatitis C Current Visit: Yes Status: Resolved Cleared for Admission S - Detox or Rehab [facility] Level of Care: Medically Managed Detox Regimen/Protocol: Librium Claeared for Rehab Admission: No Breathalyzer - Breathalyzer Breathalyzer: 0 Urine Drug Screen - Test Device Lot number: [id number] Expiration date: 12/14/20 - Control Is test valid?: Yes - Results Drug screen NEGATIVE: No Urine drug screen results: THC-Marijuana, SERAFIN-Cocaine, MET-Methamphetamine, AMP- Amphetamines Inpatient Rehab Admission - Rehab Decision to Admit Inpatient rehab admission?: No
[2019-02-21] MEDS ORDERED: NICOTINE POLACRILEX 2 MG GUM BUC PRN (21:04)
[2019-02-21] MEDS ORDERED: MAGNESIUM HYDROX 2400MG/30ML ORAL SUSPENSION 30 ML CUP PO PRN (21:04)
[2019-02-21] MEDS ORDERED: MAG HYDROX/AL HYDROX/SIMETH 30 ML UNIT-DOSE CUP PO PRN (21:04)
[2019-02-21] MEDS ORDERED: ONDANSETRON *ODT* 4 MG TABLET SL PRN (21:04)
[2019-02-21] MEDS ORDERED: guaiFENesin 200 MG/10 ML 10 ML UNIT-DOSE CUPS PO PRN (21:04)
[2019-02-21] MEDS ORDERED: hydrOXYzine PAMOATE 25 MG CAPSULE (FP) PO PRN (21:04)
[2019-02-21] MEDS ORDERED: MENTHOL/PHENOL 1 EACH UD MM PRN (21:04)
[2019-02-21] MEDS ORDERED: IBUPROFEN 400 MG TABLET (FP) PO PRN (21:04)
[2019-02-21] MEDS ORDERED: ACETAMINOPHEN 325 MG TABLET (FP) PO PRN ×2 (21:04)
[2019-02-21] MEDS ORDERED: MAGNESIUM CITRATE 300 ML BOTTLE PO PRN (21:04)
[2019-02-21] MEDS ORDERED: P-EPHED 60MG/TRIPROLIDI 2.5MG TABLET PO PRN (21:04)
[2019-02-21] MEDS ORDERED: chlordiazePOXIDE HCL 25 MG CAPSULE PO PRN (21:04)
[2019-02-21] MEDS ORDERED: BISMUTH SUBSALICYLATE 524 MG/30 ML UD PO PRN (21:04)
[2019-02-21] MEDS ORDERED: DICYCLOMINE HCL 10 MG CAPSULE PO PRN (21:04)
[2019-02-21] MEDS: METHOCARBAMOL 500 MG TABLET PO PRN (22:13)
[2019-02-21] MEDS: THIAMINE HCL 100 MG TABLET (FP) PO SCH (22:13)
[2019-02-21] MEDS: MELATONIN 5 MG TABLETS PO PRN (22:13)
[2019-02-21] MEDS: chlordiazePOXIDE HCL 25 MG CAPSULE PO SCH (22:13)
[2019-02-22] MEDS: chlordiazePOXIDE HCL 25 MG CAPSULE PO SCH ×4 (04:49→22:33)
--- NOTE | 2019-02-22 09:50 | CONSULT ---
[facility] Psychiatric Consult - Data Date of interview: 02/22/19 Admission source: Self-referred Identifying data: Mr Taylor is a 58 years old Black male, unemployed receiving SSI, homeless seeking detox treatment for alcohol, crack cocaine and cannabis Substance Abuse History: Reports history of alcohol, crack cocaine and marijuana use. Refer to addiction counselor's summary for further information Medical History: Significant for hypertension, dyslipidemia, HIV since 1989, neuropathy, chronic back pain, history of treatment for syphilis and hepatitis C. Smokes 10 cigarettes daily Psychiatric History: Reports that his first psychiatric contact was in November- December 2018 while at [facility] for inpatient rehab. He was diagnosed with depression and insomnia and started on Zoloft 50 mg/day and Trazadone 100 mg/ hs. Approximately 2 weeks after, he saw [facility] while admitted to inpatient detox in this facility and he was continued on medications. Reports that following his discharged on 01/07/19 he did not picker medications from the pharmacy and he has been off medications since. Patient shows no interest in taking medication. Denies previous psychiatric hospitalization or suicidal attempt. At present, reports feeling anxious, mildly irritable and sleepig poorly Physical/Sexual Abuse/Trauma History: Denies history of emotional, physical or sexual abuse as well as DV relationship. Additional Comment: Reports a few misdemeanor arrests Mental Status Exam - Mental Status Exam Alert and Oriented to: Time, Place, Person Cognitive Function: Fair Patient Appearance: Well Groomed Mood: Anxious, Irritable (mildly) Affect: Appropriate Patient Behavior: Cooperative Speech Pattern: Clear Voice Loudness: Normal Thought Process: Intact, Goal Oriented Thought Disorder: Not Present Hallucinations: Denies Suicidal Ideation: Denies Homicidal Ideation: Denies Insight/Judgement: Poor Sleep: Poorly Appetite: Good Muscle strength/Tone: Normal Gait/Station: Normal Psychiatric Findings - Problem List ([place] 1, 2,3) (1) Substance induced mood disorder Current Visit: Yes Status: Acute (2) Substance-induced sleep disorder Current Visit: Yes Status: Acute (3) Alcohol dependence with uncomplicated withdrawal Current Visit: Yes Status: Acute (4) Cocaine dependence, uncomplicated Current Visit: Yes Status: Acute (5) Cannabis dependence, uncomplicated Current Visit: Yes Status: Acute (6) Nicotine dependence Current Visit: Yes Status: Chronic Qualifiers: Nicotine product type: cigarettes Substance use status: uncomplicated Qualified Code(s): F17.210 - Nicotine dependence, cigarettes, uncomplicated (7) Essential hypertension Current Visit: Yes Status: Chronic (8) HIV (human immunodeficiency virus infection) Current Visit: Yes Status: Chronic Qualifiers: HIV symptom status: unspecified Qualified Code(s): B20 - Human immunodeficiency virus [HIV] disease (9) hypercholesterolemia Current Visit: Yes Status: Chronic (10) History of hepatitis C Current Visit: Yes Status: Resolved (11) Chronic back pain Current Visit: No Status: Chronic Qualifiers: Back pain location: low back pain Back pain laterality: midline Sciatica presence: without sciatica Qualified Code(s): M54.5 - Low back pain; G89.29 - Other chronic pain (12) Neuropathy Current Visit: No Status: Chronic (13) History of syphilis Current Visit: No Status: Resolved - Initial Treatment Plan Initial Treatment Plan: 1) Resume Trazadone 100 mg po HS. 2) Continue inpatient detoxification
--- NOTE | 2019-02-22 10:05 | PN ---
S CIWA - CIWA Score Nausea/Vomitin-Mild Nausea/No Vomiting Muscle Tremors: 4-Moderate,w/Arms Extend Anxiety: 3 Agitation: 4-Moderately Restless Paroxysmal Sweats: 3 Orientation: 0-Oriented Tacttile Disturbances: 0-None Auditory Disturbances: 0-None Visual Disturbances: 0-None Headache: 0-None Present CIWA-Ar Total Score: 15 BHS Progress Note (SOAP) Subjective: sweats shakes nausea interrupted sleep body aches Objective: 02/22/19 10:04 Vital Signs Temperature 97.5 F L 02/22/19 09:36 Pulse Rate 84 02/22/19 09:36 Respiratory Rate 18 02/22/19 09:36 Blood Pressure 147/98 02/22/19 09:36 O2 Sat by Pulse Oximetry (%) labs pending aaox3 ambulating no acute distress Assessment: 02/22/19 10:05 withdrawal sx Plan: continue detox increase fluids pending labs
[2019-02-22] MEDS: PRENATAL VITAMINS W/ FOLIC ACID TABLET (FP) PO SCH (10:50)
[2019-02-22] MEDS: amLODIPine BESYLATE 5 MG TABLET (FP) PO SCH (10:50)
[2019-02-22] MEDS: NICOTINE 14 MG/24 HOURS TOPICAL PATCH TD SCH (10:50)
[2019-02-22] MEDS: DOLUTEGRAVIR SODIUM 50 MG TABLET (NON-FORMULARY) PO SCH (10:51)
[2019-02-22] MEDS: DARUNAVIR 800 MG/COBICISTAT 150MG TABLET PO SCH (10:51)
[2019-02-22 12:22] LABS: HEMOGLOBIN 15.8 GM/dL (11.7-16.9); MCH 30.8 pg (25.7-33.7); MCHC 33.6 g/dl (32.0-35.9); MEAN CELL VOLUME 91.5 fl (80-96); MEAN PLT VOLUME 8.8 fl (7.5-11.1); PLATELET COUNT 141 K/MM3 (134-434); RBC 5.13 M/mm3 (4.00-5.60); RDW 16.7 % (11.9-15.9)
[2019-02-22 12:42] LABS: PH,URINE 7.5 (5.0-8.0); URINE APPEARANCE CLEAR; URINE BILIRUBIN NEGATIVE (NEGATIVE); URINE COLOR YELLOW; URINE GLUCOSE (UA) NEGATIVE (NEGATIVE); URINE KETONE NEGATIVE (NEGATIVE); URINE LEUK ESTERASE TRACE (NEGATIVE); URINE NITRITE NEGATIVE (NEGATIVE); URINE PROTEIN NEGATIVE (NEGATIVE)
[2019-02-22 13:05] LABS: ALBUMIN 3.2 g/dl (3.4-5.0); BILIRUBIN,TOTAL 0.5 mg/dL (0.2-1); BLOOD UREA NITROGEN 7.8 mg/dL (7-18); CALCIUM 8.7 mg/dL (8.5-10.1); CREATININE 0.9 mg/dL (0.55-1.3); POTASSIUM 3.4 mmol/L (3.5-5.1); TOT PROT 6.4 g/dl (6.4-8.2)
[2019-02-22 13:14] LABS: RPR REACTIVE 1:2 (NONREACTIVE)
[2019-02-22 13:15] LABS: TREPONEMA ANTIBODY PREVIOUSLY REACTIVE (NONREACTIVE)
[2019-02-22 14:35] LABS: EPI CELLS 1.3 /HPF (0-5/HPF); HYALINE CASTS 0.35 /lpf (0-8); URINE RBC 1.8 /hpf (0-4)
[2019-02-22 14:36] LABS: URINE WBC 5 /hpf (0-5)
[2019-02-22] MEDS: THIAMINE HCL 100 MG TABLET (FP) PO SCH (22:32)
[2019-02-22] MEDS: traZODone HCL 100 MG TABLET (FP) PO SCH (22:32)
[2019-02-23] MEDS: MELATONIN 5 MG TABLETS PO PRN (01:05)
[2019-02-23] MEDS: chlordiazePOXIDE HCL 25 MG CAPSULE PO SCH ×4 (05:03→23:15)
[2019-02-23] MEDS: PRENATAL VITAMINS W/ FOLIC ACID TABLET (FP) PO SCH (10:47)
[2019-02-23] MEDS: NICOTINE 14 MG/24 HOURS TOPICAL PATCH TD SCH (10:47)
[2019-02-23] MEDS: DOLUTEGRAVIR SODIUM 50 MG TABLET (NON-FORMULARY) PO SCH (10:47)
[2019-02-23] MEDS: DARUNAVIR 800 MG/COBICISTAT 150MG TABLET PO SCH (10:47)
[2019-02-23] MEDS: amLODIPine BESYLATE 5 MG TABLET (FP) PO SCH (10:47)
--- NOTE | 2019-02-23 11:11 | PN ---
[facility] CIWA - CIWA Score Nausea/Vomitin-No Nausea/No Vomiting Muscle Tremors: 3 Anxiety: 3 Agitation: 3 Paroxysmal Sweats: 2 Orientation: 0-Oriented Tacttile Disturbances: 0-None Auditory Disturbances: 0-None Visual Disturbances: 0-None Headache: 0-None Present CIWA-Ar Total Score: 11 S Progress Note (SOAP) Subjective: sweats shakes interrupted sleep body aches Objective: 02/23/19 11:09 Vital Signs Temperature 97.2 F L 02/23/19 09:29 Pulse Rate 80 02/23/19 09:29 Respiratory Rate 18 02/23/19 09:29 Blood Pressure 128/73 02/23/19 09:29 O2 Sat by Pulse Oximetry (%) Laboratory Tests 02/22/19 02/22/19 02/22/19 06:00 06:00 06:00 WBC 4.0 RBC 5.13 Hgb 15.8 Hct 47.0 MCV 91.5 MCH 30.8 MCHC 33.6 RDW 16.7 H Plt Count 141 MPV 8.8 Sodium 142 Potassium 3.4 L Chloride 106 Carbon Dioxide 28 Anion Gap 7 L BUN 7.8 Creatinine 0.9 Est GFR (CKD-EPI)AfAm 108.73 Est GFR (CKD-EPI)NonAf 93.82 Random Glucose 87 Calcium 8.7 Total Bilirubin 0.5 AST 53 H ALT 53 Alkaline Phosphatase 95 Total Protein 6.4 Albumin 3.2 L Urine Color Urine Appearance Urine pH Ur Specific [place] Urine Protein Urine Glucose (UA) Urine Ketones Urine Blood Urine Nitrite Urine Bilirubin Urine Urobilinogen Ur Leukocyte Esterase Urine WBC (Auto) Urine RBC (Auto) Urine Casts (Auto) U Epithel Cells (Auto) Urine Bacteria (Auto) RPR Titer Reactive 1:2 H D T.pallidum Ab (MHA) Previously reactive 02/22/19 07:15 WBC RBC Hgb Hct MCV MCH MCHC RDW Plt Count MPV Sodium Potassium Chloride Carbon Dioxide Anion Gap BUN Creatinine Est GFR (CKD-EPI)AfAm Est GFR (CKD-EPI)NonAf Random Glucose Calcium Total Bilirubin AST ALT Alkaline Phosphatase Total Protein Albumin Urine Color Yellow Urine Appearance Clear Urine pH 7.5 D Ur Specific [place] 1.007 L Urine Protein Negative Urine Glucose (UA) Negative Urine Ketones Negative Urine Blood Negative Urine Nitrite Negative Urine Bilirubin Negative Urine Urobilinogen 1.0 Ur Leukocyte Esterase Trace Urine WBC (Auto) 5 Urine RBC (Auto) 1.8 Urine Casts (Auto) 0.35 U Epithel Cells (Auto) 1.3 Urine Bacteria (Auto) 1.0 RPR Titer T.pallidum Ab (MHA) labs noted potassium 3.4; will replenish with kdur aaox3 ambulating no acute distress rpr noted; pt was previously reactive and states he received treatment already. Assessment: 02/23/19 11:11 withdrawal sx Plan: continue detox increase fluids kdur 20meq x 3 days ordered
[2019-02-23] MEDS: POTASSIUM CHLORIDE TABS 20 MEQ TABLET.ER (FP) PO SCH (11:37)
[2019-02-23] MEDS: traZODone HCL 100 MG TABLET (FP) PO SCH (22:03)
[2019-02-23] MEDS: THIAMINE HCL 100 MG TABLET (FP) PO SCH (22:04)
[2019-02-24] MEDS ORDERED: chlordiazePOXIDE HCL 10 MG CAPSULE PO PRN
[2019-02-24] MEDS: chlordiazePOXIDE HCL 10 MG CAPSULE PO SCH ×4 (05:09→22:21)
[2019-02-24] MEDS: POTASSIUM CHLORIDE TABS 20 MEQ TABLET.ER (FP) PO SCH (10:38)
[2019-02-24] MEDS: PRENATAL VITAMINS W/ FOLIC ACID TABLET (FP) PO SCH (10:38)
[2019-02-24] MEDS: amLODIPine BESYLATE 5 MG TABLET (FP) PO SCH (10:38)
[2019-02-24] MEDS: NICOTINE 14 MG/24 HOURS TOPICAL PATCH TD SCH (10:38)
[2019-02-24] MEDS: DOLUTEGRAVIR SODIUM 50 MG TABLET (NON-FORMULARY) PO SCH (10:39)
[2019-02-24] MEDS: DARUNAVIR 800 MG/COBICISTAT 150MG TABLET PO SCH (10:39)
--- NOTE | 2019-02-24 10:42 | PN ---
S CIWA - CIWA Score Nausea/Vomitin-No Nausea/No Vomiting Muscle Tremors: 3 Anxiety: 2 Agitation: 2 Paroxysmal Sweats: 2 Orientation: 0-Oriented Tacttile Disturbances: 0-None Auditory Disturbances: 0-None Visual Disturbances: 0-None Headache: 0-None Present CIWA-Ar Total Score: 9 BHS Progress Note (SOAP) Subjective: sweats agitation interrupted sleep Objective: 02/24/19 11:15 Vital Signs Temperature 97.7 F 02/24/19 09:43 Pulse Rate 91 H 02/24/19 09:43 Respiratory Rate 16 02/24/19 09:43 Blood Pressure 121/82 02/24/19 09:43 O2 Sat by Pulse Oximetry (%) aaox3 ambulating no acute distress Assessment: 02/24/19 11:16 withdrawal sx Plan: continue detox increase fluids
[2019-02-24] MEDS: THIAMINE HCL 100 MG TABLET (FP) PO SCH (22:22)
[2019-02-24] MEDS: traZODone HCL 100 MG TABLET (FP) PO SCH (22:22)
[2019-02-24] MEDS: METHOCARBAMOL 500 MG TABLET PO PRN (22:22)
[2019-02-25] MEDS: MELATONIN 5 MG TABLETS PO PRN ×2 (01:08→22:17)
[2019-02-25] MEDS: chlordiazePOXIDE HCL 10 MG CAPSULE PO SCH ×2 (05:52→17:09)
[2019-02-25] MEDS: DOLUTEGRAVIR SODIUM 50 MG TABLET (NON-FORMULARY) PO SCH (10:21)
[2019-02-25] MEDS: PRENATAL VITAMINS W/ FOLIC ACID TABLET (FP) PO SCH (10:21)
[2019-02-25] MEDS: POTASSIUM CHLORIDE TABS 20 MEQ TABLET.ER (FP) PO SCH (10:21)
[2019-02-25] MEDS: NICOTINE 14 MG/24 HOURS TOPICAL PATCH TD SCH (10:21)
[2019-02-25] MEDS: DARUNAVIR 800 MG/COBICISTAT 150MG TABLET PO SCH (10:21)
[2019-02-25] MEDS: amLODIPine BESYLATE 5 MG TABLET (FP) PO SCH (10:21)
[2019-02-25] MEDS ORDERED: hydrOXYzine HCL 25 MG TABLET (FP) PO PRN ×2 (17:27→17:28)
[2019-02-25] MEDS ORDERED: cloNIDine HCL 0.1 MG TABLET PO ONE (19:15)
[2019-02-25] MEDS: THIAMINE HCL 100 MG TABLET (FP) PO SCH (22:17)
[2019-02-25] MEDS: traZODone HCL 100 MG TABLET (FP) PO SCH (22:17)
[2019-02-26] MEDS ORDERED: chlordiazePOXIDE HCL 10 MG CAPSULE PO ONE (05:00)
[2019-02-26] MEDS: POTASSIUM CHLORIDE TABS 20 MEQ TABLET.ER (FP) PO SCH (09:18)
[2019-02-26] MEDS: PRENATAL VITAMINS W/ FOLIC ACID TABLET (FP) PO SCH (09:18)
[2019-02-26] MEDS: amLODIPine BESYLATE 5 MG TABLET (FP) PO SCH (09:18)
[2019-02-26] MEDS: DOLUTEGRAVIR SODIUM 50 MG TABLET (NON-FORMULARY) PO SCH (09:19)
[2019-02-26] MEDS: DARUNAVIR 800 MG/COBICISTAT 150MG TABLET PO SCH (09:19)
[2019-02-26 09:20] VITALS: BP 128/82; PULSE 105; TEMP 97.5
[2019-02-26] MEDS: NICOTINE 14 MG/24 HOURS TOPICAL PATCH TD SCH (09:20)
--- NOTE | 2019-02-26 13:31 | DS ---
[facility] Detox Discharge Summary Admission Date: 02/21/19 Discharge Date: 02/26/19 - History Present History: Alcohol Dependence, Cannabis Dependence, Cocaine Dependence Additional Comments: Pt is medically cleared and is discharged today. Pt completed his detox protocol. As per counselor's notes, "Patient states he still doesn't want aftercare plans". Pt is encouraged to follow-up with an outpatient CD program and also to follow-up with his PMD. Pt verbalized understanding. Pt is alert and oriented x3, in no respiratory distress. Pertinent Past History: H/O HTN,HIV+, Hepc, alcohol, cocaine, and cannabis use disorder. - Physical Exam Results Vital Signs: Vital Signs Temperature 97.5 F L 02/26/19 09:19 Pulse Rate 105 H 02/26/19 09:19 Respiratory Rate 20 02/26/19 09:19 Blood Pressure 128/82 02/26/19 09:19 O2 Sat by Pulse Oximetry (%) Vital Signs 02/26/19 02/26/19 06:00 09:19 Temperature 97.7 F 97.5 F L Pulse Rate 71 105 H Respiratory 18 20 Rate Blood Pressure 155/96 128/82 Laboratory Last Values WBC 4.0 K/mm3 (4.0-10.0) 02/22/19 06:00 RBC 5.13 M/mm3 (4.00-5.60) 02/22/19 06:00 Hgb 15.8 GM/dL (11.7-16.9) 02/22/19 06:00 Hct 47.0 % (35.4-49) 02/22/19 06:00 MCV 91.5 fl (80-96) 02/22/19 06:00 MCH 30.8 pg (25.7-33.7) 02/22/19 06:00 MCHC 33.6 g/dl (32.0-35.9) 02/22/19 06:00 RDW 16.7 % (11.9-15.9) H 02/22/19 06:00 Plt Count 141 K/MM3 (134-434) 02/22/19 06:00 MPV 8.8 fl (7.5-11.1) 02/22/19 06:00 Sodium 142 mmol/L (136-145) 02/22/19 06:00 Potassium 3.4 mmol/L (3.5-5.1) L 02/22/19 06:00 Chloride 106 mmol/L (98-107) 02/22/19 06:00 Carbon Dioxide 28 mmol/L (21-32) 02/22/19 06:00 Anion Gap 7 MMOL/L (8-16) L 02/22/19 06:00 BUN 7.8 mg/dL (7-18) 02/22/19 06:00 Creatinine 0.9 mg/dL (0.55-1.3) 02/22/19 06:00 Est GFR (CKD-EPI)AfAm 108.73 02/22/19 06:00 Est GFR (CKD-EPI)NonAf 93.82 02/22/19 06:00 Random Glucose 87 mg/dL (74-106) 02/22/19 06:00 Calcium 8.7 mg/dL (8.5-10.1) 02/22/19 06:00 Total Bilirubin 0.5 mg/dL (0.2-1) 02/22/19 06:00 AST 53 U/L (15-37) H 02/22/19 06:00 ALT 53 U/L (13-61) 02/22/19 06:00 Alkaline Phosphatase 95 U/L (45-117) 02/22/19 06:00 Total Protein 6.4 g/dl (6.4-8.2) 02/22/19 06:00 Albumin 3.2 g/dl (3.4-5.0) L 02/22/19 06:00 Urine Color Yellow 02/22/19 07:15 Urine Appearance Clear 02/22/19 07:15 Urine pH 7.5 (5.0-8.0) D 02/22/19 07:15 Ur Specific [place] 1.007 (1.010-1.035) L 02/22/19 07:15 Urine Protein Negative (NEGATIVE) 02/22/19 07:15 Urine Glucose (UA) Negative (NEGATIVE) 02/22/19 07:15 Urine Ketones Negative (NEGATIVE) 02/22/19 07:15 Urine Blood Negative (NEGATIVE) 02/22/19 07:15 Urine Nitrite Negative (NEGATIVE) 02/22/19 07:15 Urine Bilirubin Negative (NEGATIVE) 02/22/19 07:15 Urine Urobilinogen 1.0 mg/dL (0.2-1.0) 02/22/19 07:15 Ur Leukocyte Esterase Trace (NEGATIVE) 02/22/19 07:15 Urine WBC (Auto) 5 /hpf (0-5) 02/22/19 07:15 Urine RBC (Auto) 1.8 /hpf (0-4) 02/22/19 07:15 Urine Casts (Auto) 0.35 /lpf (0-8) 02/22/19 07:15 U Epithel Cells (Auto) 1.3 /HPF (0-5/HPF) 02/22/19 07:15 Urine Bacteria (Auto) 1.0 /hpf (NEGATIVE) 02/22/19 07:15 RPR Titer Reactive 1:2 (NONREACTIVE) H D 02/22/19 06:00 T.pallidum Ab (MHA) Previously reactive (NONREACTIVE) 02/22/19 06:00 Labs noted. Pertinent Admission Physical Exam Findings: withdrawal symptoms. - Treatment Hospital Course: Detox Protocol Followed, Detoxed Safely, Responded well, Discharged Condition Good - Medication Discharge Medications: Ambulatory Orders Amlodipine Besylate 5 mg PO DAILY 01/03/19 Darunavir/Cobicistat [Prezcobix 800 mg-150 mg Tablet] 1 each PO DAILY 01/03/19 Dolutegravir Sodium [Tivicay] 50 mg PO DAILY 01/03/19 Sertraline HCl 50 mg PO DAILY 01/03/19 traZODone HCL [Trazodone HCl] 100 mg PO HS 01/03/19 - Diagnosis (1) Alcohol dependence with uncomplicated withdrawal Status: Acute (2) Cannabis dependence, uncomplicated Status: Acute (3) Cocaine dependence, uncomplicated Status: Acute (4) Chronic back pain Status: Chronic Qualifiers: Back pain location: low back pain Back pain laterality: midline Sciatica presence: without sciatica Qualified Code(s): M54.5 - Low back pain; G89.29 - Other chronic pain (5) Essential hypertension Status: Chronic (6) Nicotine dependence Status: Chronic Qualifiers: Nicotine product type: cigarettes Substance use status: uncomplicated Qualified Code(s): F17.210 - Nicotine dependence, cigarettes, uncomplicated (7) hypercholesterolemia Status: Chronic (8) History of hepatitis C Status: Resolved (9) History of syphilis Status: Resolved - AMA Did Patient Leave Against Medical Advice: No
== END 2019-02-26 09:22 | disposition home or self-care (01) | DRG 774 ==
LOC: YASAS 14:43 → Y6N 21:34
PROVIDERS: ADMIT Surgery; ATTEND Surgery
PROC: HZ2ZZZZ Detoxification Services for Substance Abuse Treatment (ICD-10-PCS; principal; 2019-02-21)
DX: F10.230 Alcohol dependence with withdrawal, uncomplicated (principal); F14.20 Cocaine dependence, uncomplicated; F12.20 Cannabis dependence, uncomplicated; F17.210 Nicotine dependence, cigarettes, uncomplicated; F19.24 Other psychoactive substance dependence with psychoactive substance-induced mood disorder; F19.282 Other psychoactive substance dependence with psychoactive substance-induced sleep disorder; F32.9 Major depressive disorder, single episode, unspecified; Z21 Asymptomatic human immunodeficiency virus [HIV] infection status; I10 Essential (primary) hypertension; E78.00 Pure hypercholesterolemia, unspecified; G62.9 Polyneuropathy, unspecified; M54.5 Low back pain; G89.29 Other chronic pain; Z86.19 Personal history of other infectious and parasitic diseases; Z59.0 Homelessness
CPT/HCPCS: 36415; 80053; 81003; 85027; 86593; 86780; J0735

== ENCOUNTER 2019-04-26 14:43 | Inpatient (IN) | payer OTHER ==
[2019-04-26 18:28] VITALS: BMI 27.2
--- NOTE | 2019-04-26 20:40 | HP ---
CIWA Score Nausea/Vomitin (vomiting x 2) Muscle Tremors: 3 Anxiety: 3 Agitation: 0-Normal Activity Paroxysmal Sweats: 2 Orientation: 0-Oriented Tacttile Disturbances: 0-None Auditory Disturbances: 0-None Visual Disturbances: 0-None Headache: 4-Moderately Severe CIWA-Ar Total Score: 14 - Admission Criteria OASAS Guidelines: Admission for Medically Managed Detox: Requires at least one of the followin. CIWA greater than 12 2. Seizures within the past 24 hours 3. Delirium tremens within the past 24 hours 4. Hallucinations within the past 24 hours 5. Acute intervention needed for co occurring medical disorder 6. Acute intervention needed for co occurring psychiatric disorder 7. Severe withdrawal that cannot be handled at a lower level of care (continued vomiting, continued diarrhea, abnormal vital signs) requiring intravenous medication and/or fluids 8. Admission ROS [facility] Chief Complaint: Alcohol withdrawal symptoms Allergies/Adverse Reactions: Allergies Allergy/AdvReac Type Severity Reaction Status Date / Time No Known Allergies Allergy Verified 04/07/19 17:58 History of Present Illness: 58 years old male with a long history o alcohol dependence (since age 12 years old) is seeking admission to detox. Patient has been in multiple detox dmissions and reports six years of sobriety. He has medical history of HIV+, hypertension, hyperlipidemia, syphilis, Hep C (treated) and depression. He denies suicide attempt / suicidal ideation at this time. - Ebola screening Have you traveled outside of the country in the last 21 days: No (N) Have you had contact with anyone from an Ebola affected area: No Do you have a fever: No - Review of Systems Constitutional: Chills, Malaise, Changes in sleep EENT: reports: No Symptoms Reported Respiratory: reports: No Symptoms reported Cardiac: reports: No Symptoms Reported GI: reports: Diarrhea, Nausea, Poor Appetite, Poor Fluid Intake, Vomiting, Abdominal cramping : reports: No Symptoms Reported Musculoskeletal: reports: Back Pain, Muscle Pain Integumentary: reports: Dryness, Flushing Neuro: reports: Tremors Endocrine: reports: No Symptoms Reported Hematology: reports: No Symptoms Reported Psychiatric: reports: Mood/Affect Appropiate, Orientated x3 Other Systems: Reviewed and Negative Patient History - Patient Medical History Hx Anemia: No Hx Asthma: No Hx Chronic Obstructive Pulmonary Disease (COPD): No Hx Cancer: No Hx Cardiac Disorders: No Hx Congestive Heart Failure: No Hx Hypertension: Yes (on med) Hx Hypercholesterolemia: Yes (on med) Hx Pacemaker: No HX Cerebrovascular Accident: No Hx Seizures: No Hx Dementia: No Hx Diabetes: No Hx Gastrointestinal Disorders: No Hx Liver Disease: No Hx Genitourinary Disorders: No Hx Sexually Transmitted Disorders: Yes (treated for syphylis years ago) Hx Renal Disease (ESRD): No Hx Thyroid Disease: No Hx Human Immunodeficiency Virus (HIV): Yes (SHARING NEEDLES ON MEDS) Hx Hepatitis C: Yes (TREATED IN 2014) Hx Depression: Yes (never treated) Hx Suicide Attempt: No (Denies suicidal ideation at this time) Hx Bipolar Disorder: No Hx Schizophrenia: No - Patient Surgical History Past Surgical History: No Hx Neurologic Surgery: No Hx Cataract Extraction: No Hx Cardiac Surgery: No Hx Lung Surgery: No Hx Abdominal Surgery: No Hx Appendectomy: No Hx Cholecystectomy: No Hx Genitourinary Surgery: No Hx Orthopedic Surgery: No Anesthesia Reaction: No - PPD History Previous Implant?: Yes Documented Results: Negative w/proof Implanted On Prior [facility] Admission?: Yes Date: 11/20/18 Results: 0 mm PPD to be Administered?: No - Reproductive History Patient is a Female of Child Bearing Age (11 -55 yrs old): No (male) - Smoking Cessation Smoking history: Current every day smoker Have you smoked in the past 12 months: Yes Aproximately how many cigarettes per day: 10 Cigars Per Day: 0 Hx Chewing Tobacco Use: No Initiated information on smoking cessation: Yes 'Breaking Loose' booklet given: 04/26/19 - Substance & Tx. History Hx Alcohol Use: Yes Hx Substance Use: Yes Substance Use Type: Alcohol, Cocaine, Marijuana Hx Substance Use Treatment: Yes ([facility]) - Substances abused Alcohol Other (specify): VODKA Substance route: Oral Frequency: Daily Amount used: 3 - 40 ounces of beer Age of first use: 12 Date of last use: 04/25/19 Crack Substance route: Smoking Frequency: 3-6 times per week Amount used: $40 Age of first use: 39 Date of last use: 01/01/19 Marijuana/Hashish Substance route: Smoking Frequency: Daily Amount used: NICKEL BAG Age of first use: 11 Date of last use: 04/26/19 Cocaine Substance route: Smoking Frequency: 1-3 times last 30 days Amount used: $100 Age of first use: 33 Date of last use: 04/25/19 Family Disease History - Family Disease History Family Disease History: Heart Disease: Mother (HTN, ), Other: Father ( estranged), Brother ( 1 bro alive), Sister (2 sisters -) Admission Physical Exam [facility] - Vital Signs Vital Signs: Vital Signs - 24 hr 04/26/19 18:20 Temperature 97.1 F L Pulse Rate 76 Respiratory 19 Rate Blood Pressure 181/113 H - Physical General Appearance: Yes: Moderate Distress, Tremorous, Sweating, Anxious HEENTM: Yes: Within Normal Limits Respiratory: Yes: Lungs Clear, Normal Breath Sounds, No Respiratory Distress Neck: Yes: Supple Breast: Yes: Breast Exam Deferred Cardiology: Yes: Regular Rhythm, Regular Rate Abdominal: Yes: Normal Bowel Sounds, Soft Genitourinary: Yes: Within Normal Limits Back: Yes: Normal Inspection Musculoskeletal: Yes: Back pain, Muscle Pain Extremities: Yes: Normal Capillary Refill Neurological: Yes: Alert, Normal Mood/Affect Integumentary: Yes: Warm Lymphatic: Yes: Within Normal Limits - Diagnostic (1) Alcohol dependence with uncomplicated withdrawal Current Visit: Yes Status: Acute (2) Cannabis dependence, uncomplicated Current Visit: Yes Status: Chronic (3) Cocaine dependence, uncomplicated Current Visit: Yes Status: Chronic (4) Depression (emotion) Current Visit: Yes Status: Chronic Qualifiers: Depression Type: unspecified Qualified Code(s): F32.9 - Major depressive disorder, single episode, unspecified (5) Essential hypertension Current Visit: Yes Status: Chronic (6) HIV (human immunodeficiency virus infection) Current Visit: Yes Status: Chronic Qualifiers: HIV symptom status: unspecified Qualified Code(s): B20 - Human immunodeficiency virus [HIV] disease (7) Neuropathy Current Visit: No Status: Chronic (8) Nicotine dependence Current Visit: No Status: Chronic Qualifiers: Nicotine product type: cigarettes Substance use status: uncomplicated Qualified Code(s): F17.210 - Nicotine dependence, cigarettes, uncomplicated (9) hypercholesterolemia Current Visit: Yes Status: Chronic (10) Substance induced mood disorder Current Visit: Yes Status: Suspected (11) History of hepatitis C Current Visit: Yes Status: Resolved Cleared for Admission [facility] - Detox or Rehab [facility] Level of Care: Medically Managed Detox Regimen/Protocol: Librium Breathalyzer - Breathalyzer Breathalyzer: 0.072 Urine Drug Screen - Test Device Lot number: [id number] Expiration date: 01/14/21 - Control Is test valid?: Yes - Results Drug screen NEGATIVE: No Urine drug screen results: THC-Marijuana, SERAFIN-Cocaine, BZO-Benzodiazepines Inpatient Rehab Admission - Rehab Decision to Admit Inpatient rehab admission?: No
[2019-04-26] MEDS ORDERED: MAG HYDROX/AL HYDROX/SIMETH 30 ML UNIT-DOSE CUP PO PRN (20:50)
[2019-04-26] MEDS ORDERED: MENTHOL/PHENOL 1 EACH UD MM PRN (20:50)
[2019-04-26] MEDS ORDERED: METHOCARBAMOL 500 MG TABLET PO PRN (20:50)
[2019-04-26] MEDS ORDERED: ACETAMINOPHEN 325 MG TABLET (FP) PO PRN ×2 (20:50)
[2019-04-26] MEDS ORDERED: MAGNESIUM CITRATE 300 ML BOTTLE PO PRN (20:50)
[2019-04-26] MEDS ORDERED: IBUPROFEN 400 MG TABLET (FP) PO PRN (20:50)
[2019-04-26] MEDS ORDERED: NICOTINE POLACRILEX 2 MG GUM BUC PRN (20:50)
[2019-04-26] MEDS ORDERED: MAGNESIUM HYDROX 2400MG/30ML ORAL SUSPENSION 30 ML CUP PO PRN (20:50)
[2019-04-26] MEDS ORDERED: chlordiazePOXIDE HCL 25 MG CAPSULE PO PRN (20:50)
[2019-04-26] MEDS ORDERED: cloNIDine HCL 0.1 MG TABLET PO ONE (21:15)
[2019-04-26] MEDS: chlordiazePOXIDE HCL 25 MG CAPSULE PO SCH (22:11)
[2019-04-26] MEDS: MELATONIN 5 MG TABLETS PO PRN (22:11)
[2019-04-26] MEDS: THIAMINE HCL 100 MG TABLET (FP) PO SCH (22:11)
[2019-04-27] MEDS: chlordiazePOXIDE HCL 25 MG CAPSULE PO SCH ×4 (05:12→22:15)
--- NOTE | 2019-04-27 10:25 | PN ---
S CIWA - CIWA Score Nausea/Vomitin-No Nausea/No Vomiting Muscle Tremors: 3 Anxiety: 3 Agitation: 3 Paroxysmal Sweats: 3 Orientation: 0-Oriented Tacttile Disturbances: 0-None Auditory Disturbances: 0-None Visual Disturbances: 0-None Headache: 0-None Present CIWA-Ar Total Score: 12 BHS Progress Note (SOAP) Subjective: sweats mild shakes tired body aches anxiety Objective: 04/27/19 10:25 Vital Signs Temperature 97.7 F 04/27/19 09:36 Pulse Rate 60 04/27/19 09:36 Respiratory Rate 18 04/27/19 09:36 Blood Pressure 180/98 H 04/27/19 09:36 O2 Sat by Pulse Oximetry (%) pending labs aaox3 ambulating no acute distress Assessment: 04/27/19 10:25 withdrawals Plan: continue detox increase fluids pending labs
[2019-04-27] MEDS: PRENATAL VITAMINS W/ FOLIC ACID TABLET (FP) PO SCH (10:47)
[2019-04-27] MEDS: amLODIPine BESYLATE 5 MG TABLET (FP) PO SCH (10:47)
[2019-04-27] MEDS: NICOTINE 14 MG/24 HOURS TOPICAL PATCH TD SCH (10:49)
--- NOTE | 2019-04-27 10:53 | CONSULT ---
[facility] Psychiatric Consult - Data Date of interview: 04/27/19 Admission source: Self-referred Identifying data: Mr Taylor is a 58 years old Black male, unemployed receiving SSI, homeless seeking detox treatment for alcohol, crack cocaine and cannabis Substance Abuse History: Reports history of alcohol, crack cocaine and marijuana use. Refer to addiction counselor's summary for further information Medical History: Significant for hypertension, dyslipidemia, HIV since 1989, neuropathy, chronic back pain, history of treatment for syphilis and hepatitis C. Smokes 10 cigarettes daily Psychiatric History: Patient is known to medical writer from a recent encounter on during an admission to this facility. Historical narrative remains consistent. Reports that his first psychiatric contact was in November- December 2018 while at [facility] for inpatient rehab. He was diagnosed with depression and insomnia and started on Zoloft 50 mg/day and Trazadone 100 mg/hs. While in detox in this facility recently in early February 2019, he saw medical writer and he was prescribed Trazadone 100 mg/hs. Claims that he has been off medication since discharge. Denies previous psychiatric hospitalization or suicidal attempt. At present, reports feeling depressed, anxious, mildly irritable and sleepig poorly Physical/Sexual Abuse/Trauma History: Denies history of emotional, physical or sexual abuse as well as DV relationship. Additional Comment: Reports a few misdemeanor arrests Mental Status Exam - Mental Status Exam Alert and Oriented to: Time, Place, Person Cognitive Function: Fair Patient Appearance: Disheveled Mood: Depressed, Anxious, Irritable Patient Behavior: Cooperative Speech Pattern: Clear Voice Loudness: Normal Thought Process: Intact, Goal Oriented Thought Disorder: Not Present Hallucinations: Denies Suicidal Ideation: Denies Homicidal Ideation: Denies Insight/Judgement: Poor Sleep: Poorly Appetite: Good Muscle strength/Tone: Normal Gait/Station: Normal Psychiatric Findings - Problem List ([place] 1, 2,3) (1) Substance induced mood disorder Current Visit: Yes Status: Acute (2) Substance-induced sleep disorder Current Visit: No Status: Acute (3) Alcohol dependence with uncomplicated withdrawal Current Visit: Yes Status: Acute (4) Cannabis dependence, uncomplicated Current Visit: Yes Status: Acute (5) Cocaine dependence, uncomplicated Current Visit: Yes Status: Acute (6) Nicotine dependence Current Visit: No Status: Chronic Qualifiers: Nicotine product type: cigarettes Substance use status: uncomplicated Qualified Code(s): F17.210 - Nicotine dependence, cigarettes, uncomplicated (7) Essential hypertension Current Visit: Yes Status: Chronic (8) HIV (human immunodeficiency virus infection) Current Visit: Yes Status: Chronic Qualifiers: HIV symptom status: unspecified Qualified Code(s): B20 - Human immunodeficiency virus [HIV] disease (9) hypercholesterolemia Current Visit: Yes Status: Chronic (10) History of hepatitis C Current Visit: Yes Status: Resolved (11) Neuropathy Current Visit: No Status: Chronic - Initial Treatment Plan Initial Treatment Plan: 1) Resume Trazadone 100 mg po HS. 2) Continue inpatient detoxification
[2019-04-27 12:23] LABS: HEMATOCRIT 49.2 % (35.4-49); HEMOGLOBIN 16.6 GM/dL (11.7-16.9); MCH 31.4 pg (25.7-33.7); MCHC 33.7 g/dl (32.0-35.9); MEAN CELL VOLUME 93.2 fl (80-96); MEAN PLT VOLUME 8.9 fl (7.5-11.1); PLATELET COUNT 140 K/MM3 (134-434); RBC 5.28 M/mm3 (4.00-5.60); RDW 15.7 % (11.9-15.9); WHITE BLOOD COUNT 3.2 K/mm3 (4.0-10.0)
[2019-04-27 12:46] LABS: ALBUMIN 3.4 g/dl (3.4-5.0); BLOOD UREA NITROGEN 11.5 mg/dL (7-18); CALCIUM 9.1 mg/dL (8.5-10.1); CREATININE 0.9 mg/dL (0.55-1.3); POTASSIUM 3.3 mmol/L (3.5-5.1); TOT PROT 6.8 g/dl (6.4-8.2)
--- NOTE | 2019-04-27 13:29 | EKG ---
Test Reason : Blood Pressure : / mmHG Vent. Rate : 058 BPM Atrial Rate : 058 BPM P-R Int : 170 ms QRS Dur : 098 ms QT Int : 422 ms P-R-T Axes : 069 042 051 degrees QTc Int : 414 ms SINUS BRADYCARDIA MODERATE VOLTAGE CRITERIA FOR LVH, MAY BE NORMAL VARIANT BORDERLINE ECG WHEN COMPARED WITH ECG OF 29-MAY-2018 12:40, NO SIGNIFICANT CHANGE WAS FOUND Confirmed by SINDY GOODEN, MASOOD ([id number]) on 04/27/2019 1:28:53 PM Referred By: Confirmed By:MASOOD CALLAHAN MD
--- NOTE | 2019-04-27 14:06 | PN ---
BHS Progress Note Note: mild hypokalemia 3.3; kdur 20meq x 3 days ordered.
[2019-04-27] MEDS: POTASSIUM CHLORIDE TABS 20 MEQ TABLET.ER (FP) PO SCH (14:29)
[2019-04-27 15:00] LABS: RPR REACTIVE 1:2 (NONREACTIVE)
[2019-04-27 15:03] LABS: TREPONEMA ANTIBODY PREVIOUSLY REACTIVE (NONREACTIVE)
[2019-04-27] MEDS ORDERED: amLODIPine BESYLATE 5 MG TABLET (FP) PO ONE (15:45)
[2019-04-27] MEDS: HYDROCHLOROTHIAZIDE 12.5 MG CAPSULE (FP) PO SCH (15:53)
[2019-04-27] MEDS: traZODone HCL 100 MG TABLET (FP) PO SCH (22:14)
[2019-04-27] MEDS: THIAMINE HCL 100 MG TABLET (FP) PO SCH (22:15)
[2019-04-27] MEDS: BISMUTH SUBSALICYLATE 524 MG/30 ML UD PO PRN (22:17)
[2019-04-28] MEDS: chlordiazePOXIDE HCL 25 MG CAPSULE PO SCH ×4 (06:00→22:04)
[2019-04-28] MEDS: HYDROCHLOROTHIAZIDE 12.5 MG CAPSULE (FP) PO SCH (10:08)
[2019-04-28] MEDS: NICOTINE 14 MG/24 HOURS TOPICAL PATCH TD SCH (10:08)
[2019-04-28] MEDS: PRENATAL VITAMINS W/ FOLIC ACID TABLET (FP) PO SCH (10:08)
[2019-04-28] MEDS: POTASSIUM CHLORIDE TABS 20 MEQ TABLET.ER (FP) PO SCH (10:08)
[2019-04-28] MEDS: amLODIPine BESYLATE 10 MG TABLET (FP) PO SCH (10:51)
[2019-04-28] MEDS: amLODIPine BESYLATE 5 MG TABLET (FP) PO SCH (11:01)
--- NOTE | 2019-04-28 12:21 | PN ---
S CIWA - CIWA Score Nausea/Vomitin-No Nausea/No Vomiting Muscle Tremors: 3 Anxiety: 2 Agitation: 2 Paroxysmal Sweats: 2 Orientation: 0-Oriented Tacttile Disturbances: 0-None Auditory Disturbances: 0-None Visual Disturbances: 0-None Headache: 0-None Present CIWA-Ar Total Score: 9 BHS Progress Note (SOAP) Subjective: mild shakes little sweats feeling better Objective: 04/28/19 12:21 Vital Signs Temperature 97.3 F L 04/28/19 09:29 Pulse Rate 72 04/28/19 09:29 Respiratory Rate 18 04/28/19 09:29 Blood Pressure 130/84 04/28/19 09:29 O2 Sat by Pulse Oximetry (%) Laboratory Tests 04/27/19 04/27/19 04/27/19 09:00 09:00 09:00 WBC 3.2 L RBC 5.28 Hgb 16.6 Hct 49.2 H MCV 93.2 MCH 31.4 MCHC 33.7 RDW 15.7 Plt Count 140 MPV 8.9 Sodium 141 Potassium 3.3 L Chloride 106 Carbon Dioxide 27 Anion Gap 7 L BUN 11.5 Creatinine 0.9 Est GFR (CKD-EPI)AfAm 108.73 Est GFR (CKD-EPI)NonAf 93.82 Random Glucose 74 Calcium 9.1 Total Bilirubin 1.0 AST 49 H ALT 41 Alkaline Phosphatase 89 Total Protein 6.8 Albumin 3.4 RPR Titer Reactive 1:2 H T.pallidum Ab (MHA) Previously reactive labs noted pt is currently ordered potassium will repeat potassium lab aaox3 ambulating no acute distress Assessment: 04/28/19 12:22 mild withdrawals Plan: continue detox increase fluids repeat potassium
[2019-04-28] MEDS: BISMUTH SUBSALICYLATE 524 MG/30 ML UD PO PRN (16:24)
[2019-04-28] MEDS: THIAMINE HCL 100 MG TABLET (FP) PO SCH (22:04)
[2019-04-28] MEDS: traZODone HCL 100 MG TABLET (FP) PO SCH (22:04)
[2019-04-28] MEDS: hydrOXYzine PAMOATE 25 MG CAPSULE (FP) PO PRN (23:54)
[2019-04-28] MEDS: MELATONIN 5 MG TABLETS PO PRN (23:54)
[2019-04-29] MEDS ORDERED: chlordiazePOXIDE HCL 10 MG CAPSULE PO PRN
[2019-04-29] MEDS: chlordiazePOXIDE HCL 10 MG CAPSULE PO SCH ×4 (06:42→22:11)
[2019-04-29] MEDS: NICOTINE 14 MG/24 HOURS TOPICAL PATCH TD SCH (10:16)
[2019-04-29] MEDS: POTASSIUM CHLORIDE TABS 20 MEQ TABLET.ER (FP) PO SCH (10:17)
[2019-04-29] MEDS: HYDROCHLOROTHIAZIDE 12.5 MG CAPSULE (FP) PO SCH (10:17)
[2019-04-29] MEDS: amLODIPine BESYLATE 10 MG TABLET (FP) PO SCH (10:17)
[2019-04-29] MEDS: PRENATAL VITAMINS W/ FOLIC ACID TABLET (FP) PO SCH (10:17)
[2019-04-29] MEDS: BISMUTH SUBSALICYLATE 524 MG/30 ML UD PO PRN (10:19)
--- NOTE | 2019-04-29 10:48 | PN ---
[facility] CIWA - CIWA Score Nausea/Vomitin-No Nausea/No Vomiting Muscle Tremors: 2 Anxiety: 1-Mildly Anxious Agitation: 1-Slight > Activity Paroxysmal Sweats: 1-Minimal Palms Moist Orientation: 0-Oriented Tacttile Disturbances: 0-None Auditory Disturbances: 0-None Visual Disturbances: 0-None Headache: 0-None Present CIWA-Ar Total Score: 5 BHS Progress Note (SOAP) Subjective: tired Objective: 04/29/19 10:47 Vital Signs Temperature 98.1 F 04/29/19 09:36 Pulse Rate 77 04/29/19 09:36 Respiratory Rate 18 04/29/19 09:36 Blood Pressure 138/89 04/29/19 09:36 O2 Sat by Pulse Oximetry (%) aaox3 ambulating no acute distress Assessment: 04/29/19 10:47 withdrawal sx Plan: continue detox increase fluids
[2019-04-29] MEDS: THIAMINE HCL 100 MG TABLET (FP) PO SCH (22:11)
[2019-04-29] MEDS: traZODone HCL 100 MG TABLET (FP) PO SCH (22:11)
[2019-04-29] MEDS: MELATONIN 5 MG TABLETS PO PRN (22:12)
[2019-04-30] MEDS: chlordiazePOXIDE HCL 10 MG CAPSULE PO SCH ×2 (05:51→17:36)
[2019-04-30] MEDS: PRENATAL VITAMINS W/ FOLIC ACID TABLET (FP) PO SCH (10:19)
[2019-04-30] MEDS: POTASSIUM CHLORIDE TABS 20 MEQ TABLET.ER (FP) PO SCH (10:19)
[2019-04-30] MEDS: amLODIPine BESYLATE 10 MG TABLET (FP) PO SCH (10:19)
[2019-04-30] MEDS: hydrOXYzine PAMOATE 25 MG CAPSULE (FP) PO PRN ×2 (10:21→17:39)
[2019-04-30] MEDS: NICOTINE 14 MG/24 HOURS TOPICAL PATCH TD SCH (10:22)
[2019-04-30] MEDS: HYDROCHLOROTHIAZIDE 12.5 MG CAPSULE (FP) PO SCH (10:22)
--- NOTE | 2019-04-30 12:23 | PN ---
S CIWA - CIWA Score Nausea/Vomitin-No Nausea/No Vomiting Muscle Tremors: None Anxiety: 0-No Anxiety, at Ease Agitation: 0-Normal Activity Paroxysmal Sweats: 2 Orientation: 0-Oriented Tacttile Disturbances: 0-None Auditory Disturbances: 0-None Visual Disturbances: 0-None Headache: 2-Mild CIWA-Ar Total Score: 4 BHS Progress Note (SOAP) Subjective: c/o headache and mild sweats. Objective: 04/30/19 12:22 Vital Signs 04/30/19 04/30/19 07:18 09:22 Temperature 97.7 F 97.9 F Pulse Rate 63 88 Respiratory 18 18 Rate Blood Pressure 127/83 144/86 Assessment: 04/30/19 12:22 AOX3, in no acute respiratory distress. Full ROM, ambulating in the unit. mild withdrawal symptoms. For D/C 05/01/19 04/30/19 12:22 Plan: continue detox. D/C in AM.
[2019-04-30] MEDS: THIAMINE HCL 100 MG TABLET (FP) PO SCH (21:28)
[2019-04-30] MEDS: traZODone HCL 100 MG TABLET (FP) PO SCH (21:29)
[2019-04-30] MEDS: MELATONIN 5 MG TABLETS PO PRN (22:10)
[2019-05-01] MEDS ORDERED: chlordiazePOXIDE HCL 10 MG CAPSULE PO ONE (05:00)
[2019-05-01] MEDS: amLODIPine BESYLATE 10 MG TABLET (FP) PO SCH (10:12)
[2019-05-01] MEDS: NICOTINE 14 MG/24 HOURS TOPICAL PATCH TD SCH (10:13)
[2019-05-01] MEDS: PRENATAL VITAMINS W/ FOLIC ACID TABLET (FP) PO SCH (11:36)
[2019-05-01] MEDS: HYDROCHLOROTHIAZIDE 12.5 MG CAPSULE (FP) PO SCH (11:36)
--- NOTE | 2019-05-01 15:09 | DS ---
[facility] Detox Discharge Summary Admission Date: 04/26/19 Discharge Date: 05/01/19 - History Present History: Alcohol Dependence - Physical Exam Results Vital Signs: Vital Signs Temperature 97.0 F L 05/01/19 13:39 Pulse Rate 80 05/01/19 13:39 Respiratory Rate 18 05/01/19 13:39 Blood Pressure 142/75 05/01/19 13:39 O2 Sat by Pulse Oximetry (%) Pertinent Admission Physical Exam Findings: ROS: denies chest pain, sob, sweating and dizziness. PE: alert and oriented x 3 skin warm and dry +perrla, eoms intact bl gi nt, nd ext full rom, no tremors - Treatment Hospital Course: Detox Protocol Followed, Detoxed Safely, Responded well, Discharged Condition Good - Medication Discharge Medications: Ambulatory Orders Darunavir/Cobicistat [Prezcobix 800 mg-150 mg Tablet] 1 each PO DAILY 01/03/19 Dolutegravir Sodium [Tivicay] 50 mg PO DAILY 01/03/19 Sertraline HCl 50 mg PO DAILY 01/03/19 traZODone HCL [Trazodone HCl] 100 mg PO HS 01/03/19 Amlodipine Besylate 5 mg PO DAILY #14 tablet 05/01/19 Hydrochlorothiazide [Hctz -] 12.5 mg PO DAILY #14 cap 05/01/19 - AMA Did Patient Leave Against Medical Advice: No
[2019-05-01 17:53] VITALS: BP 133/74; PULSE 88; TEMP 98.1
== END 2019-05-01 18:48 | disposition home or self-care (01) | DRG 774 ==
LOC: YASAS 14:43 → Y6N 21:10
PROVIDERS: ADMIT Surgery; ATTEND Surgery
PROC: HZ2ZZZZ Detoxification Services for Substance Abuse Treatment (ICD-10-PCS; principal; 2019-04-26)
DX: F10.230 Alcohol dependence with withdrawal, uncomplicated (principal); F14.20 Cocaine dependence, uncomplicated; F12.20 Cannabis dependence, uncomplicated; F17.210 Nicotine dependence, cigarettes, uncomplicated; F19.24 Other psychoactive substance dependence with psychoactive substance-induced mood disorder; F19.282 Other psychoactive substance dependence with psychoactive substance-induced sleep disorder; F32.9 Major depressive disorder, single episode, unspecified; I10 Essential (primary) hypertension; E87.6 Hypokalemia; E78.5 Hyperlipidemia, unspecified; Z21 Asymptomatic human immunodeficiency virus [HIV] infection status; G62.9 Polyneuropathy, unspecified; M54.5 Low back pain; G89.29 Other chronic pain; Z87.438 Personal history of other diseases of male genital organs; Z86.19 Personal history of other infectious and parasitic diseases
CPT/HCPCS: 36415; 80053; 84132; 85027; 86593; 86780; 93005; 93010; J0735

== ENCOUNTER 2019-10-30 14:41 | Inpatient (IN) | payer OTHER ==
--- NOTE | 2019-10-30 16:34 | BHS.RME ---
Substance Use & Tx History - Last Treatment Where was last treatment: Detox (" I don't remember") Physical/Psych/Mental Status - Behavior Eye Contact: Decreased - Cooperativeness Cooperativeness: Reluctant - Thinking Thought Processes: Logical - Physical Health Problems Is patient presently having any pain?: No Does patient presently have any injuries (include location): No Does patient currently have a fever: No CIWA Nausea/Vomitin Muscle Tremors: None Anxiety: 2 Agitation: 2 Paroxysmal Sweats: No Perspiration Orientation: 2-Disoriented Date<2 days Tacttile Disturbances: 0-None Auditory Disturbances: 1-Very Mild Visual Disturbances: 1-Very Mild Sensitivity Headache: 2-Mild CIWA-Ar Total Score: 12
--- NOTE | 2019-10-30 16:37 | HP ---
CIWA Score Nausea/Vomitin Muscle Tremors: None Anxiety: 2 Agitation: 2 Paroxysmal Sweats: No Perspiration Orientation: 2-Disoriented Date<2 days Tacttile Disturbances: 0-None Auditory Disturbances: 1-Very Mild Visual Disturbances: 1-Very Mild Sensitivity Headache: 2-Mild CIWA-Ar Total Score: 12 - Admission Criteria OASAS Guidelines: Admission for Medically Managed Detox: Requires at least one of the followin. CIWA greater than 12 2. Seizures within the past 24 hours 3. Delirium tremens within the past 24 hours 4. Hallucinations within the past 24 hours 5. Acute intervention needed for co occurring medical disorder 6. Acute intervention needed for co occurring psychiatric disorder 7. Severe withdrawal that cannot be handled at a lower level of care (continued vomiting, continued diarrhea, abnormal vital signs) requiring intravenous medication and/or fluids 8. Admitting History and Physical - Smoking History Smoking history: Current every day smoker Have you smoked in the past 12 months: Yes Aproximately how many cigarettes per day: 10 - Alcohol/Substance Use Hx Alcohol Use: Yes Admission ROS S - HPI Allergies/Adverse Reactions: Allergies Allergy/AdvReac Type Severity Reaction Status Date / Time No Known Allergies Allergy Verified 04/07/19 17:58 History of Present Illness: 59 y.o. male w/ etoh use , reports 3 pints /day , latest use today , denies seizures, blackouts or tremors . PMHx HIV+, hypertension, hyperlipidemia, syphilis, Hep C (treated) depression Exam Limitations: Clinical Condition - Review of Systems Constitutional: No Symptoms Reported EENT: reports: No Symptoms Reported Respiratory: reports: No Symptoms reported Cardiac: reports: No Symptoms Reported GI: reports: Nausea : reports: No Symptoms Reported Musculoskeletal: reports: No Symptoms Reported Integumentary: reports: No Symptoms Reported Neuro: reports: See HPI, Headache Endocrine: reports: No Symptoms Reported Hematology: reports: No Symptoms Reported Psychiatric: reports: Agitated, Anxious Patient History - Patient Medical History Hx Anemia: No Hx Asthma: No Hx Chronic Obstructive Pulmonary Disease (COPD): No Hx Cancer: No Hx Cardiac Disorders: No Hx Congestive Heart Failure: No Hx Hypertension: Yes (on med) Hx Hypercholesterolemia: Yes (on med) Hx Pacemaker: No HX Cerebrovascular Accident: No Hx Seizures: No Hx Dementia: No Hx Diabetes: No Hx Gastrointestinal Disorders: No Hx Liver Disease: No Hx Genitourinary Disorders: No Hx Sexually Transmitted Disorders: Yes (treated for syphylis years ago) Hx Renal Disease (ESRD): No Hx Thyroid Disease: No Hx Human Immunodeficiency Virus (HIV): Yes (SHARING NEEDLES ON MEDS) Hx Hepatitis C: Yes (TREATED IN 2014) Hx Depression: Yes (never treated) Hx Suicide Attempt: No (Denies suicidal ideation at this time) Hx Bipolar Disorder: No Hx Schizophrenia: No - Patient Surgical History Past Surgical History: No Hx Neurologic Surgery: No Hx Cataract Extraction: No Hx Cardiac Surgery: No Hx Lung Surgery: No Hx Breast Surgery: No Hx Breast Biopsy: No Hx Abdominal Surgery: No Hx Appendectomy: No Hx Cholecystectomy: No Hx Genitourinary Surgery: No Hx Section: No Hx Orthopedic Surgery: No Anesthesia Reaction: No - PPD History Date: 11/20/18 Results: 0 mm - Smoking Cessation Smoking history: Current every day smoker Have you smoked in the past 12 months: Yes Aproximately how many cigarettes per day: 10 Cigars Per Day: 0 Hx Chewing Tobacco Use: No Initiated information on smoking cessation: Yes 'Breaking Loose' booklet given: 10/30/19 Admission Physical Exam S - Physical General Appearance: Yes: Disheveled, Mild Distress, Intoxicated, Anxious HEENTM: Yes: EOMI, Hearing grossly Normal, Normocephalic, Normal Voice, Other (poor dentition, many misisng teeth) Respiratory: Yes: Chest Non-Tender, Lungs Clear, Normal Breath Sounds, No Respiratory Distress, No Accessory Muscle Use Neck: Yes: No masses,lesions,Nodules, Trachea in good position Cardiology: Yes: Regular Rhythm, Regular Rate, S1, S2 Abdominal: Yes: Non Tender, Soft Musculoskeletal: Yes: full range of Motion, Gait Steady Extremities: Yes: Normal Range of Motion, Non-Tender Neurological: Yes: Alert, Motor Strength 5/5, Normal Mood/Affect Integumentary: Yes: Warm - Diagnostic (1) Alcohol dependence with uncomplicated withdrawal Current Visit: Yes Status: Chronic (2) Cannabis dependence, uncomplicated Current Visit: Yes Status: Chronic (3) Nicotine dependence Current Visit: Yes Status: Chronic Qualifiers: Nicotine product type: cigarettes Breathalyzer - Breathalyzer Breathalyzer: 0.072 Urine Drug Screen - Test Device Lot number: [id number] Expiration date: 01/14/21 - Control Is test valid?: Yes - Results Drug screen NEGATIVE: No Urine drug screen results: THC-Marijuana, SERAFIN-Cocaine, BZO-Benzodiazepines Inpatient Rehab Admission - Rehab Decision to Admit Inpatient rehab admission?: No
[2019-10-30] MEDS ORDERED: MAGNESIUM HYDROX 2400MG/30ML ORAL SUSPENSION 30 ML CUP PO PRN (16:59)
[2019-10-30] MEDS ORDERED: MENTHOL/PHENOL 1 EACH UD MM PRN (16:59)
[2019-10-30] MEDS ORDERED: MAGNESIUM CITRATE 300 ML BOTTLE PO PRN (16:59)
[2019-10-30] MEDS ORDERED: ACETAMINOPHEN 325 MG TABLET (FP) PO PRN (16:59)
[2019-10-30] MEDS ORDERED: BISMUTH SUBSALICYLATE 524 MG/30 ML UD PO PRN (16:59)
[2019-10-30] MEDS ORDERED: MAG HYDROX/AL HYDROX/SIMETH 30 ML UNIT-DOSE CUP PO PRN (16:59)
[2019-10-30 17:07] VITALS: BMI 24.0
[2019-10-30] MEDS: diazePAM 5 MG TABLET PO PRN (18:15)
[2019-10-30] MEDS: diazePAM 5 MG TABLET PO SCH (22:24)
[2019-10-30] MEDS: MELATONIN 5 MG TABLETS PO PRN (22:24)
[2019-10-30] MEDS: THIAMINE HCL 100 MG TABLET (FP) PO SCH (22:24)
[2019-10-30] MEDS: ACETAMINOPHEN 325 MG TABLET (FP) PO PRN (22:25)
[2019-10-31] MEDS: diazePAM 5 MG TABLET PO PRN (00:57)
[2019-10-31] MEDS: IBUPROFEN 400 MG TABLET (FP) PO PRN ×2 (01:00→22:20)
[2019-10-31] MEDS: diazePAM 5 MG TABLET PO SCH ×3 (05:12→22:19)
--- NOTE | 2019-10-31 09:03 | PN ---
S CIWA - CIWA Score Nausea/Vomitin-No Nausea/No Vomiting Muscle Tremors: 2 Anxiety: 3 Agitation: 1-Slight > Activity Paroxysmal Sweats: 2 Orientation: 0-Oriented Tacttile Disturbances: 0-None Auditory Disturbances: 0-None Visual Disturbances: 2-Mild Sensitivity Headache: 0-None Present CIWA-Ar Total Score: 10 S Progress Note (SOAP) Subjective: 59 years old male admitted on 10/30/19 for alcohol withdrawal sx management treating with valium detox regiment ate breakfast resting in bed feeling tired limited conversation with staff Objective: 10/31/19 09:02 Vital Signs Temperature 97.3 F L 10/31/19 05:07 Pulse Rate 68 10/31/19 05:07 Respiratory Rate 18 10/31/19 05:07 Blood Pressure 127/76 10/31/19 05:07 O2 Sat by Pulse Oximetry (%) 10/31/19 09:02 lab pending Assessment: 10/31/19 09:02 alcohol withdrawal Plan: librium regiment
[2019-10-31] MEDS ORDERED: PRENATAL VITAMINS W/ FOLIC ACID TABLET (FP) PO SCH (10:00)
[2019-10-31] MEDS ORDERED: amLODIPine BESYLATE 5 MG TABLET (FP) PO SCH (10:00)
[2019-10-31] MEDS ORDERED: PATIENT'S OWN MEDICATION (NON-FORMULARY) (Dolutegravir Sodium [Tivicay] 50 MG) PO SCH (10:00)
[2019-10-31] MEDS: ACETAMINOPHEN 325 MG TABLET (FP) PO PRN ×2 (10:26→16:20)
[2019-10-31 10:29] LABS: HEMATOCRIT 46.5 % (35.4-49); HEMOGLOBIN 15.8 GM/dL (11.7-16.9); MCH 31.5 pg (25.7-33.7); MCHC 34.1 g/dl (32.0-35.9); MEAN CELL VOLUME 92.4 fl (80-96); MEAN PLT VOLUME 8.3 fl (7.5-11.1); PLATELET COUNT 170 K/MM3 (134-434); RBC 5.03 M/mm3 (4.00-5.60); RDW 13.8 % (11.9-15.9)
[2019-10-31 10:41] LABS: BILIRUBIN,TOTAL 0.5 mg/dL (0.2-1); CALCIUM 8.6 mg/dL (8.5-10.1); CREATININE 0.8 mg/dL (0.55-1.3); POTASSIUM 3.6 mmol/L (3.5-5.1); TOT PROT 6.6 g/dl (6.4-8.2)
[2019-10-31 11:17] LABS: RPR REFLEX REACTIVE 1:1 (NONREACTIVE)
[2019-10-31 11:19] LABS: TREPONEMA ANTIBODY PREVIOUSLY REACTIVE (NONREACTIVE)
--- NOTE | 2019-10-31 15:40 | CONSULT ---
[facility] Psychiatric Consult - Data Date of interview: 10/31/19 Admission source: [facility] Identifying data: Readmission to [address] [place] [address] for this 59 y/o AA male self-referred for detoxification treatment. REN issues : alcohol, cannabis, cocaine, nicotine. Patient is single without children, domiciled ([facility] setting), unemployed and supported on SSI benefits. Substance Abuse History: Discussed with the patient. REN profile as follows : patient spends approximately 40-50 dollars on cocaine (3-4 times a week) since age 39. Has been using cannabis since age 12 (daily). Smokes 10-15 cigarettes a day. Reports onset of ETOH abuse at age 12. Consumes 2-3 pints of vodka daily + 40 ounces of beer. Smoking history: Current every day smoker. Have you smoked in the past 12 months: Yes. Aproximately how many cigarettes per day: 10. Cigars Per Day: 0. Hx Chewing Tobacco Use: No. Initiated information on smoking cessation: Yes. 'Breaking Loose' booklet given: 10/30/19 Medical History: Medical profile is remarkable for dyslipidemia, HIV infection since 1989, hypertension, hepatitis C and history of treatment for syphilis. Psychiatric History: Patient denies history of psychiatric hospitalizations, OPD care or suicide attempts. Mr Taylor reports that he has been diagnosed with MDD + chronic insomnia during his stay at [facility] (rehabilitation unit) in December 2018 (first contact with a mental health provider). Was started on sertraline + trazodone. Patient has become known for his chronic non-adherence to psychiatric aftercare. Physical/Sexual Abuse/Trauma History: Patient denies history of substance abuse. Additional Comment: Urine drug screen results: THC-Marijuana, SERAFIN-Cocaine, BZO- Benzodiazepines Mental Status Exam - Mental Status Exam Alert and Oriented to: Time, Place, Person Cognitive Function: Good Patient Appearance: Unkempt, Disheveled (poor oral hygiene) Mood: Hopeful, Irritable Affect: Appropriate, Normal Range Patient Behavior: Fatigued, Appropriate, Cooperative Speech Pattern: Clear Voice Loudness: Normal Thought Process: Intact, Goal Oriented Thought Disorder: Not Present Hallucinations: Denies Suicidal Ideation: Denies Homicidal Ideation: Denies Insight/Judgement: Poor Sleep: Poorly, Difficulty falling asleep Appetite: Good Gait/Station: Normal Psychiatric Findings - Problem List (Antoine 1, 2,3) (1) Alcohol dependence with uncomplicated withdrawal Current Visit: Yes Status: Acute (2) Cannabis dependence, uncomplicated Current Visit: Yes Status: Chronic (3) Cocaine dependence, uncomplicated Current Visit: Yes Status: Chronic (4) Nicotine dependence Current Visit: Yes Status: Chronic Qualifiers: Nicotine product type: cigarettes (5) Substance induced mood disorder Current Visit: Yes Status: Chronic (6) Insomnia Current Visit: Yes Status: Chronic (7) Non-compliance Current Visit: Yes Status: Chronic - Initial Treatment Plan Initial Treatment Plan: Psychoeducation. Sleep hygiene. Detoxification. Resumed, at patient's request : trazodone 100 mg po hs + zoloft 50 mg po daily. Side effects/benefits of both drugs are discussed with the patient. Mr Taylor is in agreement with this plan of care. Informed consent is granted to MD. Landaverde.
[2019-10-31] MEDS ORDERED: traZODone HCL 100 MG TABLET (FP) PO SCH (22:00)
[2019-10-31] MEDS: MELATONIN 5 MG TABLETS PO PRN (22:19)
[2019-10-31] MEDS: THIAMINE HCL 100 MG TABLET (FP) PO SCH (22:19)
[2019-11-01] MEDS ORDERED: diazePAM 5 MG TABLET PO ONE (06:00)
--- NOTE | 2019-11-01 09:09 | DS ---
[facility] Detox Discharge Summary Admission Date: 10/30/19 Discharge Date: 11/01/19 - History Present History: Alcohol Dependence Additional Comments: 59 years old male admitted on 10/30/19 for alcohol withdrawal sx management treated with valium detox regiment Mr Taylor has completed the valium detox regiment and is tolerated well seen by psychiatrist resume trazadone and zoloft alert oriented x 3 ambulating with cane steady gait respiratory clear lungs bilaterally on auscultation abdomen soft no rebound tenderness skin warm and dry Pertinent Past History: time for discharge 35 minutes - Physical Exam Results Vital Signs: Vital Signs Temperature 97.7 F 11/01/19 06:24 Pulse Rate 65 11/01/19 06:24 Respiratory Rate 18 11/01/19 06:31 Blood Pressure 140/82 11/01/19 06:24 O2 Sat by Pulse Oximetry (%) Pertinent Admission Physical Exam Findings: alcohol withdrawal Vital Signs Temperature 97.6 F 11/01/19 08:45 Pulse Rate 78 11/01/19 08:45 Respiratory Rate 18 11/01/19 08:45 Blood Pressure 144/87 11/01/19 08:45 O2 Sat by Pulse Oximetry (%) Laboratory Last Values WBC 3.0 K/mm3 (4.0-10.0) L 10/31/19 07:00 RBC 5.03 M/mm3 (4.00-5.60) 10/31/19 07:00 Hgb 15.8 GM/dL (11.7-16.9) 10/31/19 07:00 Hct 46.5 % (35.4-49) 10/31/19 07:00 MCV 92.4 fl (80-96) 10/31/19 07:00 MCH 31.5 pg (25.7-33.7) 10/31/19 07:00 MCHC 34.1 g/dl (32.0-35.9) 10/31/19 07:00 RDW 13.8 % (11.9-15.9) D 10/31/19 07:00 Plt Count 170 K/MM3 (134-434) D 10/31/19 07:00 MPV 8.3 fl (7.5-11.1) 10/31/19 07:00 Sodium 139 mmol/L (136-145) 10/31/19 07:00 Potassium 3.6 mmol/L (3.5-5.1) 10/31/19 07:00 Chloride 106 mmol/L (98-107) 10/31/19 07:00 Carbon Dioxide 27 mmol/L (21-32) 10/31/19 07:00 Anion Gap 6 MMOL/L (8-16) L 10/31/19 07:00 BUN 15.0 mg/dL (7-18) 10/31/19 07:00 Creatinine 0.8 mg/dL (0.55-1.3) 10/31/19 07:00 Est GFR (CKD-EPI)AfAm 113.33 10/31/19 07:00 Est GFR (CKD-EPI)NonAf 97.78 10/31/19 07:00 Random Glucose 82 mg/dL (74-106) 10/31/19 07:00 Calcium 8.6 mg/dL (8.5-10.1) 10/31/19 07:00 Total Bilirubin 0.5 mg/dL (0.2-1) 10/31/19 07:00 AST 31 U/L (15-37) 10/31/19 07:00 ALT 40 U/L (13-61) 10/31/19 07:00 Alkaline Phosphatase 134 U/L (45-117) H 10/31/19 07:00 Total Protein 6.6 g/dl (6.4-8.2) 10/31/19 07:00 Albumin 3.0 g/dl (3.4-5.0) L 10/31/19 07:00 RPR Titer Reactive 1:1 (NONREACTIVE) H D 10/31/19 07:00 T.pallidum Ab (MHA) Previously reactive (NONREACTIVE) 10/31/19 07:00 lab noted patient will return to infectious disease primary care provider for medical follow low wbc hypertension - Treatment Hospital Course: Detox Protocol Followed, Detoxed Safely, Responded well, Discharged Condition Good, Rehab Referral Accepted Patient has Accepted [facility] Referral [facility] - Medication Discharge Medications: Ambulatory Orders Darunavir/Cobicistat [Prezcobix 800 mg-150 mg Tablet] 1 each PO DAILY 01/03/19 Dolutegravir Sodium [Tivicay] 50 mg PO DAILY 01/03/19 Sertraline HCl 50 mg PO DAILY 01/03/19 traZODone HCL [Trazodone HCl] 100 mg PO HS 01/03/19 Amlodipine Besylate 5 mg PO DAILY #14 tablet 05/01/19 Hydrochlorothiazide [Hctz -] 12.5 mg PO DAILY #14 cap 05/01/19 - Diagnosis (1) Alcohol dependence with uncomplicated withdrawal Status: Acute (2) Substance induced mood disorder Status: Suspected (3) Essential hypertension Status: Chronic (4) HIV (human immunodeficiency virus infection) Status: Chronic Qualifiers: HIV symptom status: asymptomatic Qualified Code(s): Z21 - Asymptomatic human immunodeficiency virus [HIV] infection status (5) Nicotine dependence Status: Acute Qualifiers: Nicotine product type: cigarettes Substance use status: in withdrawal Qualified Code(s): F17.213 - Nicotine dependence, cigarettes, with withdrawal (6) Substance induced mood disorder Status: Suspected (7) hypercholesterolemia Status: Chronic (8) History of hepatitis C Status: Chronic (9) History of syphilis Status: Chronic - AMA Did Patient Leave Against Medical Advice: No CIWA Score - CIWA Score Nausea/Vomitin-No Nausea/No Vomiting Muscle Tremors: 1-None Visible, but [place] Anxiety: 2 Agitation: 0-Normal Activity Paroxysmal Sweats: 1-Minimal Palms Moist Orientation: 0-Oriented Tacttile Disturbances: 0-None Auditory Disturbances: 0-None Visual Disturbances: 1-Very Mild Sensitivity Headache: 0-None Present CIWA-Ar Total Score: 5
[2019-11-01 09:45] VITALS: BP 144/87; PULSE 78; TEMP 97.6
[2019-11-01] MEDS ORDERED: SERTRALINE HCL 50 MG TABLET (FP) PO SCH (10:00)
== END 2019-11-01 09:36 | disposition home or self-care (01) | DRG 774 ==
LOC: YASAS 14:41 → Y3N 17:28
PROVIDERS: ADMIT Allergy & Immunology; ATTEND Allergy & Immunology
PROC: HZ2ZZZZ Detoxification Services for Substance Abuse Treatment (ICD-10-PCS; principal; 2019-10-30)
DX: F10.230 Alcohol dependence with withdrawal, uncomplicated (principal); F14.20 Cocaine dependence, uncomplicated; F12.20 Cannabis dependence, uncomplicated; F17.210 Nicotine dependence, cigarettes, uncomplicated; F19.24 Other psychoactive substance dependence with psychoactive substance-induced mood disorder; F32.9 Major depressive disorder, single episode, unspecified; Z21 Asymptomatic human immunodeficiency virus [HIV] infection status; E78.5 Hyperlipidemia, unspecified; I10 Essential (primary) hypertension; G47.00 Insomnia, unspecified; B18.2 Chronic viral hepatitis C; Z86.19 Personal history of other infectious and parasitic diseases; Z56.0 Unemployment, unspecified
CPT/HCPCS: 36415; 80053; 85027; 86593; 86780

== ENCOUNTER 2020-05-12 18:38 | Inpatient (IN) | payer OTHER ==
--- OUTSIDE RECORDS SUMMARY | 2020-05-12 18:42 | XMS ---
:1960 Author Organization [facility] Support Name Relationship Address Phone UE Unavailable Unavailable Unavailable [place] [address] Re-disclosure Warning The records that you are about to access may contain information from federally- assisted alcohol or drug abuse programs. If such information is present, then the following federally mandated warning applies: This information has been disclosed to you from records protected by federal confidentiality rules (42 CFR part 2). The federal rules prohibit you from making any further disclosure of this information unless further disclosure is expressly permitted by the written consent of the person to whom it pertains or as otherwise permitted by 42 CFR part 2. A general authorization for the release of medical or other information is NOT sufficient for this purpose. The Federal rules restrict any use of the information to criminally investigate or prosecute any alcohol or drug abuse patient.The records that you are about to access may contain highly sensitive health information, the redisclosure of which is protected by Article 27-F of the [facility] Public Health law. If you continue you may haveaccess to information: Regarding HIV / AIDS; Provided by facilities licensed or operated by the [facility] Office of Mental Health; or Provided by the [facility] Office for People With Developmental Disabilities. If such information is present, then the following [facility] mandated warning applies: This information has been disclosed to you from confidential records which are protected by state law. State law prohibits you from making any further disclosure of this information without the specific written consent of the person to whom it pertains, or as otherwise permitted by law. Any unauthorized further disclosure in violation of state law may result in a fine or shelter sentence or both. A general authorization for the release of medical or other information is NOT sufficient authorization for further disclosure. Insurance Providers Payer name Policy type Policy ID Covered Covered libertarian's Policy P eladio / Coverage libertarian ID relationship to [place] Inf ormation type [place] [facility] [id number] SP [id number] [id number] SP [id number] [employer] [id number] SP [id number] HEALTH NON CAP MEDICAID [id number] SP [id number] SELF PAY SP INSURANCE
--- NOTE | 2020-05-12 21:11 | BHS.RME ---
Substance Use & Tx History - Last Treatment Treatment type: Substance Use Disorder (REN) Where was last treatment: Detox
--- NOTE | 2020-05-12 21:17 | HP ---
CIWA Score Nausea/Vomitin Muscle Tremors: 2 Anxiety: 2 Agitation: 2 Paroxysmal Sweats: 3 Orientation: 0-Oriented Tacttile Disturbances: 1-Very Mild Itch/Numbness Auditory Disturbances: 2-Mild Harshness/Frighten Visual Disturbances: 2-Mild Sensitivity Headache: 2-Mild CIWA-Ar Total Score: 18 - Admission Criteria OASAS Guidelines: Admission for Medically Managed Detox: Requires at least one of the followin. CIWA greater than 12 2. Seizures within the past 24 hours 3. Delirium tremens within the past 24 hours 4. Hallucinations within the past 24 hours 5. Acute intervention needed for co occurring medical disorder 6. Acute intervention needed for co occurring psychiatric disorder 7. Severe withdrawal that cannot be handled at a lower level of care (continued vomiting, continued diarrhea, abnormal vital signs) requiring intravenous medication and/or fluids 8. Admitting History and Physical - Admission Chief Complaint: DEPENDENCE ON ETOH AND MARIJUANA History of Present Illness: THE PT. 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 C) Psych: Yes: Anxiety, Depression - Past Surgical History Past Surgical History: Yes: None - Smoking History Smoking history: Current every day smoker Have you smoked in the past 12 months: Yes Aproximately how many cigarettes per day: 10 - Alcohol/Substance Use Hx Alcohol Use: Yes Admission [facility] Chief Complaint: DEPENDENT ON ETOH AND MARIJUANA Allergies/Adverse Reactions: Allergies Allergy/AdvReac Type Severity Reaction Status Date / Time No Known Allergies Allergy Verified 10/30/19 17:01 History of Present Illness: THE PT. IS REQUESTING ADMISSION TO THE DETOX UNIT AND CAME FOR H AND PE Exam Limitations: No Limitations - Ebola screening Have you traveled outside of the country in the last 21 days: No Have you had contact with anyone from an Ebola affected area: No Have you been sick,other than usual withdrawal symptoms: No Do you have a fever: No - Review of Systems Constitutional: See HPI, Malaise, Weakness EENT: reports: See HPI Respiratory: reports: See HPI Cardiac: reports: No Symptoms Reported, See HPI GI: reports: See HPI, Nausea, Abdominal cramping : reports: See HPI Musculoskeletal: reports: Muscle Pain, Muscle Weakness Integumentary: reports: See HPI, Sweating Neuro: reports: See HPI, Headache, Tremors, Weakness, Unsteady Gait, Ataxia Endocrine: reports: See HPI Hematology: reports: See HPI Psychiatric: reports: Judgement Intact, Orientated x3, Anxious, Depressed Other Systems: Reviewed and Negative Patient History - Patient Medical History Hx Anemia: No Hx Asthma: No Hx Chronic Obstructive Pulmonary Disease (COPD): No Hx Cancer: No Hx Cardiac Disorders: No Hx Congestive Heart Failure: No Hx Hypertension: Yes (on med) Hx Hypercholesterolemia: Yes (on med) Hx Pacemaker: No HX Cerebrovascular Accident: No Hx Seizures: Yes (WITHDRAWAL SEIZURES - SEVERAL YRS. AGO) Hx Dementia: No Hx Diabetes: No Hx Gastrointestinal Disorders: No Hx Liver Disease: No Hx Genitourinary Disorders: No Hx Sexually Transmitted Disorders: Yes (treated for syphylis years ago) Hx Renal Disease (ESRD): No Hx Thyroid Disease: No Hx Human Immunodeficiency Virus (HIV): Yes (SHARING NEEDLES ON MEDS) Hx Hepatitis C: Yes (TREATED IN 2014) Hx Depression: Yes (never treated) Hx Suicide Attempt: No (Denies suicidal ideation at this time) Hx Bipolar Disorder: No Hx Schizophrenia: No Other Medical History: ANXIETY DISORDER - Patient Surgical History Past Surgical History: No Hx Neurologic Surgery: No Hx Cataract Extraction: No Hx Cardiac Surgery: No Hx Lung Surgery: No Hx Breast Surgery: No Hx Breast Biopsy: No Hx Abdominal Surgery: No Hx Appendectomy: No Hx Cholecystectomy: No Hx Genitourinary Surgery: No Hx Section: No Hx Orthopedic Surgery: No Anesthesia Reaction: No - PPD History Date: 11/20/18 Results: 0 mm - Smoking Cessation Smoking history: Current every day smoker Have you smoked in the past 12 months: Yes Aproximately how many cigarettes per day: 10 Cigars Per Day: 0 Hx Chewing Tobacco Use: No Initiated information on smoking cessation: Yes 'Breaking Loose' booklet given: 05/12/20 - Substance & Tx. History Hx Alcohol Use: Yes Hx Substance Use: Yes Substance Use Type: Alcohol, Marijuana Hx Substance Use Treatment: Yes - Substances abused Alcohol Substance route: Oral Frequency: Daily Amount used: BEER 2X6 PKS/D Age of first use: 13 Date of last use: 05/12/20 Marijuana/Hashish Substance route: Smoking Frequency: Daily Amount used: $10/D Age of first use: 13 Date of last use: 05/12/20 Admission Physical Exam [facility] - Physical General Appearance: Yes: No Apparent Distress, Nourished, Appropriately Dressed, Alcohol on Breath, Tremorous, Sweating, Anxious HEENTM: Yes: Hearing grossly Normal, Normocephalic, Normal Voice, TAMIKA, Pharynx Normal Respiratory: Yes: Chest Non-Tender, Lungs Clear, Normal Breath Sounds, No Respiratory Distress, No Accessory Muscle Use Neck: Yes: No masses,lesions,Nodules, Supple, Trachea in good position Breast: Yes: Breast Exam Deferred, Axillae without masses Cardiology: Yes: Regular Rhythm, S1, S2, Tachycardia Abdominal: Yes: Normal Bowel Sounds, Non Tender, Soft, Protuberent Back: Yes: Normal Inspection, Decreased Range of Motion Musculoskeletal: Yes: full range of Motion, Muscle Pain, Muscle weakness Extremities: Yes: Normal Capillary Refill, Normal Range of Motion, Non-Tender, Tremors 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 intact, Fully Oriented, Alert, Motor Strength 5/5, Normal Response Integumentary: Yes: Normal Color, Warm, Moist Lymphatic: Yes: Within Normal Limits - Diagnostic (1) Alcohol dependence with uncomplicated withdrawal Current Visit: No Status: Chronic (2) Nicotine dependence Current Visit: No Status: Chronic Qualifiers: Nicotine product type: cigarettes Substance use status: in withdrawal Qualified Code(s): F17.213 - Nicotine dependence, cigarettes, with withdrawal (3) Cannabis dependence, uncomplicated Current Visit: No Status: Chronic (4) Depression (emotion) Current Visit: No Status: Chronic Qualifiers: Depression Type: unspecified Qualified Code(s): F32.9 - Major depressive disorder, single episode, unspecified (5) History of hepatitis C Current Visit: No Status: Chronic (6) History of syphilis Current Visit: No Status: Chronic (7) Human immunodeficiency virus infection Current Visit: No Status: Chronic Comment: Patient did not bring his medications (8) Neuropathy Current Visit: No Status: Chronic (9) Anxiety Current Visit: Yes Status: Chronic Cleared for Admission [facility] - Detox or Rehab [facility] Level of Care: Medically Managed Detox Regimen/Protocol: Librium Breathalyzer - Breathalyzer Breathalyzer: 0.107 Urine Drug Screen - Test Device Lot number: [id number] Expiration date: 05/31/21 - Control Is test valid?: Yes - Results Drug screen NEGATIVE: No Urine drug screen results: THC-Marijuana, SERAFIN-Cocaine, BZO-Benzodiazepines Inpatient Rehab Admission - Rehab Decision to Admit Inpatient rehab admission?: No
[2020-05-12] MEDS ORDERED: MAG HYDROX/AL HYDROX/SIMETH 30 ML UNIT-DOSE CUP PO PRN (21:27)
[2020-05-12] MEDS ORDERED: chlordiazePOXIDE HCL 25 MG CAPSULE PO PRN (21:27)
[2020-05-12] MEDS ORDERED: MAGNESIUM HYDROX 2400MG/30ML ORAL SUSPENSION 30 ML CUP PO PRN (21:27)
[2020-05-12] MEDS ORDERED: IBUPROFEN 400 MG TABLET (FP) PO PRN (21:27)
[2020-05-12] MEDS ORDERED: ACETAMINOPHEN 325 MG TABLET (FP) PO PRN ×2 (21:27)
[2020-05-12] MEDS ORDERED: MENTHOL/PHENOL 1 EACH UD MM PRN (21:27)
[2020-05-12] MEDS ORDERED: MAGNESIUM CITRATE 300 ML BOTTLE PO PRN (21:27)
[2020-05-12] MEDS ORDERED: NICOTINE POLACRILEX 2 MG GUM BUC PRN (21:27)
[2020-05-12] MEDS ORDERED: ONDANSETRON *ODT* 4 MG TABLET SL PRN (21:27)
[2020-05-12] MEDS ORDERED: METHOCARBAMOL 500 MG TABLET PO PRN (21:27)
--- OUTSIDE RECORDS SUMMARY | 2020-05-12 21:58 | XMS ---
:1960 Author Organization [facility] Support Name Relationship Address Phone UE Unavailable Unavailable Unavailable [place] [id number] Re-disclosure Warning The records that you are [...] is protected by Article 27-F of the [facility] Public Health law. If you continue you may haveaccess to information: Regarding HIV / AIDS; Provided by facilities licensed or operated by the [facility] Office of Mental Health; or Provided by the [facility] Office for People With Developmental Disabilities. If such information is present, then the following [facility] mandated warning applies: This information has [...] law may result in a fine or halfway sentence or both. A general authorization for the release of medical or other information is NOT sufficient authorization for further disclosure. Insurance Providers Payer name Policy type Policy ID Covered Covered democrat's Policy P eladio / Coverage democrat ID relationship to [place] [facility] ormation type [place] [facility] [id number] SP [id number] [facility] [id number] SP [id number] AMIDNETTE MUHAMMAD [id number] SP [id number] 000 HEALTH NON CAP MEDICAID [id number] SP [id number] SELF PAY SP INSURANCE
[2020-05-12] MEDS ORDERED: DOLUTEGRAVIR SODIUM 50 MG TABLET (NON-FORMULARY) PO SCH (22:00)
[2020-05-12] MEDS ORDERED: chlordiazePOXIDE HCL 25 MG CAPSULE PO ONE (22:00)
[2020-05-13] MEDS: chlordiazePOXIDE HCL 25 MG CAPSULE PO SCH ×5 (00:33→22:33)
[2020-05-13] MEDS: DARUNAVIR 800 MG/COBICISTAT 150MG TABLET PO SCH ×2 (00:34→07:31)
[2020-05-13] MEDS: MELATONIN 5 MG TABLETS PO SCH ×2 (00:34→22:34)
[2020-05-13] MEDS: THIAMINE HCL 100 MG TABLET (FP) PO SCH ×2 (00:35→22:33)
[2020-05-13] MEDS: hydrOXYzine PAMOATE 25 MG CAPSULE (FP) PO SCH ×6 (00:35→22:34)
[2020-05-13] MEDS: DOLUTEGRAVIR SODIUM 50 MG TABLET (NON-FORMULARY) PO SCH (07:31)
[2020-05-13] MEDS: PRENATAL VITAMINS W/ FOLIC ACID TABLET (FP) PO SCH (10:20)
[2020-05-13] MEDS: amLODIPine BESYLATE 5 MG TABLET (FP) PO SCH (10:20)
[2020-05-13] MEDS: HYDROCHLOROTHIAZIDE 12.5 MG CAPSULE (FP) PO SCH (10:21)
[2020-05-13] MEDS: NICOTINE 14 MG/24 HOURS TOPICAL PATCH TD SCH (10:21)
--- NOTE | 2020-05-13 10:31 | PN ---
S CIWA - CIWA Score Nausea/Vomitin-No Nausea/No Vomiting Muscle Tremors: 3 Anxiety: 3 Agitation: 2 Paroxysmal Sweats: 2 Orientation: 0-Oriented Tacttile Disturbances: 0-None Auditory Disturbances: 2-Mild Harshness/Frighten Visual Disturbances: 0-None Headache: 0-None Present CIWA-Ar Total Score: 12 [facility] Progress Note (SOAP) Subjective: Complaints of anxiety, tremors, sweats, and noise sensitivity. Objective: 05/13/20 10:30 Vital Signs 05/13/20 05/13/20 05:08 08:35 Temperature 96.8 F L 97.5 F L Pulse Rate 80 92 H Respiratory 20 20 Rate Blood Pressure 148/70 145/93 Labs pending. Assessment: 05/13/20 10:30 Alert and oriented x3, in no acute respiratory distress. Full ROM, ambulatory in the unit without assistance. Skin warm to touch. Withdrawal symptoms. Plan: Continue detox protocol.
--- NOTE | 2020-05-13 11:08 | CONSULT ---
[facility] Psychiatric Consult - Data Date of interview: 05/13/20 Admission source: [facility] Identifying data: Patient is a 59 year old single black male, without children, unemployed, resides in an [place], and is supported with [facility]. This is one of multiple admissions for patient. Patient admitted to for alcohol and canabis dependence. Substance Abuse History: Smoking Cessation. Smoking history: Current every day smoker. Have you smoked in the past 12 months: Yes. Aproximately how many cigarettes per day: 10. Cigars Per Day: 0. Hx Chewing Tobacco Use: No. Initiated information on smoking cessation: Yes. 'Breaking Loose' booklet given: 05/12/20. - Substance & Tx. History. Hx Alcohol Use: Yes. Hx Substance Use: Yes. Substance Use Type: Alcohol, Marijuana. Hx Substance Use Treatment: Yes. - Substances abused. Alcohol. Substance route: Oral. Frequency: Daily. Amount used: BEER 2X6 PKS/D. Age of first use: 13. Date of last use: 05/12/20. Marijuana/Hashish. Substance route: Smoking. Frequency: Daily. Amount used: $10/D. Age of first use: 13. Date of last use: 05/12/20 Medical History: Medical profile is remarkable for dyslipidemia, HIV infection since 1989, hypertension, hepatitis C and history of treatment for syphilis Psychiatric History: Patient denies history of psychiatric hospitalizations, Outpatient psychiatric care and suicide attempts. Mr Taylor states that he was diagnosed with MDD + chronic insomnia during his stay at [facility] (rehabilitation unit) in December 2018 (first contact with a mental health provider) and was treated with sertraline + trazodone. Patient is totally lost in follow up care. Mr. Taylor is requesting to resume trazodone for insomnia. Physical/Sexual Abuse/Trauma History: denies. Mental Status Exam - Mental Status Exam Alert and Oriented to: Time, Place, Person Cognitive Function: Good Patient Appearance: Disheveled Mood: Withdrawn Affect: Mood Congruent Patient Behavior: Cooperative Speech Pattern: Appropriate Voice Loudness: Normal Thought Process: Goal Oriented Thought Disorder: Not Present Hallucinations: Denies Suicidal Ideation: Denies Homicidal Ideation: Denies Insight/Judgement: Poor Sleep: Poorly Appetite: Fair Muscle strength/Tone: Normal Gait/Station: Normal Psychiatric Findings - Problem List ([place] 1, 2,3) (1) Substance-induced sleep disorder Current Visit: Yes Status: Acute (2) Cannabis dependence, uncomplicated Current Visit: Yes Status: Chronic (3) Cocaine dependence, uncomplicated Current Visit: Yes Status: Chronic (4) Substance induced mood disorder Current Visit: Yes Status: Acute (5) Alcohol dependence with uncomplicated withdrawal Current Visit: Yes Status: Acute - Initial Treatment Plan Initial Treatment Plan: Psychoeducation provided. Detoxification in progress. Will order Trazodone 100mg HS. Benefits and side effects discussed. Verbal consent given.
[2020-05-13 11:55] LABS: HEMATOCRIT 45.4 % (35.4-49); HEMOGLOBIN 15.4 GM/dL (11.7-16.9); MCH 31.1 pg (25.7-33.7); MCHC 33.9 g/dl (32.0-35.9); MEAN CELL VOLUME 91.8 fl (80-96); MEAN PLT VOLUME 8.1 fl (7.5-11.1); PLATELET COUNT 158 K/MM3 (134-434); RBC 4.94 M/mm3 (4.00-5.60); RDW 14.2 % (11.9-15.9); WHITE BLOOD COUNT 3.4 K/mm3 (4.0-10.0)
[2020-05-13 12:17] LABS: ALBUMIN 3.3 g/dl (3.4-5.0); BLOOD UREA NITROGEN 11.4 mg/dL (7-18); CALCIUM 8.8 mg/dL (8.5-10.1); POTASSIUM 3.3 mmol/L (3.5-5.1)
[2020-05-13 12:23] LABS: BILIRUBIN,TOTAL 1.3 mg/dL (0.2-1); CREATININE 0.9 mg/dL (0.55-1.3); TOT PROT 7.1 g/dl (6.4-8.2)
[2020-05-13] MEDS: BISMUTH SUBSALICYLATE 524 MG/30 ML UD PO PRN ×2 (15:01→18:21)
[2020-05-13] MEDS: traZODone HCL 50 MG TABLET (FP) PO SCH (22:33)
[2020-05-14] MEDS: hydrOXYzine PAMOATE 25 MG CAPSULE (FP) PO SCH ×3 (05:27→15:01)
[2020-05-14] MEDS: chlordiazePOXIDE HCL 25 MG CAPSULE PO SCH ×4 (05:27→22:35)
[2020-05-14] MEDS: DOLUTEGRAVIR SODIUM 50 MG TABLET (NON-FORMULARY) PO SCH (07:19)
[2020-05-14] MEDS: DARUNAVIR 800 MG/COBICISTAT 150MG TABLET PO SCH (07:19)
--- NOTE | 2020-05-14 07:58 | PN ---
[facility] CIWA - CIWA Score Nausea/Vomitin-Mild Nausea/No Vomiting Muscle Tremors: 2 Anxiety: 2 Agitation: 2 Paroxysmal Sweats: No Perspiration Orientation: 0-Oriented Tacttile Disturbances: 1-Very Mild Itch/Numbness Auditory Disturbances: 0-None Visual Disturbances: 0-None Headache: 2-Mild CIWA-Ar Total Score: 10 S Progress Note (SOAP) Subjective: alert,irritable,anxious,interrupted sleep,feel weak,aching pain Objective: 05/14/20 10:39 Vital Signs Temperature 97.8 F 05/14/20 05:18 Pulse Rate 71 05/14/20 05:18 Respiratory Rate 18 05/14/20 05:18 Blood Pressure 134/80 05/14/20 05:18 O2 Sat by Pulse Oximetry (%) 96 05/14/20 05:18 05/14/20 10:39 Laboratory Last Values WBC 3.4 K/mm3 (4.0-10.0) L 05/13/20 07:30 RBC 4.94 M/mm3 (4.00-5.60) 05/13/20 07:30 Hgb 15.4 GM/dL (11.7-16.9) 05/13/20 07:30 Hct 45.4 % (35.4-49) 05/13/20 07:30 MCV 91.8 fl (80-96) 05/13/20 07:30 MCH 31.1 pg (25.7-33.7) 05/13/20 07:30 MCHC 33.9 g/dl (32.0-35.9) 05/13/20 07:30 RDW 14.2 % (11.9-15.9) 05/13/20 07:30 Plt Count 158 K/MM3 (134-434) 05/13/20 07:30 MPV 8.1 fl (7.5-11.1) 05/13/20 07:30 Sodium 141 mmol/L (136-145) 05/13/20 07:30 Potassium 3.3 mmol/L (3.5-5.1) L 05/13/20 07:30 Chloride 106 mmol/L (98-107) 05/13/20 07:30 Carbon Dioxide 28 mmol/L (21-32) 05/13/20 07:30 Anion Gap 8 MMOL/L (8-16) 05/13/20 07:30 BUN 11.4 mg/dL (7-18) 05/13/20 07:30 Creatinine 0.9 mg/dL (0.55-1.3) 05/13/20 07:30 Est GFR (CKD-EPI)AfAm 107.97 05/13/20 07:30 Est GFR (CKD-EPI)NonAf 93.16 05/13/20 07:30 Random Glucose 90 mg/dL (74-106) 05/13/20 07:30 Calcium 8.8 mg/dL (8.5-10.1) 05/13/20 07:30 Total Bilirubin 1.3 mg/dL (0.2-1) H 05/13/20 07:30 AST 86 U/L (15-37) H 05/13/20 07:30 ALT 71 U/L (13-61) H 05/13/20 07:30 Alkaline Phosphatase 138 U/L (45-117) H 05/13/20 07:30 Total Protein 7.1 g/dl (6.4-8.2) 05/13/20 07:30 Albumin 3.3 g/dl (3.4-5.0) L 05/13/20 07:30 Syphilis Serology Reactive (NONREACTIVE) A* 05/13/20 07:30 RPR Titer Reactive 1:1 (NONREACTIVE) H 05/13/20 07:30 history of syphilis treated before Assessment: 05/14/20 10:40 withdrawal symptom Plan: continue detox librium regimen
[2020-05-14] MEDS: HYDROCHLOROTHIAZIDE 12.5 MG CAPSULE (FP) PO SCH (10:26)
[2020-05-14] MEDS: amLODIPine BESYLATE 5 MG TABLET (FP) PO SCH (10:26)
[2020-05-14] MEDS: NICOTINE 14 MG/24 HOURS TOPICAL PATCH TD SCH (10:27)
[2020-05-14] MEDS: PRENATAL VITAMINS W/ FOLIC ACID TABLET (FP) PO SCH (10:27)
[2020-05-14] MEDS ORDERED: hydrOXYzine PAMOATE 25 MG CAPSULE (FP) PO PRN (15:04)
[2020-05-14] MEDS: POTASSIUM CHLORIDE TABS 20 MEQ TABLET.ER (FP) PO SCH (22:34)
[2020-05-14] MEDS: THIAMINE HCL 100 MG TABLET (FP) PO SCH (22:34)
[2020-05-14] MEDS: traZODone HCL 50 MG TABLET (FP) PO SCH (22:34)
[2020-05-14] MEDS: MELATONIN 5 MG TABLETS PO SCH (22:35)
[2020-05-15] MEDS ORDERED: chlordiazePOXIDE HCL 10 MG CAPSULE PO PRN
[2020-05-15] MEDS: chlordiazePOXIDE HCL 10 MG CAPSULE PO SCH ×4 (05:27→22:33)
[2020-05-15] MEDS: DARUNAVIR 800 MG/COBICISTAT 150MG TABLET PO SCH (08:57)
[2020-05-15] MEDS: DOLUTEGRAVIR SODIUM 50 MG TABLET (NON-FORMULARY) PO SCH (08:57)
[2020-05-15] MEDS: amLODIPine BESYLATE 5 MG TABLET (FP) PO SCH (10:09)
[2020-05-15] MEDS: POTASSIUM CHLORIDE TABS 20 MEQ TABLET.ER (FP) PO SCH ×2 (10:09→22:34)
[2020-05-15] MEDS: HYDROCHLOROTHIAZIDE 12.5 MG CAPSULE (FP) PO SCH (10:09)
[2020-05-15] MEDS: NICOTINE 14 MG/24 HOURS TOPICAL PATCH TD SCH (10:10)
[2020-05-15] MEDS: PRENATAL VITAMINS W/ FOLIC ACID TABLET (FP) PO SCH (10:11)
--- NOTE | 2020-05-15 11:44 | PN ---
[facility] CIWA - CIWA Score Nausea/Vomitin-No Nausea/No Vomiting Muscle Tremors: 2 Anxiety: 2 Agitation: 1-Slight > Activity Paroxysmal Sweats: 1-Minimal Palms Moist Orientation: 0-Oriented Tacttile Disturbances: 0-None Auditory Disturbances: 0-None Visual Disturbances: 0-None Headache: 0-None Present CIWA-Ar Total Score: 6 BHS Progress Note (SOAP) Subjective: sweats agitation anxiety body aches Objective: 05/15/20 11:42 Vital Signs Temperature 97.1 F L 05/15/20 05:04 Pulse Rate 85 05/15/20 05:04 Respiratory Rate 18 05/15/20 05:04 Blood Pressure 123/75 05/15/20 05:04 O2 Sat by Pulse Oximetry (%) 93 L 05/15/20 05:04 Laboratory Tests 05/12/20 05/13/20 05/13/20 22:55 07:30 07:30 WBC 3.4 L RBC 4.94 Hgb 15.4 Hct 45.4 MCV 91.8 MCH 31.1 MCHC 33.9 RDW 14.2 Plt Count 158 MPV 8.1 Sodium Potassium Chloride Carbon Dioxide Anion Gap BUN Creatinine Est GFR (CKD-EPI)AfAm Est GFR (CKD-EPI)NonAf Random Glucose Calcium Total Bilirubin AST ALT Alkaline Phosphatase Total Protein Albumin Syphilis Serology Reactive A* RPR Titer COVID-19 (ALEXI) Not detected 05/13/20 05/13/20 07:30 07:30 WBC RBC Hgb Hct MCV MCH MCHC RDW Plt Count MPV Sodium 141 Potassium 3.3 L Chloride 106 Carbon Dioxide 28 Anion Gap 8 BUN 11.4 Creatinine 0.9 Est GFR (CKD-EPI)AfAm 107.97 Est GFR (CKD-EPI)NonAf 93.16 Random Glucose 90 Calcium 8.8 Total Bilirubin 1.3 H AST 86 H ALT 71 H Alkaline Phosphatase 138 H Total Protein 7.1 Albumin 3.3 L Syphilis Serology RPR Titer Reactive 1:1 H COVID-19 (ALEXI) labs noted aaox3 ambulating no acute distress Assessment: 05/15/20 11:43 withdrawals Plan: continue detox
[2020-05-15] MEDS: THIAMINE HCL 100 MG TABLET (FP) PO SCH (22:33)
[2020-05-15] MEDS: MELATONIN 5 MG TABLETS PO SCH (22:34)
[2020-05-15] MEDS: traZODone HCL 50 MG TABLET (FP) PO SCH (22:34)
[2020-05-16] MEDS: chlordiazePOXIDE HCL 10 MG CAPSULE PO SCH ×2 (05:19→18:03)
[2020-05-16] MEDS: DARUNAVIR 800 MG/COBICISTAT 150MG TABLET PO SCH (07:46)
[2020-05-16] MEDS: DOLUTEGRAVIR SODIUM 50 MG TABLET (NON-FORMULARY) PO SCH (07:46)
[2020-05-16] MEDS: HYDROCHLOROTHIAZIDE 12.5 MG CAPSULE (FP) PO SCH (10:26)
[2020-05-16] MEDS: POTASSIUM CHLORIDE TABS 20 MEQ TABLET.ER (FP) PO SCH ×2 (10:26→22:27)
[2020-05-16] MEDS: amLODIPine BESYLATE 5 MG TABLET (FP) PO SCH (10:27)
[2020-05-16] MEDS: PRENATAL VITAMINS W/ FOLIC ACID TABLET (FP) PO SCH (10:27)
[2020-05-16] MEDS: NICOTINE 14 MG/24 HOURS TOPICAL PATCH TD SCH (10:29)
[2020-05-16] MEDS: traZODone HCL 50 MG TABLET (FP) PO SCH (22:27)
[2020-05-16] MEDS: THIAMINE HCL 100 MG TABLET (FP) PO SCH (22:27)
[2020-05-16] MEDS: MELATONIN 5 MG TABLETS PO SCH (22:27)
[2020-05-17] MEDS ORDERED: chlordiazePOXIDE HCL 10 MG CAPSULE PO ONE (05:00)
[2020-05-17] MEDS: DOLUTEGRAVIR SODIUM 50 MG TABLET (NON-FORMULARY) PO SCH (07:39)
[2020-05-17] MEDS: DARUNAVIR 800 MG/COBICISTAT 150MG TABLET PO SCH (07:40)
[2020-05-17 09:10] VITALS: BP 133/86; PULSE 99; TEMP 97.8
[2020-05-17] MEDS: PRENATAL VITAMINS W/ FOLIC ACID TABLET (FP) PO SCH (10:22)
[2020-05-17] MEDS: amLODIPine BESYLATE 5 MG TABLET (FP) PO SCH (10:22)
[2020-05-17] MEDS: HYDROCHLOROTHIAZIDE 12.5 MG CAPSULE (FP) PO SCH (10:22)
[2020-05-17] MEDS: POTASSIUM CHLORIDE TABS 20 MEQ TABLET.ER (FP) PO SCH (10:22)
[2020-05-17] MEDS: NICOTINE 14 MG/24 HOURS TOPICAL PATCH TD SCH (10:22)
--- NOTE | 2020-05-17 11:12 | DS ---
[facility] Detox Discharge Summary Admission Date: 05/12/20 Discharge Date: 05/17/20 - History Present History: Alcohol Dependence, Cannabis Dependence, Cocaine Dependence - Physical Exam Results Vital Signs: Vital Signs Temperature 97.8 F 05/17/20 08:40 Pulse Rate 99 H 05/17/20 08:40 Respiratory Rate 18 05/17/20 08:40 Blood Pressure 133/86 05/17/20 08:40 O2 Sat by Pulse Oximetry (%) 98 05/17/20 05:14 Pertinent Admission Physical Exam Findings: Vital Signs Temperature 97.8 F 05/17/20 08:40 Pulse Rate 99 H 05/17/20 08:40 Respiratory Rate 18 05/17/20 08:40 Blood Pressure 133/86 05/17/20 08:40 O2 Sat by Pulse Oximetry (%) 98 05/17/20 05:14 Laboratory Tests 05/12/20 05/13/20 05/13/20 22:55 07:30 07:30 WBC 3.4 L RBC 4.94 Hgb 15.4 Hct 45.4 MCV 91.8 MCH 31.1 MCHC 33.9 RDW 14.2 Plt Count 158 MPV 8.1 Sodium Potassium Chloride Carbon Dioxide Anion Gap BUN Creatinine Est GFR (CKD-EPI)AfAm Est GFR (CKD-EPI)NonAf Random Glucose Calcium Total Bilirubin AST ALT Alkaline Phosphatase Total Protein Albumin Syphilis Serology Reactive A* RPR Titer COVID-19 (ALEXI) Not detected 05/13/20 05/13/20 07:30 07:30 WBC RBC Hgb Hct MCV MCH MCHC RDW Plt Count MPV Sodium 141 Potassium 3.3 L Chloride 106 Carbon Dioxide 28 Anion Gap 8 BUN 11.4 Creatinine 0.9 Est GFR (CKD-EPI)AfAm 107.97 Est GFR (CKD-EPI)NonAf 93.16 Random Glucose 90 Calcium 8.8 Total Bilirubin 1.3 H AST 86 H ALT 71 H Alkaline Phosphatase 138 H Total Protein 7.1 Albumin 3.3 L Syphilis Serology RPR Titer Reactive 1:1 H COVID-19 (ALEXI) aaox3 ambulating no acute distress lungs CTA - Treatment Hospital Course: Detox Protocol Followed, Detoxed Safely, Responded well, Discharged Condition Good, Rehab Referral Accepted - Medication Discharge Medications: Ambulatory Orders Darunavir/Cobicistat [Prezcobix 800 mg-150 mg Tablet] 1 each PO DAILY 01/03/19 Dolutegravir Sodium [Tivicay] 50 mg PO DAILY 01/03/19 Sertraline HCl 50 mg PO DAILY 01/03/19 traZODone HCL [Trazodone HCl] 100 mg PO HS 01/03/19 Amlodipine Besylate 5 mg PO DAILY #14 tablet 05/01/19 Hydrochlorothiazide [Hctz -] 12.5 mg PO DAILY #14 cap 05/01/19 - Diagnosis (1) Alcohol dependence with uncomplicated withdrawal Current Visit: Yes Status: Chronic (2) Substance induced mood disorder Current Visit: Yes Status: Acute (3) Substance-induced sleep disorder Current Visit: Yes Status: Acute (4) Anxiety Current Visit: Yes Status: Chronic (5) Cannabis dependence, uncomplicated Current Visit: Yes Status: Chronic (6) Cocaine dependence, uncomplicated Current Visit: Yes Status: Chronic (7) Chronic back pain Current Visit: Yes Status: Chronic Qualifiers: Back pain location: low back pain Back pain laterality: midline Sciatica presence: without sciatica Qualified Code(s): M54.5 - Low back pain; G89.29 - Other chronic pain (8) Depression (emotion) Current Visit: No Status: Chronic Qualifiers: Depression Type: unspecified Qualified Code(s): F32.9 - Major depressive disorder, single episode, unspecified (9) Essential hypertension Current Visit: No Status: Chronic (10) HIV (human immunodeficiency virus infection) Current Visit: Yes Status: Chronic Qualifiers: HIV symptom status: asymptomatic Qualified Code(s): Z21 - Asymptomatic human immunodeficiency virus [HIV] infection status (11) History of hepatitis C Current Visit: No Status: Chronic (12) History of syphilis Current Visit: No Status: Chronic (13) Human immunodeficiency virus infection Current Visit: No Status: Chronic (14) Insomnia Current Visit: No Status: Chronic (15) Neuropathy Current Visit: No Status: Chronic (16) Nicotine dependence Current Visit: Yes Status: Chronic Qualifiers: Nicotine product type: cigarettes Substance use status: uncomplicated Qualified Code(s): F17.210 - Nicotine dependence, cigarettes, uncomplicated (17) Non-compliance Current Visit: No Status: Chronic (18) hypercholesterolemia Current Visit: No Status: Chronic (19) Drug-induced mood disorder Current Visit: No Status: Suspected (20) Homeless Current Visit: No Status: Suspected (21) Substance induced mood disorder Current Visit: No Status: Suspected (22) Substance-induced sleep disorder Current Visit: No Status: Suspected - AMA Did Patient Leave Against Medical Advice: No
== END 2020-05-17 10:56 | disposition home or self-care (01) | DRG 347 ==
LOC: YASAS 18:38 → Y6N 21:54
PROVIDERS: ADMIT Allergy & Immunology; ATTEND Allergy & Immunology
PROC: HZ2ZZZZ Detoxification Services for Substance Abuse Treatment (ICD-10-PCS; principal; 2020-05-13)
DX: M54.5 Low back pain (principal); F10.230 Alcohol dependence with withdrawal, uncomplicated; F14.20 Cocaine dependence, uncomplicated; F12.20 Cannabis dependence, uncomplicated; F17.210 Nicotine dependence, cigarettes, uncomplicated; F19.282 Other psychoactive substance dependence with psychoactive substance-induced sleep disorder; F19.24 Other psychoactive substance dependence with psychoactive substance-induced mood disorder; F34.1 Dysthymic disorder; Z21 Asymptomatic human immunodeficiency virus [HIV] infection status; G62.9 Polyneuropathy, unspecified; B18.2 Chronic viral hepatitis C; I10 Essential (primary) hypertension; G89.29 Other chronic pain; Z86.19 Personal history of other infectious and parasitic diseases; Z86.69 Personal history of other diseases of the nervous system and sense organs; Z91.19 Patient's noncompliance with other medical treatment and regimen; Z59.0 Homelessness
CPT/HCPCS: 36415; 80053; 85027; 86593; 86780; U0003

== ENCOUNTER 2020-10-29 16:15 | Inpatient (IN) | payer OTHER ==
[2020-10-29 19:17] VITALS: BMI 25.8
[2020-10-29] MEDS ORDERED: MAGNESIUM CITRATE 300 ML BOTTLE PO PRN (21:08)
[2020-10-29] MEDS ORDERED: MAG HYDROX/AL HYDROX/SIMETH 30 ML UNIT-DOSE CUP PO PRN (21:08)
[2020-10-29] MEDS ORDERED: METHOCARBAMOL 500 MG TABLET PO PRN (21:08)
[2020-10-29] MEDS ORDERED: ONDANSETRON *ODT* 4 MG TABLET SL PRN (21:08)
[2020-10-29] MEDS ORDERED: hydrOXYzine PAMOATE 25 MG CAPSULE (FP) PO PRN (21:08)
[2020-10-29] MEDS ORDERED: BISMUTH SUBSALICYLATE 524 MG/30 ML UD PO PRN (21:08)
[2020-10-29] MEDS ORDERED: MAGNESIUM HYDROX 2400MG/30ML ORAL SUSPENSION 30 ML CUP PO PRN (21:08)
[2020-10-29] MEDS ORDERED: MENTHOL/PHENOL 1 EACH UD MM PRN (21:08)
[2020-10-29] MEDS ORDERED: ACETAMINOPHEN 325 MG TABLET (FP) PO PRN ×2 (21:08)
[2020-10-29] MEDS ORDERED: chlordiazePOXIDE HCL 25 MG CAPSULE PO PRN (21:11)
[2020-10-29] MEDS ORDERED: amLODIPine BESYLATE 2.5 MG TABLET (FP) PO ONE (21:12)
[2020-10-30] MEDS ORDERED: amLODIPine BESYLATE 5 MG TABLET (FP) ONE (01:15)
[2020-10-30] MEDS ORDERED: chlordiazePOXIDE HCL 25 MG CAPSULE ONE ×2 (01:15→05:11)
[2020-10-30] MEDS: MELATONIN 5 MG TABLETS PO SCH ×2 (01:21→22:07)
[2020-10-30] MEDS: chlordiazePOXIDE HCL 25 MG CAPSULE PO SCH ×5 (01:21→22:08)
[2020-10-30] MEDS: THIAMINE HCL 100 MG TABLET (FP) PO SCH ×2 (01:21→22:07)
[2020-10-30] MEDS: PRENATAL VITAMINS W/ FOLIC ACID TABLET (FP) PO SCH (10:43)
[2020-10-30] MEDS: amLODIPine BESYLATE 5 MG TABLET (FP) PO SCH (10:43)
[2020-10-30] MEDS: AMOXICILLIN 500 MG CAPSULE (FP) PO SCH ×2 (11:17→22:07)
[2020-10-30] MEDS: OFLOXACIN 0.3% OTIC SOLUTION 5 ML BOTTLE AS SCH ×2 (11:20→22:07)
[2020-10-30 12:04] LABS: HEMATOCRIT 47.5 % (35.4-49); HEMOGLOBIN 16.4 GM/dL (11.7-16.9); MCH 32.8 pg (25.7-33.7); MCHC 34.5 g/dl (32.0-35.9); MEAN PLT VOLUME 8.4 fl (7.5-11.1); PLATELET COUNT 145 K/MM3 (134-434); RDW 14.1 % (11.9-15.9); WHITE BLOOD COUNT 3.9 K/mm3 (4.0-10.0)
[2020-10-30 12:15] LABS: POTASSIUM 3.6 mmol/L (3.5-5.1)
[2020-10-30 12:19] LABS: ALBUMIN 3.6 g/dl (3.4-5.0); BLOOD UREA NITROGEN 12.5 mg/dL (7-18); CALCIUM 9.3 mg/dL (8.5-10.1)
[2020-10-30 12:22] LABS: CREATININE 0.8 mg/dL (0.55-1.3)
[2020-10-30 12:24] LABS: BILIRUBIN,TOTAL 0.7 mg/dL (0.2-1); TOT PROT 7.4 g/dl (6.4-8.2)
[2020-10-30] MEDS: IBUPROFEN 400 MG TABLET (FP) PO PRN (17:37)
[2020-10-30] MEDS: traZODone HCL 100 MG TABLET (FP) PO SCH (22:07)
[2020-10-31] MEDS: chlordiazePOXIDE HCL 10 MG CAPSULE PO SCH ×4 (05:21→22:21)
[2020-10-31] MEDS: amLODIPine BESYLATE 5 MG TABLET (FP) PO SCH (10:20)
[2020-10-31] MEDS: PRENATAL VITAMINS W/ FOLIC ACID TABLET (FP) PO SCH (10:20)
[2020-10-31] MEDS: DARUNAVIR 800 MG/COBICISTAT 150MG TABLET PO SCH (10:20)
[2020-10-31] MEDS: HYDROCHLOROTHIAZIDE 12.5 MG CAPSULE (FP) PO SCH (10:20)
[2020-10-31] MEDS: AMOXICILLIN 500 MG CAPSULE (FP) PO SCH ×2 (10:20→22:21)
[2020-10-31] MEDS: OFLOXACIN 0.3% OTIC SOLUTION 5 ML BOTTLE AS SCH ×2 (10:22→22:22)
[2020-10-31] MEDS: IBUPROFEN 400 MG TABLET (FP) PO PRN ×2 (10:24→20:38)
[2020-10-31] MEDS: DOLUTEGRAVIR SODIUM 50 MG TABLET (NON-FORMULARY) PO SCH (10:38)
[2020-10-31] MEDS: THIAMINE HCL 100 MG TABLET (FP) PO SCH (22:21)
[2020-10-31] MEDS: traZODone HCL 100 MG TABLET (FP) PO SCH (22:21)
[2020-10-31] MEDS: MELATONIN 5 MG TABLETS PO SCH (22:22)
[2020-11-01] MEDS ORDERED: chlordiazePOXIDE HCL 10 MG CAPSULE PO PRN
[2020-11-01] MEDS ORDERED: MASKS NR ONE (04:38)
[2020-11-01] MEDS: chlordiazePOXIDE HCL 10 MG CAPSULE PO SCH ×2 (05:49→17:55)
[2020-11-01] MEDS: DOLUTEGRAVIR SODIUM 50 MG TABLET (NON-FORMULARY) PO SCH (08:29)
[2020-11-01] MEDS: DARUNAVIR 800 MG/COBICISTAT 150MG TABLET PO SCH (10:25)
[2020-11-01] MEDS: PRENATAL VITAMINS W/ FOLIC ACID TABLET (FP) PO SCH (10:25)
[2020-11-01] MEDS: OFLOXACIN 0.3% OTIC SOLUTION 5 ML BOTTLE AS SCH ×2 (10:26→22:18)
[2020-11-01] MEDS: amLODIPine BESYLATE 5 MG TABLET (FP) PO SCH (10:26)
[2020-11-01] MEDS: AMOXICILLIN 500 MG CAPSULE (FP) PO SCH ×2 (10:26→22:17)
[2020-11-01] MEDS: HYDROCHLOROTHIAZIDE 12.5 MG CAPSULE (FP) PO SCH (10:50)
[2020-11-01] MEDS: IBUPROFEN 400 MG TABLET (FP) PO PRN (18:04)
[2020-11-01] MEDS: traZODone HCL 100 MG TABLET (FP) PO SCH (22:17)
[2020-11-01] MEDS: MELATONIN 5 MG TABLETS PO SCH (22:17)
[2020-11-01] MEDS: THIAMINE HCL 100 MG TABLET (FP) PO SCH (22:18)
[2020-11-02] MEDS ORDERED: chlordiazePOXIDE HCL 10 MG CAPSULE PO ONE (05:00)
[2020-11-02] MEDS: DARUNAVIR 800 MG/COBICISTAT 150MG TABLET PO SCH (07:26)
[2020-11-02] MEDS: DOLUTEGRAVIR SODIUM 50 MG TABLET (NON-FORMULARY) PO SCH (07:26)
[2020-11-02 09:30] VITALS: BP 141/71; PULSE 104; TEMP 97.3
[2020-11-02] MEDS: amLODIPine BESYLATE 5 MG TABLET (FP) PO SCH (10:03)
[2020-11-02] MEDS: AMOXICILLIN 500 MG CAPSULE (FP) PO SCH (10:03)
[2020-11-02] MEDS: HYDROCHLOROTHIAZIDE 12.5 MG CAPSULE (FP) PO SCH (10:03)
[2020-11-02] MEDS: PRENATAL VITAMINS W/ FOLIC ACID TABLET (FP) PO SCH (10:03)
[2020-11-02] MEDS: OFLOXACIN 0.3% OTIC SOLUTION 5 ML BOTTLE AS SCH (10:04)
== END 2020-11-02 10:06 | disposition home or self-care (01) | DRG 774 ==
LOC: YASAS 16:15 → Y6N 10-30 09:40
PROVIDERS: ADMIT Allergy & Immunology; ATTEND Allergy & Immunology
PROC: HZ2ZZZZ Detoxification Services for Substance Abuse Treatment (ICD-10-PCS; principal; 2020-10-30)
DX: F10.230 Alcohol dependence with withdrawal, uncomplicated (principal); F14.20 Cocaine dependence, uncomplicated; F12.20 Cannabis dependence, uncomplicated; F17.210 Nicotine dependence, cigarettes, uncomplicated; F19.24 Other psychoactive substance dependence with psychoactive substance-induced mood disorder; F19.282 Other psychoactive substance dependence with psychoactive substance-induced sleep disorder; Z21 Asymptomatic human immunodeficiency virus [HIV] infection status; G62.9 Polyneuropathy, unspecified; I10 Essential (primary) hypertension; E78.5 Hyperlipidemia, unspecified; B18.2 Chronic viral hepatitis C; H60.502 Unspecified acute noninfective otitis externa, left ear; H91.92 Unspecified hearing loss, left ear; M25.552 Pain in left hip
CPT/HCPCS: 36415; 80053; 85027; 86593; 86780; C9803; U0003

== ENCOUNTER 2021-03-22 15:36 | Inpatient (IN) | payer OTHER ==
[2021-03-22 19:51] VITALS: BMI 23.5
[2021-03-23] MEDS ORDERED: MAGNESIUM CITRATE 300 ML BOTTLE PO PRN (04:45)
[2021-03-23] MEDS ORDERED: IBUPROFEN 400 MG TABLET (FP) PO PRN (04:45)
[2021-03-23] MEDS ORDERED: METHOCARBAMOL 500 MG TABLET PO PRN (04:45)
[2021-03-23] MEDS ORDERED: NICOTINE POLACRILEX 2 MG GUM BUC PRN (04:45)
[2021-03-23] MEDS ORDERED: ACETAMINOPHEN 325 MG TABLET (FP) PO PRN ×2 (04:45)
[2021-03-23] MEDS ORDERED: MENTHOL/PHENOL 1 EACH UD MM PRN (04:45)
[2021-03-23] MEDS ORDERED: MAG HYDROX/AL HYDROX/SIMETH 30 ML UNIT-DOSE CUP PO PRN (04:45)
[2021-03-23] MEDS ORDERED: MAGNESIUM HYDROX 2400MG/30ML ORAL SUSPENSION 30 ML CUP PO PRN (04:45)
[2021-03-23] MEDS ORDERED: ONDANSETRON *ODT* 4 MG TABLET SL PRN (04:45)
[2021-03-23] MEDS ORDERED: BISMUTH SUBSALICYLATE 524 MG/30 ML PO PRN (04:45)
[2021-03-23] MEDS ORDERED: LORazepam 1 MG TABLET PO PRN (05:02)
[2021-03-23] MEDS: LORazepam 2 MG TABLET PO SCH ×4 (05:18→22:35)
[2021-03-23] MEDS: PRENATAL VITAMINS W/ FOLIC ACID TABLET (FP) PO SCH (12:03)
[2021-03-23] MEDS: amLODIPine BESYLATE 10 MG TABLET (FP) PO SCH (12:03)
[2021-03-23] MEDS: NICOTINE 14 MG/24 HOURS TOPICAL PATCH TD SCH (12:04)
[2021-03-23] MEDS: traZODone HCL 50 MG TABLET (FP) PO SCH (22:35)
[2021-03-23] MEDS: THIAMINE HCL 100 MG TABLET (FP) PO SCH (22:35)
[2021-03-23] MEDS: MELATONIN 5 MG TABLETS PO SCH (22:36)
[2021-03-24] MEDS: LORazepam 1 MG TABLET PO SCH ×4 (05:55→22:09)
[2021-03-24 10:21] LABS: CALCIUM 8.8 mg/dL (8.5-10.1)
[2021-03-24 10:23] LABS: ALBUMIN 3.4 g/dl (3.4-5.0); BLOOD UREA NITROGEN 9.5 mg/dL (7-18)
[2021-03-24 10:25] LABS: HEMATOCRIT 42.1 % (35.4-49); HEMOGLOBIN 14.8 GM/dL (11.7-16.9); MCH 33.3 pg (25.7-33.7); MCHC 35.2 g/dl (32.0-35.9); MEAN CELL VOLUME 94.6 fl (80-96); MEAN PLT VOLUME 8.3 fl (7.5-11.1); PLATELET COUNT 120 10^3/uL (134-434); RBC 4.45 M/mm3 (4.00-5.60); RDW 14.3 % (11.9-15.9); WHITE BLOOD COUNT 3.9 K/mm3 (4.0-10.0)
[2021-03-24 10:26] LABS: CREATININE 0.8 mg/dL (0.55-1.3)
[2021-03-24 10:28] LABS: BILIRUBIN,TOTAL 0.7 mg/dL (0.2-1); TOT PROT 7.1 g/dl (6.4-8.2)
[2021-03-24] MEDS: NICOTINE 14 MG/24 HOURS TOPICAL PATCH TD SCH (10:41)
[2021-03-24] MEDS: PRENATAL VITAMINS W/ FOLIC ACID TABLET (FP) PO SCH (10:42)
[2021-03-24] MEDS: amLODIPine BESYLATE 10 MG TABLET (FP) PO SCH (10:42)
[2021-03-24] MEDS ORDERED: POTASSIUM CHLORIDE TABS 20 MEQ TABLET.ER (FP) PO ONE (13:25)
[2021-03-24] MEDS: THIAMINE HCL 100 MG TABLET (FP) PO SCH (22:09)
[2021-03-24] MEDS: traZODone HCL 50 MG TABLET (FP) PO SCH (22:09)
[2021-03-24] MEDS: MELATONIN 5 MG TABLETS PO SCH (22:10)
[2021-03-25] MEDS ORDERED: LORazepam 0.5 MG TABLET PO PRN
[2021-03-25] MEDS: LORazepam 0.5 MG TABLET PO SCH ×4 (05:45→22:00)
[2021-03-25] MEDS: amLODIPine BESYLATE 10 MG TABLET (FP) PO SCH (10:35)
[2021-03-25] MEDS: PRENATAL VITAMINS W/ FOLIC ACID TABLET (FP) PO SCH (10:35)
[2021-03-25] MEDS: NICOTINE 14 MG/24 HOURS TOPICAL PATCH TD SCH (10:35)
[2021-03-25] MEDS ORDERED: POTASSIUM CHLORIDE ORAL LIQUID 20 MEQ/15 ML PO ONE (11:59)
[2021-03-25] MEDS: DOLUTEGRAVIR SODIUM 50 MG TABLET (NON-FORMULARY) PO SCH (14:45)
[2021-03-25] MEDS: DARUNAVIR 800 MG/COBICISTAT 150MG TABLET PO SCH (14:46)
[2021-03-25] MEDS: THIAMINE HCL 100 MG TABLET (FP) PO SCH (21:59)
[2021-03-25] MEDS: MELATONIN 5 MG TABLETS PO SCH (22:00)
[2021-03-25] MEDS: traZODone HCL 50 MG TABLET (FP) PO SCH (22:00)
[2021-03-26] MEDS ORDERED: LORazepam 0.5 MG TABLET PO ONE (05:00)
[2021-03-26 06:29] VITALS: BP 139/86; PULSE 79; TEMP 97.7
[2021-03-26] MEDS: DARUNAVIR 800 MG/COBICISTAT 150MG TABLET PO SCH (07:25)
[2021-03-26] MEDS: PRENATAL VITAMINS W/ FOLIC ACID TABLET (FP) PO SCH (09:05)
[2021-03-26] MEDS: amLODIPine BESYLATE 10 MG TABLET (FP) PO SCH (09:05)
[2021-03-26] MEDS: DOLUTEGRAVIR SODIUM 50 MG TABLET (NON-FORMULARY) PO SCH (09:05)
[2021-03-26] MEDS: NICOTINE 14 MG/24 HOURS TOPICAL PATCH TD SCH (09:05)
== END 2021-03-26 09:17 | disposition home or self-care (01) | DRG 774 ==
LOC: YASAS 15:36 → Y6N 03-23 10:22
PROVIDERS: ADMIT Allergy & Immunology; ATTEND Allergy & Immunology
PROC: HZ2ZZZZ Detoxification Services for Substance Abuse Treatment (ICD-10-PCS; principal; 2021-03-23)
DX: F10.230 Alcohol dependence with withdrawal, uncomplicated (principal); F14.20 Cocaine dependence, uncomplicated; F12.20 Cannabis dependence, uncomplicated; F17.210 Nicotine dependence, cigarettes, uncomplicated; F19.24 Other psychoactive substance dependence with psychoactive substance-induced mood disorder; F41.9 Anxiety disorder, unspecified; F32.9 Major depressive disorder, single episode, unspecified; I10 Essential (primary) hypertension; Z21 Asymptomatic human immunodeficiency virus [HIV] infection status; G62.9 Polyneuropathy, unspecified; E78.5 Hyperlipidemia, unspecified; G47.00 Insomnia, unspecified; R00.0 Tachycardia, unspecified; Z91.19 Patient's noncompliance with other medical treatment and regimen; Z86.19 Personal history of other infectious and parasitic diseases; Z56.0 Unemployment, unspecified
CPT/HCPCS: 36415; 80053; 84132; 85027; 86593; 86780; 93005; 93010; C9803; U0003; U0005

== ENCOUNTER 2022-04-04 13:19 | Inpatient (IN) | payer SELFPAY ==
[2022-04-04 16:00] VITALS: BMI 24.3
[2022-04-04] MEDS ORDERED: guaiFENesin 200 MG/10 ML 10 ML UNIT-DOSE CUPS PO PRN (16:15)
[2022-04-04] MEDS ORDERED: P-EPHED 60MG/TRIPROLIDI 2.5MG TABLET PO PRN (16:15)
[2022-04-04] MEDS ORDERED: ACETAMINOPHEN 325 MG TABLET (FP) PO PRN ×2 (16:15)
[2022-04-04] MEDS ORDERED: IBUPROFEN 600 MG TABLET (FP) PO PRN (16:15)
[2022-04-04] MEDS ORDERED: NICOTINE POLACRILEX 2 MG GUM BUC PRN (16:15)
[2022-04-04] MEDS ORDERED: LOPERAMIDE HCL 2 MG CAPSULE PO PRN (16:15)
[2022-04-04] MEDS ORDERED: BENZOCAINE/MENTHOL (CHLORASEPTIC ) LOZENGE MM PRN (16:15)
[2022-04-04] MEDS ORDERED: IBUPROFEN 400 MG TABLET (FP) PO PRN (16:15)
[2022-04-04] MEDS ORDERED: BISMUTH SUBSALICYLATE 524 MG/30 ML PO PRN (16:15)
[2022-04-04] MEDS ORDERED: MAGNESIUM HYDROX 2400MG/30ML ORAL SUSPENSION 30 ML CUP PO PRN (16:15)
[2022-04-04] MEDS ORDERED: DICYCLOMINE HCL 10 MG CAPSULE PO PRN (16:15)
[2022-04-04] MEDS ORDERED: ONDANSETRON *ODT* 4 MG TABLET SL PRN (16:15)
[2022-04-04] MEDS ORDERED: MAGNESIUM CITRATE 300 ML BOTTLE PO PRN (16:15)
[2022-04-04] MEDS ORDERED: chlordiazePOXIDE HCL 25 MG CAPSULE PO PRN (16:18)
[2022-04-04] MEDS: hydrOXYzine PAMOATE 25 MG CAPSULE (FP) PO PRN (22:24)
[2022-04-04] MEDS: THIAMINE HCL 100 MG TABLET (FP) PO SCH (22:24)
[2022-04-04] MEDS: MELATONIN 5 MG TABLETS PO PRN (22:24)
[2022-04-04] MEDS: METHOCARBAMOL 500 MG TABLET PO PRN (22:24)
[2022-04-04] MEDS: chlordiazePOXIDE HCL 25 MG CAPSULE PO SCH (22:25)
[2022-04-05] MEDS: MAG HYDROX/AL HYDROX/SIMETH 30 ML UNIT-DOSE CUP PO PRN ×2 (01:07→17:51)
[2022-04-05] MEDS: chlordiazePOXIDE HCL 25 MG CAPSULE PO SCH ×4 (05:12→22:13)
[2022-04-05 10:00] LABS: HEMATOCRIT 31.3 % (35.4-49); HEMOGLOBIN 10.8 GM/dL (11.7-16.9); MCH 30.5 pg (25.7-33.7); MCHC 34.5 g/dl (32.0-35.9); MEAN CELL VOLUME 88.3 fl (80-96); MEAN PLT VOLUME 6.7 fl (7.5-11.1); PLATELET COUNT 364 10^3/uL (134-434); RBC 3.54 M/mm3 (4.00-5.60); RDW 14.4 % (11.9-15.9); WHITE BLOOD COUNT 5.5 K/mm3 (4.0-10.0)
[2022-04-05 10:11] LABS: CALCIUM 8.1 mg/dL (8.5-10.1)
[2022-04-05 10:15] LABS: BILIRUBIN,TOTAL 0.6 mg/dL (0.2-1); TOT PROT 6.2 g/dl (6.4-8.2)
[2022-04-05 10:17] LABS: BLOOD UREA NITROGEN 10.6 mg/dL (7-18)
[2022-04-05] MEDS: amLODIPine BESYLATE 10 MG TABLET (FP) PO SCH (10:34)
[2022-04-05] MEDS: NICOTINE 7 MG/24 HOURS TOPICAL PATCH TD SCH (10:34)
[2022-04-05] MEDS: PRENATAL VITAMINS W/ FOLIC ACID TABLET (FP) PO SCH (10:34)
[2022-04-05] MEDS: DARUNAVIR 800 MG/COBICISTAT 150MG TABLET PO SCH (12:13)
[2022-04-05] MEDS: DOLUTEGRAVIR SODIUM 50 MG TABLET (NON-FORMULARY) PO SCH (12:14)
[2022-04-05] MEDS: hydrOXYzine PAMOATE 25 MG CAPSULE (FP) PO PRN ×2 (17:49→22:12)
[2022-04-05] MEDS: THIAMINE HCL 100 MG TABLET (FP) PO SCH (22:12)
[2022-04-06] MEDS: chlordiazePOXIDE HCL 10 MG CAPSULE PO SCH ×4 (05:04→23:12)
[2022-04-06] MEDS: NICOTINE 7 MG/24 HOURS TOPICAL PATCH TD SCH (10:25)
[2022-04-06] MEDS: amLODIPine BESYLATE 10 MG TABLET (FP) PO SCH (10:25)
[2022-04-06] MEDS: PRENATAL VITAMINS W/ FOLIC ACID TABLET (FP) PO SCH (10:25)
[2022-04-06] MEDS: DARUNAVIR 800 MG/COBICISTAT 150MG TABLET PO SCH (10:26)
[2022-04-06] MEDS: DOLUTEGRAVIR SODIUM 50 MG TABLET (NON-FORMULARY) PO SCH (10:26)
[2022-04-06] MEDS: METHOCARBAMOL 500 MG TABLET PO PRN ×2 (17:44→23:14)
[2022-04-06] MEDS: hydrOXYzine PAMOATE 25 MG CAPSULE (FP) PO PRN ×2 (17:44→23:12)
[2022-04-06] MEDS: MELATONIN 5 MG TABLETS PO PRN (23:12)
[2022-04-06] MEDS: THIAMINE HCL 100 MG TABLET (FP) PO SCH (23:12)
[2022-04-07] MEDS ORDERED: chlordiazePOXIDE HCL 10 MG CAPSULE PO PRN
[2022-04-07] MEDS: chlordiazePOXIDE HCL 10 MG CAPSULE PO SCH ×2 (05:53→17:06)
[2022-04-07] MEDS: amLODIPine BESYLATE 10 MG TABLET (FP) PO SCH (09:51)
[2022-04-07] MEDS: PRENATAL VITAMINS W/ FOLIC ACID TABLET (FP) PO SCH (09:51)
[2022-04-07] MEDS: NICOTINE 7 MG/24 HOURS TOPICAL PATCH TD SCH (09:51)
[2022-04-07] MEDS: DOLUTEGRAVIR SODIUM 50 MG TABLET (NON-FORMULARY) PO SCH (09:52)
[2022-04-07] MEDS: DARUNAVIR 800 MG/COBICISTAT 150MG TABLET PO SCH (09:52)
[2022-04-07] MEDS: hydrOXYzine PAMOATE 25 MG CAPSULE (FP) PO PRN ×2 (17:06→22:43)
[2022-04-07] MEDS: METHOCARBAMOL 500 MG TABLET PO PRN (17:07)
[2022-04-07] MEDS: MELATONIN 5 MG TABLETS PO PRN (22:42)
[2022-04-07] MEDS: THIAMINE HCL 100 MG TABLET (FP) PO SCH (22:43)
[2022-04-08] MEDS ORDERED: chlordiazePOXIDE HCL 10 MG CAPSULE PO ONE (05:00)
[2022-04-08 06:29] VITALS: BP 115/73; PULSE 89; RESP 17; TEMP 98.4
[2022-04-08] MEDS: DOLUTEGRAVIR SODIUM 50 MG TABLET (NON-FORMULARY) PO SCH (10:15)
[2022-04-08] MEDS: PRENATAL VITAMINS W/ FOLIC ACID TABLET (FP) PO SCH (10:15)
[2022-04-08] MEDS: DARUNAVIR 800 MG/COBICISTAT 150MG TABLET PO SCH (10:15)
[2022-04-08] MEDS: NICOTINE 7 MG/24 HOURS TOPICAL PATCH TD SCH (10:15)
[2022-04-08] MEDS: amLODIPine BESYLATE 10 MG TABLET (FP) PO SCH (10:15)
== END 2022-04-08 09:50 | disposition home or self-care (01) | DRG 774 ==
LOC: YASAS 13:19 → Y6N 20:01
PROVIDERS: ADMIT Allergy & Immunology; ATTEND Surgery
PROC: HZ2ZZZZ Detoxification Services for Substance Abuse Treatment (ICD-10-PCS; principal; 2022-04-04)
DX: F10.230 Alcohol dependence with withdrawal, uncomplicated (principal); F14.20 Cocaine dependence, uncomplicated; F12.20 Cannabis dependence, uncomplicated; F17.210 Nicotine dependence, cigarettes, uncomplicated; Z21 Asymptomatic human immunodeficiency virus [HIV] infection status; I10 Essential (primary) hypertension; Z86.19 Personal history of other infectious and parasitic diseases
CPT/HCPCS: 36415; 80053; 82962; 85027; 87811; C9803-CS; U0003; U0005